=== PATIENT | female | born 1970 | race Caucasian/White ===

== ENCOUNTER → 2017-09-25 21:42 | Outpatient (CLI) | payer MEDICAID, SELFPAY ==
[2016-10-28 14:33] VITALS: BMI 35.2
== END ==
PROVIDERS: Family Provider Family Medicine; PCP Nurse Practitioner Adult Health; Visit Provider Nurse Practitioner Family
DX: G47.10 Hypersomnia, unspecified (principal); R06.83 Snoring; R53.83 Other fatigue
CPT/HCPCS: 95810

== ENCOUNTER 2017-09-27 10:03 | Day surgery (SDC) | payer MEDICAID, SELFPAY ==
[2016-10-28 14:33] VITALS: BMI 35.2
--- NOTE | 2017-09-15 10:41 | RAD_ITS ---
STUDY: X-RAY CHEST REASON FOR EXAM: Female, 47 years old. Pre heart catheter. Cough. TECHNIQUE: PA and lateral views of the chest. COMPARISON: 05/30/2017. FINDINGS: There again is mild elevation of the right hemidiaphragm. There is minimal stranding in the right mid lower lung zone. There is no demonstrated pleural abnormality. Normal size heart. Normal mediastinum and behzad. Normal visualized pulmonary arteries. Normal visualized aortic arch and descending thoracic aorta. There is mild dextroscoliosis. Normal visualized ribs, clavicles, and shoulders. There is no demonstrated abnormality of the visualized soft tissue structures of the upper abdomen. RAD/Chest PA and Lateral IMPRESSION: Minimal atelectatic changes in the right lung zone. Electronically Signed: Jarad Meredith MD at 10:04 EST Tel , Service support ,
[2017-09-15 11:26] LABS: Absolute Lymphocyte Count 1.78 X10^3/ul (0.83-4.51); Absolute Neutrophil Count 3.2 X10^3/uL (2.0-7.7); Basophil# 0.04 X10^3/uL; Basophil% 0.7 % (0-1); Eosinophil# 0.16 X10^3/uL; Eosinophils% 2.8 % (0-5); Hemoglobin 14.8 g/dl (12.0-15.0); Lymphocyte # 1.78 X10^3/ul (4.0); Lymphocyte % 31.7 % (19-41); Mean Corp Hgb Conc 33.6 g/gl (32-36); Mean Corpuscular Hgb 29.5 pg (27.0-32.0); Mean Corpuscular Volume 87.8 fL (81-99); Mean Platelet Vol. 9.5 fl (6.2-12.0); Monocyte# 0.49 X10^3/uL; Monocyte% 8.7 % (0-10); Neutrophil # 3.15 X10^3/uL (2.7-7.7); Neutrophil % 56.1 % (47-70); Platelet Count 189 K/mm3 (150-450); RBC Distribution Width CV 12.5 % (11.6-14.6); RBC Distribution Width SD 39.8 fl (35.1-43.9); Red Blood Count 5.01 M/mm3 (4.2-5.4); White Blood Count 5.6 K/mm3 (4.4-11.0)
[2017-09-15 11:43] LABS: Prothrombin Time (Protime)PT. 12.5 SECONDS (11.7-14.9)
[2017-09-15 11:44] LABS: POSITIVE COUNT NO; POSITIVE DIFFERENTIAL NO; POSITIVE MORPHOLOGY NO; Partial Thromboplast Time 27.3 Seconds (24.1-36.2)
[2017-09-15 11:49] LABS: Anion Gap 6 (5-15); BUN 7 mg/dL (7-18); BUN/Creat Ratio 8.8 RATIO (10-20); Calcium,Total 9.2 mg/dL (8.5-10.1); Chloride 101 mmol/L (98-107); EST Glomerular Filtration Rate 83 mL/min (>60); Est Glom Filt Rate - Afr Amer 100 mL/min (>60); Glucose 363 mg/dL (74-106); Potassium 4.2 mmol/L (3.5-5.1); Sodium Level 134 mmol/L (136-145)
[2017-09-27] VITALS (15 sets, daily range): BP systolic 111–130; BP diastolic 58–73; PULSE 54–64; RESP 11–18; TEMP 36.3–36.6; O2SAT 92–98; BMI 35.2
[2017-09-27 12:16] LABS: ACT Activated Clotting Time 213 sec (74-137)
[2017-09-27] MEDS: 0.9% Normal Saline 1,000 ML 150 ML IV (12:30)
--- NOTE | 2017-09-27 12:39 | EKG12_ITS ---
Test Reason : PCI Blood Pressure : / mmHG Vent. Rate : 053 BPM Atrial Rate : 053 BPM P-R Int : 170 ms QRS Dur : 078 ms QT Int : 436 ms P-R-T Axes : 037 068 045 degrees QTc Int : 409 ms Sinus bradycardia Otherwise normal ECG When compared with ECG of 30-MAY-2017 11:06, No significant change was found Confirmed by RAMONE BURRIS, MEAGHAN ([id number]), image editor NICOL RAMIREZ ([id number]) on 10/02/2017 3:29:09 PM Referred By: Rajinder Heaton Confirmed By:MEAGHAN PACK MD
[2017-09-27 13:13] LABS: Hematocrit 37.6 % (37-47); Hemoglobin 12.5 g/dl (12.0-15.0); Mean Corp Hgb Conc 33.2 g/gl (32-36); Mean Corpuscular Hgb 29.3 pg (27.0-32.0); Mean Corpuscular Volume 88.1 fL (81-99); Mean Platelet Vol. 8.8 fl (6.2-12.0); Platelet Count 186 K/mm3 (150-450); RBC Distribution Width CV 12.5 % (11.6-14.6); RBC Distribution Width SD 40.1 fl (35.1-43.9); Red Blood Count 4.27 M/mm3 (4.2-5.4); White Blood Count 6.7 K/mm3 (4.4-11.0)
[2017-09-27 13:22] LABS: Scan Indicated on CBC? Y/N NO
[2017-09-27 13:35] LABS: BUN 8 mg/dL (7-18); Creatinine, Serum 0.69 mg/dL (0.55-1.02); Estimated Creatinine Clearance 88.91 ml/min; Glucose 286 mg/dL (74-106)
[2017-09-27 13:36] LABS: Anion Gap 4 (5-15); BUN/Creat Ratio 11.6 RATIO (10-20); CPK Total, Creatine Kinase 40 U/L (26-192); Calcium,Total 8.9 mg/dL (8.5-10.1); Chloride 103 mmol/L (98-107); EST Glomerular Filtration Rate 98 mL/min (>60); Est Glom Filt Rate - Afr Amer 118 mL/min (>60); Potassium 4.2 mmol/L (3.5-5.1); Sodium Level 137 mmol/L (136-145)
--- NOTE | 2017-09-27 13:40 | CRPHASE1 ---
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 The patient was non-compliant with enrollment then. Phase II Referral:: [facility] Start Phase II:: upon physician's recommendation Risk Factors/Lifestyle Family History: Family History (Last Reviewed 09/07/17 @ 13:36 by Sandra Toth) Other Patient Adopted
--- NOTE | 2017-09-27 13:44 | CRPHASE1_ITS ---
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 The patient was non-compliant with enrollment then. Phase II Referral:: [facility] Start Phase II:: upon physician's recommendation Risk Factors/Lifestyle Family History: Family History (Last Reviewed 09/07/17 @ 13:36 by Sandra Toth) Other Patient Adopted
--- NOTE | 2017-09-27 13:44 | CRPH1.INSTRU ---
General Education CAD and cardiac anatomy and function:: Patient communicates acknowledgment - A Guide to Your Cardiac Rehab was previously given to patient on 10/28/2016. Education about heart disease and risk factors covered.
[2017-09-27 14:08] LABS: M R Staph aureus DNA By PCR Negative (Negative); Probe Check PASS; Specimen Processing Control PASS
--- NOTE | 2017-09-27 14:34 | CL.I_ITS ---
Patient Name: KALEB HOLBROOK Study Date: 09/27/2017 Performing: Rajinder Heaton MD Ht: 64 inches 163 cm : 1970 Wt: 200.9 lbs 91 kg Age: 47 Gender: female BSA: 1.96 PROCEDURE(S) PERFORMED [id number]/COR/LV SF50-YGX W OR WO PTCA, SINGLE CORONARY ARTERY CLINICAL PROFILE AND CO-MORBIDITIES INDICATIONS: Unstable Angina Stress/Imaging Stress Echocardiogram: Yes Result: Positive Intermediate Risk Stress Echocardiogra m: Positive Intermediate Risk Angina Classification Anginal Classification w/in 2 Weeks: CCS III CAD Presentations: Unstable angina. Comorbidities/Risk Factors: Current/Recent Smoker (< 1year) Hypertension Prior PCI CONCLUSIONS Single vessel CAD of the proximal LCX. Widely patend mid LCX and proximal LAD stents. Successful PTCA/PARVEEN of the proximal LCX with a 3.0 x 16 Promus Synergy, post dilated with a 3.0 x 12 NC Balloon; 75%-->0%, no dissection. RECOMMENDATIONS Referred for immediate PCI Highly recommend quitting all tobacco products Follow up with primary gun club manager Risk factor modification ASA Indefinitley Plavix for at least 12 months Routine post interventional care Refer for Outpatient Cardiac Rehab Manual sheath removal per protocol Successful Mynx deployment in right groin. Follow up with Dr. Heaton Medical management of non obstructive RCA disease. DESCRIPTION OF PROCEDURE The patient arrived to the procedure lab. The risks and benefits of the procedure as well as a full d escription of our services here and lack of surgical backup were fully explained to the patient and/o r their significant other prior to the catheterization. The Timeout was completed, verifying the rajendra ect patient and procedure. The patient's procedural site was prepped and draped in the usual fashion. Local anesthetic was given subcutaneously to right groin region with Lidocaine 2%. Using a modified Seldinger technique, arterial access was obtained via the right femoral artery, a 4Fr sheath was inse rted. Left Coronary Artery selective angiography was performed in multiple views using a 4 Fr. JL5 c atheter. Right Coronary Artery selective angiography was then performed in multiple views using a 4 F r. 3DRC catheter. Left Ventriculography was performed in RECINOS projection using a 4 Fr. Pigtail cathete r. LV to AO pullback pressures were then recordedThe images were reviewed and options discussed. A de cision was then made to proceed with an Intervention, IVUS or other adjunct procedure. Arterial sheath was exchanged for a 6 Fr Sheath EBU 3.75 Guide catheter was inserted and engaged into the LCA. [place] Guide wire was advanced to the Circumflex. 2.0 by 12 emerge Balloon catheter was inserted. Balloon catheter was advanced across lesion in the circumflex, proximal. PTCA balloon infla garrett at 10 atms for 14 secs 3.0 by 16 synergy Drug Eluting stent was inserted Drug Eluting stent was a dvanced across the lesion in the circumflex, proximal. 3.0 by 12 NC Balloon catheter was inserted pos t stent. Angiogram performed right femoral artery to evaluate for closure device.. . The arterial sh eath was pulled and a Mynx closure device was deployed for hemostasis. CORONARY ANGIOGRAPHY DOMINANCE: Co- Dominant LEFT HEART ASSESSMENT Left Ventricular Ejection Fraction: by LV Gram 55 % Normal Left Ventricular systolic function Normal LV wall motion LEFT MAIN: Angiographically normal LEFT ANTERIOR DECENDING ARTERY: Previously placed stent is patent DIAGONAL 1: Ostial - 10 % Stenosis CIRCUMFLEX ARTERY: PROX CIRC: 75 % Stenosis MID CIRC: Previously placed stent is patent 1ST LEFT PLV: Angiographically normal RIGHT CORONARY ARTERY: Mild luminal irregularities less than 30% RT PDA: Proximal - Mild luminal irregularities less than 30% INTERVENTION INFORMATION LESION SITE: Circumflex (Proximal) Lesion Complexity: Non-High/Non-C, lesion at bifurcation: No, lesion length: 16 mm, culprit lesion: Y es Pre Stenosis: 75 % Pre intervention BELKYS flow: 3 PROCEDURE: Drug Eluting Stent with pre and post dilatation Post Stenosis: 0 % Post intervention BELKYS flow: 3 Lesion Devices: Centicetronic 6 Fr EBU3.75 100cm Guide Catheter Romano .014 [employer] [place] Straight 190cm Yonatan Sci EMERGE MR 2.00x12 BALLOON Yonatan Sci Synergy MR PARVEEN 3.00x16 Yonatan Sci NC EMERGE MR 3.00x12 BALLOON COMPLICATIONS No Complications PROCEDURE MEDICATIONS Versed 1 mg IV Oxygen: 2 L/min via nasal cannula Heparin 6000 unit(s) IV 09/27/2017 11:42:58 Nitro 200 mcg IC 09/27/2017 11:45:40 Nitro 200 mcg IC 09/27/2017 11:45:40 IV Bolus: .9 NaCl 300 ml total 09/27/2017 12:06:35 IV Fluids: .9 NaCl increased to wide open ml/hr 09/27/2017 11:43:12 SUMMARY OF HEMODYNAMIC DATA Time AIR REST ECG 10:43:26 AO 137/83 (105) SA 11:35:46 LV 145/-11, 13 11:41:33 LV 153/-13, 16 11:41:39 LVp 146/-15, 14 11:41:44 AOp 141/62 (90) 11:41:49 Signed By Rajinder Heaton MD On 09/27/2017 14:33:47 Rajinder Heaton MD
--- NOTE | 2017-09-27 14:58 | NURSING ---
Took patient home med suboxone to pharmacy. 25 1/4 tablets in bottle, pt and witnessed count.
[2017-09-27] MEDS: BUPRENORPHINE HCL/NALOXONE HCL 1 EACH TAB.SUBL SL (15:13)
[2017-09-27] MEDS: Acetaminophen 325 MG Tablet 650 MG PO ×2 (15:49→20:20)
[2017-09-27 18:06] LABS: Bedside Glucose 271 mg/dL (70-110)
[2017-09-27] MEDS: 0.9% NaCl Peripheral Flush Adult/Peds IV (18:08)
[2017-09-27 18:26] LABS: Hematocrit 40.5 % (37-47); Hemoglobin 13.2 g/dl (12.0-15.0); Mean Corp Hgb Conc 32.6 g/gl (32-36); Mean Corpuscular Hgb 29.1 pg (27.0-32.0); Mean Corpuscular Volume 89.4 fL (81-99); Mean Platelet Vol. 9.3 fl (6.2-12.0); Platelet Count 169 K/mm3 (150-450); RBC Distribution Width CV 12.6 % (11.6-14.6); RBC Distribution Width SD 40.3 fl (35.1-43.9); Red Blood Count 4.53 M/mm3 (4.2-5.4); White Blood Count 7.7 K/mm3 (4.4-11.0)
[2017-09-27 18:27] LABS: Scan Indicated on CBC? Y/N NO
[2017-09-27 18:35] LABS: Anion Gap 3 (5-15); BUN 8 mg/dL (7-18); Calcium,Total 9.1 mg/dL (8.5-10.1); Chloride 105 mmol/L (98-107); Creatinine, Serum 0.73 mg/dL (0.55-1.02); EST Glomerular Filtration Rate 92 mL/min (>60); Est Glom Filt Rate - Afr Amer 111 mL/min (>60); Estimated Creatinine Clearance 84.04 ml/min; Glucose 243 mg/dL (74-106); Potassium 4.7 mmol/L (3.5-5.1); Sodium Level 140 mmol/L (136-145)
[2017-09-27 18:38] LABS: CPK Total, Creatine Kinase 90 U/L (26-192)
[2017-09-27] MEDS: Metoprolol Tartrate 25 MG Tablet 12.5 MG PO (21:20)
[2017-09-27] MEDS: Pravastatin 80 MG Tablet PO (21:21)
[2017-09-27] MEDS: Pantoprazole Sodium 40 MG Tablet PO (21:29)
[2017-09-27 21:36] LABS: Bedside Glucose 277 mg/dL (70-110)
[2017-09-28] VITALS (9 sets, daily range): BP systolic 115–165; BP diastolic 61–91; PULSE 54–61; RESP 10–17; TEMP 36.2–36.8; O2SAT 92–96
[2017-09-28 00:27] LABS: Hematocrit 37.1 % (37-47); Hemoglobin 12.5 g/dl (12.0-15.0); Mean Corp Hgb Conc 33.7 g/gl (32-36); Mean Corpuscular Hgb 29.7 pg (27.0-32.0); Mean Corpuscular Volume 88.1 fL (81-99); Mean Platelet Vol. 8.9 fl (6.2-12.0); Platelet Count 191 K/mm3 (150-450); RBC Distribution Width CV 12.2 % (11.6-14.6); RBC Distribution Width SD 38.7 fl (35.1-43.9); Red Blood Count 4.21 M/mm3 (4.2-5.4); White Blood Count 6.8 K/mm3 (4.4-11.0)
[2017-09-28 00:28] LABS: Scan Indicated on CBC? Y/N NO
[2017-09-28 00:32] LABS: BUN 10 mg/dL (7-18); Glucose 241 mg/dL (74-106)
[2017-09-28 00:33] LABS: Anion Gap 6 (5-15); BUN/Creat Ratio 16.6 RATIO (10-20); Calcium,Total 9.1 mg/dL (8.5-10.1); Chloride 105 mmol/L (98-107); EST Glomerular Filtration Rate 114 mL/min (>60); Est Glom Filt Rate - Afr Amer 138 mL/min (>60); Estimated Creatinine Clearance 102.25 ml/min; Potassium 4.2 mmol/L (3.5-5.1); Sodium Level 140 mmol/L (136-145)
[2017-09-28 00:50] LABS: CPK Total, Creatine Kinase 35 U/L (26-192)
[2017-09-28] MEDS: Acetaminophen 325 MG Tablet 650 MG PO (02:22)
--- NOTE | 2017-09-28 05:55 | EKG12_ITS ---
Test Reason : AM EKG Blood Pressure : / mmHG Vent. Rate : 059 BPM Atrial Rate : 059 BPM P-R Int : 154 ms QRS Dur : 084 ms QT Int : 428 ms P-R-T Axes : 033 052 048 degrees QTc Int : 423 ms Sinus bradycardia Otherwise normal ECG When compared with ECG of 27-SEP-2017 12:34, MANUAL COMPARISON REQUIRED, DATA IS UNCONFIRMED Confirmed by RAMONE BURRIS, MEAGHAN ([id number]), newspaper managing editor NICOL RAMIREZ ([id number]) on 10/02/2017 3:28:59 PM Referred By: Rajinder Heaton Confirmed By:MEAGHAN PACK MD
[2017-09-28 06:10] LABS: Hematocrit 37.8 % (37-47); Hemoglobin 12.4 g/dl (12.0-15.0); Mean Corp Hgb Conc 32.8 g/gl (32-36); Mean Corpuscular Volume 88.3 fL (81-99); Mean Platelet Vol. 8.7 fl (6.2-12.0); Platelet Count 156 K/mm3 (150-450); RBC Distribution Width CV 12.4 % (11.6-14.6); RBC Distribution Width SD 39.6 fl (35.1-43.9); Red Blood Count 4.28 M/mm3 (4.2-5.4)
[2017-09-28 06:25] LABS: Scan Indicated on CBC? Y/N NO
[2017-09-28] MEDS: Aspirin E.C. 81 MG Tablet PO (07:35)
[2017-09-28] MEDS: 0.9% NaCl Peripheral Flush Adult/Peds IV (07:37)
--- NOTE | 2017-09-28 08:20 | PCM.DC.CCA ---
Allergies/Adverse Reactions: Allergies narcotic Adverse Reaction (Severe, Uncoded 09/26/17 08:42) Unknown Medications to take at Discharge Aspirin E.C. [Ecotrin] 81 mg PO DAILY@0800 #30 tab 05/27/14 Fluoxetine HCl 40 mg PO DAILY 10/27/16 Lisinopril/Hydrochlorothiazide [Zestoretic 20-12.5 mg Tablet] 1 ea PO DAILY 10/27/16 Metformin HCl [Glucophage] 500 mg PO BIDCM 10/27/16 Metoprolol Tartrate 12.5 mg PO BID 10/27/16 Nitroglycerin [Nitrostat] 0.4 mg SUBLINGUAL Q5M PRN 10/27/16 Omeprazole 40 mg PO DAILY 10/27/16 Pravastatin Sodium 80 mg PO QHS 10/27/16 Buprenorphine HCl/Naloxone HCl [Suboxone 8 mg-2 mg Sl Film] 8 ea SL DAILY 05/30/17 Clopidogrel Bisulfate [Clopidogrel] 75 mg PO DAILY 05/30/17 Isosorbide Mononitrate [Isosorbide Mononitrate ER] 30 mg PO DAILY 05/30/17 Primary Care Physician: Malu Red NP-C [Primary Care Provider] - Cardiac Rehabilitation Info Cardiac Rehabilitation Program Information: Cardiac Rehabilitation is important for patients like you who are recovering from a heart problem. Cardiac rehabilitation programs are recognized as integral to the continued care of the patient with coronary heart disease. The cardiac rehabilitation program is designed to optimize a patient's physical, psychological, and social functioning. Health home health care provider work in cardiac rehabilitation programs and assist you with getting the treatments you need to get stronger and healthier - like exercise, healthy eating habits, and medications. Cardiac rehabilitation has been show to help people with heart problems live longer and have better life enjoyment than people who do not go to cardiac rehabilitation. Please contact the Cardiac Rehabilitation Program at [facility] at in two weeks if you have not heard from them.
--- NOTE | 2017-09-28 08:30 | PCM.DC.CCA ---
Discharge Diet: Low fat/ Low Cholesterol Discharge Activity: Return to Normal Activity May shower in (days): 1 May resume sexual activity in: 1-2 weeks Lifting Restrictions: Do not lift anything greater than 10 pounds for three days Call your doctor if your incision/area has: Continuous Slow Oozing, Sudden Increased Bleeding, Increased Pain/ Swelling, Increased Redness, Foul Smelling Discharge, Swelling at the incision site Call your doctor if you observe: Fever of 101 or Higher, Shortness of breath, Chest pain Remove Dressing in (days):: 1 Cleanse incision/area with: Soap & Water Additional Instructions: You will remain on Plavix for at least one year. You will remain on Aspirin for life. A reminder, do not lift anything greater than 10 pounds for three days. Please contact our office if you have any concerns regarding your groin. You are scheduled to see Dwight Freitas Nurse Practitioner on November 03, 2017 at 1:30 PM for on going evaluation. You may receive a phone regarding rehab or even start by that time. Allergies/Adverse Reactions: Allergies narcotic Adverse Reaction (Severe, Uncoded 09/26/17 08:42) Unknown Medications to take at Discharge Aspirin E.C. [Ecotrin] 81 mg PO DAILY@0800 #30 tab 05/27/14 Fluoxetine HCl 40 mg PO DAILY 10/27/16 Lisinopril/Hydrochlorothiazide [Zestoretic 20-12.5 mg Tablet] 1 ea PO DAILY 10/27/16 Metformin HCl [Glucophage] 500 mg PO BIDCM 10/27/16 Metoprolol Tartrate 12.5 mg PO BID 10/27/16 Nitroglycerin [Nitrostat] 0.4 mg SUBLINGUAL Q5M PRN 10/27/16 Omeprazole 40 mg PO DAILY 10/27/16 Pravastatin Sodium 80 mg PO QHS 10/27/16 Buprenorphine HCl/Naloxone HCl [Suboxone 8 mg-2 mg Sl Film] 8 ea SL DAILY 05/30/17 Clopidogrel Bisulfate [Clopidogrel] 75 mg PO DAILY 05/30/17 Isosorbide Mononitrate [Isosorbide Mononitrate ER] 30 mg PO DAILY 05/30/17 Primary Care Physician: Malu Red NP-C [Primary Care Provider] - Please Follow Up With: [facility] Nurse Practitioner When: November 03, 2017 at 1:30 PM Proposed Discharge Date: 09/28/17 Cardiac Rehabilitation Info Cardiac Rehabilitation Program Information: Cardiac Rehabilitation is important for patients like you who are recovering from a heart problem. Cardiac rehabilitation programs are recognized as integral to the continued care of the patient with coronary heart disease. The cardiac rehabilitation program is designed to optimize a patient's physical, psychological, and social functioning. Health residential care officer work in cardiac rehabilitation programs and assist you with getting the treatments you need to get stronger and healthier - like exercise, healthy eating habits, and medications. Cardiac rehabilitation has been show to help people with heart problems live longer and have better life enjoyment than people who do not go to cardiac rehabilitation. Please contact the Cardiac Rehabilitation Program at [place] at in two weeks if you have not heard from them.
--- NOTE | 2017-09-28 08:34 | DCINST_ITS ---
Discharge Diet: Low fat/ Low Cholesterol Discharge Activity: Return to Normal Activity May shower in (days): 1 May resume sexual activity in: 1-2 weeks Lifting Restrictions: Do not lift anything greater than 10 pounds for three days Call your doctor if your incision/area has: Continuous Slow Oozing, Sudden Increased Bleeding, Increased Pain/ Swelling, Increased Redness, Foul Smelling Discharge, Swelling at the incision site Call your doctor if you observe: Fever of 101 or Higher, Shortness of breath, Chest pain Remove Dressing in (days):: 1 Cleanse incision/area with: Soap & Water Additional Instructions: You will remain on Plavix for at least one year. You will remain on Aspirin for life. A reminder, do not lift anything greater than 10 pounds for three days. Please contact our office if you have any concerns regarding your groin. You are scheduled to see Dwight Freitas Nurse Practitioner on November 03, 2017 at 1:30 PM for on going evaluation. You may receive a phone regarding rehab or even start by that time. Allergies/Adverse Reactions: Allergies narcotic Adverse Reaction (Severe, Uncoded 09/26/17 08:42) Unknown Medications to take at Discharge Aspirin E.C. [Ecotrin] 81 mg PO DAILY@0800 #30 tab 05/27/14 Fluoxetine HCl 40 mg PO DAILY 10/27/16 Lisinopril/Hydrochlorothiazide [Zestoretic 20-12.5 mg Tablet] 1 ea PO DAILY 01/07 Metformin HCl [Glucophage] 500 mg PO BIDCM 10/27/16 Metoprolol Tartrate 12.5 mg PO BID 10/27/16 Nitroglycerin [Nitrostat] 0.4 mg SUBLINGUAL Q5M PRN 10/27/16 Omeprazole 40 mg PO DAILY 10/27/16 Pravastatin Sodium 80 mg PO QHS 10/27/16 Buprenorphine HCl/Naloxone HCl [Suboxone 8 mg-2 mg Sl Film] 8 ea SL DAILY Clopidogrel Bisulfate [Clopidogrel] 75 mg PO DAILY 05/30/17 Isosorbide Mononitrate [Isosorbide Mononitrate ER] 30 mg PO DAILY 05/30/17 Primary Care Physician: Malu Red NP-C [Primary Care Provider] - Please Follow Up With: [facility] Nurse Practitioner When: November 03, 2017 at 1:30 PM Proposed Discharge Date: 09/28/17 Cardiac Rehabilitation Info Cardiac Rehabilitation Program Information: Cardiac Rehabilitation is important for patients like you who are recovering from a heart problem. Cardiac rehabilitation programs are recognized as integral to the continued care of the patient with coronary heart disease. The cardiac rehabilitation program is designed to optimize a patient's physical, psychological, and social functioning. Health critical care transport nurse work in cardiac rehabilitation programs and assist you with getting the treatments you need to get stronger and healthier - like exercise, healthy eating habits, and medications. Cardiac rehabilitation has been show to help people with heart problems live longer and have better life enjoyment than people who do not go to cardiac rehabilitation. Please contact the Cardiac Rehabilitation Program at [facility] at in two weeks if you have not heard from them.
--- NOTE | 2017-09-28 08:41 | DCINST_ITS ---
Allergies/Adverse Reactions: Allergies narcotic Adverse Reaction (Severe, Uncoded 09/26/17 08:42) Unknown Medications to take at Discharge Aspirin E.C. [Ecotrin] 81 mg PO DAILY@0800 #30 tab 05/27/14 Fluoxetine HCl 40 mg PO DAILY 10/27/16 Lisinopril/Hydrochlorothiazide [Zestoretic 20-12.5 mg Tablet] 1 ea PO DAILY 01/07 Metformin HCl [Glucophage] 500 mg PO BIDCM 10/27/16 Metoprolol Tartrate 12.5 mg PO BID 10/27/16 Nitroglycerin [Nitrostat] 0.4 mg SUBLINGUAL Q5M PRN 10/27/16 Omeprazole 40 mg PO DAILY 10/27/16 Pravastatin Sodium 80 mg PO QHS 10/27/16 Buprenorphine HCl/Naloxone HCl [Suboxone 8 mg-2 mg Sl Film] 8 ea SL DAILY Clopidogrel Bisulfate [Clopidogrel] 75 mg PO DAILY 05/30/17 Isosorbide Mononitrate [Isosorbide Mononitrate ER] 30 mg PO DAILY 05/30/17 Primary Care Physician: Malu Red NP-C [Primary Care Provider] - Cardiac Rehabilitation Info Cardiac Rehabilitation Program Information: Cardiac Rehabilitation is important for patients like you who are recovering from a heart problem. Cardiac rehabilitation programs are recognized as integral to the continued care of the patient with coronary heart disease. The cardiac rehabilitation program is designed to optimize a patient's physical, psychological, and social functioning. Health resident care aid work in cardiac rehabilitation programs and assist you with getting the treatments you need to get stronger and healthier - like exercise, healthy eating habits, and medications. Cardiac rehabilitation has been show to help people with heart problems live longer and have better life enjoyment than people who do not go to cardiac rehabilitation. Please contact the Cardiac Rehabilitation Program at [facility] at in two weeks if you have not heard from them.
--- NOTE | 2017-09-28 09:03 | PCM.PN.CARD ---
Subjectve: Patient doing very well this morning, feels much better after angioplasty. Right groin is clean/dry/intact. No thrills, hematoma or bruits. CKs negative. Hemoglobin and creatinine within nominal limits. EKG shows normal sinus rhythm, no acute changes. Telemetry negative. Objective: Vital Signs Temp Pulse Resp BP Pulse Ox 97.2 F L 55 L 10 L 165/91 H 96 09/28/17 07:00 09/28/17 07:00 09/28/17 07:00 09/28/17 07:00 09/28/17 07:35 Oxygen Delivery Method Room Air Weight: 199 lb 15.348 oz Body Mass Index (BMI) 35.2 Intake and Output for Last 24 Hours 09/26/17 09/27/17 09/28/17 23:59 23:59 23:59 Intake Total 1195 / 1195 785 / 785 Output Total 300 / 300 Balance 1195 / 1195 485 / 485 General: Awake, Alert, Oriented x 3 HEENT: PERRL, EOMI, Sclera Non Icteric Neck: Supple, Good ROM, No Lymph Node Enlargement Lungs: Clear to auscultation Cardiovascular: Regular Rhythm, Normal S1, Normal S2, No Murmurs, No Rubs, No Gallops Vascular: No Carotid Bruits, Normal Femoral Pulses, Normal Radial Pulses, Normal Dorsalis Pedal Pulse, Normal Posterior Tibial Pulses Abdomen: Bowel Sounds Present, Soft, Non Tender, No HSM, No Organomegaly Extremities: No Cyanosis, No Clubbing, No edema Neurological: No Focal Motor or Sensory Deficit 09/27/17 13:00: Sodium 137, Potassium 4.2, Chloride 103, Carbon Dioxide 30.0, Anion Gap 4 L, BUN 8, Creatinine 0.69, Est GFR (MDRD) Af Amer 118, Est GFR (MDRD) Non-Af 98, BUN/Creatinine Ratio 11.6, Glucose 286 H, Calcium 8.9 09/27/17 13:00: WBC 6.7, RBC 4.27, Hgb 12.5, Hct 37.6, MCV 88.1, MCH 29.3, MCHC 33.2, RDW 12.5, RDW Differential 40.1, Plt Count 186, MPV 8.8 09/27/17 17:55: Sodium 140, Potassium 4.7, Chloride 105, Carbon Dioxide 32.0, Anion Gap 3 L, BUN 8, Creatinine 0.73, Est GFR (MDRD) Af Amer 111, Est GFR (MDRD) Non-Af 92, BUN/Creatinine Ratio 11.0, Glucose 243 H, Calcium 9.1 09/27/17 17:55: WBC 7.7, RBC 4.53, Hgb 13.2, Hct 40.5, MCV 89.4, MCH 29.1, MCHC 32.6, RDW 12.6, RDW Differential 40.3, Plt Count 169, MPV 9.3 09/28/17 00:00: Sodium 140, Potassium 4.2, Chloride 105, Carbon Dioxide 29.0, Anion Gap 6, BUN 10, Creatinine 0.60, Est GFR (MDRD) Af Amer 138, Est GFR (MDRD) Non-Af 114, BUN/Creatinine Ratio 16.6, Glucose 241 H, Calcium 9.1 09/28/17 00:00: WBC 6.8, RBC 4.21, Hgb 12.5, Hct 37.1, MCV 88.1, MCH 29.7, MCHC 33.7, RDW 12.2, RDW Differential 38.7, Plt Count 191, MPV 8.9 09/28/17 05:55: WBC 6.0, RBC 4.28, Hgb 12.4, Hct 37.8, MCV 88.3, MCH 29.0, MCHC 32.8, RDW 12.4, RDW Differential 39.6, Plt Count 156, MPV 8.7 Rhythm: EKG: ECHO: Stress Test: Cardiac Cath: PCI: CT Surgery: Holter monitor: EPS: PPM: CXR: Chest CT Scan: Assessment/Plan 1. Coronary artery disease: The patient is status post angioplasty and drug-eluting stent to the proximal left circumflex, LAD stents are widely patent. Previously balloon small obtuse marginal has occluded since her last catheterization in May 2017. This point I recommend continuing the patient on baby aspirin for life and Plavix for at least one years time if not longer given her predilection for progression of coronary disease particularly if she continues to smoke. Patient will be enrolled in cardiac rehab will take place in 2 weeks time. She will follow-up with us in the office per protocol. In the meantime she will continue her metoprolol, lisinopril, and Imdur. We will titrate up her lisinopril to maximum dosage of her blood pressures not well controlled either prior to or during cardiac rehab. 2. Hyperlipidemia: Continue Pravachol therapy. 3. Patient may be discharged home. She will follow-up with me going forward. Code Visit Inpatient E&M: 08812 Subs Hosp L2
--- NOTE | 2017-09-28 09:06 | PN.CARD_ITS ---
Subjectve: Patient doing very well this morning, feels much better after angioplasty. Right groin is clean/dry/intact. No thrills, hematoma or bruits. CKs negative. Hemoglobin and creatinine within nominal limits. EKG shows normal sinus rhythm, no acute changes. Telemetry negative. Objective: Vital Signs Temp Pulse Resp BP Pulse Ox 97.2 F L 55 L 10 L 165/91 H 96 09/28/17 07:00 09/28/17 07:00 09/28/17 07:00 09/28/17 07:00 09/28/17 07:35 Oxygen Delivery Method Room Air Weight: 199 lb 15.348 oz Body Mass Index (BMI) 35.2 Intake and Output for Last 24 Hours 09/26/17 09/27/17 09/28/17 23:59 23:59 23:59 Intake Total 1195 / 1195 785 / 785 Output Total 300 / 300 Balance 1195 / 1195 485 / 485 General: Awake, Alert, Oriented x 3 HEENT: PERRL, EOMI, Sclera Non Icteric Neck: Supple, Good ROM, No Lymph Node Enlargement Lungs: Clear to auscultation Cardiovascular: Regular Rhythm, Normal S1, Normal S2, No Murmurs, No Rubs, No Gallops Vascular: No Carotid Bruits, Normal Femoral Pulses, Normal Radial Pulses, Normal Dorsalis Pedal Pulse, Normal Posterior Tibial Pulses Abdomen: Bowel Sounds Present, Soft, Non Tender, No HSM, No Organomegaly Extremities: No Cyanosis, No Clubbing, No edema Neurological: No Focal Motor or Sensory Deficit 09/27/17 13:00: Sodium 137, Potassium 4.2, Chloride 103, Carbon Dioxide 30.0, Anion Gap 4 L, BUN 8, Creatinine 0.69, Est GFR (MDRD) Af Amer 118, Est GFR (MDRD ) Non-Af 98, BUN/Creatinine Ratio 11.6, Glucose 286 H, Calcium 8.9 09/27/17 13:00: WBC 6.7, RBC 4.27, Hgb 12.5, Hct 37.6, MCV 88.1, MCH 29.3, MCHC 33.2, RDW 12.5, RDW Differential 40.1, Plt Count 186, MPV 8.8 09/27/17 17:55: Sodium 140, Potassium 4.7, Chloride 105, Carbon Dioxide 32.0, Anion Gap 3 L, BUN 8, Creatinine 0.73, Est GFR (MDRD) Af Amer 111, Est GFR (MDRD ) Non-Af 92, BUN/Creatinine Ratio 11.0, Glucose 243 H, Calcium 9.1 09/27/17 17:55: WBC 7.7, RBC 4.53, Hgb 13.2, Hct 40.5, MCV 89.4, MCH 29.1, MCHC 32.6, RDW 12.6, RDW Differential 40.3, Plt Count 169, MPV 9.3 09/28/17 00:00: Sodium 140, Potassium 4.2, Chloride 105, Carbon Dioxide 29.0, Anion Gap 6, BUN 10, Creatinine 0.60, Est GFR (MDRD) Af Amer 138, Est GFR (MDRD ) Non-Af 114, BUN/Creatinine Ratio 16.6, Glucose 241 H, Calcium 9.1 09/28/17 00:00: WBC 6.8, RBC 4.21, Hgb 12.5, Hct 37.1, MCV 88.1, MCH 29.7, MCHC 33.7, RDW 12.2, RDW Differential 38.7, Plt Count 191, MPV 8.9 09/28/17 05:55: WBC 6.0, RBC 4.28, Hgb 12.4, Hct 37.8, MCV 88.3, MCH 29.0, MCHC 32.8, RDW 12.4, RDW Differential 39.6, Plt Count 156, MPV 8.7 Rhythm: EKG: ECHO: Stress Test: Cardiac Cath: PCI: CT Surgery: Holter monitor: EPS: PPM: CXR: Chest CT Scan: Assessment/Plan 1. Coronary artery disease: The patient is status post angioplasty and drug- eluting stent to the proximal left circumflex, LAD stents are widely patent. Previously balloon small obtuse marginal has occluded since her last catheterization in May 2017. This point I recommend continuing the patient on baby aspirin for life and Plavix for at least one years time if not longer given her predilection for progression of coronary disease particularly if she continues to smoke. Patient will be enrolled in cardiac rehab will take place in 2 weeks time. She will follow-up with us in the office per protocol. In the meantime she will continue her metoprolol, lisinopril, and Imdur. We will titrate up her lisinopril to maximum dosage of her blood pressures not well controlled either prior to or during cardiac rehab. 2. Hyperlipidemia: Continue Pravachol therapy. 3. Patient may be discharged home. She will follow-up with me going forward. Code Visit Inpatient E&M: 57770 Subs Hosp L2
[2017-09-28 09:36] LABS: Bedside Glucose 214 mg/dL (70-110)
--- NOTE | 2017-09-28 09:36 | NURSING ---
stent card given to pt at discharge
== END 2017-09-28 09:47 | disposition home or self-care (01) ==
LOC: CLSP 10:04 → ICU 12:00
PROVIDERS: Family Provider Family Medicine; PCP Nurse Practitioner Adult Health; Visit Provider Internal Medicine Cardiovascular Disease
DX: I25.10 Atherosclerotic heart disease of native coronary artery without angina pectoris (principal); E11.9 Type 2 diabetes mellitus without complications; I25.2 Old myocardial infarction; E78.2 Mixed hyperlipidemia; I10 Essential (primary) hypertension; G47.10 Hypersomnia, unspecified; F32.9 Major depressive disorder, single episode, unspecified; K21.9 Gastro-esophageal reflux disease without esophagitis; F19.21 Other psychoactive substance dependence, in remission; M79.604 Pain in right leg; M79.605 Pain in left leg; R06.83 Snoring; E66.9 Obesity, unspecified; Z68.35 Body mass index [BMI] 35.0-35.9, adult; F17.210 Nicotine dependence, cigarettes, uncomplicated; Z95.5 Presence of coronary angioplasty implant and graft; Z90.49 Acquired absence of other specified parts of digestive tract; Z90.710 Acquired absence of both cervix and uterus; Z79.82 Long term (current) use of aspirin; Z79.84 Long term (current) use of oral hypoglycemic drugs; Z79.899 Other long term (current) drug therapy
CPT/HCPCS: 36415; 80048; 82550; 82962; 85025; 85027; 85347; 85610; 85730; 87641; 92928; 93005; 93458; 99152; 99153; C1760; J7030; J7040; A4216; C1725; C1769; C1874; C1887; C1894; C9600; Q9967

== ENCOUNTER → 2017-10-18 20:12 | Outpatient (CLI) | payer MEDICAID, SELFPAY ==
[2016-10-28 14:33] VITALS: BMI 35.2
== END ==
PROVIDERS: Family Provider Family Medicine; PCP Physician Assistant; Visit Provider Internal Medicine Cardiovascular Disease
DX: G47.33 Obstructive sleep apnea (adult) (pediatric) (principal)
CPT/HCPCS: 95811

== ENCOUNTER 2018-03-08 14:01 | Observation (INO) | payer MEDICAID, SELFPAY ==
[2016-10-28 14:33] VITALS: BMI 35.2
[2018-03-08 14:05] VITALS: BP 159/102; PULSE 98; RESP 20; TEMP 36.6; O2SAT 96; BMI 34.3
[2018-03-08 14:08] VITALS: BP 131/77; PULSE 96; RESP 15; O2SAT 97
[2018-03-08 14:13] VITALS: O2SAT 98
--- NOTE | 2018-03-08 14:22 | NURSING ---
UNABLE TO PULL OLD EKGS, MUSE IS DOWN
[2018-03-08 14:25] LABS: Absolute Lymphocyte Count 3.61 X10^3/ul (0.83-4.51); Absolute Neutrophil Count 3.6 X10^3/uL (2.0-7.7); Basophil# 0.02 X10^3/uL; Basophil% 0.3 % (0-1); Eosinophil# 0.19 X10^3/uL; Eosinophils% 2.4 % (0-5); Hematocrit 41.4 % (37-47); Hemoglobin 14.6 g/dl (12.0-15.0); Lymphocyte # 3.61 X10^3/ul (4.0); Lymphocyte % 45.9 % (19-41); Mean Corp Hgb Conc 35.3 g/gl (32-36); Mean Corpuscular Hgb 29.9 pg (27.0-32.0); Mean Corpuscular Volume 84.7 fL (81-99); Mean Platelet Vol. 9.1 fl (6.2-12.0); Monocyte# 0.44 X10^3/uL; Monocyte% 5.6 % (0-10); Neutrophil # 3.59 X10^3/uL (2.7-7.7); Neutrophil % 45.7 % (47-70); Platelet Count 220 K/mm3 (150-450); RBC Distribution Width CV 12.7 % (11.6-14.6); RBC Distribution Width SD 38.8 fl (35.1-43.9); Red Blood Count 4.89 M/mm3 (4.2-5.4); White Blood Count 7.9 K/mm3 (4.4-11.0)
[2018-03-08 14:26] LABS: POSITIVE COUNT NO; POSITIVE DIFFERENTIAL NO; POSITIVE MORPHOLOGY NO
--- NOTE | 2018-03-08 14:28 | ED.VISSUMM ---
- ER Visit Summary Date of Service: 03/08/18 Chief Complaint: [] Chest pressure into the left shoulder for 3 days History of Present Illness: The patient is a 47 F [] for cardiac stent she is followed by Dr. Heaton she has diabetes she states for the last 3 days she has had chest pressure and her left shoulder at times indicates the pain is a sharp zapping pain, she has had no fever no cough no abdominal pain no paresthesias, she continues to smoke much she has been taking all of her medications Physical Examination: [] She is resting comfortably in the bed her vital signs are unremarkable head neck chest unremarkable lungs clear abdomen soft nontender her's pulses symmetric bilaterally planes of vague pain to the left calf the calf and the leg exam are unremarkable no signs of DVT normal pulses normal movement, She has no history of DVT no symptoms in the right leg neurologically she is awake alert moving all 4 Test Results: [] Emergency Department Course and Treatment: [] And her complaints and her prior history EKG labs chest x-ray, EKG shows a sinus rhythm nothing acute The patient's labs troponin chest x-ray per radiology are all generally unremarkable see those reports she remains asymptomatic, given her history we spoke the hospitalist will arrange for admission for further management Treatment Plan: [] Disposition: [] Stable stable admit Impression: [] Chest pain angina history of cardiac stents This note was generated with [employer] dictation software. It may contain incorrect words, spelling, and punctuation that were not noted in review of the chart prior to signing ED Disposition - Plan for ED Patient: Chief Complaint: Chest Pain
[2018-03-08] MEDS: Aspirin 81 MG TAB.CHEW 324 MG PO (14:34)
[2018-03-08] MEDS: 0.9% Normal Saline 1,000 ML 150 ML IV (14:34)
[2018-03-08 14:55] LABS: Anion Gap 11 (5-15); BUN 8 mg/dL (7-18); BUN/Creat Ratio 7.2 RATIO (10-20); Calcium,Total 10.7 mg/dL (8.5-10.1); Chloride 97 mmol/L (98-107); Creatinine, Serum 1.11 mg/dL (0.55-1.02); EST Glomerular Filtration Rate 56 mL/min (>60); Est Glom Filt Rate - Afr Amer 68 mL/min (>60); Estimated Creatinine Clearance 55.27 ml/min; Glucose 395 mg/dL (74-106); Potassium 4.2 mmol/L (3.5-5.1); Sodium Level 137 mmol/L (136-145)
--- NOTE | 2018-03-08 15:25 | NURSING ---
DR CORONADO FOR DR ROSS
--- NOTE | 2018-03-08 15:30 | NURSING ---
PCU OBS MARINA CORONADO
[2018-03-08 15:34] VITALS: PULSE 81; RESP 14; O2SAT 96
--- NOTE | 2018-03-08 15:51 | NURSING ---
Robert notified patient may transfer to PCU.
--- NOTE | 2018-03-08 15:59 | PCM.HP.STD ---
<Alka Colon - Last Filed: 03/08/18 16:42> Problem List (1) Encounter for long-term current use of high risk medication Status: Chronic (2) Tobacco abuse Status: Chronic (3) UNDERWOOD (dyspnea on exertion) Status: Chronic (4) JOSH (obstructive sleep apnea) Status: Chronic (5) Atherosclerotic heart disease [place] coronary artery w/angina pectoris Status: Chronic (6) Obesity (BMI 30.0-34.9) Status: Chronic (7) History of coronary artery stent placement Status: Resolved Comment: PARVEEN-MID Cx 10/17/16 [facility] PCI-PARVEEN-LAD w/ POBA Ostial OM1 10/28/16 09/27/17 (8) Type 2 diabetes mellitus without complications Status: Chronic (9) Old myocardial infarction Status: Chronic (10) Atherosclerosis of coronary artery of [place] heart without angina pectoris Status: Chronic Comment: PARVEEN-MID Cx 10/17/16 [facility] PCI-PARVEEN-LAD w/ POBA Ostial OM1 10/28/16 (11) Hyperlipidemia Status: Chronic (12) Obesity (BMI 30.0-34.9) Status: Chronic (13) Hypertension Status: Chronic History of Present Illness Date of Admission: 03/08/18 Chief Complaint: Left leg cramping, chest pain. The patient is a 47 year old F who presents to the ER with 3 days of intermittent chest pain and 2 days of left calf cramping. She states her left leg pain was the primary reason for presenting to the emergency room. She denies redness, warmth or injury to the left lower extremity. She states it feels like an intermittent charley horse in the left calf area. She occasionally has shooting pain to her left foot. Patient also states she has had intermittent chest discomfort which lasts only a few seconds and is sharp in nature and radiates to her left shoulder. She describes the pain as an electrical sensation. She denies symptoms associated with the chest pain. She does state she has had increased dyspnea on exertion. She also notes she has been smoking more than normal lately. Patient states she has not been taking her diabetic medications. She follows Dr. Heaton routinely for history of CAD with PCI. She states she has had 4 stents placed in the past. She also follows with pulmonary medicine, Dr. De La Paz for obstructive sleep apnea. Patient continues to use tobacco and states she smokes approximately 2 packs per day. Her other past medical history includes hypertension, hyperlipidemia, history of polysubstance abuse on chronic Suboxone therapy, depression, obesity, GERD. Past Medical History Past Medical History (Chronic Problems): Chronic Problems (Last Reviewed 03/01/18 @ 08:45 by Magaly Lin ENGINEER CHIEF-C) Encounter for long-term current use of high risk medication (Chronic) Tobacco abuse (Chronic) UNDERWOOD (dyspnea on exertion) (Chronic) JOSH (obstructive sleep apnea) (Chronic) Atherosclerotic heart disease [place] coronary artery w/angina pectoris (Chronic) Obesity (BMI 30.0-34.9) (Chronic) Type 2 diabetes mellitus without complications (Chronic) Old myocardial infarction (Chronic) Atherosclerosis of coronary artery of [place] heart without angina pectoris (Chronic) PARVEEN-MID Cx 10/17/16 [facility] PCI-PARVEEN-LAD w/ POBA Ostial OM1 10/28/16 Hyperlipidemia (Chronic) Obesity (BMI 30.0-34.9) (Chronic) Hypertension (Chronic) Medical History: Medical History (Last Reviewed 03/01/18 @ 08:45 by Magaly Lin, ENGINEER CHIEF-C) Atherosclerotic heart disease [place] coronary artery w/angina pectoris (Chronic) I25.119 Obesity (BMI 30.0-34.9) (Chronic) E66.9 Type 2 diabetes mellitus without complications (Chronic) E11.9 Old myocardial infarction (Chronic) I25.2 Atherosclerosis of coronary artery of [place] heart without angina pectoris (Chronic) I25.10 PARVEEN-MID Cx 10/17/16 [facility] PCI-PARVEEN-LAD w/ POBA Ostial OM1 10/28/16 Hyperlipidemia (Chronic) E78.5 Obesity (BMI 30.0-34.9) (Chronic) E66.9 Hypertension (Chronic) I10 Cervical cancer C53.9 Sleep apnea G47.30 Daytime somnolence R40.0 Depression F32.9 GERD (gastroesophageal reflux disease) K21.9 polysubstance dependence in remission Syncope and collapse R55 Allergies narcotic Adverse Reaction (Severe, Uncoded 10/09/17 09:11) Other - can not take- on Suboxone Home Medications: Ambulatory Orders Medication Instructions Recorded Fluoxetine HCl 40 mg PO QHS 10/27/16 Metoprolol Tartrate 12.5 mg PO BID 10/27/16 Nitroglycerin [Nitrostat] 0.4 mg SUBLINGUAL Q5M PRN 10/27/16 Omeprazole 40 mg PO DAILY 10/27/16 Buprenorphine HCl/Naloxone HCl 0.5 tab SL BID 05/30/17 [Suboxone 8 mg-2 mg Sl Film] metformin 500 mg tablet 1,000 mg PO BIDCM tab 10/09/17 isosorbide mononitrate ER 30 mg 30 mg PO DAILY #90 tab 01/04/18 tablet,extended release 24 hr Aspirin E.C. [Ecotrin] 81 mg PO DAILY@0800 03/08/18 Atorvastatin Calcium [Lipitor] 40 mg PO DAILY 03/08/18 Clopidogrel Bisulfate [Clopidogrel] 75 mg PO DAILY 03/08/18 Liraglutide [Victoza 2-Jacky] 0.6 mg SQ DAILY 03/08/18 Lisinopril/Hydrochlorothiazide 1 each PO DAILY 03/08/18 [Zestoretic 20-12.5 mg Tablet] Surgical History: Surgical History (Last Reviewed 03/08/18 @ 16:17 by MARIELOS Arroyo) History of coronary artery stent placement (Resolved) Onset Date: ~10/28/16 Z95.5 PARVEEN-MID Cx 10/17/16 [facility] PCI-PARVEEN-LAD w/ POBA Ostial OM1 10/28/16 09/27/17 Blood Clot removal 09/2006, right arm Endometriosis surgery 11/2007 & 11/2008 H/O breast augmentation Z98.82 04/1996, reduction H/O section Z98.891 10/09/91 & 05/09/99 H/O exploratory laparotomy Z98.890 H/O tooth extraction K08.409 Top teeth 07/2017; bottom 09/2017 History of hysterectomy Z98.890, Z90.710 05/2003 History of right knee surgery Z98.890 03/2002 & 01/2009 Hx of cholecystectomy Z98.890, Z90.49 12/2001 S/P D&C (status post dilation and curettage) Z98.890 02/1996 (miscarriage) Surgical History: - - R knee arthroscopic surgery x 3, x 3, BL breast reduction, cholecystectomy, D+C, surgical tooth extraction. 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 Smoking Status: Current every day smoker Tobacco Use: Cigarettes - 2 pack per day Alcohol: None Drugs: None - *Family History Maternal Family History: Family History (Last Reviewed 03/08/18 @ 16:18 by MARIELOS Arroyo) Father Diabetes Heart disease [place] disease Alcohol abuse Cancer Mother Depression Addiction Heart disease Myocardial infarction CVA (cerebral vascular accident) Diabetes Parkinson disease Dementia Other Patient Adopted History Items: No pertinent history Paternal Family History: Family History (Last Reviewed 03/08/18 @ 16:18 by MARIELOS Arroyo) Father Diabetes Heart disease [place] disease Alcohol abuse Cancer Mother Depression Addiction Heart disease Myocardial infarction CVA (cerebral vascular accident) Diabetes Parkinson disease Dementia Other Patient Adopted History Items: No pertinent history Review of Systems Constitutional: Denies: Chills, Fever, Weight Change HEENT: Denies: Head Aches, Sinus Congestion, Sinus Drainage Cardiovascular: Reports: Chest Pain. Denies: Edema, Light Headedness, Palpitations, Syncope Respiratory: Reports: Shortness of Breath. Denies: Cough Gastrointestinal: Denies: Abdominal Pain, Diarrhea, Nausea, Vomiting Genitourinary: Denies: Dysuria Musculoskeletal: Denies: Joint Pain, Joint Tenderness Skin: Denies: Rash, Wounds Neurological: Denies: Numbness, Tingling, Focal weakness Psychiatric: Reports: Depression Hematologic/ Lymphatic: Denies: Easy Bruising, Easy Bleeding VTE Information - Inpt Only VTE Present on Admission: No VTE Mechan Device Prophylaxis: None VTE Pharm Prophylaxis ordered?: Yes - Physical Exam General: Alert, Oriented x3, Cooperative, No apparent distress HEENT: Atraumatic, PERRLA, EOMI, Normocephalic Neck: Supple, No JVD, Negative Carotid Bruits Lungs: Clear to auscultation, Diminished Cardiovascular: Regular rate, Regular Rhythm, Normal S1, Normal S2, No murmurs Abdomen: Bowel Sounds Present, Soft, Non Tender, Non-Distended, Obese Extremities: No clubbing, No cyanosis, No edema, Capillary Refill Less than 3 Seconds Skin: No rashes, No breakdown Musculoskeletal: No Tenderness to Palpation of Joints or Extremities Neurological: Cranial nerves II-XII grossly intact, Neuro grossly intact Psych/Mental Status: Normal Affect, Appropriate Vital Signs Temp Pulse Resp BP Pulse Ox 97.9 F 81 14 131/77 H 96 03/08/18 14:05 03/08/18 15:34 03/08/18 15:34 03/08/18 14:08 03/08/18 15:34 Oxygen Delivery Method Room Air Assessment/Plan All Active Problems (Last Reviewed 03/08/18 @ 16:17 by MARIELOS Arroyo) History of coronary artery stent placement (Resolved ~10/28/16) 1. Chest pain-EKG without ST-T changes. Troponin negative ?1. Cycle enzymes. Stress test in a.m. if enzymes remain negative. 2. Left calf pain/cramping- US negative for DVT. Check mg. 3. Suspected acute kidney injury-baseline creat 0.6-0.7. Creatinine admission 1.1. IV fluids. Trend BMP. Suspect secondary to lisinopril/HCTZ regimen. 4. CAD status post PCI-most recently 09/27/[address] Heaton with PTCA/PARVEEN of the proximal LCx. Mid LCx and proximal LAD stents were noted to be patent at that time. Continue aspirin, Plavix, statin, metoprolol, Imdur. 5. Hypertension-mildly elevated on admission. Continue home isosorbide, metoprolol regimen. Lisinopril/HCTZ on hold secondary to #3. Hydralazine as needed for systolic greater than 160. 6. Hyperlipidemia-continue statin. Check fasting lipid panel in a.m. 7. Type 2 diabetes mellitus-states she has not been taking her prescribed medication. Accu-Cheks before meals at bedtime with sliding scale insulin. Hold home oral regimen. 8. Obstructive sleep apnea-continue sleep apnea nightly. 9. Ongoing dyspnea on exertion-undergoing evaluation by pulmonary medicine. Has upcoming PFTs and [address] Follow[address] with Dr. De La Paz/Magaly Lin. Continue outpatient follow-up. 10. Tobacco dependence-2 pack per day smoker. Encourage smoking cessation. Nicotine replacement patch. 11. History of polysubstance abuse-on Suboxone therapy. 12. Depression-continue home fluoxetine regimen. 13. GERD-continue PPI. 14. Obesity-encourage diet and lifestyle modifications. Nutrition consult. DVT prophylaxis-Lovenox subcu. This patient was seen by MARIELOS Arroyo under the supervision of Dr. Nava. <Nikolas Nava - Last Filed: 03/08/18 16:55> History of Present Illness The patient came to ER with 3 days of intermittent chest pain with no relation to exertion, diet but she has shortness of breath which gets worse with exertion. Chest pain radiates to left neck. She also complained of left leg cramping. History of coronary artery disease status post 4 stents, last one in September 2017, as mentioned above [] Past Medical History Medical History: Medical History (Last Reviewed 03/01/18 @ 08:45 by Magaly Lin NP-C) Atherosclerotic heart disease [place] coronary artery w/angina pectoris (Chronic) I25.119 Obesity (BMI 30.0-34.9) (Chronic) E66.9 Type 2 diabetes mellitus without complications (Chronic) E11.9 Old myocardial infarction (Chronic) I25.2 Atherosclerosis of coronary artery of [place] heart without angina pectoris (Chronic) I25.10 PARVEEN-MID Cx 10/17/16 [facility] PCI-PARVEEN-LAD w/ POBA Ostial OM1 10/28/16 Hyperlipidemia (Chronic) E78.5 Obesity (BMI 30.0-34.9) (Chronic) E66.9 Hypertension (Chronic) I10 Cervical cancer C53.9 Sleep apnea G47.30 Daytime somnolence R40.0 Depression F32.9 GERD (gastroesophageal reflux disease) K21.9 polysubstance dependence in remission Syncope and collapse R55 Allergies narcotic Adverse Reaction (Severe, Uncoded 10/09/17 09:11) Other - can not take- on Suboxone Surgical History: Surgical History (Last Reviewed 03/08/18 @ 16:17 by MARIELOS Arroyo) History of coronary artery stent placement (Resolved) Onset Date: ~10/28/16 Z95.5 PARVEEN-MID Cx 10/17/16 [facility] PCI-PARVEEN-LAD w/ POBA Ostial OM1 10/28/16 09/27/17 Blood Clot removal 09/2006, right arm Endometriosis surgery 11/2007 & 11/2008 H/O breast augmentation Z98.82 04/1996, reduction H/O section Z98.891 10/09/91 & 05/09/99 H/O exploratory laparotomy Z98.890 H/O tooth extraction K08.409 Top teeth 07/2017; bottom 09/2017 History of hysterectomy Z98.890, Z90.710 05/2003 History of right knee surgery Z98.890 03/2002 & 01/2009 Hx of cholecystectomy Z98.890, Z90.49 12/2001 S/P D&C (status post dilation and curettage) Z98.890 02/1996 (miscarriage) - *Family History Maternal Family History: Family History (Last Reviewed 03/08/18 @ 16:18 by MARIELOS Arroyo) Father Diabetes Heart disease [place] disease Alcohol abuse Cancer Mother Depression Addiction Heart disease Myocardial infarction CVA (cerebral vascular accident) Diabetes Parkinson disease Dementia Other Patient Adopted Paternal Family History: Family History (Last Reviewed 03/08/18 @ 16:18 by MARIELOS Arroyo) Father Diabetes Heart disease [place] disease Alcohol abuse Cancer Mother Depression Addiction Heart disease Myocardial infarction CVA (cerebral vascular accident) Diabetes Parkinson disease Dementia Other Patient Adopted - Physical Exam General: Alert, Oriented x3, Cooperative, No apparent distress HEENT: Atraumatic, PERRLA, EOMI, Normocephalic Neck: Supple, No JVD, Negative Carotid Bruits Lungs: Clear to auscultation, Normal air movement, Diminished Cardiovascular: Regular rate, Regular Rhythm, Normal S1, Normal S2, No murmurs Abdomen: Bowel Sounds Present, Soft, Non Tender Extremities: No edema, Capillary Refill Less than 3 Seconds Skin: No rashes, No breakdown Musculoskeletal: No Tenderness to Palpation of Joints or Extremities, Arthritic Changes Neurological: Cranial nerves II-XII grossly intact Psych/Mental Status: Normal Affect, Appropriate Vital Signs Temp Pulse Resp BP Pulse Ox 98.0 F 82 16 108/74 95 03/08/18 16:15 03/08/18 16:15 03/08/18 16:15 03/08/18 16:15 03/08/18 16:15 Oxygen Delivery Method Room Air Weight: 196 lb 10.437 oz Body Mass Index (BMI) 33.7 Assessment/Plan This patient was seen in conjunction with Alka CASTAÑEDA. I have independently interviewed and examined the patient and reviewed pertinent history, examination findings, laboratory and plan of management. I have reviewed the note and agree with the documented findings with the few additional points. In brief, patient is admitted for chest pain with radiation to neck with suspicion of unstable angina. EKG shows sinus bradycardia 59 beats per minute. On ACS protocol. Cycle cardiac enzymes and nuclear stress test tomorrow a.m. I have discussed my assessment with Alka CASTAÑEDA and orders have been reviewed. Laboratory Results 03/08/18 14:15: WBC 7.9, RBC 4.89, Hgb 14.6, Hct 41.4, MCV 84.7, MCH 29.9, MCHC 35.3, RDW 12.7, RDW Differential 38.8, Plt Count 220, MPV 9.1, Immature Gran % (Auto) 0.100, Neut % (Auto) 45.7 L, Lymph % (Auto) 45.9 H, [place] % (Auto) 5.6, Eos % (Auto) 2.4, Baso % (Auto) 0.3, Absolute Neuts (auto) 3.6, Absolute Lymphs (auto) 3.61, Total Counted Not Reportable 03/08/18 14:15: Sodium 137, Potassium 4.2, Chloride 97 L, Carbon Dioxide 29.0, Anion Gap 11, BUN 8, Creatinine 1.11 H, Estim Creat Clear Calc 55.27, Est GFR (MDRD) Af Amer 68, Est GFR (MDRD) Non-Af 56 L, BUN/Creatinine Ratio 7.2 L, Glucose 395 H, Calcium 10.7 H, Troponin I < 0.015 03/08/18 14:15: Hemoglobin A1c Pending Code Visit OBSV E&M: [id number] Initial observation care L3
--- NOTE | 2018-03-08 16:07 | HP.PCM_ITS ---
<Alka Colon - Last Filed: 03/08/18 16:42> Problem List (1) Encounter for long-term current use of high risk medication Status: Chronic (2) Tobacco abuse Status: Chronic (3) UNDERWOOD (dyspnea on exertion) Status: Chronic (4) JOSH (obstructive sleep apnea) Status: Chronic (5) Atherosclerotic heart disease [place] coronary artery w/angina pectoris Status: Chronic (6) Obesity (BMI 30.0-34.9) Status: Chronic (7) History of coronary artery stent placement Status: Resolved Comment: PARVEEN-MID Cx 10/17/16 [facility] PCI-PARVEEN-LAD w/ POBA Ostial OM1 10/28/16 09/27/17 (8) Type 2 diabetes mellitus without complications Status: Chronic (9) Old myocardial infarction Status: Chronic (10) Atherosclerosis of coronary artery of [place] heart without angina pectoris Status: Chronic Comment: PARVEEN-MID Cx 10/17/16 [facility] PCI-PARVEEN-LAD w/ POBA Ostial OM1 10/28/16 (11) Hyperlipidemia Status: Chronic (12) Obesity (BMI 30.0-34.9) Status: Chronic (13) Hypertension Status: Chronic History of Present Illness Date of Admission: 03/08/18 Chief Complaint: Left leg cramping, chest pain. The patient is a 47 year old F who presents to the ER with 3 days of intermittent chest pain and 2 days of left calf cramping. She states her left leg pain was the primary reason for presenting to the emergency room. She denies redness, warmth or injury to the left lower extremity. She states it feels like an intermittent charley horse in the left calf area. She occasionally has shooting pain to her left foot. Patient also states she has had intermittent chest discomfort which lasts only a few seconds and is sharp in nature and radiates to her left shoulder. She describes the pain as an electrical sensation. She denies symptoms associated with the chest pain. She does state she has had increased dyspnea on exertion. She also notes she has been smoking more than normal lately. Patient states she has not been taking her diabetic medications. She follows Dr. Heaton routinely for history of CAD with PCI. She states she has had 4 stents placed in the past. She also follows with pulmonary medicine, Dr. De La Paz for obstructive sleep apnea. Patient continues to use tobacco and states she smokes approximately 2 packs per day. Her other past medical history includes hypertension, hyperlipidemia, history of polysubstance abuse on chronic Suboxone therapy, depression, obesity , GERD. Past Medical History Past Medical History (Chronic Problems): Chronic Problems (Last Reviewed 03/01/18 @ 08:45 by Magaly Lin SAP BPC DEVELOPER-C) Encounter for long-term current use of high risk medication (Chronic) Tobacco abuse (Chronic) UNDERWOOD (dyspnea on exertion) (Chronic) JOSH (obstructive sleep apnea) (Chronic) Atherosclerotic heart disease [place] coronary artery w/angina pectoris (Chronic) Obesity (BMI 30.0-34.9) (Chronic) Type 2 diabetes mellitus without complications (Chronic) Old myocardial infarction (Chronic) Atherosclerosis of coronary artery of [place] heart without angina pectoris ( Chronic) PARVEEN-MID Cx 10/17/16 [facility] PCI-PARVEEN-LAD w/ POBA Ostial OM1 10/28/16 Hyperlipidemia (Chronic) Obesity (BMI 30.0-34.9) (Chronic) Hypertension (Chronic) Medical History: Medical History (Last Reviewed 03/01/18 @ 08:45 by Magaly Lin, SAP BPC DEVELOPER-C) Atherosclerotic heart disease [place] coronary artery w/angina pectoris (Chronic ) I25.119 Obesity (BMI 30.0-34.9) (Chronic) E66.9 Type 2 diabetes mellitus without complications (Chronic) E11.9 Old myocardial infarction (Chronic) I25.2 Atherosclerosis of coronary artery of [place] heart without angina pectoris ( Chronic) I25.10 PARVEEN-MID Cx 10/17/16 [facility] PCI-PARVEEN-LAD w/ POBA Ostial OM1 10/28/16 Hyperlipidemia (Chronic) E78.5 Obesity (BMI 30.0-34.9) (Chronic) E66.9 Hypertension (Chronic) I10 Cervical cancer C53.9 Sleep apnea G47.30 Daytime somnolence R40.0 Depression F32.9 GERD (gastroesophageal reflux disease) K21.9 polysubstance dependence in remission Syncope and collapse R55 Allergies narcotic Adverse Reaction (Severe, Uncoded 10/09/17 09:11) Other - can not take- on Suboxone Home Medications: Ambulatory Orders Medication Instructions Recorded Fluoxetine HCl 40 mg PO QHS 10/27/16 Metoprolol Tartrate 12.5 mg PO BID 10/27/16 Nitroglycerin [Nitrostat] 0.4 mg SUBLINGUAL Q5M PRN 10/27/16 Omeprazole 40 mg PO DAILY 10/27/16 Buprenorphine HCl/Naloxone HCl 0.5 tab SL BID 05/30/17 [Suboxone 8 mg-2 mg Sl Film] metformin 500 mg tablet 1,000 mg PO BIDCM tab 10/09/17 isosorbide mononitrate ER 30 mg 30 mg PO DAILY #90 tab 01/04/18 tablet,extended release 24 hr Aspirin E.C. [Ecotrin] 81 mg PO DAILY@0800 03/08/18 Atorvastatin Calcium [Lipitor] 40 mg PO DAILY 03/08/18 Clopidogrel Bisulfate [Clopidogrel] 75 mg PO DAILY 03/08/18 Liraglutide [Victoza 2-Jacky] 0.6 mg SQ DAILY 03/08/18 Lisinopril/Hydrochlorothiazide 1 each PO DAILY 03/08/18 [Zestoretic 20-12.5 mg Tablet] Surgical History: Surgical History (Last Reviewed 03/08/18 @ 16:17 by MARIELOS Arroyo) History of coronary artery stent placement (Resolved) Onset Date: ~10/28/16 Z95.5 PARVEEN-MID Cx 10/17/16 [facility] PCI-PARVEEN-LAD w/ POBA Ostial OM1 10/28/16 09/27/17 Blood Clot removal 09/2006, right arm Endometriosis surgery 11/2007 & 11/2008 H/O breast augmentation Z98.82 04/1996, reduction H/O section Z98.891 10/09/91 & 05/09/99 H/O exploratory laparotomy Z98.890 H/O tooth extraction K08.409 Top teeth 07/2017; bottom 09/2017 History of hysterectomy Z98.890, Z90.710 05/2003 History of right knee surgery Z98.890 03/2002 & 01/2009 Hx of cholecystectomy Z98.890, Z90.49 12/2001 S/P D&C (status post dilation and curettage) Z98.890 02/1996 (miscarriage) Surgical History: - - R knee arthroscopic surgery x 3, x 3, BL breast reduction, cholecystectomy, D+C, surgical tooth extraction. 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: No pertinent AUTOMOTIVE FINANCE MANAGER history Smoking Status: Current every day smoker Tobacco Use: Cigarettes - 2 pack per day Alcohol: None Drugs: None - *Family History Maternal Family History: Family History (Last Reviewed 03/08/18 @ 16:18 by MARIELOS Arroyo) Father Diabetes Heart disease [place] disease Alcohol abuse Cancer Mother Depression Addiction Heart disease Myocardial infarction CVA (cerebral vascular accident) Diabetes Parkinson disease Dementia Other Patient Adopted History Items: No pertinent history Paternal Family History: Family History (Last Reviewed 03/08/18 @ 16:18 by MARIELOS Arroyo) Father Diabetes Heart disease [place] disease Alcohol abuse Cancer Mother Depression Addiction Heart disease Myocardial infarction CVA (cerebral vascular accident) Diabetes Parkinson disease Dementia Other Patient Adopted History Items: No pertinent history Review of Systems Constitutional: Denies: Chills, Fever, Weight Change HEENT: Denies: Head Aches, Sinus Congestion, Sinus Drainage Cardiovascular: Reports: Chest Pain. Denies: Edema, Light Headedness, Palpitations, Syncope Respiratory: Reports: Shortness of Breath. Denies: Cough Gastrointestinal: Denies: Abdominal Pain, Diarrhea, Nausea, Vomiting Genitourinary: Denies: Dysuria Musculoskeletal: Denies: Joint Pain, Joint Tenderness Skin: Denies: Rash, Wounds Neurological: Denies: Numbness, Tingling, Focal weakness Psychiatric: Reports: Depression Hematologic/ Lymphatic: Denies: Easy Bruising, Easy Bleeding VTE Information - Inpt Only VTE Present on Admission: No VTE Mechan Device Prophylaxis: None VTE Pharm Prophylaxis ordered?: Yes - Physical Exam General: Alert, Oriented x3, Cooperative, No apparent distress HEENT: Atraumatic, PERRLA, EOMI, Normocephalic Neck: Supple, No JVD, Negative Carotid Bruits Lungs: Clear to auscultation, Diminished Cardiovascular: Regular rate, Regular Rhythm, Normal S1, Normal S2, No murmurs Abdomen: Bowel Sounds Present, Soft, Non Tender, Non-Distended, Obese Extremities: No clubbing, No cyanosis, No edema, Capillary Refill Less than 3 Seconds Skin: No rashes, No breakdown Musculoskeletal: No Tenderness to Palpation of Joints or Extremities Neurological: Cranial nerves II-XII grossly intact, Neuro grossly intact Psych/Mental Status: Normal Affect, Appropriate Vital Signs Temp Pulse Resp BP Pulse Ox 97.9 F 81 14 131/77 H 96 03/08/18 14:05 03/08/18 15:34 03/08/18 15:34 03/08/18 14:08 03/08/18 15:34 Oxygen Delivery Method Room Air Assessment/Plan All Active Problems (Last Reviewed 03/08/18 @ 16:17 by MARIELOS Arroyo) History of coronary artery stent placement (Resolved ~10/28/16) 1. Chest pain-EKG without ST-T changes. Troponin negative ?1. Cycle enzymes. Stress test in a.m. if enzymes remain negative. 2. Left calf pain/cramping- US negative for DVT. Check mg. 3. Suspected acute kidney injury-baseline creat 0.6-0.7. Creatinine admission 1.1. IV fluids. Trend BMP. Suspect secondary to lisinopril/HCTZ regimen. 4. CAD status post PCI-most recently 09/27/[address] Heaton with PTCA/PARVEEN of the proximal LCx. Mid LCx and proximal LAD stents were noted to be patent at that time. Continue aspirin, Plavix, statin, metoprolol, Imdur. 5. Hypertension-mildly elevated on admission. Continue home isosorbide, metoprolol regimen. Lisinopril/HCTZ on hold secondary to #3. Hydralazine as needed for systolic greater than 160. 6. Hyperlipidemia-continue statin. Check fasting lipid panel in a.m. 7. Type 2 diabetes mellitus-states she has not been taking her prescribed medication. Accu-Cheks before meals at bedtime with sliding scale insulin. Hold home oral regimen. 8. Obstructive sleep apnea-continue sleep apnea nightly. 9. Ongoing dyspnea on exertion-undergoing evaluation by pulmonary medicine. Has upcoming PFTs and [address] Follow[address] with Dr. De La Paz/Magaly Lin. Continue outpatient follow-up. 10. Tobacco dependence-2 pack per day smoker. Encourage smoking cessation. Nicotine replacement patch. 11. History of polysubstance abuse-on Suboxone therapy. 12. Depression-continue home fluoxetine regimen. 13. GERD-continue PPI. 14. Obesity-encourage diet and lifestyle modifications. Nutrition consult. DVT prophylaxis-Lovenox subcu. This patient was seen by MARIELOS Arroyo under the supervision of Dr. Nava. <Nikolas Nava - Last Filed: 03/08/18 16:55> History of Present Illness The patient came to ER with 3 days of intermittent chest pain with no relation to exertion, diet but she has shortness of breath which gets worse with exertion. Chest pain radiates to left neck. She also complained of left leg cramping. History of coronary artery disease status post 4 stents, last one in September 2017 , as mentioned above [] Past Medical History Medical History: Medical History (Last Reviewed 03/01/18 @ 08:45 by Magaly Lin NP-C) Atherosclerotic heart disease [place] coronary artery w/angina pectoris (Chronic ) I25.119 Obesity (BMI 30.0-34.9) (Chronic) E66.9 Type 2 diabetes mellitus without complications (Chronic) E11.9 Old myocardial infarction (Chronic) I25.2 Atherosclerosis of coronary artery of [place] heart without angina pectoris ( Chronic) I25.10 PARVEEN-MID Cx 10/17/16 [facility] PCI-PARVEEN-LAD w/ POBA Ostial OM1 10/28/16 Hyperlipidemia (Chronic) E78.5 Obesity (BMI 30.0-34.9) (Chronic) E66.9 Hypertension (Chronic) I10 Cervical cancer C53.9 Sleep apnea G47.30 Daytime somnolence R40.0 Depression F32.9 GERD (gastroesophageal reflux disease) K21.9 polysubstance dependence in remission Syncope and collapse R55 Allergies narcotic Adverse Reaction (Severe, Uncoded 10/09/17 09:11) Other - can not take- on Suboxone Surgical History: Surgical History (Last Reviewed 03/08/18 @ 16:17 by MARIELOS Arroyo) History of coronary artery stent placement (Resolved) Onset Date: ~10/28/16 Z95.5 PARVEEN-MID Cx 10/17/16 [facility] PCI-PARVEEN-LAD w/ POBA Ostial OM1 10/28/16 09/27/17 Blood Clot removal 09/2006, right arm Endometriosis surgery 11/2007 & 11/2008 H/O breast augmentation Z98.82 04/1996, reduction H/O section Z98.891 10/09/91 & 05/09/99 H/O exploratory laparotomy Z98.890 H/O tooth extraction K08.409 Top teeth 07/2017; bottom 09/2017 History of hysterectomy Z98.890, Z90.710 05/2003 History of right knee surgery Z98.890 03/2002 & 01/2009 Hx of cholecystectomy Z98.890, Z90.49 12/2001 S/P D&C (status post dilation and curettage) Z98.890 02/1996 (miscarriage) - *Family History Maternal Family History: Family History (Last Reviewed 03/08/18 @ 16:18 by MARIELOS Arroyo) Father Diabetes Heart disease [place] disease Alcohol abuse Cancer Mother Depression Addiction Heart disease Myocardial infarction CVA (cerebral vascular accident) Diabetes Parkinson disease Dementia Other Patient Adopted Paternal Family History: Family History (Last Reviewed 03/08/18 @ 16:18 by MARIELOS Arroyo) Father Diabetes Heart disease [place] disease Alcohol abuse Cancer Mother Depression Addiction Heart disease Myocardial infarction CVA (cerebral vascular accident) Diabetes Parkinson disease Dementia Other Patient Adopted - Physical Exam General: Alert, Oriented x3, Cooperative, No apparent distress HEENT: Atraumatic, PERRLA, EOMI, Normocephalic Neck: Supple, No JVD, Negative Carotid Bruits Lungs: Clear to auscultation, Normal air movement, Diminished Cardiovascular: Regular rate, Regular Rhythm, Normal S1, Normal S2, No murmurs Abdomen: Bowel Sounds Present, Soft, Non Tender Extremities: No edema, Capillary Refill Less than 3 Seconds Skin: No rashes, No breakdown Musculoskeletal: No Tenderness to Palpation of Joints or Extremities, Arthritic Changes Neurological: Cranial nerves II-XII grossly intact Psych/Mental Status: Normal Affect, Appropriate Vital Signs Temp Pulse Resp BP Pulse Ox 98.0 F 82 16 108/74 95 03/08/18 16:15 03/08/18 16:15 03/08/18 16:15 03/08/18 16:15 03/08/18 16:15 Oxygen Delivery Method Room Air Weight: 196 lb 10.437 oz Body Mass Index (BMI) 33.7 Assessment/Plan This patient was seen in conjunction with Alka CASTAÑEDA. I have independently interviewed and examined the patient and reviewed pertinent history, examination findings, laboratory and plan of management. I have reviewed the note and agree with the documented findings with the few additional points. In brief, patient is admitted for chest pain with radiation to neck with suspicion of unstable angina. EKG shows sinus bradycardia 59 beats per minute. On ACS protocol. Cycle cardiac enzymes and nuclear stress test tomorrow a.m. I have discussed my assessment with Alka CASTAÑEDA and orders have been reviewed. Laboratory Results 03/08/18 14:15: WBC 7.9, RBC 4.89, Hgb 14.6, Hct 41.4, MCV 84.7, MCH 29.9, MCHC 35.3, RDW 12.7, RDW Differential 38.8, Plt Count 220, MPV 9.1, Immature Gran % ( Auto) 0.100, Neut % (Auto) 45.7 L, Lymph % (Auto) 45.9 H, [place] % (Auto) 5.6, Eos % (Auto) 2.4, Baso % (Auto) 0.3, Absolute Neuts (auto) 3.6, Absolute Lymphs (auto) 3.61, Total Counted Not Reportable 03/08/18 14:15: Sodium 137, Potassium 4.2, Chloride 97 L, Carbon Dioxide 29.0, Anion Gap 11, BUN 8, Creatinine 1.11 H, Estim Creat Clear Calc 55.27, Est GFR ( MDRD) Af Amer 68, Est GFR (MDRD) Non-Af 56 L, BUN/Creatinine Ratio 7.2 L, Glucose 395 H, Calcium 10.7 H, Troponin I < 0.015 03/08/18 14:15: Hemoglobin A1c Pending Code Visit OBSV E&M: [id number] Initial observation care L3
[2018-03-08 16:08] VITALS: PULSE 94
[2018-03-08 16:09] VITALS: BMI 33.7
[2018-03-08 16:15] VITALS: BP 108/74; PULSE 82; RESP 16; TEMP 36.7; O2SAT 95
[2018-03-08 16:20] VITALS: BMI 33.8
[2018-03-08 17:19] LABS: Hemoglobin A1c 11.1 % (4.2-6.3)
--- NOTE | 2018-03-08 18:06 | NURSING ---
This RN responded to call light to patients room when the patient stated that she wanted to leave the hospital. Risks and complications were discussed with the patient and she was urged to stay for further testing, especially given her recent cardiac history. patient replied that she still wished to leave, AMA forms were obtained and signed, IV discontinued, mortuary beautician removed.
[2018-03-08 18:34] LABS: Magnesium 1.9 mg/dL (1.6-2.6)
== END 2018-03-08 18:09 | disposition left against medical advice (07) ==
LOC: ED 14:45 → PCU 15:47
PROVIDERS: Nurse Practitioner Family; Admitting Provider Internal Medicine; Emergency Provider Emergency Medicine; Family Provider Physician Assistant; PCP Physician Assistant; Visit Provider Internal Medicine
DX: R07.89 Other chest pain (principal); E11.9 Type 2 diabetes mellitus without complications; I25.10 Atherosclerotic heart disease of native coronary artery without angina pectoris; R06.02 Shortness of breath; G47.33 Obstructive sleep apnea (adult) (pediatric); E66.9 Obesity, unspecified; I25.2 Old myocardial infarction; E78.5 Hyperlipidemia, unspecified; I10 Essential (primary) hypertension; M79.605 Pain in left leg; Z95.5 Presence of coronary angioplasty implant and graft; Z79.899 Other long term (current) drug therapy; Z79.82 Long term (current) use of aspirin; Z79.02 Long term (current) use of antithrombotics/antiplatelets; Z68.33 Body mass index [BMI] 33.0-33.9, adult; Z71.3 Dietary counseling and surveillance; F19.21 Other psychoactive substance dependence, in remission; Z79.891 Long term (current) use of opiate analgesic; Z85.41 Personal history of malignant neoplasm of cervix uteri
CPT/HCPCS: 36415; 71045; 80048; 83036; 83735; 84484; 85025; 93005; 93971; 96360; 96361; 99218; 99285; J7030; A4216; G0378

== ENCOUNTER → 2018-05-03 14:35 | Outpatient (CLI) | payer MEDICAID, SELFPAY ==
[2016-10-28 14:33] VITALS: BMI 35.2
[2018-05-03 15:43] LABS: BNP,B-Type NATRIURETIC PEPTIDE 10.1 pg/mL (0-100)
== END ==
PROVIDERS: Family Provider Physician Assistant; PCP Physician Assistant; Referring Provider Nurse Practitioner Family; Visit Provider Nurse Practitioner Family
DX: R06.09 Other forms of dyspnea (principal); I25.10 Atherosclerotic heart disease of native coronary artery without angina pectoris; R07.9 Chest pain, unspecified
CPT/HCPCS: 36415; 83880; 84484

== ENCOUNTER → 2018-09-10 09:26 | Outpatient (CLI) | payer MEDICAID, SELFPAY ==
[2016-10-28 14:33] VITALS: BMI 35.2
[2018-06-18 14:42] VITALS: BMI 33.6
--- NOTE | 2018-09-10 09:28 | STEWCON_ITS ---
Reason For Study: CAD/ASHD Stress Results Protocol: Stress Echocardiogram Maximum Predicted HR: 174 bpm Target HR: 148 bpm % Maximum Predicted HR: 95 % DurationHeart Rate Stage (mm:ss) (bpm) BP Comment BASELINE 76 110/72DILUTED DEFINITY 7 ML USED DURING STRESS JAYLON PROTOCOL- STAGE 1 3:00 113 118/74 jaylon protocol- stage 2 3:00 129 130/80 jaylon protocol- stage 3 0:50 166 / SOB RECOVERY 84 98/60 Stress Duration: 6:50 mm:ss Maximum Stress HR: 166 bpm Baseline Echocardiogram Findings The estimated ejection fraction is 65 %. Stress Echo Wall motion Data Resting WM Intermediate WM Stress WM Resting Wall Motion Wall Motion Stress No regional wall motion Posterior-Basal: Mildly abnormalities noted. hypokinetic. Infero-Basal: Mildly hypokinetic. Mid-Lateral : Mildly hypokinetic. EKG Data The baseline ECG displays normal sinus rhythm. The patient exercised according to the regular Jaylon protocol for a total duration of 6:50. The maximum heart rate attained was 166 beats per minute. This was 95% of maximum predicted heart rate. The patient exercised into stage 3 of the Jaylon protocol. At peak exercise, upsloping ST changes only were noted, which did not meet the criteria for ischemia. No clinical angina was noted. Interpretation Summary The estimated ejection fraction is 65 %. Posterior-Basal: Mildly hypokinetic Infero-Basal: Mildly hypokinetic Mid-Lateral : Mildly hypokinetic Abnormal, adequate, treadmill echocardiogram. Positive for ischemia by echocardiographic criteria. No anginal symptoms noted. Rare PVCs noted. Test terminated due to the attainment target heart rate and dyspnea. Patient appeared to develop inferior basal, mid lateral, and inferior posterior basal posterior hypokinesis, possibly consistent with either circumflex or right coronary artery territory. Final LVEF of 55%. Poor echo windows requiring Definity agent may affect interpretation. No complications. The study was technically difficult. Contrast injection was performed. Ordering Physician: Rajinder Heaton Referring Physician: Rajinder Heaton Performed By: Rachelle Sorenson, JHOANA, RVT
== END ==
PROVIDERS: Family Provider Physician Assistant; PCP Physician Assistant; Referring Provider Internal Medicine Cardiovascular Disease; Visit Provider Internal Medicine Cardiovascular Disease
DX: I25.10 Atherosclerotic heart disease of native coronary artery without angina pectoris (principal); E78.00 Pure hypercholesterolemia, unspecified; R07.9 Chest pain, unspecified
CPT/HCPCS: 93017; 93350; Q9957; A4216; C8928

== ENCOUNTER → 2018-09-18 10:03 | Outpatient (CLI) | payer MEDICAID, SELFPAY ==
[2016-10-28 14:33] VITALS: BMI 35.2
[2018-09-18 09:14] VITALS: BMI 33.7
--- NOTE | 2018-09-18 10:11 | RAD_ITS ---
STUDY: X-RAY CHEST REASON FOR EXAM: Female, 48 years old. Chest pain TECHNIQUE: PA and lateral COMPARISON: 11/06/2017 FINDINGS: The lungs are clear and expanded. There is no demonstrated pleural abnormality. Normal size heart. Normal mediastinum and behzad. Normal visualized pulmonary arteries. Normal visualized aortic arch and descending thoracic aorta. Normal visualized thoracic spine. Normal visualized ribs, clavicles, and shoulders. There is no demonstrated abnormality of the visualized soft tissue structures of the upper abdomen. RAD/Chest PA and Lateral IMPRESSION: Normal x-ray examination of the chest. Electronically Signed: Iggy Gillespie MD at 2:39 EST , Service support ,
== END ==
PROVIDERS: Family Provider Physician Assistant; PCP Physician Assistant; Referring Provider Internal Medicine Cardiovascular Disease; Visit Provider Internal Medicine Cardiovascular Disease
DX: R94.39 Abnormal result of other cardiovascular function study (principal); I25.10 Atherosclerotic heart disease of native coronary artery without angina pectoris; R07.9 Chest pain, unspecified
CPT/HCPCS: 71046

== ENCOUNTER 2018-09-19 09:24 | Day surgery (SDC) | payer MEDICAID, SELFPAY ==
[2016-10-28 14:33] VITALS: BMI 35.2
[2018-06-18 14:42] VITALS: BMI 33.6
[2018-09-18 09:14] VITALS: BMI 33.7
[2018-09-18 11:29] LABS: Hematocrit 41.5 % (37-47); Hemoglobin 13.7 g/dl (12.0-15.0); Mean Corpuscular Hgb 28.7 pg (27.0-32.0); Platelet Count 217 K/mm3 (150-450); RBC Distribution Width CV 12.3 % (11.6-14.6); RBC Distribution Width SD 39.4 fl (35.1-43.9); Red Blood Count 4.77 M/mm3 (4.2-5.4); Scan Indicated on CBC? Y/N NO; White Blood Count 7.6 K/mm3 (4.4-11.0)
[2018-09-18 11:30] LABS: Partial Thromboplast Time 25.8 Seconds (24.1-36.2); Prothrombin Time (Protime)PT. 12.7 SECONDS (11.7-14.9)
[2018-09-18 11:45] LABS: Anion Gap 7 (5-15); BUN 11 mg/dL (7-18); BUN/Creat Ratio 12.9 RATIO (10-20); Chloride 100 mmol/L (98-107); Creatinine, Serum 0.85 mg/dL (0.55-1.02); EST Glomerular Filtration Rate 76 mL/min (>60); Est Glom Filt Rate - Afr Amer 92 mL/min (>60); Glucose 319 mg/dL (74-106); Potassium 4.3 mmol/L (3.5-5.1); Sodium Level 133 mmol/L (136-145)
[2018-09-18 13:52] VITALS: BMI 33.7
[2018-09-19] VITALS (16 sets, daily range): BP systolic 95–123; BP diastolic 46–93; PULSE 62–78; RESP 12–17; TEMP 36.7; O2SAT 93–99; BMI 34.9
[2018-09-19 13:36] LABS: ACT Activated Clotting Time 208 sec (74-137)
--- NOTE | 2018-09-19 13:38 | CL.I_ITS ---
Patient Name: KALEB HOLBROOK Study Date: 09/19/2018 Performing: Rajinder Heaton MD Ht: 64 inches 163 cm : 1970 Wt: 196.5 lbs 89 kg Age: 48 Gender: female BSA: 1.94 PROCEDURE(S) PERFORMED [id number]/LV [id number] W OR WO PTCA, SINGLE CORONARY ARTERY CLINICAL PROFILE AND CO-MORBIDITIES Indications: New Onset Angina <= 2 months, Worsening Angina, Stable Known CAD, LV Dysfunction Heart Failure: None Stress/Imaging Date: 09/10/2018 Angina Classification Anginal Classification w/in 2 Weeks: CCS III CAD Presentations: Unstable angina. Other: Dyspnea on exertion Comorbidities/Risk Factors: Current/Recent Smoker (< 1year) Hypertension Dyslipidemia Prior CHF Prior PCI Diabetes Mellitus: Diabetes Therapy: Oral CONCLUSIONS Segmented LV systolic dysfunction- Moderate Single vessel CAD of the LCX Non obstructive coronary arteries Successful PTCA/PARVEEN of proximal LCX ISR with a 2.5 x 10 Angiosculpt x 2 inflations, followed by a 3.0 x 12 Resolute PARVEEN at 14 ava; 75%-->0%, no dissection. RECOMMENDATIONS Referred for immediate PCI Risk factor modification Management as per referring Postal Support Employee Highly recommend quitting all tobacco products Follow up with primary telephone messenger Risk factor modification ASA Indefinitley Plavix for at least 12 months Routine post interventional care Refer for Outpatient Cardiac Rehab Manual sheath removal per protocol Follow up with Dr. Heaton Medical management of RCA unless or until pt has recurrent anginal symptoms. Pt had identical anginal symptoms with Angiosculpt and stent balloon inflations, relieved with balloon deflation. Successful Mynx closure of RFA. DESCRIPTION OF PROCEDURE The patient arrived to the procedure lab. The risks and benefits of the procedure as well as a full d escription of our services here and lack of surgical backup were fully explained to the patient and/o r their significant other prior to the catheterization. The Timeout was completed, verifying the rajendra ect patient and procedure. The patient's procedural site was prepped and draped in the usual fashion. Local anesthetic was given subcutaneously to right groin region with Lidocaine 2%. Using a modified Seldinger technique, arterial access was obtained via the right femoral artery, a 4Fr sheath was inse rted. Left Coronary Artery selective angiography was performed in multiple views using a 4 Fr. JL5 c atheter. Right Coronary Artery selective angiography was then performed in multiple views using a 4 F r. 3DRC catheter. Left Ventriculography was performed in RECINOS projection using a 4 Fr. Pigtail cathete r. LV to AO pullback pressures were then recordedThe images were reviewed and options discussed. A decision was then made to proceed with an Intervention, IVUS or other adjunct procedure. Arterial sheath was exchanged for a 6 Fr Sheath. 3.75 EBU Guide catheter was inserted and engaged into the LCA. BMW Guide wire was advanced to the Circumflex. 2.5x10 Angiosculpt Scoring balloon cath eter was inserted Scoring balloon catheter was advanced to the lesion in the circumflex, proximal. 3x 12 Resolute Drug Eluting stent was inserted. Drug Eluting stent was advanced across the lesion in the circumflex, proximal. Angiogram performed post stent deployment. Contrast was injected through the s zohreh and the Right Iliac and Femoral artery were assessed for possible closure device. The arterial sheath was pulled and a Mynx closure device was deployed for hemostasis CORONARY ANGIOGRAPHY DOMINANCE: Right Dominant LEFT HEART ASSESSMENT Left Ventricular Ejection Fraction: by LV Gram 45 % Depressed Left Ventricular systolic function LVEDP: 9 mmHg Normal Left Ventricular End Diastolic Pressure Inferior Mid Hypokinesis - Moderate LEFT MAIN: Angiographically normal LEFT ANTERIOR DECENDING ARTERY: PROX LAD: Previously placed stent is patent CIRCUMFLEX ARTERY: PROX CIRC: Instent restenosis 75 % MID CIRC: Previously placed stent is patent RIGHT CORONARY ARTERY: PROX RCA: Mild luminal irregularities less than 30% MID RCA: Moderate luminal irregularities up to 50% DISTAL RCA: Moderate luminal irregularities up to 50% RT PDA: Proximal - Mild luminal irregularities less than 30% INTERVENTION INFORMATION LESION SITE: Circumflex (Proximal) Lesion Complexity: Non-High/Non-C, lesion at bifurcation: No, thrombus present: No, lesion length: 12 mm, culprit lesion: Yes Pre Stenosis: 75 % Pre intervention BELKYS flow: 3 PROCEDURE: Drug Eluting Stent with pre dilatation., Cutting Balloon Angioplasty Post Stenosis: 0 % Post intervention BELKYS flow: 3 Lesion Devices: Medtronic 6 Fr EBU3.75 100cm Guide Catheter Romano .014 BMW [place] Straight 190cm [place] Angiosculpt RX 2.5x10 Scoring Balloon Medtronic Resolute RX PARVEEN 3.0x12 COMPLICATIONS No Complications PROCEDURE MEDICATIONS Versed 1 mg IV Oxygen: 2 L/min via nasal cannula Heparin 6000 unit(s) IV 09/19/2018 13:01:53 Nitro 200 mcg IC 09/19/2018 12:55:31 SUMMARY OF HEMODYNAMIC DATA Time AIR REST ECG 10:03:27 AO 136/66 (94) SA 12:51:22 LV 112/-14, 9 12:58:43 LV 116/-18, 8 12:58:49 LVp 114/-18, 10 12:58:55 AOp 116/61 (84) 12:59:00 AO 111/57 (79) 12:59:49 Signed By Rajinder Heaton MD On 09/19/2018 13:37:35 Rajinder Heaton MD
--- NOTE | 2018-09-19 14:03 | CRPHASE1 ---
Patient Data/Charges Former Patient:: Phase I Refer Phase II:: Yes Reason Not Completed:: Patient has previously been seen by CR staff following previous PCI/intervention on 09/27/2017. The patient never participated in CR Outpatient CR following her previous PCI intervention. Phase II Referral:: [facility] - patient's choice location Start Phase II:: 7 days of discharge. Risk Factors/Lifestyle Family History: Family History (Last Reviewed 09/18/18 @ 09:25 by Andreea Moon) Father Diabetes Heart disease Burger-Grutz disease Alcohol abuse Cancer Mother Depression Addiction Heart disease Myocardial infarction CVA (cerebral vascular accident) Diabetes Parkinson disease Dementia Other Patient Adopted
--- NOTE | 2018-09-19 14:05 | CRPH1.INSTRU ---
General Education CAD and cardiac anatomy and function:: Not instructed - Patient has previously been seen by CR staff and given CR booklet following previous PCI intervention.
--- NOTE | 2018-09-19 16:29 | PCM.DC.CCA ---
Discharge Diet: Low fat/ Low Cholesterol Discharge Activity: Return to Normal Activity May shower in (days): 1 - No tub baths for 5 days May resume sexual activity in: 1-2 weeks Lifting Restrictions: Do not lift anything greater than 10 pounds for 3 days Call your doctor if your incision/area has: Continuous Slow Oozing, Sudden Increased Bleeding, Increased Pain/ Swelling, Increased Redness, Foul Smelling Discharge, Swelling at the incision site Call your doctor if you observe: Fever of 101 or Higher, Shortness of breath, Chest pain Change Dressing in (Days):: 1 Cleanse incision/area with: Soap & Water Additional Instructions: You are scheduled for an office appointment with Dwight Freitas Nurse Practitioner, with the [facility] office on 10/04/2018 at 2:30 PM. Please call the office if you need to reschedule. You will continue with Aspirin therapy. You will remain on Plavix for at least one year. If anyone asks you to stop Plavix, please call the [facility] Office at [phone]. Allergies/Adverse Reactions: Allergies narcotic Adverse Reaction (Severe, Uncoded 06/05/18 10:28) Other - can not take- on Suboxone Medications to take at Discharge Fluoxetine HCl 40 mg PO QHS 10/27/16 Omeprazole 40 mg PO DAILY 10/27/16 Buprenorphine HCl/Naloxone HCl [Suboxone 8 mg-2 mg Sl Film] 0.5 tab SL BID 05/30/17 Aspirin E.C. [Ecotrin] 81 mg PO DAILY@0800 03/08/18 Atorvastatin Calcium [Lipitor] 40 mg PO DAILY 03/08/18 Clopidogrel Bisulfate [Clopidogrel] 75 mg PO DAILY 03/08/18 Lisinopril/Hydrochlorothiazide [Zestoretic 20-12.5 mg Tablet] 1 ea PO DAILY 03/08/18 liraglutide 0.6 mg/0.1 mL (18 mg/3 mL) subcutaneous pen injector 1.2 mg SC DAILY ml 03/19/18 metformin 500 mg tablet 2,000 mg PO DAILY tab 05/03/18 nitroglycerin 0.4 mg sublingual tablet 0.4 mg SUBLINGUAL Q5M PRN #25 tab 06/13/18 isosorbide mononitrate ER 30 mg tablet,extended release 24 hr 60 mg PO DAILY tab 09/17/18 metoprolol succinate ER 50 mg tablet,extended release 24 hr 25 mg PO DAILY tab 09/18/18 Primary Care Physician: Anthony Neri PA [Primary Care Provider] - Test Results: Test results from this visit will be discussed in further detail at your follow-up appointment, if applicable. Please Follow Up With: Dwight Freitas - Nurse Practitioner When: 10/04/2018 at 2:30 PM Proposed Discharge Date: 09/20/18 Cardiac Rehabilitation Info Cardiac Rehabilitation Program Information: Cardiac Rehabilitation is important for patients like you who are recovering from a heart problem. Cardiac rehabilitation programs are recognized as integral to the continued care of the patient with coronary heart disease. The cardiac rehabilitation program is designed to optimize a patient's physical, psychological, and social functioning. Health manager medicare work in cardiac rehabilitation programs and assist you with getting the treatments you need to get stronger and healthier - like exercise, healthy eating habits, and medications. Cardiac rehabilitation has been show to help people with heart problems live longer and have better life enjoyment than people who do not go to cardiac rehabilitation. Please contact the Cardiac Rehabilitation Program at [facility] at in two weeks if you have not heard from them.
--- NOTE | 2018-09-19 16:32 | DCINST_ITS ---
Discharge Diet: Low fat/ Low Cholesterol Discharge Activity: Return to Normal Activity May shower in (days): 1 - No tub baths for 5 days May resume sexual activity in: 1-2 weeks Lifting Restrictions: Do not lift anything greater than 10 pounds for 3 days Call your doctor if your incision/area has: Continuous Slow Oozing, Sudden Increased Bleeding, Increased Pain/ Swelling, Increased Redness, Foul Smelling Discharge, Swelling at the incision site Call your doctor if you observe: Fever of 101 or Higher, Shortness of breath, Chest pain Change Dressing in (Days):: 1 Cleanse incision/area with: Soap & Water Additional Instructions: You are scheduled for an office appointment with Dwight Freitas Nurse Practitioner, with the [facility] office on 10/04/2018 at 2:30 PM. Please call the office if you need to reschedule. You will continue with Aspirin therapy. You will remain on Plavix for at least one year. If anyone asks you to stop Plavix, please call the [facility] Office at [phone]. Allergies/Adverse Reactions: Allergies narcotic Adverse Reaction (Severe, Uncoded 06/05/18 10:28) Other - can not take- on Suboxone Medications to take at Discharge Fluoxetine HCl 40 mg PO QHS 10/27/16 Omeprazole 40 mg PO DAILY 10/27/16 Buprenorphine HCl/Naloxone HCl [Suboxone 8 mg-2 mg Sl Film] 0.5 tab SL BID 05/30/17 Aspirin E.C. [Ecotrin] 81 mg PO DAILY@0800 03/08/18 Atorvastatin Calcium [Lipitor] 40 mg PO DAILY 03/08/18 Clopidogrel Bisulfate [Clopidogrel] 75 mg PO DAILY 03/08/18 Lisinopril/Hydrochlorothiazide [Zestoretic 20-12.5 mg Tablet] 1 ea PO DAILY 03/08/18 liraglutide 0.6 mg/0.1 mL (18 mg/3 mL) subcutaneous pen injector 1.2 mg SC DAILY ml 03/19/18 metformin 500 mg tablet 2,000 mg PO DAILY tab 05/03/18 nitroglycerin 0.4 mg sublingual tablet 0.4 mg SUBLINGUAL Q5M PRN #25 tab 06/13/18 isosorbide mononitrate ER 30 mg tablet,extended release 24 hr 60 mg PO DAILY tab 09/17/18 metoprolol succinate ER 50 mg tablet,extended release 24 hr 25 mg PO DAILY tab 09/18/18 Primary Care Physician: Anthony Neri PA [Primary Care Provider] - Test Results: Test results from this visit will be discussed in further detail at your follow- up appointment, if applicable. Please Follow Up With: Dwight Freitas - Nurse Practitioner When: 10/04/2018 at 2:30 PM Proposed Discharge Date: 09/20/18 Cardiac Rehabilitation Info Cardiac Rehabilitation Program Information: Cardiac Rehabilitation is important for patients like you who are recovering from a heart problem. Cardiac rehabilitation programs are recognized as integral to the continued care of the patient with coronary heart disease. The cardiac rehabilitation program is designed to optimize a patient's physical, psychological, and social functioning. Health foster care case manager work in cardiac rehabilitation programs and assist you with getting the treatments you need to get stronger and healthier - like exercise, healthy eating habits, and medications. Cardiac rehabilitation has been show to help people with heart problems live longer and have better life enjoyment than people who do not go to cardiac rehabilitation. Please contact the Cardiac Rehabilitation Program at [facility] at in two weeks if you have not heard from them.
[2018-09-19] MEDS: BUPRENORPHINE HCL/NALOXONE HCL 1 EACH TAB.SUBL 0.5 EACH SL (20:03)
[2018-09-19] MEDS: FLUoxetine 20 MG Capsule 40 MG PO (21:22)
[2018-09-19] MEDS: Atorvastatin Calcium 40 MG Tablet PO (21:22)
[2018-09-19] MEDS: Insulin Lispro 100 UNIT/ML INSULN.PEN SC (23:33)
[2018-09-20] VITALS (19 sets, daily range): BP systolic 88–135; BP diastolic 41–83; PULSE 51–75; RESP 13–19; TEMP 36.4–36.7; O2SAT 92–100
[2018-09-20] MEDS: Insulin Lispro 100 UNIT/ML INSULN.PEN SC ×3 (02:34→11:15)
[2018-09-20 02:41] LABS: Bedside Glucose 349 mg/dL (70-110)
[2018-09-20 05:46] LABS: Anion Gap 10 (5-15); BUN 13 mg/dL (7-18); BUN/Creat Ratio 14.6 RATIO (10-20); Calcium,Total 9.4 mg/dL (8.5-10.1); Chloride 103 mmol/L (98-107); Creatinine, Serum 0.89 mg/dL (0.55-1.02); EST Glomerular Filtration Rate 73 mL/min (>60); Est Glom Filt Rate - Afr Amer 88 mL/min (>60); Estimated Creatinine Clearance 65.34 ml/min; Glucose 332 mg/dL (74-106); Potassium 4.1 mmol/L (3.5-5.1); Sodium Level 139 mmol/L (136-145)
[2018-09-20 06:26] LABS: Hematocrit 35.3 % (37-47); Hemoglobin 11.7 g/dl (12.0-15.0); Mean Corp Hgb Conc 33.1 g/gl (32-36); Mean Corpuscular Hgb 29.4 pg (27.0-32.0); Mean Corpuscular Volume 88.7 fL (81-99); Mean Platelet Vol. 8.9 fl (6.2-12.0); Platelet Count 189 K/mm3 (150-450); RBC Distribution Width CV 12.4 % (11.6-14.6); RBC Distribution Width SD 39.6 fl (35.1-43.9); Red Blood Count 3.98 M/mm3 (4.2-5.4)
[2018-09-20 06:30] LABS: Scan Indicated on CBC? Y/N NO
[2018-09-20 07:00] LABS: Bedside Glucose 436 mg/dL (70-110)
[2018-09-20 07:00] LABS: Bedside Glucose 488 mg/dL (70-110)
[2018-09-20 07:01] LABS: Bedside Glucose 396 mg/dL (70-110)
[2018-09-20] MEDS: Aspirin E.C. 81 MG Tablet PO (08:01)
[2018-09-20] MEDS: Metoprolol(XL)Succ 25 MG Tablet PO (08:01)
[2018-09-20] MEDS: Clopidogrel Bisulfate 75 MG Tablet PO (08:01)
[2018-09-20] MEDS: Pantoprazole Sodium 40 MG Tablet PO (08:01)
[2018-09-20] MEDS: Lisinopril 20 MG Tablet PO (08:01)
[2018-09-20] MEDS: Isosorbide Mononitrate 60 MG Tablet PO (08:08)
[2018-09-20] MEDS: hydroCHLOROthiazide 12.5mg 12.5 MG PO (08:08)
[2018-09-20] MEDS: BUPRENORPHINE HCL/NALOXONE HCL 1 EACH TAB.SUBL 0.5 EACH SL (08:09)
--- NOTE | 2018-09-20 10:00 | EKG12_ITS ---
Test Reason : AM EKG Blood Pressure : / mmHG Vent. Rate : 075 BPM Atrial Rate : 075 BPM P-R Int : 166 ms QRS Dur : 084 ms QT Int : 386 ms P-R-T Axes : 031 045 039 degrees QTc Int : 431 ms Normal sinus rhythm Normal ECG When compared with ECG of 08-MAR-2018 14:07, No significant change was found Confirmed by RAMONE BURRIS, MEAGHAN ([id number]), supervising editor news reel NICOL RAMIREZ ([id number]) on 09/24/2018 2:48:01 PM Referred By: Rajinder Heaton Confirmed By:MEAGHAN PACK MD
[2018-09-20 11:20] LABS: Bedside Glucose 408 mg/dL (70-110)
--- NOTE | 2018-09-20 12:11 | CASEMGMT ---
SW spoke w/RN, pt would like to complete LW/POA forms. SW met w/pt, assisted pt in completing POA form, pt named her ex Mark as POA. Pt is not going to complete the LW at this time, may want to complete at a later date. SW gave pt the LW with the number to call the SW dept should she want to complete it in the future. SW gave pt two copies and original POA form, and placed a copy in the chart. CHUCHO Rodriguez, CUSTOMER RESOLUTION SPECIALIST
--- NOTE | 2018-09-20 13:09 | PN.CARD_ITS ---
Subjectve: Patient feels much better today, had one episodes of fleeting atypical nonexertional chest pain this morning which did not appear to be cardiac related or similar to her previous angina. Patient had identical chest pain symptoms with balloon inflation during yesterday's procedure. Right groin is clean/dry/intact without evidence of thrills, bruits or hematoma. EKG shows normal sinus rhythm without acute changes. Telemetry is been negative. Objective: Vital Signs Temp Pulse Resp BP Pulse Ox 98.1 F 75 15 108/53 L 97 09/20/18 11:05 09/20/18 12:00 09/20/18 12:00 09/20/18 12:00 09/20/18 12:00 Oxygen Flow Rate (L/min) 2 Oxygen Delivery Method Room Air Weight: 198 lb 10.184 oz Body Mass Index (BMI) 34.9 Intake and Output for Last 24 Hours 09/18/18 09/19/18 09/20/18 23:59 23:59 23:59 Intake Total 1703 / 1703 540 / 540 Output Total 450 / 450 Balance 1703 / 1703 90 / 90 General: Awake, Alert, Oriented x 3 HEENT: PERRL, EOMI, Sclera Non Icteric Neck: Supple, Good ROM, No Lymph Node Enlargement Lungs: Clear to auscultation Cardiovascular: Regular Rhythm, Normal S1, Normal S2, No Murmurs, No Rubs, No Gallops Vascular: No Carotid Bruits, Normal Femoral Pulses, Normal Radial Pulses, Normal Dorsalis Pedal Pulse, Normal Posterior Tibial Pulses Abdomen: Bowel Sounds Present, Soft, Non Tender, No HSM, No Organomegaly Extremities: No Cyanosis, No Clubbing, No edema Neurological: No Focal Motor or Sensory Deficit 09/20/18 04:40: WBC 8.0, RBC 3.98 L, Hgb 11.7 L, Hct 35.3 L, MCV 88.7, MCH 29.4, MCHC 33.1, RDW 12.4, RDW Differential 39.6, Plt Count 189, MPV 8.9 09/20/18 04:40: Sodium 139, Potassium 4.1, Chloride 103, Carbon Dioxide 26.0, Anion Gap 10, BUN 13, Creatinine 0.89, Est GFR (MDRD) Af Amer 88, Est GFR (MDRD) Non-Af 73, BUN/Creatinine Ratio 14.6, Glucose 332 H, Calcium 9.4 Rhythm: EKG: ECHO: Stress Test: Cardiac Cath: PCI: CT Surgery: Holter monitor: EPS: PPM: CXR: Chest CT Scan: Medical Necessity - Tobacco Use Smoking Status: Current every day smoker Assessment/Plan 1. Coronary artery disease: The patient represented with exertional anginal symptoms similar to her angina prior to her angioplasty and stenting of her left circumflex. Patient had significant chest pain during angioscope and stent deployment of her left circumflex in-stent restenosis yesterday with an excellent result. Patient does have coronary disease of her right coronary artery but this was left for medical management as it did not appear to be significant. I recommend the patient continue aspirin, Plavix, and that should be enrolled in cardiac rehab. If the patient has recurrent exertional anginal symptoms, I have a low threshold for the patient to return for elective angioplasty and drug- eluting stenting of her proximal mid RCA. This would be somewhat challenging given the tortuosity and diffuse length of disease however I believe could be done. I would rather however leave this for medical management at this time. 2. Tobacco cessation: The patient has committed to redoubling her efforts for tobacco cessation. Hopefully this will be durable. 3. Hyper lipidemia: Continue statin based medications and repeat lipid profile after cardiac rehab. 4. Patient may be discharged home and follow-up with Dr. Heaton going forward. Code Visit Inpatient E&M: 82162 Subs Hosp L2
== END 2018-09-20 13:09 | disposition home or self-care (01) ==
LOC: CLSP 09:26 → ICU 13:31
PROVIDERS: Family Provider Physician Assistant; PCP Physician Assistant; Referring Provider Internal Medicine Cardiovascular Disease; Visit Provider Internal Medicine Cardiovascular Disease
DX: I25.119 Atherosclerotic heart disease of native coronary artery with unspecified angina pectoris (principal); R07.9 Chest pain, unspecified; I10 Essential (primary) hypertension; E78.5 Hyperlipidemia, unspecified; E11.9 Type 2 diabetes mellitus without complications; E66.9 Obesity, unspecified; Z68.33 Body mass index [BMI] 33.0-33.9, adult; G47.33 Obstructive sleep apnea (adult) (pediatric); I25.2 Old myocardial infarction; K21.9 Gastro-esophageal reflux disease without esophagitis; F17.200 Nicotine dependence, unspecified, uncomplicated; Z95.5 Presence of coronary angioplasty implant and graft; Z79.84 Long term (current) use of oral hypoglycemic drugs; Z79.82 Long term (current) use of aspirin; Z79.899 Other long term (current) drug therapy
CPT/HCPCS: 36415; 80048; 82962; 85027; 85347; 85610; 85730; 92928; 93005; 93458; 99152; 99153; C1760; J7040; C1725; C1769; C1874; C1887; C1894; C9600; Q9967

== ENCOUNTER 2018-09-22 06:06 | Emergency (ER) | payer MEDICAID, SELFPAY ==
[2016-10-28 14:33] VITALS: BMI 35.2
[2018-09-19 13:56] VITALS: BMI 34.9
[2018-09-22 06:07] VITALS: BP 129/73; PULSE 75; RESP 16; TEMP 36.8; O2SAT 96; BMI 34.4
--- NOTE | 2018-09-22 06:10 | ED.RN ---
CALLED FOR EKG PER RN REQUEST, PULLED OLD EKGS FOR
--- NOTE | 2018-09-22 06:21 | RAD_ITS ---
STUDY: X-RAY CHEST REASON FOR EXAM: Female, 48 years old. Chest pain. Patient has recently had endovascular stent placed. TECHNIQUE: PA and lateral views of the chest. COMPARISON: September 18, 2018. FINDINGS: Cardiac monitoring leads are present. The lungs are clear and expanded. There is no demonstrated pleural abnormality. Normal size heart. Normal mediastinum and behzad. There is prominence of the pulmonary hilar arteries without peripheral pulmonary vascular congestion. Normal visualized aortic arch and descending thoracic aorta. Normal visualized thoracic spine. Normal visualized ribs, clavicles, and shoulders. Surgical clips are visible in the right upper quadrant. RAD/Chest PA and Lateral IMPRESSION: No radiographic evidence of acute cardiopulmonary disease. Electronically Signed: Nanette Dillon MD at 7:08 EST , Service support ,
--- NOTE | 2018-09-22 06:21 | EKG12_ITS ---
Test Reason : CP Blood Pressure : / mmHG Vent. Rate : 073 BPM Atrial Rate : 073 BPM P-R Int : 154 ms QRS Dur : 080 ms QT Int : 382 ms P-R-T Axes : 021 043 044 degrees QTc Int : 420 ms Normal sinus rhythm Normal ECG Confirmed by RAMONE BURRIS, MEAGHAN ([id number]), assignment desk editor NICOL RAMIREZ ([id number]) on 09/24/2018 2:09:03 PM Referred By: Rajinder Heaton Confirmed By:MEAGHAN PACK MD
--- NOTE | 2018-09-22 06:21 | ED.VISSUMM ---
- ER Visit Summary Date of Service: 09/22/18 Chief Complaint: Chest pain History of Present Illness: The patient is a 48 F who presents with chest pain. She states this feels similar to when she had her previous heart attack. She just had a cardiac cath with stent on September 19, 2018. She states about 9 hours ago she developed pressure-like pain in her left upper chest and shoulder as well as the posterior thoracic region in the same area. She rates this is a 5 or 6 out of 10. She reports associated nausea but no vomiting no diaphoresis no shortness of breath. This began while at rest. Her symptoms have been constant since onset. No fevers. No vomiting. Physical Examination: Afebrile vitals normal No distress Moist mucous membranes Heart regular rate and rhythm Lungs are clear Abdomen soft Trace lower extremity edema nontender Test Results: EKG shows normal sinus rhythm at a rate of 73 with no acute ischemic changes. Operatory studies notable only for glucose 310. Troponin is negative. Two-view chest x-ray is read by me is normal. Emergency Department Course and Treatment: Patient has a normal EKG and negative troponin with 9 hours of chest pain and recent cardiac catheterization. I do not believe this is acute coronary syndrome or acute myocardial infarction. I spoke to cardiology who recommended increasing the patient's Imdur and having the patient follow-up as an outpatient. Treatment Plan: [] Disposition: Discharge Impression: Chest pain This note was generated with [employer] dictation software. It may contain incorrect words, spelling, and punctuation that were not noted in review of the chart prior to signing ED Disposition - Plan for ED Patient: Referrals: Anthony Neri PA [Primary Care Provider] -
[2018-09-22 06:36] LABS: Absolute Lymphocyte Count 2.77 X10^3/ul (0.83-4.51); Absolute Neutrophil Count 3.9 X10^3/uL (2.0-7.7); Basophil# 0.02 X10^3/uL; Basophil% 0.3 % (0-1); Eosinophil# 0.25 X10^3/uL; Eosinophils% 3.4 % (0-5); Hematocrit 37.2 % (37-47); Hemoglobin 12.3 g/dl (12.0-15.0); Lymphocyte # 2.77 X10^3/ul (4.0); Lymphocyte % 37.5 % (19-41); Mean Corp Hgb Conc 33.1 g/gl (32-36); Mean Corpuscular Volume 87.7 fL (81-99); Mean Platelet Vol. 8.9 fl (6.2-12.0); Monocyte# 0.45 X10^3/uL; Monocyte% 6.1 % (0-10); Neutrophil # 3.89 X10^3/uL (2.7-7.7); Neutrophil % 52.6 % (47-70); Platelet Count 188 K/mm3 (150-450); RBC Distribution Width CV 12.6 % (11.6-14.6); RBC Distribution Width SD 40.4 fl (35.1-43.9); Red Blood Count 4.24 M/mm3 (4.2-5.4); White Blood Count 7.4 K/mm3 (4.4-11.0)
[2018-09-22 06:44] LABS: POSITIVE COUNT NO; POSITIVE DIFFERENTIAL NO; POSITIVE MORPHOLOGY NO
[2018-09-22 06:45] VITALS: BP 129/73; PULSE 69
[2018-09-22] MEDS: Aspirin 81 MG TAB.CHEW 324 MG PO (06:45)
[2018-09-22 06:53] LABS: Anion Gap 10 (5-15); BUN 8 mg/dL (7-18); BUN/Creat Ratio 9.4 RATIO (10-20); Calcium,Total 9.4 mg/dL (8.5-10.1); Chloride 99 mmol/L (98-107); Creatinine, Serum 0.86 mg/dL (0.55-1.02); EST Glomerular Filtration Rate 76 mL/min (>60); Est Glom Filt Rate - Afr Amer 92 mL/min (>60); Estimated Creatinine Clearance 70.58 ml/min; Glucose 310 mg/dL (74-106); Potassium 4.1 mmol/L (3.5-5.1); Sodium Level 137 mmol/L (136-145)
--- NOTE | 2018-09-22 07:10 | ED.DEP ---
ED Disposition - Plan for ED Patient: Instructions: ED Chest Pain Angina Stable Prescriptions: Isosorbide Mononitrate [Imdur] 60 mg PO BID #60 tab Referrals: Anthony Neri PA [Primary Care Provider] - Rajinder Heaton MD [STAFF PHYSICIAN] -
[2018-09-22 07:21] VITALS: BP 107/62; PULSE 64; RESP 16; O2SAT 95
== END 2018-09-22 07:23 | disposition home or self-care (01) ==
PROVIDERS: Emergency Provider Emergency Medicine; Family Provider Physician Assistant; PCP Physician Assistant
DX: R07.9 Chest pain, unspecified (principal); I25.10 Atherosclerotic heart disease of native coronary artery without angina pectoris; E11.9 Type 2 diabetes mellitus without complications; I10 Essential (primary) hypertension; R11.0 Nausea; Z72.0 Tobacco use; I25.2 Old myocardial infarction; Z79.84 Long term (current) use of oral hypoglycemic drugs; Z79.02 Long term (current) use of antithrombotics/antiplatelets; Z79.82 Long term (current) use of aspirin; Z79.899 Other long term (current) drug therapy; Z95.5 Presence of coronary angioplasty implant and graft
CPT/HCPCS: 71046; 80048; 84484; 85025; 93005; 99285; A4216

== ENCOUNTER → 2019-02-22 | Outpatient (CLI) | payer MEDICAID, SELFPAY ==
[2016-10-28 14:33] VITALS: BMI 35.2
[2019-02-13 10:58] VITALS: BMI 32.1
--- NOTE | 2019-02-22 11:02 | STEWCON_ITS ---
Reason For Study: Chest Pain Stress Results Protocol: Jaylon Protocol Maximum Predicted HR: 174 bpm Target HR: 148 bpm % Maximum Predicted HR: 86 % DurationHeart Rate Stage (mm:ss) (bpm) BP Comment Baseline 82 118/68No Chest Pain; 5 ML Diluted Definity Given Jaylon Protocol Stage I 3:00 105 130/64No Chest Pain Jaylon Protocol Stage II 3:00 122 140/60No Chest Pain; Mild Dyspnea Jyalon Protocol Stage III 2:30 150 150/62No Chest Pain; Moderate Dyspnea Recovery 97 104/66No Chest Pain Stress Duration: 8:30 mm:ss Maximum Stress HR: 150 bpm METS: 10 Baseline Echocardiogram Findings The estimated ejection fraction is 65 %. Stress Echo Wall motion Data Resting WM Intermediate WM Stress WM Resting Wall Motion Wall Motion Stress No regional wall motion No regional wall motion abnormalities noted. abnormalities noted. EKG Data The baseline ECG displays normal sinus rhythm. The patient exercised according to the regular Jaylon protocol for a total duration of 8:30. The maximum heart rate attained was 151 beats per minute. This was 86% of maximum predicted heart rate. The patient exercised into stage 3 of the Jaylon protocol. During stress, there were no ST or T wave changes noted to suggest ischemia. No arrhythmias noted. No clinical angina was noted. Interpretation Summary The estimated ejection fraction is 65 %. Normal, adequate, treadmill echocardiogram. Negative for ischemia by EKG and echocardiographic anterior. No anginal symptoms noted. No arrhythmias noted. Appropriate blood pressure response to exercise. Below average exercise capacity for age. Final LVEF is 75%. Test terminated due to moderate dyspnea. Decreased sensitivity due to poor echo windows requiring Definity agent. The study was technically difficult. Contrast injection was performed. Ordering Physician: Dwight Espitia Referring Physician: Rajinder Heaton Performed By: Susan Espitia, RDCS, RVT
== END | disposition home or self-care (01) ==
LOC: CVS 11:00
PROVIDERS: Family Provider Physician Assistant; PCP Physician Assistant; Referring Provider Nurse Practitioner Family; Visit Provider Nurse Practitioner Family
DX: I25.10 Atherosclerotic heart disease of native coronary artery without angina pectoris (principal); R07.9 Chest pain, unspecified; Z95.5 Presence of coronary angioplasty implant and graft; R06.09 Other forms of dyspnea; E66.9 Obesity, unspecified
CPT/HCPCS: 93017; 93350; Q9957; A4216; C8928

== ENCOUNTER 2019-07-05 16:43 | Emergency (ER) | payer MEDICAID, SELFPAY ==
[2016-10-28 14:33] VITALS: BMI 35.2
[2019-02-13 10:58] VITALS: BMI 32.1
[2019-07-05 16:43] VITALS: BP 159/92; PULSE 88; RESP 15; TEMP 36.7; O2SAT 100; BMI 32.5
--- NOTE | 2019-07-05 17:22 | ED.VISSUMM ---
- ER Visit Summary Date of Service: 07/05/19 Chief Complaint: Accidental overdose History of Present Illness: The patient is a 49 F presenting after accidental overdose. Patient states she took her morning medication twice today. She has her pills laid out in a bottle with her morning meds. She forgot that she took her morning medications and took an extra dose of her metoprolol, metformin, Plavix, aspirin, lisinopril/hydrochlorothiazide. She denies any symptoms. She denies chest pain or shortness of breath. Denies feeling lightheaded or dizzy. Denies suicidal ideation or intentional overdose. Denies other complaints. Physical Examination: Vitals are stable. Patient is afebrile. Alert no acute distress. HEENT exam is unremarkable. Neck is supple. Lungs are clear and equal bilaterally. Heart is regular rate and rhythm. Abdomen is soft nontender nondistended. Extremities are unremarkable. Skin is warm and dry. No focal neurologic deficit. Remainder of exam is unremarkable. Emergency Department Course and Treatment: BGT 89. Patient is able to tolerate p.o. in the emergency department. She was observed. Repeat BGT 150. Patient continues to be asymptomatic. She is advised to monitor her blood sugar and blood pressure at home. Advised to return to the ED for any worsening complaints. Disposition: Discharge home Impression: Accidental overdose This note was generated with [employer] dictation software. It may contain incorrect words, spelling, and punctuation that were not noted in review of the chart prior to signing ED Disposition - Plan for ED Patient: Instructions: OVERDOSE, Accidental (Adult) Referrals: Anthony Neri PA [Primary Care Provider] -
[2019-07-05 17:31] LABS: Bedside Glucose 89 mg/dL (70-110)
--- NOTE | 2019-07-05 18:08 | ED.DEP ---
ED Disposition - Plan for ED Patient: Instructions: OVERDOSE, Accidental (Adult) Referrals: Anthony Neri PA [Primary Care Provider] -
[2019-07-05 18:11] LABS: Bedside Glucose 150 mg/dL (70-110)
[2019-07-05 18:24] VITALS: BP 103/66; PULSE 80; RESP 18; O2SAT 99
== END 2019-07-05 18:25 | disposition home or self-care (01) ==
PROVIDERS: Emergency Provider Emergency Medicine; Family Provider Physician Assistant; PCP Physician Assistant
DX: T44.7X1A Poisoning by beta-adrenoreceptor antagonists, accidental (unintentional), initial encounter (principal); T38.3X1A Poisoning by insulin and oral hypoglycemic [antidiabetic] drugs, accidental (unintentional), initial encounter; T45.521A Poisoning by antithrombotic drugs, accidental (unintentional), initial encounter; T39.011A Poisoning by aspirin, accidental (unintentional), initial encounter; T46.4X1A Poisoning by angiotensin-converting-enzyme inhibitors, accidental (unintentional), initial encounter; Y92.9 Unspecified place or not applicable; I25.10 Atherosclerotic heart disease of native coronary artery without angina pectoris; E11.9 Type 2 diabetes mellitus without complications; I10 Essential (primary) hypertension; E78.00 Pure hypercholesterolemia, unspecified; Z72.0 Tobacco use
CPT/HCPCS: 82962; 99282

== ENCOUNTER → 2019-08-05 13:21 | Outpatient (CLI) | payer MEDICAID, SELFPAY ==
[2016-10-28 14:33] VITALS: BMI 35.2
[2019-08-02 07:25] VITALS: BMI 33.1
[2019-08-05 16:03] LABS: Hemoglobin A1c 7.6 % (4.2-6.3)
[2019-08-05 16:10] LABS: PTHIN 88.6 pg/mL (18.4-80.1)
[2019-08-05 16:11] LABS: Vitamin D,25 Hydroxy 8.5 ng/mL (29.95-100.01)
== END ==
PROVIDERS: Family Provider Physician Assistant; PCP Physician Assistant; Referring Provider Physician Assistant; Visit Provider Physician Assistant
DX: E11.42 Type 2 diabetes mellitus with diabetic polyneuropathy (principal); E83.52 Hypercalcemia
CPT/HCPCS: 36415; 82306; 83036; 83970

== ENCOUNTER 2019-08-14 08:05 | Day surgery (SDC) | payer MEDICAID, SELFPAY ==
[2016-10-28 14:33] VITALS: BMI 35.2
--- NOTE | 2019-08-02 01:00 | HP_ITS ---
HPI HPI History of Present Illness Surgical H&P: Yes Details: KALEB HOLBROOK, is a 49 F who presents to the office today for a cardiovascular outpatient follow-up. She has a history of coronary artery disease status post stenting to LCx, at an outside hospital in [facility], in September 2016, PTCA/PARVEEN to LAD and PTCA to OM 1 in October 2016, stenting to her LCX in 09/2017, and PTCA/PARVEEN of proximal LCX ISR in August 2018, hypertension, hyperlipidemia, diabetes, obesity, recovering drug addiction, JOSH with CPAP, and current tobacco abuse. She states episode of chest pressure/burning sensation similar to prior heart attack. This radiates to her center back and left arm. This is associate with left arm numbness. This has occurred while sitting and another episode while walking. This woke her up last night as well. She rates her pain a 2/10 currently, but does state it has been more severe to the point she almost took a NTG. She denies associated nausea, diaphoresis, or SOB. She state increase in fatigue over the last few months. Her symptoms resolve on her own. Her exercise tolerance is less over the last 2 days. Pt denies symptoms of palpitations, lightheadedness, dizziness, near syncopal or syncopal episodes. Pt denies edema or claudication issues. Pt. denies orthopnea, PND, fever, chills, blood in urine, blood in stool, myalgia, or unexplainable fatigue. Intake Vital Signs 08/02/19 Height 5 ft 4 in 08/02/19 Weight: 193 lb 08/02/19 BP 94/65 08/02/19 Blood Pressure Location Lt brachial 08/02/19 Position Sitting 08/02/19 Respiration 18 08/02/19 Pulse 87 08/02/19 Pulse Source Monitor 08/02/19 Pulse Oximetry (%) 91 Intake Visit Reasons: chest pressure Basket Maker Required: No Accompanied by: None Is patient in pain?: No Allergies narcotic Adverse Reaction (Severe, Uncoded 07/05/19 16:45) Other - can not take- on Suboxone Medications Omeprazole 40 mg PO DAILY PRN 10/27/16 [History Confirmed 08/02/19] Aspirin E.C. [Ecotrin] 81 mg PO DAILY@0800 03/08/18 [History Confirmed 08/02/19] Atorvastatin Calcium [Lipitor] 40 mg PO DAILY 03/08/18 [History Confirmed 08/02/19] liraglutide 0.6 mg/0.1 mL (18 mg/3 mL) subcutaneous pen injector 1.2 mg SC DAILY ml 03/19/18 [History Confirmed 08/02/19] metformin 500 mg tablet 1,000 mg PO DAILY tab 05/03/18 [History Confirmed 08/02/19] nitroglycerin 0.4 mg sublingual tablet 0.4 mg SUBLINGUAL Q5M PRN #25 tab 06/13/18 [Rx Confirmed 08/02/19] metoprolol succinate 50 mg tablet,extended release 24 hr 25 mg PO DAILY tab 09/18/18 [History Confirmed 08/02/19] lisinopril 20 mg-hydrochlorothiazide 12.5 mg tablet 1 tab PO DAILY #30 tab 11/16/18 [Rx Confirmed 08/02/19] clopidogrel 75 mg tablet 75 mg PO DAILY #90 tab 01/02/19 [Rx Confirmed 08/02/19] isosorbide mononitrate 60 mg tablet,extended release 24 hr 60 mg PO BID #60 tab 02/13/19 [Rx Confirmed 08/02/19] Buprenorphine HCl/Naloxone HCl [Buprenorphin-Naloxon 8-2 mg Sl] 1 ea SL DAILY 07/05/19 [History Confirmed 08/02/19] [facility] Medical History (Updated 10/10/18 @ 10:48 by MARIELOS Yeboah) Abnormal stress test (Acute) Atherosclerosis of [place] coronary artery of [place] heart without angina pectoris (Chronic) Pure hypercholesterolemia (Chronic) Essential (primary) hypertension (Chronic) Chest pain (Acute) Encounter for long-term current use of high risk medication (Chronic) Tobacco abuse (Chronic) [place]ER[place]OD (dyspnea on exertion) (Chronic) JOSH (obstructive sleep apnea) (Chronic) Obesity (BMI 30.0-34.9) (Chronic) Type 2 diabetes mellitus without complications (Chronic) Old myocardial infarction (Chronic 10/17/16) Atherosclerosis of coronary artery of [place] heart without angina pectoris (Inactive) Obesity (BMI 30.0-34.9) (Chronic) Cervical cancer (Acute) Sleep apnea (Acute) Daytime somnolence (Chronic) Depression (Chronic) GERD (gastroesophageal reflux disease) (Chronic) polysubstance dependence in remission (Chronic) History of hysterectomy (Resolved) Syncope and collapse (Resolved) Surgical History (Updated 09/20/18 @ 10:25 by Batsheva Daniel) Stented coronary artery (Chronic) Blood Clot removal (Resolved) Endometriosis surgery (Resolved) H/O breast augmentation (Resolved) H/O section (Resolved) H/O exploratory laparotomy (Resolved) H/O tooth extraction (Resolved) History of right knee surgery (Resolved) Hx of cholecystectomy (Resolved) S/P D&C (status post dilation and curettage) (Resolved) Social History (Updated 08/02/19 @ 13:00 by Dwight Espitia NP-C) adopted: Yes household members: children housing: apartment pets and animals: Yes pets and animals: dog(s) Smoking Status: Current every day smoker Tobacco: How many years used: 28 second hand exposure: Yes quit status: quit date established alcohol intake: never substance use type: former substance user Date of last use: 03/01/10, crack/cocaine, painkillers caffeine: Yes Type: carbonated beverages Number of servings: 6 what type of physical activity do you participate in: none ROS Const Const: Positive for fatigue; negative for weakness, body ache, fever(s) or chills ENT ENT: Negative for dizziness Cardio Chest Pain: Yes Palpitations: No Edema: None Muscle aches with walking: None Resp Respiratory: Negative for SOB with activity, SOB at rest, SOB orthopnea\SOB lying down or paroxysmal nocturnal dyspnea GI GI: Negative nausea, vomiting blood/hematemesis, bright, red blood in stools or black,tarry stools : Negative for hematuria or frequent nighttime urination/ nocturia Musc Musc: Negative for muscle aches/ myalgia Skin Skin: Negative non-healing lesions or rash Neuro Neuro: Negative for dizziness, lightheadedness, near syncope, syncope, orthostatic symptoms or weakness Endo Endo: Positive for fatigue Allergy Allergy/Immunology: Negative for rash Cardiology Exam Const Appearance: cooperative, healthy appearing, comfortable and no acute distress Nutritional Appearance: well nourished and obese Orientation: alert, awake and oriented x3 Head Head: normal to inspection Ears: hearing grossly normal bilaterally Nose: external nose normal Face and Sinus: face symmetric Mouth: oral mucosae normal Eyes General: appearance normal, both eyes and all related structures Eyelids: eyelids normal EOM: EOM intact bilaterally Neck Neck: normal visual inspection and no JVD Carotids: normal carotid upstroke Chest Chest inspection: normal inspection of the chest, symmetric chest movement and normal respiratory effort; negative cough Auscultation: Bilateral: Clear to Auscultation Cardio Rate: regular rate Rhythm: regular rhythm Heart sounds: S1 normal and S2 normal; negative rub, gallop or murmur GI GI: normal to inspection and obese Neuro General: alert, awake, oriented x3 and CN's II-XI intact bilaterally Skin Skin: no rashes or lesions noted Extremities Pulses: Normal: Right Posterior Tibial Pulse, Left Posterior Tibial Pulse, Right Radial Pulse, Left Radial Pulse Lower Extremity Edema: None: Bilateral Psych Psychological: normal affect Assessment & Plan 1. Atherosclerosis of [place] coronary artery of [place] heart without angina pectoris I25.10 PARVEEN-MID Cx 10/17/16 [facility]; PCI-PARVEEN-LAD w/ POBA [place] OM1 10/28/16; PTCA/PARVEEN to proximal LCx 09/27/17. 09/19/2018: Successful PTCA/PARVEEN of proximal LCX ISR 3.0 x 12 Resolute PARVEEN per DJ @ [facility] Plan Patient expresses symptoms concerning for progressive coronary artery disease. Her last stress echocardiogram was negative in February 2019. Her last heart catheterization was August 2018. Patient undergo repeat heart catheterization to further evaluate. Her heart catheterization August 2018 resulted in stenting to her LCx for in-stent restenosis. Patient's blood pressure is on the lower side, thus advancement of isosorbide would not be made at this time. She was reminded the importance of risk factor and lifestyle modification. She continues to acknowledge understanding. Orders Orders: 12 Lead EKG performed by BMS Today Left Heart Cath/COR/LV Percut Today Basic Metabolic Profile (BMP) Today Partial Thromboplast Time Today Prothrombin Time w/INR Today CBC W/Diff, Automated Today Chest PA and Lateral Today 2. Stented coronary artery Z95.5 PARVEEN-MID Cx 10/17/16 [facility]; PCI-PARVEEN-LAD w/ POBA [place] OM1 10/28/16; PTCA/PARVEEN to proximal LCx 09/27/17; Successful PTCA/PARVEEN of proximal LCX ISR 3.0 x 12 Resolute PARVEEN per DJN @ [facility] 09/19/2018 Plan She continue current treatment as outlined above. This includes repeat heart catheterization. Orders Orders: 12 Lead EKG performed by BMS Today Left Heart Cath/COR/LV Percut Today Basic Metabolic Profile (BMP) Today Partial Thromboplast Time Today Prothrombin Time w/INR Today CBC W/Diff, Automated Today Chest PA and Lateral Today 3. Essential (primary) hypertension I10 Plan Patient's blood pressure is well-controlled. We will continue to monitor. We will not make any medication regimen changes. Orders Orders: Left Heart Cath/COR/LV Percut Today Basic Metabolic Profile (BMP) Today Partial Thromboplast Time Today Prothrombin Time w/INR Today CBC W/Diff, Automated Today Chest PA and Lateral Today 4. Pure hypercholesterolemia E78.00 Plan She continue current statin medication. She states that this is managed by primary care physician. Orders Orders: Left Heart Cath/COR/LV Percut Today Basic Metabolic Profile (BMP) Today Partial Thromboplast Time Today Prothrombin Time w/INR Today CBC W/Diff, Automated Today Chest PA and Lateral Today Plan Detail Other Orders Orders: Left Heart Cath/COR/LV Percut Today R07.9 Basic Metabolic Profile (BMP) Today R07.9 Partial Thromboplast Time Today R07.9 Prothrombin Time w/INR Today R07.9 CBC W/Diff, Automated Today R07.9 Chest PA and Lateral Today R07.9 Additional Comments Thank you for allowing us to participate in the patients plan of care, if you have any questions please do not hesitate to call. This note was generated using a voice recognition system and there may be incorrect words, spelling or punctuation that were not noted when reviewing the office note prior to saving. Coding Level of Care Code Off vis,est,level 4 Diagnoses Atherosclerosis of [place] coronary artery of [place] heart without angina pectoris I25.10 Stented coronary artery Z95.5 Essential (primary) hypertension I10 Pure hypercholesterolemia E78.00 Coding Level of Care Code Off vis,est,level 4 Diagnoses Atherosclerosis of [place] coronary artery of [place] heart without angina pectoris I25.10 Stented coronary artery Z95.5 Essential (primary) hypertension I10 Pure hypercholesterolemia E78.00 Supplemental Info Supplemental Information Stress echocardiogram from 02/22/2019: Interpretation Summary The estimated ejection fraction is 65 %. Normal, adequate, treadmill echocardiogram. Negative for ischemia by EKG and echocardiographic anterior. No anginal symptoms noted. No arrhythmias noted. Appropriate blood pressure response to exercise. Below average exercise capacity for age. Final LVEF is 75%. Test terminated due to moderate dyspnea. Decreased sensitivity due to poor echo windows requiring Definity agent. The study was technically difficult. Contrast injection was performed. Heart catheterization from 09/19/18: CORONARY ANGIOGRAPHY DOMINANCE: Right Dominant LEFT HEART ASSESSMENT Left Ventricular Ejection Fraction: by LV Gram 45 % Depressed Left Ventricular systolic function LVEDP: 9 mmHg Normal Left Ventricular End Diastolic Pressure Inferior Mid Hypokinesis - Moderate LEFT MAIN: Angiographically normal LEFT ANTERIOR DESCENDING ARTERY: PROX LAD: Previously placed stent is patent CIRCUMFLEX ARTERY: PROX CIRC: Instent restenosis 75 % MID CIRC: Previously placed stent is patent RIGHT CORONARY ARTERY: PROX RCA: Mild luminal irregularities less than 30% MID RCA: Moderate luminal irregularities up to 50% DISTAL RCA: Moderate luminal irregularities up to 50% RT PDA: Proximal - Mild luminal irregularities less than 30% She underwent PTCA/PARVEEN to left circumflex in-stent restenosis. Diagnostics Electrocardiogram 08/02/19 Stress Echocardiogram 02/22/19 Chest X-Ray 09/22/18 08/02/19 1300 <Electronically signed by Dwight Lee> Date _ Dwight ARCEO
[2019-08-02 07:25] VITALS: BMI 33.1
--- NOTE | 2019-08-05 09:30 | RAD_ITS ---
STUDY: X-RAY CHEST REASON FOR EXAM: Female, 49 years old. HX DIABETES. NO CHEST COMPLAINTS. PRE-HEART CATH. TECHNIQUE: PA and lateral views of the chest. COMPARISON: September 22, 2018 FINDINGS: The lungs are clear and expanded. There is no demonstrated pleural abnormality. There are cardiac stents visualized similar to prior study. Normal mediastinum and behzad. Normal visualized pulmonary arteries. Normal visualized aortic arch and descending thoracic aorta. Normal visualized thoracic spine. Normal visualized ribs, clavicles, and shoulders. There is no demonstrated abnormality of the visualized soft tissue structures of the upper abdomen. RAD/Chest PA and Lateral IMPRESSION: No demonstrated acute cardiopulmonary process. Electronically Signed: Linnette Storey MD at 17:55 EST Tel , Service support ,
[2019-08-05 16:37] LABS: Hematocrit 42.6 % (37-47); Hemoglobin 13.6 g/dL (12.0-15.0); Mean Corp Hgb Conc 31.9 g/dL (32-36); Mean Corpuscular Hgb 28.5 pg (27.0-32.0); Mean Corpuscular Volume 89.1 fL (81-99); Platelet Count 219 K/mm3 (150-450); RBC Distribution Width CV 12.3 % (11.6-14.6); RBC Distribution Width SD 40.4 fl (35.1-43.9); Red Blood Count 4.78 M/mm3 (4.2-5.4); White Blood Count 5.8 K/mm3 (4.4-11.0)
[2019-08-05 16:38] LABS: Basophil% 0.3 % (0-1); Eosinophils% 3.8 % (0-5); Lymphocyte % 53.1 % (19-41); Monocyte% 6.8 % (0-10); Neutrophil % 35.8 % (47-70)
[2019-08-05 16:40] LABS: Absolute Neutrophil Count 2.1 X10^3/uL (2.0-7.7)
[2019-08-05 16:41] LABS: NRBC Flagged by Analyzer 0 % (0-5)
[2019-08-05 16:42] LABS: International Normalized Ratio 0.9; Partial Thromboplast Time 27.9 Seconds (24.1-36.2); Prothrombin Time (Protime)PT. 11.9 SECONDS (11.7-14.9)
[2019-08-05 16:43] LABS: Glucose 141 mg/dL (74-106)
[2019-08-05 16:44] LABS: BUN 7 mg/dL (7-18); BUN/Creat Ratio 8.2 RATIO (10-20); Creatinine, Serum 0.85 mg/dL (0.55-1.02); EST Glomerular Filtration Rate 76 mL/min (>60)
[2019-08-05 16:45] LABS: Anion Gap 2 (5-15); Calcium,Total 10.4 mg/dL (8.5-10.1); Chloride 101 mmol/L (98-107); Est Glom Filt Rate - Afr Amer 92 mL/min (>60); Sodium Level 135 mmol/L (136-145)
[2019-08-13 07:13] VITALS: BMI 33.1
--- NOTE | 2019-08-14 10:20 | PCM.HP.BLA ---
Problem List (1) Abnormal stress test Status: Acute (2) Chest pain Status: Acute Qualifiers: (3) Atherosclerosis of yuhaaviatam coronary artery of yuhaaviatam heart without angina pectoris Status: Chronic Comment: PARVEEN-MID Cx 10/17/16 [facility]; PCI-PARVEEN-LAD w/ POBA Ostial OM1 10/28/16; PTCA/PARVEEN to proximal LCx 09/27/17. 09/19/2018: Successful PTCA/PARVEEN of proximal LCX ISR 3.0 x 12 Resolute PARVEEN per DJN @ [facility] (4) UNDERWOOD (dyspnea on exertion) Status: Chronic (5) JOSH (obstructive sleep apnea) Status: Chronic History and Physical Date of Admission: 08/14/19 [facility] [address] [place] [address]. [address] [place] [address] OFFICE VISIT Date of Service: 08/02/19 MR#: [id number] Acct: [id number] Name: KALEB HOLBROOK Rep #: [id number] : 1970 Provider: MARIELOS Espitia Age/Sex: 49/F Location: [facility] Status: Signed HPI HPI History of Present Illness Surgical H&P: Yes Details: KALEB HOLBROOK, is a 49 F who presents to the office today for a cardiovascular outpatient follow-up. She has a history of coronary artery disease status post stenting to LCx, at an outside hospital in [facility], in September 2016, PTCA/PARVEEN to LAD and PTCA to OM 1 in October 2016, stenting to her LCX in 09/2017, and PTCA/PARVEEN of proximal LCX ISR in August 2018, hypertension, hyperlipidemia, diabetes, obesity, recovering drug addiction, JOSH with CPAP, and current tobacco abuse. She states episode of chest pressure/burning sensation similar to prior heart attack. This radiates to her center back and left arm. This is associate with left arm numbness. This has occurred while sitting and another episode while walking. This woke her up last night as well. She rates her pain a 2/10 currently, but does state it has been more severe to the point she almost took a NTG. She denies associated nausea, diaphoresis, or SOB. She state increase in fatigue over the last few months. Her symptoms resolve on her own. Her exercise tolerance is less over the last 2 days. Pt denies symptoms of palpitations, lightheadedness, dizziness, near syncopal or syncopal episodes. Pt denies edema or claudication issues. Pt. denies orthopnea, PND, fever, chills, blood in urine, blood in stool, myalgia, or unexplainable fatigue. Intake Vital Signs 08/02/19 Height 5 ft 4 in 08/02/19 Weight: 193 lb 08/02/19 BP 94/65 08/02/19 Blood Pressure Location Lt brachial 08/02/19 Position Sitting 08/02/19 Respiration 18 08/02/19 Pulse 87 08/02/19 Pulse Source Monitor 08/02/19 Pulse Oximetry (%) 91 Intake Visit Reasons: chest pressure Railroad Signal Technician Required: No Accompanied by: None Is patient in pain?: No Allergies narcotic Adverse Reaction (Severe, Uncoded 07/05/19 16:45) Other - can not take- on Suboxone Medications Omeprazole 40 mg PO DAILY PRN 10/27/16 [History Confirmed 08/02/19] Aspirin E.C. [Ecotrin] 81 mg PO DAILY@0800 03/08/18 [History Confirmed 08/02/19] Atorvastatin Calcium [Lipitor] 40 mg PO DAILY 03/08/18 [History Confirmed 08/02/19] liraglutide 0.6 mg/0.1 mL (18 mg/3 mL) subcutaneous pen injector 1.2 mg SC DAILY ml 03/19/18 [History Confirmed 08/02/19] metformin 500 mg tablet 1,000 mg PO DAILY tab 05/03/18 [History Confirmed 08/02/19] nitroglycerin 0.4 mg sublingual tablet 0.4 mg SUBLINGUAL Q5M PRN #25 tab 06/13/18 [Rx Confirmed 08/02/19] metoprolol succinate 50 mg tablet,extended release 24 hr 25 mg PO DAILY tab 09/18/18 [History Confirmed 08/02/19] lisinopril 20 mg-hydrochlorothiazide 12.5 mg tablet 1 tab PO DAILY #30 tab 11/16/18 [Rx Confirmed 08/02/19] clopidogrel 75 mg tablet 75 mg PO DAILY #90 tab 01/02/19 [Rx Confirmed 08/02/19] isosorbide mononitrate 60 mg tablet,extended release 24 hr 60 mg PO BID #60 tab 02/13/19 [Rx Confirmed 08/02/19] Buprenorphine HCl/Naloxone HCl [Buprenorphin-Naloxon 8-2 mg Sl] 1 ea SL DAILY 07/05/19 [History Confirmed 08/02/19] [facility] Medical History (Updated 10/10/18 @ 10:48 by Dwight Espitia, BOBBIN CLEANING MACHINE OPERATOR-C) Abnormal stress test (Acute) Atherosclerosis of yuhaaviatam coronary artery of yuhaaviatam heart without angina pectoris (Chronic) Pure hypercholesterolemia (Chronic) Essential (primary) hypertension (Chronic) Chest pain (Acute) Encounter for long-term current use of high risk medication (Chronic) Tobacco abuse (Chronic) UNDERWOOD (dyspnea on exertion) (Chronic) JOSH (obstructive sleep apnea) (Chronic) Obesity (BMI 30.0-34.9) (Chronic) Type 2 diabetes mellitus without complications (Chronic) Old myocardial infarction (Chronic 10/17/16) Atherosclerosis of coronary artery of yuhaaviatam heart without angina pectoris (Inactive) Obesity (BMI 30.0-34.9) (Chronic) Cervical cancer (Acute) Sleep apnea (Acute) Daytime somnolence (Chronic) Depression (Chronic) GERD (gastroesophageal reflux disease) (Chronic) polysubstance dependence in remission (Chronic) History of hysterectomy (Resolved) Syncope and collapse (Resolved) Surgical History (Updated 09/20/18 @ 10:25 by Batsheva Daniel) Stented coronary artery (Chronic) Blood Clot removal (Resolved) Endometriosis surgery (Resolved) H/O breast augmentation (Resolved) H/O section (Resolved) H/O exploratory laparotomy (Resolved) H/O tooth extraction (Resolved) History of right knee surgery (Resolved) Hx of cholecystectomy (Resolved) S/P D&C (status post dilation and curettage) (Resolved) Social History (Updated 08/02/19 @ 13:00 by Dwight Espitia, BOBBIN CLEANING MACHINE OPERATOR-C) adopted: Yes household members: children housing: apartment pets and animals: Yes pets and animals: dog(s) Smoking Status: Current every day smoker Tobacco: How many years used: 28 second hand exposure: Yes quit status: quit date established alcohol intake: never substance use type: former substance user Date of last use: 03/01/10, crack/cocaine, painkillers caffeine: Yes Type: carbonated beverages Number of servings: 6 what type of physical activity do you participate in: none ROS Const Const: Positive for fatigue; negative for weakness, body ache, fever(s) or chills ENT ENT: Negative for dizziness Cardio Chest Pain: Yes Palpitations: No Edema: None Muscle aches with walking: None Resp Respiratory: Negative for SOB with activity, SOB at rest, SOB orthopnea\SOB lying down or paroxysmal nocturnal dyspnea GI GI: Negative nausea, vomiting blood/hematemesis, bright, red blood in stools or black,tarry stools : Negative for hematuria or frequent nighttime urination/ nocturia Musc Musc: Negative for muscle aches/ myalgia Skin Skin: Negative non-healing lesions or rash Neuro Neuro: Negative for dizziness, lightheadedness, near syncope, syncope, orthostatic symptoms or weakness Endo Endo: Positive for fatigue Allergy Allergy/Immunology: Negative for rash Cardiology Exam Const Appearance: cooperative, healthy appearing, comfortable and no acute distress Nutritional Appearance: well nourished and obese Orientation: alert, awake and oriented x3 Head Head: normal to inspection Ears: hearing grossly normal bilaterally Nose: external nose normal Face and Sinus: face symmetric Mouth: oral mucosae normal Eyes General: appearance normal, both eyes and all related structures Eyelids: eyelids normal EOM: EOM intact bilaterally Neck Neck: normal visual inspection and no JVD Carotids: normal carotid upstroke Chest Chest inspection: normal inspection of the chest, symmetric chest movement and normal respiratory effort; negative cough Auscultation: Bilateral: Clear to Auscultation Cardio Rate: regular rate Rhythm: regular rhythm Heart sounds: S1 normal and S2 normal; negative rub, gallop or murmur GI GI: normal to inspection and obese Neuro General: alert, awake, oriented x3 and CN's II-XI intact bilaterally Skin Skin: no rashes or lesions noted Extremities Pulses: Normal: Right Posterior Tibial Pulse, Left Posterior Tibial Pulse, Right Radial Pulse, Left Radial Pulse Lower Extremity Edema: None: Bilateral Psych Psychological: normal affect Assessment & Plan 1. Atherosclerosis of yuhaaviatam coronary artery of yuhaaviatam heart without angina pectoris I25.10 PARVEEN-MID Cx 10/17/16 [facility]; PCI-PARVEEN-LAD w/ POBA Ostial OM1 10/28/16; PTCA/PARVEEN to proximal LCx 09/27/17. 09/19/2018: Successful PTCA/PARVEEN of proximal LCX ISR 3.0 x 12 Resolute PARVEEN per DJN @ [facility] Plan Patient expresses symptoms concerning for progressive coronary artery disease. Her last stress echocardiogram was negative in February 2019. Her last heart catheterization was August 2018. Patient undergo repeat heart catheterization to further evaluate. Her heart catheterization August 2018 resulted in stenting to her LCx for in-stent restenosis. Patient's blood pressure is on the lower side, thus advancement of isosorbide would not be made at this time. She was reminded the importance of risk factor and lifestyle modification. She continues to acknowledge understanding. Orders Orders: 12 Lead EKG performed by [facility] Today Left Heart Cath/COR/LV Percut Today Basic Metabolic Profile (BMP) Today Partial Thromboplast Time Today Prothrombin Time w/INR Today CBC W/Diff, Automated Today Chest PA and Lateral Today 2. Stented coronary artery Z95.5 PARVEEN-MID Cx 10/17/16 [facility]; PCI-PARVEEN-LAD w/ POBA Ostial OM1 10/28/16; PTCA/PARVEEN to proximal LCx 09/27/17; Successful PTCA/PARVEEN of proximal LCX ISR 3.0 x 12 Resolute PARVEEN per DJN @ [facility] 09/19/2018 Plan She continue current treatment as outlined above. This includes repeat heart catheterization. Orders Orders: 12 Lead EKG performed by [facility] Today Left Heart Cath/COR/LV Percut Today Basic Metabolic Profile (BMP) Today Partial Thromboplast Time Today Prothrombin Time w/INR Today CBC W/Diff, Automated Today Chest PA and Lateral Today 3. Essential (primary) hypertension I10 Plan Patient's blood pressure is well-controlled. We will continue to monitor. We will not make any medication regimen changes. Orders Orders: Left Heart Cath/COR/LV Percut Today Basic Metabolic Profile (BMP) Today Partial Thromboplast Time Today Prothrombin Time w/INR Today CBC W/Diff, Automated Today Chest PA and Lateral Today 4. Pure hypercholesterolemia E78.00 Plan She continue current statin medication. She states that this is managed by primary care physician. Orders Orders: Left Heart Cath/COR/LV Percut Today Basic Metabolic Profile (BMP) Today Partial Thromboplast Time Today Prothrombin Time w/INR Today CBC W/Diff, Automated Today Chest PA and Lateral Today Plan Detail Other Orders Orders: Left Heart Cath/COR/LV Percut Today R07.9 Basic Metabolic Profile (BMP) Today R07.9 Partial Thromboplast Time Today R07.9 Prothrombin Time w/INR Today R07.9 CBC W/Diff, Automated Today R07.9 Chest PA and Lateral Today R07.9 Additional Comments Thank you for allowing us to participate in the patients plan of care, if you have any questions please do not hesitate to call. This note was generated using a voice recognition system and there may be incorrect words, spelling or punctuation that were not noted when reviewing the office note prior to saving. Coding Level of Care Code Off vis,est,level 4 Diagnoses Atherosclerosis of yuhaaviatam coronary artery of yuhaaviatam heart without angina pectoris I25.10 Stented coronary artery Z95.5 Essential (primary) hypertension I10 Pure hypercholesterolemia E78.00 Coding Level of Care Code Off vis,est,level 4 Diagnoses Atherosclerosis of yuhaaviatam coronary artery of yuhaaviatam heart without angina pectoris I25.10 Stented coronary artery Z95.5 Essential (primary) hypertension I10 Pure hypercholesterolemia E78.00 Supplemental Info Supplemental Information Stress echocardiogram from 02/22/2019: Interpretation Summary The estimated ejection fraction is 65 %. Normal, adequate, treadmill echocardiogram. Negative for ischemia by EKG and echocardiographic anterior. No anginal symptoms noted. No arrhythmias noted. Appropriate blood pressure response to exercise. Below average exercise capacity for age. Final LVEF is 75%. Test terminated due to moderate dyspnea. Decreased sensitivity due to poor echo windows requiring Definity agent. The study was technically difficult. Contrast injection was performed. Heart catheterization from 09/19/18: CORONARY ANGIOGRAPHY DOMINANCE: Right Dominant LEFT HEART ASSESSMENT Left Ventricular Ejection Fraction: by LV Gram 45 % Depressed Left Ventricular systolic function LVEDP: 9 mmHg Normal Left Ventricular End Diastolic Pressure Inferior Mid Hypokinesis - Moderate LEFT MAIN: Angiographically normal LEFT ANTERIOR DESCENDING ARTERY: PROX LAD: Previously placed stent is patent CIRCUMFLEX ARTERY: PROX CIRC: Instent restenosis 75 % MID CIRC: Previously placed stent is patent RIGHT CORONARY ARTERY: PROX RCA: Mild luminal irregularities less than 30% MID RCA: Moderate luminal irregularities up to 50% DISTAL RCA: Moderate luminal irregularities up to 50% RT PDA: Proximal - Mild luminal irregularities less than 30% She underwent PTCA/PARVEEN to left circumflex in-stent restenosis. Diagnostics Electrocardiogram 08/02/19 Stress Echocardiogram 02/22/19 Chest X-Ray 09/22/18 08/02/19 1300 <Electronically signed by Dwight ARCEO> Date [facility] Nupur Trivedi Signature: Date (if applicable) CC: Anthony Neri ~ Interventional cardiology addendum: Patient seen and examined and agree with above evaluation. The risk/benefits of the procedure was thoroughly explained to the patient, including specific attention to lack of onsite surgical backup, and informed consent was obtained. Cardiac catheterization to follow.
--- NOTE | 2019-08-14 11:07 | CL.I_ITS ---
Patient Name: KALEB HOLBROOK Study Date: 08/14/2019 Performing: Rajinder Heaton MD Ht: 64.17 inches 163 cm : 1970 Wt: 194.01 lbs 88 kg Age: 49 Gender: female BSA: 1.93 PROCEDURE(S) PERFORMED OQ76-DPE/COR/LV LH57-HMY, CORONARY OR GRAFT, INITIAL VESSEL CLINICAL PROFILE AND CO-MORBIDITIES Indications: New Onset Angina <= 2 months, Stable Known CAD, LV Dysfunction Heart Failure: NYHA Class: 1, Newly Diagnosed: No, Heart Failure Type: Systolic Stress/Imaging Date: 02/22/2019 Stress Echocardiogram: Negative Angina Classification Anginal Classification w/in 2 Weeks: Anginal Equivalent Dyspnea CAD Presentations: Unstable angina. Other: Dyspnea on exertion and after smoking cigarettes. Comorbidities/Risk Factors: Current/Recent Smoker (< 1year) Hypertension Dyslipidemia Prior CHF Prior PCI Diabetes Mellitus: Diabetes Therapy: Oral CONCLUSIONS Single vessel CAD of the RCA FFR of entire RCA was 0.85 with Adenosine augmentation; no indication for stenting at this time. RECOMMENDATIONS Management as per referring Fire Extinguisher Inspector Refer for FFR of RCA. Highly recommend quitting all tobacco products Follow up with primary clerical administrator Risk factor modification ASA Indefinitley Plavix for at least 12 months Routine post interventional care Refer for Outpatient Cardiac Rehab Manual sheath removal per protocol Follow up with Dr. Heaton Start Ranexa 500mg po bid, continue Imdur. Successful Mynx Control closure of RFA. DESCRIPTION OF PROCEDURE The patient arrived to the procedure lab. The risks and benefits of the procedure as well as a full d escription of our services here and lack of surgical backup were fully explained to the patient and/o r their significant other prior to the catheterization. The Timeout was completed, verifying the rajendra ect patient and procedure. The patient's procedural site was prepped and draped in the usual fashion. Local anesthetic was given subcutaneously to right groin region with Lidocaine 2%. Using a modified Seldinger technique, arterial access was obtained via the right femoral artery, a 4Fr sheath was inse rted. Left Coronary Artery selective angiography was performed in multiple views using a 4 Fr. JL5 c atheter. Right Coronary Artery selective angiography was then performed in multiple views using a 4 F r. 3DRC catheter. Left Ventriculography was performed in RECINOS projection using a 4 Fr. Pigtail cathete r. LV to AO pullback pressures were then recordedThe images were reviewed and options discussed. A decision was then made to proceed with an Intervention, IVUS or other adjunct procedure. Arterial sheath was exchanged for a 6 Fr Sheath. HS 2 SH Guide catheter was inserted and engaged into the RCA. The FFR/iFR wire was inserted. Adenosine was then given per protocol. Pressures and FFR /iFR were then recorded. FFR Ratio Baseline: 0.99 FFR Ratio post Adenosine: 0.85 The FFR/iFR wire was then removed. The arterial sheath was pulled and a Mynx closure device was deployed for hemostasis CORONARY ANGIOGRAPHY DOMINANCE: Right Dominant LEFT HEART ASSESSMENT Left Ventricular Ejection Fraction: by LV Gram 50-55 % Normal Left Ventricular End Diastolic Pressure Depressed Left Ventricular systolic function Abnormal LV wall motion. Inferior Basal Hypokinesis - Mild LEFT MAIN: Angiographically normal LEFT ANTERIOR DESCENDING ARTERY: PROX LAD: Mild luminal irregularities less than 30% MID LAD: Previously placed stent is patent CIRCUMFLEX ARTERY: PROX CIRC: Previously placed stent is patent MID CIRC: Previously placed stent is patent RIGHT CORONARY ARTERY: PROX RCA: Moderate luminal irregularities up to 50% MID RCA: Moderate luminal irregularities up to 50% DISTAL RCA: Mild luminal irregularities less than 30% INTERVENTION INFORMATION LESION SITE: RCA (Mid) Lesion Complexity: High/C, lesion at bifurcation: No, thrombus present: No, lesion length: 60 mm Pre Stenosis: 50 % Pre intervention BELKYS flow: 3 PROCEDURE: FFR Post Stenosis: 50 % Post intervention BELKYS flow: 3 Lesion Devices: Mandoyo 6 Fr HSII SH 100cm Guide Catheter IGT Devices ( Formerly NexPlanar) Coronary FFR Wire COMPLICATIONS No Complications PROCEDURE MEDICATIONS Versed 1 mg IV Oxygen: 2 L/min via nasal cannula Adenosine drip for FFR 24.4 ml IV @ 08/14/2019 10:44:54 Heparin 6000 unit(s) IV 08/14/2019 10:38:17 IV Bolus: .9 NaCl 50 ml total 08/14/2019 10:51:43 SUMMARY OF HEMODYNAMIC DATA Time AIR REST ECG 08:22:12 AO 110/57 (80) SA 10:27:35 LV 117/-11, 10 10:33:36 LV 115/-17, 4 10:33:42 LVp 107/-13, 5 10:34:41 AO 116/52 (80) 10:34:46 11:05:26 Signed By Rajinder Heaton MD On 08/14/2019 11:06:43 Rajinder Heaton MD
[2019-08-14 15:21] LABS: ACT Activated Clotting Time 202 sec (74-137)
== END 2019-08-14 15:40 | disposition home or self-care (01) ==
LOC: CLSP 08:06
PROVIDERS: Family Provider Physician Assistant; PCP Physician Assistant; Referring Provider Internal Medicine Cardiovascular Disease; Visit Provider Internal Medicine Cardiovascular Disease
DX: I25.10 Atherosclerotic heart disease of native coronary artery without angina pectoris (principal); I10 Essential (primary) hypertension; E78.00 Pure hypercholesterolemia, unspecified; G47.33 Obstructive sleep apnea (adult) (pediatric); E11.9 Type 2 diabetes mellitus without complications; E66.9 Obesity, unspecified; F32.9 Major depressive disorder, single episode, unspecified; I25.2 Old myocardial infarction; K21.9 Gastro-esophageal reflux disease without esophagitis; Z85.41 Personal history of malignant neoplasm of cervix uteri; Z95.5 Presence of coronary angioplasty implant and graft; Z79.82 Long term (current) use of aspirin; Z79.84 Long term (current) use of oral hypoglycemic drugs; Z79.02 Long term (current) use of antithrombotics/antiplatelets; Z79.899 Other long term (current) drug therapy; F17.210 Nicotine dependence, cigarettes, uncomplicated
CPT/HCPCS: 71046; 80048; 85025; 85347; 85610; 85730; 93458; 93571; 99152; 99153; C1760; J0153; J7040; Q9967; C1769; C1887; C1894

== ENCOUNTER → 2019-09-23 08:55 | Outpatient (CLI) | payer MEDICAID, SELFPAY ==
[2016-10-28 14:33] VITALS: BMI 35.2
[2019-08-13 07:13] VITALS: BMI 33.1
--- NOTE | 2019-09-23 09:00 | CDU_ITS ---
Reason For Study: Headaches Rt. Velocities/BP Lt. Velocities/BP Prox CCA 87.8/27.8 cm/sec. Prox CCA 119.3/38.9 cm/sec. Mid CCA 98.2/29.1 cm/sec. Mid CCA 108.3/33.4 cm/sec. Dist CCA 102.1/30.4 cm/sec. Dist CCA 117.4/38.9 cm/sec. Prox ICA 92.5/28.6 cm/sec. Prox ICA 122.9/35.3 cm/sec. Mid ICA 103.5/40.9 cm/sec. Mid ICA 110.1/38.9 cm/sec. Dist ICA 99.8/37.2 cm/sec. Dist ICA 98.6/33.5 cm/sec. Rt. ICA/CCA = 1.05. Lt. ICA/CCA = 1.05. Prox ECA 152.1/24.8 cm/sec. Prox ECA 121.1/29.8 cm/sec. Rt. Vert. 45.8/16.3 cm/sec. Lt. Vert. 51.9/15.1 cm/sec. Right Extracranial There is intimal thickening but no significant atherosclerotic plaque noted in the right common carotid artery. There is intimal thickening but no significant atherosclerotic plaque noted in the right internal carotid artery. There is no significant atherosclerotic plaque noted in the right external carotid artery. Antegrade flow is noted in the right vertebral artery. Left Extracranial There is intimal thickening but no significant atherosclerotic plaque noted in the left common carotid artery. There is intimal thickening but no significant atherosclerotic plaque noted in the left internal carotid artery. There is intimal thickening but no significant atherosclerotic plaque noted in the left external carotid artery. Antegrade flow is noted in the left vertebral artery. Procedure Carotid Duplex 90076. Exam performed in department. Interpretation Summary No significant atherosclerotic plaque or stenosis noted in the internal carotid arteries bilaterally. Flow within the vertebral arteries is antegrade bilaterally. Ordering Physician: Anthony Neri Referring Physician: Anthony Neri Performed By: Sandy Pitt RVT
--- NOTE | 2019-09-23 09:01 | VDUE_ITS ---
Reason For Study: Thrombosis superficial vein Right Proximal Right jugular vein is spontaneous, widely patent, phasic, with no intraluminal echogenicity noted. Right subclavian vein is spontaneous, widely patent, phasic, with no intraluminal echogenicity noted. Right Lower Arm Right radial vein is compressible. Right ulnar vein is compressible. Right Arm Right axillary vein is spontaneous, patent, phasic, competent, compressible and demonstrates augmentation. Right brachial vein is compressible. Right cephalic vein is compressible. Right basilic vein is compressible. Acute superficial vein thromosis is noted in the right lateral forearm varicose veins not extending into the basilic vein. Patient Safety Prelim to [place] GAMINO. Interpretation Summary Deep veins of the right upper extremity are patent and compressible segmentally. There is no evidence of deep vein thrombosis. Acute superficial thrombophlebitis is noted in the right forearm involving superficial veins associated with the basilic vein. The right basilic vein and cephalic vein are patent and compressible. Ordering Physician: Anthony Neri Referring Physician: Anthony Neri Performed By: Sandy Pitt RVT ?
== END ==
PROVIDERS: PCP Physician Assistant; Referring Provider Physician Assistant; Visit Provider Physician Assistant
DX: I82.711 Chronic embolism and thrombosis of superficial veins of right upper extremity (principal); I74.9 Embolism and thrombosis of unspecified artery; R51 Headache; R42 Dizziness and giddiness
CPT/HCPCS: 93880; 93971

== ENCOUNTER → 2020-02-04 13:05 | Outpatient (CLI) | payer MEDICAID, SELFPAY ==
[2016-10-28 14:33] VITALS: BMI 35.2
[2020-01-22 08:57] VITALS: BMI 32.1
[2020-02-04 14:16] LABS: Absolute Lymphocyte Count 3.48 X10^3/uL (0.83-4.51); Absolute Neutrophil Count 4.5 X10^3/uL (2.0-7.7); Basophil# 0.04 X10^3/uL; Basophil% 0.5 % (0-1); Eosinophil# 0.25 X10^3/uL; Eosinophils% 2.8 % (0-5); Hematocrit 43.2 % (37-47); Hemoglobin 14.5 g/dL (12.0-15.0); Lymphocyte # 3.48 X10^3/ul (4.0); Lymphocyte % 39.5 % (19-41); Mean Corp Hgb Conc 33.6 g/dL (32-36); Mean Corpuscular Hgb 29.5 pg (27.0-32.0); Mean Platelet Vol. 8.8 fl (6.2-12.0); Monocyte# 0.53 X10^3/uL; NRBC Flagged by Analyzer 0 % (0-5); Platelet Count 272 K/mm3 (150-450); RBC Distribution Width CV 12.2 % (11.6-14.6); RBC Distribution Width SD 39.1 fl (35.1-43.9); Red Blood Count 4.91 M/mm3 (4.2-5.4); White Blood Count 8.8 K/mm3 (4.4-11.0)
[2020-02-04 15:25] LABS: Anion Gap 5 (5-15); BUN 8 mg/dL (7-18); BUN/Creat Ratio 9.2 RATIO (10-20); Chloride 101 mmol/L (98-107); Creatinine, Serum 0.87 mg/dL (0.55-1.02); EST Glomerular Filtration Rate 74 mL/min (>60); Est Glom Filt Rate - Afr Amer 90 mL/min (>60); Glucose 207 mg/dL (74-106); Potassium 3.8 mmol/L (3.5-5.1); Sodium Level 136 mmol/L (136-145); T4 Free Direct 1.17 ng/dL (0.76-1.46); Thyroid Stim Hormone (TSH) 1.07 uIU/mL (0.358-3.74)
== END ==
PROVIDERS: PCP Physician Assistant; Referring Provider Nurse Practitioner Family; Visit Provider Nurse Practitioner Family
DX: I25.10 Atherosclerotic heart disease of native coronary artery without angina pectoris (principal); I10 Essential (primary) hypertension; R53.83 Other fatigue; R11.0 Nausea; R06.09 Other forms of dyspnea
CPT/HCPCS: 36415; 80048; 84439; 84443; 85025

== ENCOUNTER → 2020-05-05 13:00 | Outpatient (CLI) | payer MEDICAID, SELFPAY ==
[2016-10-28 14:33] VITALS: BMI 35.2
[2020-04-01 10:42] VITALS: BMI 33.1
== END ==
PROVIDERS: PCP Physician Assistant; Visit Provider Nurse Practitioner Acute Care
DX: Z46.89 Encounter for fitting and adjustment of other specified devices (principal)
CPT/HCPCS: 98960; G0463

== ENCOUNTER → 2020-08-07 06:42 | Outpatient (CLI) | payer MEDICAID, SELFPAY ==
[2016-10-28 14:33] VITALS: BMI 35.2
[2020-08-03 14:53] VITALS: BMI 31.9
--- NOTE | 2020-08-07 08:51 | STRESSREP ---
Stress Test Report Date: 08-07-2020 Procedure: Pharmacologic stress nuclear imaging study Indications: Chest pain; CAD; PCI Consent: Per the patient Procedure: The patient underwent pharmacologic (Regadenoson) evaluation with a peak heart rate of 93 beats per minute (54%predicted maximal heart rate) and a peak blood pressure of 118/70 mmHg. The baseline ECG demonstrated sinus rhythm. The peak pharmacologic ECG demonstrated no obvious ECG changes. There were no cardiac dysrhythmias pretest, during pharmacologic infusion, or recovery. There was no complaint of chest discomfort during pharmacologic infusion or recovery. The examination was discontinued secondary to completion of protocol. Impression: 1. Pharmacologic (Regadenoson) evaluation 2. Peak pharmacologic ECG with no obvious ECG changes. 3. There were no cardiac dysrhythmias pretest, during pharmacologic infusion, or recovery. 4. Nuclear images pending Myocardial perfusion imaging study: Technique: The patient was injected with 14.1 millicuries of technetium 99m Cardiolite and subsequently rest SPECT Cardiolite nuclear imaging was obtained in the horizontal long, vertical long, and short axis views. The patient underwent pharmacologic (Regadenoson) evaluation with a peak heart rate of 93 beats per minute (54% percent predicted maximal heart rate) and a peak blood pressure of 118/70 mmHg. The patient was injected with 44.2 millicuries of technetium 99m Cardiolite and subsequently stress SPECT Cardiolite nuclear imaging was obtained in the horizontal long, vertical long, and short axis views. A gated Cardiolite study at peak stress was obtained. Interpretation: Rest and stress SPECT Cardiolite nuclear imaging status post realignment, normalization, and attenuation correction demonstrate relative uniform tracer uptake and myocardial perfusion appearing within normal limits. There is end systolic thickening and brightening. The gated Cardiolite study demonstrates myocardial thickening and inward wall motion. The reported LVEF is 33%. Impression: 1. Rest and stress SPECT Cardiolite nuclear imaging demonstrate relative uniform tracer uptake and myocardial perfusion appearing within normal limits. 2. The gated Cardiolite study reports an LVEF of 33% (question accuracy). Comment: Consider further evaluation of her overall left ventricular wall motion/systolic function/LVEF with a transthoracic echocardiogram if clinically indicated. This note was generated with [employer] software. It may contain incorrect words, spelling, and punctuation that were not noted in checking the note before signing.
== END ==
PROVIDERS: PCP Physician Assistant; Referring Provider Nurse Practitioner Family; Visit Provider Nurse Practitioner Family
DX: R07.9 Chest pain, unspecified (principal); I25.10 Atherosclerotic heart disease of native coronary artery without angina pectoris; Z72.0 Tobacco use; Z95.5 Presence of coronary angioplasty implant and graft
CPT/HCPCS: 78452; 93017; A9500; A4216; J2785

== ENCOUNTER → 2020-08-13 10:58 | Outpatient (CLI) | payer MEDICAID, SELFPAY ==
[2016-10-28 14:33] VITALS: BMI 35.2
[2020-08-03 14:53] VITALS: BMI 31.9
--- NOTE | 2020-08-13 10:59 | ECHOCS_ITS ---
Reason For Study: CHF Procedure This was a 2D Doppler, Color Flow transthoracic echocardiogram. The study was technically difficult. Contrast injection was performed. Exam performed in department. Left Ventricle Normal LV size. Left ventricular systolic function is normal. The estimated ejection fraction is 55 %. Transmitral doppler flow suggestive of impaired relaxation of left ventricle. No regional wall motion abnormalities noted. Right Ventricle Normal RV size. Normal systolic function. Atria Normal left atrium. Normal right atrium. No doppler evidence for ASD. Mitral Valve There is no mitral annular calcification. Normal mitral valve. Mild (1+) mitral valve insufficiency. Tricuspid Valve Normal tricuspid valve. Trivial tricuspid valve insufficiency. Unable to estimate RV systolic pressure/pulmonary artery pressure due to technically difficult study. Aortic Valve Trisinus/trileaflet aortic valve. Normal aortic valve. Pulmonic Valve The pulmonic valve is not well visualized. Great Vessels Normal sized aortic root. Pericardium/Pleural No pericardial effusion. Medication 22 gauge I.V. with prn adaptor inserted into left arm. Diluted definity 4.0ml given slow IV push to enhance endocardial definition. MMode/2D Measurements & Calculations LVIDd: 4.5 cm IVSd: 0.85 cm Ao root diam: 2.9 cm LVIDs: 3.1 cm LVPWd: 0.82 cm RVDd: 2.9 cm FS: 30.0 % LAV(MOD-bp): 43.4 ml LVAd ap4: 28.5 cm2 SV(MOD-sp4): 46.9 ml LAV(MOD-bp) Indexed: 22.9 ml/m2 EDV(MOD-sp4): 87.5 ml LAV(MOD-sp2): 48.0 ml EDV(sp4-el): 92.5 ml LAV(MOD-sp4): 36.2 ml LVAs ap4: 16.9 cm2 ESV(MOD-sp4): 40.6 ml ESV(sp4-el): 40.1 ml EF(MOD-sp4): 53.6 % EF(sp4-el): 56.7 % SV(sp4-el): 52.4 ml LA A4 area: 15.6 cm2 LA dimension(2D): 2.9 cm RA A4 area: 13.1 cm2 Time Measurements MV dec time: 0.22 sec Doppler Measurements & Calculations MV E max joseph: 74.4 cm/sec Lat Peak E' Joseph: 14.2 cm/sec Med Peak E' Joseph: 7.7 cm/sec MV A max joseph: 91.0 cm/sec E/E' lat: 5.2 E/E' med: 9.6 MV E/A: 0.82 Ao V2 max: 124.7 cm/sec LV V1 max: 88.2 cm/sec PA V2 max: 97.1 cm/sec Ao max P.2 mmHg LV V1 max P.1 mmHg Interpretation Summary The study was technically difficult. Contrast injection was performed. Left ventricular systolic function is normal. The estimated ejection fraction is 55 %. Mild (1+) mitral valve insufficiency. Trivial tricuspid valve insufficiency. Unable to estimate RV systolic pressure/pulmonary artery pressure due to technically difficult study. Transmitral doppler flow suggestive of impaired relaxation of left ventricle Ordering Physician: Dwight Espitia Referring Physician: TARYN GONZALES Performed By: Rachelle Sorenson, JHOANA, RVT
== END ==
PROVIDERS: PCP Physician Assistant; Referring Provider Nurse Practitioner Family; Visit Provider Nurse Practitioner Family
DX: I25.10 Atherosclerotic heart disease of native coronary artery without angina pectoris (principal); Z95.5 Presence of coronary angioplasty implant and graft; I42.9 Cardiomyopathy, unspecified
CPT/HCPCS: 93306; Q9957; A4216; C8929

== ENCOUNTER → 2020-09-18 10:00 | Outpatient (CLI) | payer MEDICAID, SELFPAY ==
[2016-10-28 14:33] VITALS: BMI 35.2
[2020-08-03 14:53] VITALS: BMI 31.9
== END ==
PROVIDERS: PCP Physician Assistant; Visit Provider Nurse Practitioner Acute Care
DX: G47.33 Obstructive sleep apnea (adult) (pediatric) (principal)

== ENCOUNTER 2020-10-08 09:43 | Outpatient (RCR) | payer MEDICAID, SELFPAY ==
[2016-10-28 14:33] VITALS: BMI 35.2
[2020-08-03 14:53] VITALS: BMI 31.9
[2020-10-08] MEDS: COVID-19 VACC, MRNA(PFIZER)/PF 30 MCG/0.3 ML SYRINGE IM (15:18)
[2020-10-29] MEDS: COVID-19 VACC, MRNA(PFIZER)/PF 30 MCG/0.3 ML SYRINGE IM (15:10)
== END 2020-10-08 23:59 ==
LOC: IMMUN 09:43
PROVIDERS: PCP Physician Assistant; Visit Provider Family Medicine
DX: Z23 Encounter for immunization (principal)
CPT/HCPCS: 0001A; 0002A; 91300

== ENCOUNTER 2021-03-09 09:00 | Day surgery (SDC) | payer MEDICAID, SELFPAY ==
[2016-10-28 14:33] VITALS: BMI 35.2
[2021-02-10 14:02] VITALS: BMI 32.1
--- NOTE | 2021-03-04 11:09 | RAD_ITS ---
STUDY: X-RAY CHEST REASON FOR EXAM: Female, 50 years old. Angina pectoris TECHNIQUE: PA and lateral views of the chest. COMPARISON: Comparison is made with prior study 08/05/2019. FINDINGS: The lungs are clear and expanded. There is no demonstrated pleural abnormality. Normal size heart. Normal mediastinum and behzad. Normal visualized pulmonary arteries. Normal visualized aortic arch and descending thoracic aorta. Normal visualized thoracic spine. Normal visualized ribs, clavicles, and shoulders. The patient is status post cholecystectomy. RAD/Chest PA and Lateral IMPRESSION: Normal x-ray examination of the chest. Electronically Signed: Jatidner Batista MD at 10:45 EDT , Service support ,
[2021-03-04 11:33] LABS: Absolute Lymphocyte Count 2.48 X10^3/uL (0.83-4.51); Absolute Neutrophil Count 4.8 X10^3/uL (2.0-7.7); Basophil# 0.04 X10^3/uL; Basophil% 0.5 % (0-1); Eosinophil# 0.22 X10^3/uL; Eosinophils% 2.7 % (0-5); Hematocrit 40.5 % (37-47); Hemoglobin 13.6 g/dL (12.0-15.0); Lymphocyte # 2.48 X10^3/ul (0.83-4.51); Lymphocyte % 30.7 % (19-41); Mean Corp Hgb Conc 33.6 g/dL (32-36); Mean Corpuscular Hgb 29.6 pg (27.0-32.0); Mean Corpuscular Volume 88.2 fL (81-99); Monocyte# 0.48 X10^3/uL; Monocyte% 5.9 % (0-10); NRBC Flagged by Analyzer 0 % (0-5); Neutrophil # 4.84 X10^3/uL (2.7-7.7); Platelet Count 238 K/mm3 (150-450); RBC Distribution Width CV 12.1 % (11.6-14.6); RBC Distribution Width SD 39.1 fl (35.1-43.9); Red Blood Count 4.59 M/mm3 (4.2-5.4); White Blood Count 8.1 K/mm3 (4.4-11.0)
[2021-03-04 11:43] LABS: Partial Thromboplast Time 25.8 Seconds (24.1-36.2); Prothrombin Time (Protime)PT. 12.2 SECONDS (11.7-14.9)
[2021-03-04 11:50] LABS: Anion Gap 6 (5-15); BUN 9 mg/dL (7-18); BUN/Creat Ratio 9.1 RATIO (10-20); Calcium,Total 10.2 mg/dL (8.5-10.1); Chloride 102 mmol/L (98-107); Creatinine, Serum 0.99 mg/dL (0.55-1.02); EST Glomerular Filtration Rate 64 mL/min (>60); Est Glom Filt Rate - Afr Amer 77 mL/min (>60); Glucose 256 mg/dL (74-106); Sodium Level 137 mmol/L (136-145)
[2021-03-08 10:43] VITALS: BMI 32.1
--- NOTE | 2021-03-08 18:12 | HP.PCM_ITS ---
History and Physical Date of Admission: 03/09/21 [facility] [id number] [place], [place] [id number] OFFICE VISITDate of Service: 02/10/21 MR#:[id number]: KALEB HOLBROOK [id number] #:[id number] Provider:Dr. Tani Crowe, MULUGETAge/Sex: 50/F Loc ation:BMS.WHGStatus:Signed HPI HPI History of Present Illness Surgical H&P: Yes Details: This is a 50-year-old white female with a history of underlying premature CAD status post previous LAD PTCA/stent-2016 in [place], [place], PTCA to OM1-2016, PTCA/stent to the LCx in 2017, PTCA/PARVEEN to the proximal [id number]-[id number] restenosis in August 2018, superimposed upon hyperlipidemia and hypertension who presents for concerns of angina pectoris. She states that she is having symptoms similar to what she had prior to her original and subsequent coronary artery disease diagnosis and progression of such leading to her previous PCI procedures. She describes a left-sided chest discomfort/heaviness/pressure that radiates to her left upper extremity. She notes that she does sometimes feel more short of breath and dyspneic. She has been nauseated on and off. She has denied any orthopnea or PND or worsening peripheral pitting edema. There has been no near syncope or syncope. She has been on medical management. She is also undergone noninvasive evaluation in the past. Her previous cardiovascular studies available for review are noted below. They were reviewed with her. She also recently had an outpatient ECG in the office on 02-03-2021. It demonstrated sinus rhythm. There did not appear to be any acute ECG changes. She states her PCP group has been following her lipid labs. Intake Vital Signs 02/10/21 14:02 Height 5 ft 4 in Weight: 187 lb BMI 32.1 BP 120/66 Blood Pressure Location Lt brachial Position Sitting Respiration 16 Pulse 76 Pulse Source Auscultation Intake Visit Reasons: PFM wants to meet pt before [place] [employer] Counter Required: No Accompanied by: None Is patient in pain?: No Allergies narcotic Adverse Reaction (Severe, Uncoded 02/10/21 14:06) Other - can not take- on Suboxone Medications omeprazole 40 mg PO DAILY PRN 10/27/16 [History Confirmed 02/10/21] atorvastatin 40 mg PO DAILY 03/08/18 [History Confirmed 02/10/21] liraglutide 0.6 mg/0.1 mL (18 mg/3 mL) subcutaneous pen injector 1.2 mg SC DAILY ml 03/19/18 [History Confirmed 02/10/21] metoprolol succinate 50 mg tablet,extended release 24 hr 25 mg PO DAILY tab 09/18/18 [History Confirmed 02/10/21] buprenorphine-naloxone 1 ea SUBLINGUAL DAILY 07/05/19 [History Confirmed 02/10/21] isosorbide mononitrate 60 mg tablet,extended release 24 hr 60 mg PO BID #60 tab 01/20/20 [Rx Confirmed 02/10/21] ondansetron 4 mg disintegrating tablet 4 mg PO DAILY PRN tab 01/22/20 [History Confirmed 02/10/21] aspirin 81 mg tablet,delayed release 81 mg PO DAILY@0800 #90 tab 07/02/20 [Rx Confirmed 02/10/21] nitroglycerin 0.4 mg sublingual tablet 0.4 mg SUBLINGUAL Q5M PRN #25 tab 08/14/20 [Rx Confirmed 02/10/21] clopidogrel 75 mg tablet 75 mg PO DAILY #90 tab 02/03/21 [Rx Confirmed 02/10/21] lisinopril 20 mg tablet 20 mg PO DAILY 02/03/21 [History Confirmed 02/10/21] Ejection fraction %: 55 to 59 [facility] History (Updated 02/10/21 @ 14:[address] Tani Crowe MD) Abnormal stress test Angina pectoris Atherosclerosis of coronary artery of [place] heart without angina pectoris Atherosclerosis of [place] coronary artery of [place] heart without angina pectoris Cervical cancer Chest pain Daytime somnolence Depression UNDERWOOD (dyspnea on exertion) Encounter for long-term current use of high risk medication Essential (primary) hypertension GERD (gastroesophageal reflux disease) Obesity (BMI 30.0-34.9) Obesity (BMI 30.0-34.9) Old myocardial infarction (10/17/16) JOSH (obstructive sleep apnea) polysubstance dependence in remission Pure hypercholesterolemia Sleep apnea Syncope and collapse Tobacco abuse Type 2 diabetes mellitus without complications Surgical History Blood Clot removal Endometriosis surgery H/O breast augmentation H/O section H/O exploratory laparotomy H/O tooth extraction History of hysterectomy History of left heart catheterization (08/14/19) History of right knee surgery Hx of cholecystectomy S/P D&C (status post dilation and curettage) Stented coronary artery Family History Father Diabetes Heart disease Burger-Grutz disease Alcohol abuse Cancer Mother Depression Addiction Heart disease Myocardial infarction CVA (cerebral vascular accident) Diabetes Parkinson disease Dementia Other Patient Adopted Social History adopted: Yes household members: children housing: apartment pets and animals: Yes pets and animals: dog(s) Smoking Status: Current every day smoker Tobacco: How many years used: 28 second hand exposure: Yes quit status: quit date established alcohol intake: never substance use type: former substance user Date of last use: 03/01/10, crack/cocaine and painkillers caffeine: Yes Type: carbonated beverages Number of servings: 2 what type of physical activity do you participate in: none ROS Const Const: Positive for fatigue, weakness and daytime sleepiness (Falling asleep dur ing day without realizing it); Negative for headache(s), frequent falls, difficulty sleeping or excessive sweating Eyes Eyes: Negative for loss of peripheral vision, transient loss of vision, blurry v ision, double vision or tunnel vision ENT ENT: Negative for headache(s), dizziness, Nosebleed/epistaxis or balance problems Cardio Chest Pain: Yes Frequency: daily Character: other (pressure/burning sensation) Onset: other (Randomly) Location: left chest (rotates between left chest,left shoulderblade, and down left arm) Duration: minutes Palpitations: Yes feels like its: fast Edema: Bilateral Muscle aches with walking: None Resp Respiratory: Negative for SOB with activity, SOB at rest, SOB orthopnea\SOB lying down, Cough or paroxysmal nocturnal dyspnea GI GI: Negative nausea, vomiting, heartburn or black,tarry stools : Negative for hematuria Musc Musc: Negative for muscle aches/ myalgia, muscle weakness, joint pain or balance problems Skin Skin: Negative non-healing lesions, rash or unusual bruising Neuro Neuro: Positive for weakness; Negative for dizziness, lightheadedness, near syncope, syncope, frequent falls, headache(s), blurry vision, double vision or lack of coordination Candido Hematologic/Lymphatic: Negative for easy bleeding or easy bruising Endo Endo: Positive for fatigue; Negative for excessive sweating or increased thirst/drinking Psych Psych: Negative for anxiety or depression Allergy Allergy/Immunology: Negative for hives and Negative for rash Cardiology Exam Const Appearance: cooperative, healthy appearing, comfortable, no acute distress, well developed and well groomed Nutritional Appearance: obese Orientation: alert, awake and oriented x3 Head Head: normal to inspection, normocephalic and atraumatic Ears: hearing grossly normal bilaterally Nose: external nose normal Face and Sinus: face symmetric Eyes Eyelids: eyelids normal Conjunctivae: conjunctivae normal Pupils: PERRL EOM: EOM intact bilaterally Neck Neck: normal visual inspection and full ROM Carotids: normal carotid upstroke Chest Chest inspection: normal inspection of the chest, symmetric chest movement and normal respiratory effort Auscultation: Bilateral: Clear to Auscultation Cardio Palpation: normal PMI Rate: regular rate Rhythm: regular rhythm Heart sounds: S1 normal and S2 normal GI GI: normal to inspection, soft, bowel sounds present and obese Neuro General: patient alert, patient awake, patient oriented x3 and moves all extremities Skin Skin: no rashes or lesions noted Extremities Pulses: Normal: Right Radial Pulse and Left Radial Pulse Lower Extremity Edema: None: Bilateral Psych Psychological: normal affect Assessment and Plan Assessment and Plan (1) Angina pectoris: Status: Acute Orders: Orders: Left Heart Cath/COR/LV Percut Today Basic Metabolic Profile (BMP) Today Partial Thromboplast Time Today Prothrombin Time w/INR Today CBC W/Diff, Automated Today Chest PA and Lateral Today Plan - Dr. Tani Crowe MD: At the present time the patient is presenting with symptoms concerning for angina pectoris. At the moment she is going to continue her medical management. Her case was discussed and reviewed with her. The tentative plan is to proceed with further evaluation with diagnostic cardiac catheterization as there is been no other etiology to explain her ongoing symptoms, etc. The procedure and risks were discussed with her. She was agreeable to this approach. (2) Atherosclerosis of [place] coronary artery of [place] heart without angina pectoris: Status: Chronic Comment: PARVEEN-MID Cx 10/17/16 [facility]; PCI-PARVEEN-LAD w/ POBA Ost[place] OM1 10/28/16; PTCA/PARVEEN to proximal LCx 09/27/17. 09/19/2018: Successful PTCA/PARVEEN of proximal LCX ISR 3.0 x 12 Resolute PARVEEN per DJN @ [facility] Orders: Orders: Left Heart Cath/COR/LV Percut Today Basic Metabolic Profile (BMP) Today Partial Thromboplast Time Today Prothrombin Time w/INR Today CBC W/Diff, Automated Today Chest PA and Lateral Today Plan - Dr. Tani Crowe MD: Her CAD history was reviewed with her. Again she will continue medical management and proceed with further evaluation as noted above. (3) Stented coronary artery: Status: Chronic Comment: PARVEEN-MID Cx 10/17/16 [facility]; PCI-PARVEEN-LAD w/ POBA Ost[place] OM1 10/28/16; PTCA/PARVEEN to proximal LCx 09/27/17; Successful PTCA/PARVEEN of proximal LCX ISR 3.0 x 12 Resolute PARVEEN per DJN @ [facility] 09/19/2018 Orders: Orders: Left Heart Cath/COR/LV Percut Today Basic Metabolic Profile (BMP) Today Partial Thromboplast Time Today Prothrombin Time w/INR Today CBC W/Diff, Automated Today Chest PA and Lateral Today Plan - Dr. Tani Crowe MD: She has had an extensive history of CAD resulting in multiple PCI procedures as well as most recently an FFR procedure resulting in no subsequent PCI. Based upon the patient's ongoing symptoms/concerns and noting she has already undergone noninvasive valuation as described, she will proceed with further invasive valuation with repeat diagnostic cardiac catheterization. Depending upon the findings she may or may not need further catheter-based, surg ical based, etc., care versus further noncardiac care. (4) Pure hypercholesterolemia: Status: Chronic Orders: Orders: Left Heart Cath/COR/LV Percut Today Basic Metabolic Profile (BMP) Today Partial Thromboplast Time Today Prothrombin Time w/INR Today CBC W/Diff, Automated Today Chest PA and Lateral Today Plan - Dr. Tani Crowe MD: A copy of the patient's lipid labs will be appreciated for continuity of care. (5) Essential (primary) hypertension: Status: Chronic Orders: Orders: Left Heart Cath/COR/LV Percut Today Basic Metabolic Profile (BMP) Today Partial Thromboplast Time Today Prothrombin Time w/INR Today CBC W/Diff, Automated Today Chest PA and Lateral Today Plan - Dr. Tani Crowe MD: The patient will continue medical management. Plan Details Additional Comments: Thank you for allowing me to participate in the care of your patient. Please don't hesitate to call if any issues arise. This note was generated using a voice recognition system and there may be incorrect words, spelling or punctuation that were not noted when reviewing the office note prior to saving. Follow Up: 04/07/21 (as scheduled) COVID (Procedure Consent) Procedure Criteria Procedure Criteria: Yes Elective The surgeon/proceduralist and patient have discussed in detail the risk of exposure to and/or potential harm posed by the COVID-19 virus with having a surgery/procedure at this time versus the risk of delaying the surgery/procedure. It is not possible to know either the risk of delaying the surgery or procedure or chance of getting an infection with perfect accuracy, but a joint decision was made between the patient and the surgeon/proceduralist to proceed at this time with the scheduled surgery/procedure as indicated on the consent form. Coding Level of Care Code Off vis,est,level 5 Diagnoses Angina pectoris I20.9 Atherosclerosis of [place] coronary artery of [place] heart without angina pectoris I25.10 Stented coronary artery Z95.5 Pure hypercholesterolemia E78.00 Essential (primary) hypertension I10 Coding Level of Care Code Off vis,est,level 5 Diagnoses Angina pectoris I20.9 Atherosclerosis of [place] coronary artery of [place] heart without angina pectoris I25.10 Stented coronary artery Z95.5 Pure hypercholesterolemia E78.00 Essential (primary) hypertension I10 Supplemental Info Supplemental Information Transthoracic echocardiogram: 08-13-2020 Interpretation Summary The study was technically difficult. Contrast injection was performed. Left ventricular systolic function is normal. The estimated ejection fraction is 55 %. Mild (1+) mitral valve insufficiency. Trivial tricuspid valve insufficiency. Unable to estimate RV systolic pressure/pulmonary artery pressure due to technically difficult study. Transmitral doppler flow suggestive of impaired relaxation of left ventricle Stress echocardiogram: 02-22-2019 Interpretation Summary The estimated ejection fraction is 65 %. Normal, adequate, treadmill echocardiogram. Negative for ischemia by EKG and echocardiographic anterior. No anginal symptoms noted. No arrhythmias noted. Appropriate blood pressure response to exercise. Below average exercise capacity for age. Final LVEF is 75%. Test terminated due to moderate dyspnea. Decreased sensitivity due to poor echo windows requiring Definity agent. The study was technically difficult. Contrast injection was performed. Stress Test Report Date: 08-07-2020 Procedure: Pharmacologic stress nuclear imaging study Indications: Chest pain; CAD; PCI Consent: Per the patient Procedure: The patient underwent pharmacologic (Regadenoson) evaluation with a peak heart rate of 93 beats per minute (54%predicted maximal heart rate) and a peak blood pressure of 118/70 mmHg. The baseline ECG demonstrated sinus rhythm. The peak pharmacologic ECG demonstrated no obvious ECG changes. There were no cardiac dysrhythmias pretest, during pharmacologic infusion, or recovery. There was no complaint of chest discomfort during pharmacologic infusion or recovery. The examination was discontinued secondary to completion of protocol. Impression: 1. Pharmacologic (Regadenoson) evaluation 2. Peak pharmacologic ECG with no obvious ECG changes. 3. There were no cardiac dysrhythmias pretest, during pharmacologic infusion, or recovery. 4. Nuclear images pending Myocardial perfusion imaging study: Technique: The patient was injected with 14.1 millicuries of technetium 99m Cardiolite and subsequently rest SPECT Cardiolite nuclear imaging was obtained in the horizontal long, vertical long, and short axis views. The patient underwent pharmacologic (Regadenoson) evaluation with a peak heart rate of 93 beats per minute (54% percent predicted maximal heart rate) and a peak blood pressure of 118/70 mmHg. The patient was injected with 44.2 millicuries of technetium 99m Cardiolite and subsequently stress SPECT Cardiolite nuclear imaging was obtained in the horizontal long, vertical long, and short axis views. A gated Cardiolite study at peak stress was obtained. Interpretation: Rest and stress SPECT Cardiolite nuclear imaging status post realignment, normalization, and attenuation correction demonstrate relative uniform tracer uptake and myocardial perfusion appearing within normal limits. There is end systolic thickening and brightening. The gated Cardiolite study demonstrates myocardial thickening and inward wall motion. The reported LVEF is 33%. Impression: 1. Rest and stress SPECT Cardiolite nuclear imaging demonstrate relative uniform tracer uptake and myocardial perfusion appearing within normal limits. 2. The gated Cardiolite study reports an LVEF of 33% (question accuracy). Comment: Consider further evaluation of her overall left ventricular wall motion/systolic function/LVEF with a transthoracic echocardiogram if clinically indicated. Heart catheterization from 09/19/18: CORONARY ANGIOGRAPHY DOMINANCE: Right Dominant LEFT HEART ASSESSMENT Left Ventricular Ejection Fraction: by LV Gram 45 % Depressed Left Ventricular systolic function LVEDP: 9 mmHg Normal Left Ventricular End Diastolic Pressure Inferior Mid Hypokinesis - Moderate LEFT MAIN: Angiographically normal LEFT ANTERIOR DESCENDING ARTERY: PROX LAD: Previously placed stent is patent CIRCUMFLEX ARTERY: PROX CIRC: Instent restenosis 75 % MID CIRC: Previously placed stent is patent RIGHT CORONARY ARTERY: PROX RCA: Mild luminal irregularities less than 30% MID RCA: Moderate luminal irregularities up to 50% DISTAL RCA: Moderate luminal irregularities up to 50% RT PDA: Proximal - Mild luminal irregularities less than 30% PCI: 09-19-2018 She underwent PTCA/PARVEEN to left circumflex in-stent restenosis. Heart catheterization from 08/14/2019: CONCLUSIONS Single vessel CAD of the RCA FFR of entire RCA was 0.85 with Adenosine augmentation; no indication for stenting at this time. RECOMMENDATIONS Management as per referring Mail Sorting Supervisor Refer for FFR of RCA. Highly recommend quitting all tobacco products Follow up with primary transformer stock clerk Risk factor modification ASA Indefinitley Plavix for at least 12 months Routine post interventional care Refer for Outpatient Cardiac Rehab Manual sheath removal per protocol Follow up with Dr. Heaton Start Ranexa 500mg po bid, continue Imdur. Successful Mynx Control closure of RFA. CORONARY ANGIOGRAPHY DOMINANCE: Right Dominant LEFT HEART ASSESSMENT Left Ventricular Ejection Fraction: by LV Gram 50-55 % Normal Left Ventricular End Diastolic Pressure Depressed Left Ventricular systolic function Abnormal LV wall motion. Inferior Basal Hypokinesis - Mild LEFT MAIN: Angiographically normal LEFT ANTERIOR DESCENDING ARTERY: PROX LAD: Mild luminal irregularities less than 30% MID LAD: Previously placed stent is patent CIRCUMFLEX ARTERY: PROX CIRC: Previously placed stent is patent MID CIRC: Previously placed stent is patent RIGHT CORONARY ARTERY: PROX RCA: Moderate luminal irregularities up to 50% MID RCA: Moderate luminal irregularities up to 50% DISTAL RCA: Mild luminal irregularities less than 30% Carotid duplex ultrasound from 09/23/2019: Interpretation Summary No significant atherosclerotic plaque or stenosis noted in the internal carotid arteries bilaterally. Flow within the vertebral arteries is antegrade bilaterally. Labs: LDL Cholesterol 50 mg/dL (0-130) HDL Cholesterol 31 mg/dL (40-) L Triglycerides 90 mg/dL (-199) VLDL Cholesterol 18 mg/dL (5-40) Diagnostics: Electrocardiogram Echocardiogram Stress Echocardiogram Stress Test NM Stress Test Chest X-Ray Venous Doppler Study Pulmonary: No Data to Display 02/10/21 1096<Electronically signed by Tani Crowe MD>Date Tani Crowe MD Cosigner Signature:Date (if applicable) CC: ROSEANNE Neri ~ Assessment & Plan Addt'l Comments I have re-examined the patient. There are no clinical changes since date of exam.
[2021-03-09] VITALS (18 sets, daily range): BP systolic 103–127; BP diastolic 66–87; PULSE 58–76; RESP 16–18; TEMP 36.8; O2SAT 94–100
--- NOTE | 2021-03-09 12:26 | PCIREPORT_ITS ---
PCI Cardiac Cath Report PCI Report: Procedure performed; 1. Successful percutaneous core intervention of 70% in-stent stenosis of the proximal left circumflex. With predilatation using NC balloon 3 x 15 mm, followed by placement of drug- eluting stent ORSIRO postdilated using 3.25 x 15 mm NC balloon And reduction of stenosis from 70% to 10% and maintenance of BELKYS-3 flow in the left circumflex. 2. Successful PCI of the distal RCA with predilatation using 2 x 12 mm Emerge balloon, followed by placement of drug-eluting stent 2.5 x 15 mm/ORSIRO On reduction of stenosis from 70% to 0% and maintenance of BELKYS-3 flow in the RCA. Preprocedure diagnosis; 50-year-old patient underwent cardiac catheterization today by her primary developer trading systems Dr. Crowe Patient had a history of CAD with PCI stent of LAD, left circumflex and have symptoms of chest pain with angina patient continues to smoke and has been on dual antiplatelet therapy with Plavix and aspirin as well as antianginal medication with Ranexa nitro. Based on her clinical presentation she underwent cardiac catheterization today, angiographic views were reviewed in the Computing Systems Mechanic and discussed with the primary developer trading systems Dr. Crowe Stent in the LAD is patent Stent in the left circumflex is patent with in-stent stenosis of 80% She has diffuse atherosclerosis of distal RCA with the tightest lesion of around 70% in the distal RCA and she had nonobstructive sclerosis of the proximal RCA of around 30 to 40%. Consent; Risk and benefit of the procedure explained in detail to the patient she elected to proceed informed consent obtained Interventional equipment and plan; 1. We upgrade the right common femoral artery sheath from 4 Azerbaijani to 6 Azerbaijani under fluoroscopic guidance 2. We will start with 3.5 XB guide catheter cannulated the left main. 3. Run-through wire 4. 3 x 15 mm NC balloon/emerge 5. Drug-eluting stent 3 x 18 mm ORSIRO 6. 3.25 x 15 mm NC Emerge balloon 7. 6 Azerbaijani JR4, guide catheter. 8. 2 x 12 mm Emerge balloon 9. 2.5 x 15 mm drug-eluting stent/Orsiro Procedure in detail; Under fluoroscopic guidance we exchange the 4 Azerbaijani sheath to 6 Azerbaijani sheath, and will proceed with the guide catheter 3.5 XB guide catheter cannulated the left main without difficulty Then angiographic view were obtained in [place]IN[place] and [place] caudal views/spider, then will proceed with the guide wire 0.14 run-through extra floppy 180 cm straight, we crossed the lesion in the proximal left circumflex And will start with balloon dilatation using the NC balloon 3 x 15 mm followed by placement of a drug-eluting stent 3 x 18 mm followed by postdilatation using 3.25 x 15 mm NC Emerge balloon and achievement of a good result. Then will proceed with the 6 Azerbaijani 4 guide cannulated the right coronary ostium, followed by crossing the lesion using the run-through wire Patient had diffuse atherosclerosis in the distal RCA as well has a nonobstructive sclerosis in the proximal RCA. To proceed with balloon dilatation using 2 x 12 mm Emerge balloon followed by placement of 2.5 x 15 mm drug-eluting stent. We use nitroglycerin IC x3 as patient has diffuse distal RCA disease with the wire bias, wire was pulled back inside the stent and angiographic view obtained showed no evidence of dissection or flow limitation to the RCA. Following this selective right common femoral artery angiography obtain and Perclose used to close the right common femoral artery arteriotomy site with no complication in the Computing Systems Mechanic This patient was given a total of 8000 IU heparin in the Computing Systems Mechanic, she was given additional 300 mg of Plavix, aspirin, and 2 bolus of Integrilin will continue on Integrilin infusion. ACT level was checked Conclusion and recommendation; 1. Patient to continue on dual antiplatelet therapy/DAPT?aspirin 81 mg/Plavix 75 mg for 1 year and low-dose aspirin indefinitely if no complication. 2. Patient advised cessation of smoking. 3. We will continue Integrilin infusion for 18 hours 4. We will start phase 1 cardiac rehab program 5. Patient will follow up with the primary developer trading systems Dr. Crowe 6. Angiographic pictures were shared with the and the patient. Lc Spangler MD,[facility] paralegal specialist
--- NOTE | 2021-03-09 12:42 | NURSING ---
Emergency documentation initiated @5099
--- NOTE | 2021-03-09 13:00 | EKG12_ITS ---
Test Reason : POST STENT Blood Pressure : / mmHG Vent. Rate : 066 BPM Atrial Rate : 066 BPM P-R Int : 178 ms QRS Dur : 082 ms QT Int : 396 ms P-R-T Axes : 044 056 041 degrees QTc Int : 415 ms Normal sinus rhythm Normal ECG When compared with ECG of 22-SEP-2018 06:08, No significant change was found Confirmed by RAMONE BURRIS, MEAGHAN ([id number]), non linear editor NICO BOYER ([id number]) on 03/11/2021 9:22:49 AM Referred By: Tani Crowe Confirmed By:MEAGHAN PACK MD
[2021-03-09] MEDS: 0.9% Normal Saline 1,000 ML 75 ML IV (13:15)
[2021-03-09 13:43] LABS: Hematocrit 39.5 % (37-47); Hemoglobin 13.1 g/dL (12.0-15.0); Mean Corp Hgb Conc 33.2 g/dL (32-36); Mean Corpuscular Hgb 29.4 pg (27.0-32.0); Mean Corpuscular Volume 88.6 fL (81-99); Mean Platelet Vol. 9.1 fl (6.2-12.0); Platelet Count 212 K/mm3 (150-450); RBC Distribution Width CV 12.1 % (11.6-14.6); RBC Distribution Width SD 39.4 fl (35.1-43.9); Red Blood Count 4.46 M/mm3 (4.2-5.4); White Blood Count 7.4 K/mm3 (4.4-11.0)
--- NOTE | 2021-03-09 13:44 | CRPHASE1_ITS ---
Patient Communication Former Patient:: Phase I PHII Cardiac Rehab Discussed with Patient:: Yes Guide to Cardiac Rehab Given to Patient:: Yes Cardiac Rehab Facility Choice List Given to Patient:: Yes Choice Program [facility] CR PHII:: Communication Given to CR Choice Program Other:: Communication Given to CR Bias Binding Folder:: Lc Spangler Refer Phase II Cardiac Rehab:: Yes Sessions:: 36 sessions - 3 days/wk, 12 weeks - PRIOR CR PT Cardiac Rehabilitation Info Cardiac Rehabilitation Program Information: Cardiac Rehabilitation is important for patients like you who are recovering from a heart problem. Cardiac rehabilitation programs are recognized as integral to the continued care of the patient with coronary heart disease. The cardiac rehabilitation program is designed to optimize a patient's physical, psychological, and social functioning. Health home health care case manager work in cardiac rehabilitation programs and assist you with getting the treatments you need to get stronger and healthier - like exercise, healthy eating habits, and medications. Cardiac rehabilitation has been show to help people with heart problems live longer and have better life enjoyment than people who do not go to cardiac rehabilitation. Please contact the Cardiac Rehabilitation Program at [facility] at in two weeks if you have not heard from them.
--- NOTE | 2021-03-09 13:45 | CRPH1.INST_ITS ---
General Education CAD and cardiac anatomy and function:: Patient communicates acknowledgment Explanation of diagnoses and procedures:: Patient communicates acknowledgment Sign/Symptoms of [place]:: Patient communicates acknowledgment Antiplatelet therapy: Patient communicates acknowledgment Smoking Patient Nicotine/Smoking Risk Factors Are:: Cigarettes Recommendations Include:: Smoking cessation strategies/Smoking packet, Participation in a smoking cessation program Nicotine/Smoking Response Code:: Patient communicates acknowledgment Dyslipidemia Patient Dyslipidemia Risk Factors Are:: Total Cholesterol, Triglycerides, HDL, LDL Recommendations Include:: Lipid profile provided, Reviewed NCEP/ATP guidelines, Therapeutic Lifestyle Change dietary guidelines Dyslipidemia Response Code:: Patient communicates acknowledgment Overweight/Obesity Patient Overweight/Obesity Risk Factors Are:: Obesity - > or = 30 Recommendations Include:: Weight loss of 5-10%, Reduced calorie diet, Exercise 5-7 times/week Overweight/Obesity:: Patient communicates acknowledgment Hypertension Patient Hypertension Risk Factors Are:: No documented hx of HTN Heart Disease Patient Heart Disease Risk Factors Are:: Family history of heart disease < 65 years old, Previous cardiac event Recommendations Include:: Educated family members of their risk, Educated family members of importance of prevention of heart disease Heart Disease Response Code:: Patient communicates acknowledgment, Family c ommunicates acknowledgment Diabetes Patient Diabetes Risk Factors Are:: Elevated blood sugars Recommendations Include:: Maintain fasting blood sugars 70-110 md/dL, Maintain HgbA1c of 6% or less, Monitor blood sugar as prescribed, Diabetic dietary guidelines, Decrease/maintain body weight Diabetes:: Patient communicates acknowledgment Metabolic Syndrome Patient Metabolic Syndrome Risk Factors Are [3 of 5]:: Waist circumference > 35 [female] or 40 [male], Low HDL <40 [male] or < 50 [female] Recommendations Include:: Reinforce compliance to risk factor modifications, Patient is diabetic, Encouraged follow-up with Primary Care Physician Metabolic Syndrome Response Code:: Patient communicates acknowledgment Sedentary Patient Sedentary Risk Factors Are:: Lack of regular exercise Recommendations Include:: Aerobic exercise 5-7 times/week for 20-30 minutes continuously, Benefits of regular exercise, Discussed home walking program, Monitored Outpatient Cardiac Rehab Sedentary Response Code:: Patient communicates acknowledgment Stress Patient Stress Risk Factors Are:: Patient denies stress as a risk factor Recommendations Include:: Identification of stressors, and assessment of coping skills, Stress management techniques Stress Response Code:: Patient communicates acknowledgment
[2021-03-09 15:16] LABS: Bedside Glucose 150 mg/dL (70-110)
[2021-03-09] MEDS: BUPRENORPHINE HCL/NALOXONE HCL 1 EACH TAB.SUBL SL (15:54)
[2021-03-09] MEDS: 0.9% Saline Lock 10 ML Syringe IV (15:56)
[2021-03-09] MEDS: Insulin Lispro 100 UNIT/ML INSULN.PEN SC ×3 (16:00→21:49)
[2021-03-09 18:31] LABS: Bedside Glucose 231 mg/dL (70-110)
[2021-03-09] MEDS: Acetaminophen 325 MG Tablet 650 MG PO (20:13)
[2021-03-09] MEDS: Atorvastatin Calcium 40 MG Tablet PO (21:49)
[2021-03-09] MEDS: Isosorbide Mononitrate 60 MG Tablet PO (21:49)
[2021-03-09 22:25] LABS: Bedside Glucose 230 mg/dL (70-110)
[2021-03-10] VITALS (10 sets, daily range): BP systolic 100–119; BP diastolic 59–78; PULSE 67–72; RESP 16–18; TEMP 36.5–36.7; O2SAT 94–98
[2021-03-10] MEDS: Acetaminophen 325 MG Tablet 650 MG PO ×2 (02:42→06:52)
[2021-03-10] MEDS: Insulin Lispro 100 UNIT/ML INSULN.PEN SC (06:51)
[2021-03-10 07:05] LABS: Bedside Glucose 262 mg/dL (70-110)
[2021-03-10 07:19] LABS: Hematocrit 37.3 % (37-47); Hemoglobin 12.1 g/dL (12.0-15.0); Mean Corp Hgb Conc 32.4 g/dL (32-36); Mean Corpuscular Hgb 29.1 pg (27.0-32.0); Mean Corpuscular Volume 89.7 fL (81-99); Mean Platelet Vol. 9.1 fl (6.2-12.0); Platelet Count 218 K/mm3 (150-450); RBC Distribution Width CV 12.2 % (11.6-14.6); RBC Distribution Width SD 39.8 fl (35.1-43.9); Red Blood Count 4.16 M/mm3 (4.2-5.4); White Blood Count 6.5 K/mm3 (4.4-11.0)
--- NOTE | 2021-03-10 07:36 | PCM.DC ---
Discharge Instructions Diet Discharge Diet: Low fat / Low cholesterol and 1800 Calorie Control Diet Activity Discharge Activity: May Drive (-day), May Shower (Today) and May Take a Tub Bath (In 7 days) Return to work on:: 03/17/21 May resume sexual activity in: 1-2 weeks Weight Bearing Status: - (Avoid heavy exertional activity for 1 week and then resume activity as tolerated) Dressing / Incision Call your doctor if your incision/area has: Continuous Slow Oozing, Sudden Increased Bleeding, Increased Pain/ Swelling, Increased Redness, Foul Smelling Discharge and Swelling at the incision site Call your doctor if you observe: Fever of 101 or Higher, Coldness, Increased Pain, Shortness of breath, Dizziness, Fainting spells, Swelling in the ankles, Chest pain, Increased palpitations (irregular heartbeat), Calf discomfort and Uncontrolled pain Remove Dressing in: 1 day Cleanse incision/area with: Soap & Water Follow Up Care Please Follow Up With: Tani Crowe MD When: 04/07/2021 @ 10:15 AM with Dwight Espitia CNP Test Results: Test results from this visit will be discussed in further detail at your follow-up appointment, if applicable. Discharge Plan Admission Primary Reason for Your Visit: CAD Attending Provider: Tani Crowe Primary Care Provider: Anthony Neri Instructions Patient Instructions: Smoking Get Help for Quitting, ED Chest Pain, Noncardiac Discharge Orders/Prescriptions Prescriptions: New nicotine 14 mg/24 hr Patch 24 Hour 14 mg transdermal DAILY Qty: 28 RF: 3 Continued metoprolol succinate 50 mg tablet extended release 24 hr 25 mg PO DAILY RF: 0 ondansetron 4 mg tablet,disintegrating 4 mg PO DAILY PRN (Reason: nausea and vomiting) RF: 0 lisinopril 20 mg tablet 20 mg PO DAILY RF: 0 clopidogrel 75 mg tablet 75 mg PO DAILY Qty: 90 RF: 3 omeprazole 40 MG capsule,delayed release(DR/EC) 40 mg PO DAILY PRN (Reason: Heartburn Or Indigestion) RF: 0 atorvastatin 40 MG tablet 40 mg PO DAILY RF: 0 buprenorphine-naloxone 1 EACH tablet, sublingual 1 ea sublingual DAILY RF: 0 Trulicity 0.75 mg/0.5 mL Pen Injector 0.75 mg SUBCUT HOLT RF: 0 aspirin 81 mg tablet,delayed release (DR/EC) 81 mg PO DAILY@0800 Qty: 90 RF: 3 nitroglycerin 0.4 mg tablet, sublingual 0.4 mg SUBLINGUAL Q5M PRN (Reason: Chest Pain) Qty: 25 RF: 3 isosorbide mononitrate 60 mg tablet extended release 24 hr 60 mg PO BID Qty: 60 RF: 11 Referrals / Follow Up: Anthony Neri PA [Primary Care Provider] - Tani Crowe MD [STAFF PHYSICIAN] - Disposition Disposition (needs filled in before D/C Order can be placed): Home, Self Care
--- NOTE | 2021-03-10 07:45 | PCM.DC.SUM ---
Providers Date of Admission: 03/09/21 Date of Discharge: 03/10/21 Primary Care Physician: ROSEANNE Gomez Reason For Visit: CHEST PAIN,CAD Diagnosis Discharge Diagnosis (1) Presence of stent in coronary artery: Status: Acute Code(s): Z95.5 - Presence of coronary angioplasty implant and graft Medications at Discharge Home Medications omeprazole 40 mg PO DAILY PRN 10/27/16 atorvastatin 40 mg PO DAILY 03/08/18 metoprolol succinate 50 mg tablet,extended release 24 hr 25 mg PO DAILY tab 09/18/18 buprenorphine-naloxone 1 ea SUBLINGUAL DAILY 07/05/19 ondansetron 4 mg disintegrating tablet 4 mg PO DAILY PRN tab 01/22/20 aspirin 81 mg tablet,delayed release 81 mg PO DAILY@0800 #90 tab 07/02/20 nitroglycerin 0.4 mg sublingual tablet 0.4 mg SUBLINGUAL Q5M PRN #25 tab 08/14/20 clopidogrel 75 mg tablet 75 mg PO DAILY #90 tab 02/03/21 lisinopril 20 mg tablet 20 mg PO DAILY 02/03/21 isosorbide mononitrate 60 mg tablet,extended release 24 hr 60 mg PO BID #60 tab 02/19/21 Trulicity 0.75 mg SUBCUT HOLT 03/09/21 nicotine 14 mg TRANSDERMAL DAILY #28 ea 03/10/21 Hospital Course Procedures Cardiac catheterization and - (Cardiac intervention: PCI) Summary of Care Provided Minutes Spent on Discharge: 45 Hospital Course: The patient presented to [facility] based upon a history of CAD, previous PCI, ongoing symptoms concerning for angina pectoris, for diagnostic cardiac catheterization. The patient underwent diagnostic cardiac catheterization which subsequently led to additional PCI to the LCx for in-stent restenosis and to the RCA for cachil dehe vessel CAD. The patient was monitored overnight. She appeared to be symptomatically and hemodynamically stable. On this day she was felt stable for release home for continued outpatient cardiovascular follow-up. Physical Exam Const alert, oriented x3 and no apparent distress General Appearance: cooperative, comfortable and well developed HEENT normocephalic, head/scalp atraumatic and hearing grossly normal bilaterally Eyes PERRL, EOMs intact bilaterally and conjunctivae normal Neck full ROM, supple and no JVD Chest Chest: symmetrical chest wall rise Resp normal respiratory effort and clear to auscultation bilaterally Cardio regular rate, regular rhythm, S1 normal heart sound and S2 normal heart sound GI normal to inspection, nondistended, normoactive bowel sounds Extremity Peripheral Pulses: Yes femoral pulses present right (Femoral artery: No bruit: No hematoma) 2+ Skin no rashes or lesions noted Neuro oriented x3, moves all extremities, no focal motor deficits and no sensory deficits noted Psych mental status grossly normal Weight / BMI Weight Weight: 187 lb Body Mass Index (BMI) 32.1 ABG / Lab / Microbiology Data Result Diagrams: 03/10/21 06:10 03/04/21 11:00 Laboratory: Laboratory Results - last 24 hr 03/09/21 13:20: WBC 7.4, RBC 4.46, Hgb 13.1, Hct 39.5, MCV 88.6, MCH 29.4, MCHC 33.2, RDW Std Deviation 39.4, RDW Coeff of Mikey 12.1, Plt Count 212, MPV 9.1 03/09/21 15:05: POC Glucose 150 H 03/09/21 18:04: POC Glucose 231 H 03/09/21 21:49: POC Glucose 230 H 03/10/21 06:10: WBC 6.5, RBC 4.16 L, Hgb 12.1, Hct 37.3, MCV 89.7, MCH 29.1, MCHC 32.4, RDW Std Deviation 39.8, RDW Coeff of Mikey 12.2, Plt Count 218, MPV 9.1 03/10/21 06:51: POC Glucose 262 H D/C Instructions Discharge Diet: Low fat / Low cholesterol and 1800 Calorie Control Diet Return to work on: 03/17/21 May resume sexual activity in: 1-2 weeks Weight Bearing Status: - (Avoid heavy exertional activity for 1 week and then resume activity as tolerated) Call your doctor if your incision/area has: Continuous Slow Oozing, Sudden Increased Bleeding, Increased Pain/ Swelling, Increased Redness, Foul Smelling Discharge and Swelling at the incision site Call your doctor if you observe: Fever of 101 or Higher, Coldness, Increased Pain, Shortness of breath, Dizziness, Fainting spells, Swelling in the ankles, Chest pain, Increased palpitations (irregular heartbeat), Calf discomfort and Uncontrolled pain Cleanse incision/area with: Soap & Water Please Follow Up With: Tani Crowe MD When: 04/07/2021 @ 10:15 AM with Dwight Espitia CNP Meaningful Use Info Meaningful Use Diagnoses (Choose all that apply): None applicable Discharge Plan Admission Primary Reason for Your Visit: CAD Attending Provider: Tani Crowe Primary Care Provider: Anthony Neri Instructions Patient Instructions: Smoking Get Help for Quitting, ED Chest Pain, Noncardiac Discharge Orders/Prescriptions Prescriptions: New nicotine 14 mg/24 hr Patch 24 Hour 14 mg transdermal DAILY Qty: 28 RF: 3 Continued metoprolol succinate 50 mg tablet extended release 24 hr 25 mg PO DAILY RF: 0 ondansetron 4 mg tablet,disintegrating 4 mg PO DAILY PRN (Reason: nausea and vomiting) RF: 0 lisinopril 20 mg tablet 20 mg PO DAILY RF: 0 clopidogrel 75 mg tablet 75 mg PO DAILY Qty: 90 RF: 3 omeprazole 40 MG capsule,delayed release(DR/EC) 40 mg PO DAILY PRN (Reason: Heartburn Or Indigestion) RF: 0 atorvastatin 40 MG tablet 40 mg PO DAILY RF: 0 buprenorphine-naloxone 1 EACH tablet, sublingual 1 ea sublingual DAILY RF: 0 Trulicity 0.75 mg/0.5 mL Pen Injector 0.75 mg SUBCUT HOLT RF: 0 aspirin 81 mg tablet,delayed release (DR/EC) 81 mg PO DAILY@0800 Qty: 90 RF: 3 nitroglycerin 0.4 mg tablet, sublingual 0.4 mg SUBLINGUAL Q5M PRN (Reason: Chest Pain) Qty: 25 RF: 3 isosorbide mononitrate 60 mg tablet extended release 24 hr 60 mg PO BID Qty: 60 RF: 11 Referrals / Follow Up: Tani Crowe MD [STAFF PHYSICIAN] - Anthony Neri PA [Primary Care Provider] - Disposition Disposition (needs filled in before D/C Order can be placed): Home, Self Care
[2021-03-10 08:13] LABS: ALB/GLOB Ratio 0.9 RATIO (0.9-2.4); AST(SGOT) 17 U/L (15-37); Alanine Aminotransfer ALT/SGPT 26 U/L (13-56); Albumin, Serum 2.8 g/dL (3.2-5.0); Alkaline Phosphatase 80 U/L (45-117); Anion Gap 6 (5-15); BUN 6 mg/dL (7-18); BUN/Creat Ratio 8.2 RATIO (10-20); Calcium,Total 9.3 mg/dL (8.5-10.1); Chloride 109 mmol/L (98-107); Creatinine, Serum 0.74 mg/dL (0.55-1.02); EST Glomerular Filtration Rate 89 mL/min (>60); Est Glom Filt Rate - Afr Amer 108 mL/min (>60); Estimated Creatinine Clearance 80.28 ml/min; Globulin 3.1 g/dL (2.2-4.2); Glucose 226 mg/dL (74-106); Potassium 3.7 mmol/L (3.5-5.1); Protein, Total 5.9 g/dL (6.4-8.2); Sodium Level 140 mmol/L (136-145)
--- NOTE | 2021-03-10 09:07 | CL.D_ITS ---
Patient Name: KALEB HOLBROOK Study Date: 03/09/2021 Performing: Tani Crowe MD Ht: 64.17 inches 163 cm : 1970 Wt: 187.39 lbs 85 kg Age: 50 Gender: female BSA: 1.91 PROCEDURE(S) PERFORMED FT33-SDY/COR/LV KM97-[id number] W OR WO PTCA, SINGLE CORONARY ARTERY [id number] W OR WO PTCA, SINGLE CORONARY ARTERY CLINICAL PROFILE AND INDICATIONS Indications: Worsening Angina, Suspected CAD Heart Failure: None Angina Classification Anginal Classification w/in 2 Weeks: CCS III CAD Presentations: Unstable angina. CONCLUSIONS Elevated Left Ventricular End Diastolic Pressure Normal LV size, wall motion,and systolic function LVEF: by LV gram 65 % [place] Multivessel CAD RECOMMENDATIONS Risk factor modification Medical therapy Referred for immediate PCI Case discussed / reviewed with Dr. Spangler of Interventional Cardiology DESCRIPTION OF PROCEDURE The patient arrived to the procedure lab. The risks and benefits of the procedure as well as a full d escription of our services here and current unavailability of surgical backup were fully explained to the patient and/or their significant other prior to the catheterization. The Timeout was completed, verifying the correct patient and procedure. The patient's procedural site was prepped and draped in the usual fashion. Local anesthetic was given subcutaneously to right groin region with Lidocaine 2%. Using a modified Seldinger technique, arterial access was obtained via the right femoral artery, a 4 Fr sheath was inserted Left Coronary Artery selective angiography was performed in multiple views us ing a 4 Fr. JL5 catheter. Right Coronary Artery selective angiography was then performed in multiple views using a 4 Fr. 3DRC catheter. Left Ventriculography was performed in RECINOS projection using a 4 Fr . Pigtail catheter. LV to AO pullback pressures were then recorded.Contrast was injected through the sheath and the Right Iliac and Femoral artery were assessed for possible closure device.T he arterial sheath was pulled and a Perclose closure device was deployed for hemostasis CORONARY ANGIOGRAPHY DOMINANCE: Co- Dominant LEFT HEART ASSESSMENT Left Ventricular Ejection Fraction: by LV Gram 65 % Normal LV wall motion Elevated Left Ventricular End Diastolic Pressure LVEDP: 18 mmHg LEFT MAIN: Angiographically normal LEFT ANTERIOR DESCENDING ARTERY: PROX LAD: smooth: eccentric: 25 % Stenosis, Previously placed stent is patent CIRCUMFLEX ARTERY: PROX CIRC: Previously placed stent has an instent 85 % restenosis, Previously placed stent has an ins tent 85 % restenosis RIGHT CORONARY ARTERY: Mild luminal irregularities PROX RCA: smooth: eccentric: 25 % Stenosis MID RCA: smooth: concentric: 25 % Stenosis DISTAL RCA: 85 % Stenosis, smooth: eccentric: 25 % Stenosis RT PDA: Proximal - smooth: eccentric: 25 % Stenosis AORTIC ROOT: Angiographically normal COMPLICATIONS No Complications PROCEDURE MEDICATIONS Versed 1 mg IV Versed 1 mg IV Baby Aspirin (81mg) 1 Tabs PO @ 03/09/2021 09:30:37 Heparin 6000 unit(s) IV 03/09/2021 11:05:38 Heparin 2000 unit(s) IV 03/09/2021 11:55:26 Nitro 200 mcg IC 03/09/2021 11:39:33 Nitro 200 mcg IC 03/09/2021 11:39:33 Plavix 75 mg PO 03/09/2021 09:30:42 Plavix 300 mg PO 03/09/2021 11:03:17 Tylenol 650 mg PO 03/09/2021 12:29:49 IV Bolus: .9 NaCl 250 ml total 03/09/2021 12:16:33 SUMMARY OF HEMODYNAMIC DATA Time AIR REST ECG 09:19:56 AO 102/66 (81) SA 10:37:51 LV 113/1, 21 10:46:08 LV 113/-4, 18 10:46:16 LV 109/2, 22 10:47:08 LVp 109/0, 21 10:47:12 AOp 113/56 (80) 10:47:17 AO 118/63 (84) 11:08:48 Signed By Tani Crowe MD On 03/10/2021 09:06:24 Tani Crowe MD
[2021-03-10] MEDS: Metoprolol(XL)Succ 25 MG Tablet PO (09:22)
[2021-03-10] MEDS: Atorvastatin Calcium 40 MG Tablet PO (09:23)
[2021-03-10] MEDS: Aspirin E.C. 81 MG Tablet PO (09:23)
[2021-03-10] MEDS: Isosorbide Mononitrate 60 MG Tablet PO (09:23)
[2021-03-10] MEDS: Clopidogrel Bisulfate 75 MG Tablet PO (09:23)
--- NOTE | 2021-03-10 10:15 | PHA.DC.MR ---
Pharmacy Service has performed discharge medication reconciliation for this patient. The patient's discharge medication list was reviewed for discrepancies and discrepancies were resolved. Medication education papers prepared. Patient discharged before I was able to chief counsel. Home Medications omeprazole 40 mg PO DAILY PRN 10/27/16 atorvastatin 40 mg PO DAILY 03/08/18 metoprolol succinate 50 mg tablet,extended release 24 hr 25 mg PO DAILY tab 09/18/18 buprenorphine-naloxone 1 ea SUBLINGUAL DAILY 07/05/19 ondansetron 4 mg disintegrating tablet 4 mg PO DAILY PRN tab 01/22/20 aspirin 81 mg tablet,delayed release 81 mg PO DAILY@0800 #90 tab 07/02/20 nitroglycerin 0.4 mg sublingual tablet 0.4 mg SUBLINGUAL Q5M PRN #25 tab 08/14/20 clopidogrel 75 mg tablet 75 mg PO DAILY #90 tab 02/03/21 lisinopril 20 mg tablet 20 mg PO DAILY 02/03/21 isosorbide mononitrate 60 mg tablet,extended release 24 hr 60 mg PO BID #60 tab 02/19/21 Trulicity 0.75 mg SUBCUT HOLT 03/09/21 nicotine 14 mg TRANSDERMAL DAILY #28 ea 03/10/21
== END 2021-03-10 07:44 | disposition home or self-care (01) ==
LOC: CLSP 09:01 → PCU 15:21
PROVIDERS: Internal Medicine Interventional Cardiology; PCP Physician Assistant; Referring Provider Internal Medicine Cardiovascular Disease; Visit Provider Internal Medicine Cardiovascular Disease
DX: T82.855A Stenosis of coronary artery stent, initial encounter (principal); I25.119 Atherosclerotic heart disease of native coronary artery with unspecified angina pectoris; Y83.8 Other surgical procedures as the cause of abnormal reaction of the patient, or of later complication, without mention of misadventure at the time of the procedure; I10 Essential (primary) hypertension; E78.5 Hyperlipidemia, unspecified; E78.00 Pure hypercholesterolemia, unspecified; F32.9 Major depressive disorder, single episode, unspecified; K21.9 Gastro-esophageal reflux disease without esophagitis; I25.2 Old myocardial infarction; E66.9 Obesity, unspecified; Z68.32 Body mass index [BMI] 32.0-32.9, adult; G47.33 Obstructive sleep apnea (adult) (pediatric); E11.9 Type 2 diabetes mellitus without complications; Z85.41 Personal history of malignant neoplasm of cervix uteri; Z95.5 Presence of coronary angioplasty implant and graft; Z79.82 Long term (current) use of aspirin; Z79.899 Other long term (current) drug therapy; F17.200 Nicotine dependence, unspecified, uncomplicated
CPT/HCPCS: 36415; 71046; 80048; 80053; 82962; 85025; 85027; 85610; 85730; 92928; 93005; 93458; 99152; 99153; C1874; J7030; J7040; Q9967; A4216; C1725; C1760; C1769; C1887; C1894; C9600; J1327

== ENCOUNTER 2021-06-28 10:57 | Day surgery (SDC) | payer MEDICAID, SELFPAY ==
[2016-10-28 14:33] VITALS: BMI 35.2
--- NOTE | 2021-06-27 14:55 | PCM.HP.BLA ---
History and Physical Date of Admission: 06/28/21 Johanna Padilla DOB - 1970 ? CHIEF COMPLAINT: change in bowel habits ? HPI: The patient is a 51 year old female presents with worsening constipation. She states that she has bowel problems for 6-7 years. However, it is worsening over time. She would note that she wouldn't have a bowel movement for up to 2-3 weeks. She notes very hard stools and that she would have to strain to have a bowel movement. She feels like she is giving She notes mucus wrapped around the stools. She becomes symptomatic prior to a bowel movement with nausea/emesis/abdominal pain - relieved with a bowel movement. She notes that she passes flatus about several times a week. She notes blood on toilet paper She has tried fiber/stool softeners, increased water etc with no improvement. She denies previous colonoscopy. She does not know her family medical history as she is adopted. She is presently on suboxone due to her narcotics addiction. She has significant coronary artery disease with recent coronary artery stent placement at [facility]. ? PAST MEDICAL HISTORY Adjustment disorder with depressed mood ? Chest pain, unspecified 01/27/2009 Multiple normal EKG's. 04/30 stress echo: Normal LV size and systolic function. Normal diastolic function.1+ MR.Trivial TR. Unable to assess RVSP. Trivial PI. Normal exercise portion without ischemia Chest pain, unspecified 01/27/2009 Multiple normal EKG's. 04/30 stress echo: Normal LV size and systolic function. Normal diastolic function.1+ MR.Trivial TR. Unable to assess RVSP. Trivial PI. Normal exercise portion without ischemia Chondromalacia of patella 02/09/2009 Closed dislocation of patella 02/09/2009 Deep phlebothrombosis, antepartum, with delivery (HCC) ? DM (diabetes mellitus) ([facility]) ? Drug addiction (HCC) ? in remission 03/01/10 - oxycontin Endometriosis of pelvic peritoneum 01/27/2009 Exp lap x 2 for ablation SYL, BSO H/O heart artery stent ? Hidradenitis suppurativa 03/01/2014 [place] (myocardial infarction) ([facility]) ? Other and unspecified ovarian cyst ? Palpitations 02/24/2006 Sebaceous cyst 09/05/2006 Syncope and collapse 01/27/2009? 09/26 EEG WNL Unspecified internal derangement of knee 01/27/2009 PAST SURGICAL HISTORY DELIVERY ONLY ? 1990 DELIVERY ONLY ? 1998 KNEE SCOPE,DIAGNOSTIC ? 2001 right knee RIGHT PATELLA WITH SPONTAN. REDUCTION exp lap x 2 for endometriosis with ablation excision thrombosed vein RFA REDUCTION OF LARGE BREAST ? 1995 REMOVAL GALLBLADDER ? 2001 REMOVAL OF OVARY/TUBE(S) ? 05/26 Salpingo-oophorectomy, right TOTAL ABDOM HYSTERECTOMY, 05/26, Hysterectomy, SYL; for uterine prolapse, high grade dysplasia. lysis of extensive adhesions, reomval of Rt. adnexa Current Outpatient Medications metFORMIN ER (GLUMETZA) 500 mg 24 hr tablet Take 500 mg by mouth daily with breakfast. furosemide (LASIX) 40 mg tablet Take 40 mg by mouth twice daily. rOPINIRole Hydrochloride 3 mg tablet Take 3 mg by mouth daily at bedtime. oxybutynin XL (DITROPAN XL) 5 mg 24 hr tablet Take 5 mg by mouth once daily. simvastatin (ZOCOR) 20 mg tablet Take 20 mg by mouth daily at bedtime. umeclidinium brm/vilanterol tr (ANORO ELLIPTA INHALATION) Inhale as instructed. oxyCODONE-acetaminophen (PERCOCET) 5-325 mg tablet Take by mouth every 8 hours as needed for pain. FLUoxetine HCl (PROZAC) 40 mg capsule Take 1 capsule by mouth once daily. lactulose (DUPHALAC, CONSTULOSE) 10 g/15 mL soln By mouth 20mg (30ml) once a day as needed for constipation ondansetron orally disintegrating (ZOFRAN ODT) 4 mg disintegrating tablet Take 1 tablet by mouth every 6 hours as needed for nausea/vomiting. aspirin, enteric coated (ASPIRIN, ENTERIC COATED) 81 mg EC tablet Take 1 tablet by mouth once daily. Blood Pressure Monitor (BLOOD PRESSURE KIT) 1 Each once daily. Use as Directed. Dx: I.10 dulaglutide (TRULICITY) 1.5 mg/0.5 mL pen injector Inject 1.5 mg subcutaneously one time a week. metoprolol succinate ER (TOPROL XL) 25 mg 24 hr tablet Take 1 tablet by mouth once daily. isosorbide mononitrate ER (IMDUR) 60 mg 24 hr tablet TAKE 1 TABLET BY MOUTH TWICE DAILY FOR BLOOD PRESSURE nitroglycerin sublingual (NITROQUICK) 0.4 mg SL tablet DISSOLVE 1 TABLET UNDER THE TONGUE NEEDED FOR CHEST PAIN- MAY REPEAT EVERY 5 MINUTES IF NEEDED ( MAX 3 DOSES.- IF NO RELIEF CALL 911) ondansetron orally disintegrating (ZOFRAN ODT) 4 mg disintegrating tablet Take 1 tablet by mouth once daily as needed for nausea/vomiting. Cholecalciferol, Vitamin D3, 50 mcg (2,000 unit) cap Take 1 capsule by mouth once daily. fluticasone (FLONASE) 50 mcg/actuation nasal spray Use 2 Sprays in each nostril once daily. Rinse mouth after use. atorvastatin (LIPITOR) 40 mg tablet Take 1 tablet by mouth once daily. lisinopril-hydroCHLOROthiazide (PRINZIDE,ZESTORETIC) 20-12.5 mg per tablet Take 1 tablet by mouth once daily. buprenorphine-nalOXone SL (SUBOXONE) 8-2 mg subl ? clopidogrel (PLAVIX) 75 mg tablet Take 75 mg by mouth once daily. (Patient not taking: Reported on 06/04/2021 ? ALLERGIES: Paxil [Paroxetine Hcl] ? PERSONAL HISTORY: Smoking status: Current Every Day Smoker, Packs/day: 1.50, Years: 30.00, Pack years: 45.00, Types: Cigarettes Vaping Use: Never used Substance Use Topics Alcohol use: No Drug use: No Comment: heavy caffeine, addicted to cocaine and multiple prescription drugs. Stopped use 4-08 FAMILY HISTORY diabetes Mother ? other (lung cancer) Father ? Breast Cancer Maternal Aunt ? other (lung cancer) Paternal Uncle ? REVIEW OF SYSTEMS: General: The patient denies fatigue, denies weight loss, denies weight gain, denies feeling hot, and denies feelings of cold. Eyes: The patient denies glaucoma, denies eye injury/surgery, wears glasses or contacts. Ear/Nose/Throat: The patient NOTES allergies, denies hayfever, denies ear infections, and denies bloody noses. Cardiovascular: The patient denies chest pain, NOTES heart disease, NOTES high blood pressure,NOTES cardiac stent, denies prior heart attack, denies irregular heart beat, NOTES high cholesterol, denies poor circulation, denies heart failure, other cardiac issues, denies claudication, denies cold feet, denies peripheral arterial stent. Respiratory: The patient denies tuberculosis, denies pneumonia, denies frequent cough, denies pulmonary embolism, denies shortness of breath, and denies coughing up blood. Gastrointestinal: The patient denies difficulty swallowing, NOTES acid reflux, denies ulcers, denies vomiting, denies jaundice/hepatitis, denies gallbladder problems, denies black or tarry stools, denies hemorrhoids, denies bleeding from rectum, denies diverticulitis, NOTES constipation, denies diarrhea, denies loss of stool control, and denies hernias. Kidney/Bladder: The patient denies kidney stones, denies urine infections, and denies bloody urine. Skin: The patient denies a history of skin cancer, denies bleeding/changing moles, and denies a history of skin rash. Neurologic: The patient denies a history of epilepsy/convulsions, denies headaches, denies head/spinal injuries, and denies stroke/TIA. Psychiatric: The patient denies psychiatric medications, NOTES depression, and denies voices, NOTES substance abuse. Endocrine: The patient denies thyroid disorders, NOTES diabetes, and denies hormonal problems. Hematologic: The patient denies a history of bruising, denies bleeding, and denies anemia, denies blood clots. Infections: The patient denies a history of measles and mumps, denies rheumatic fever, and denies sexually transmitted diseases. Musculoskeletal: The patient denies back pain/injury, denies back problems, denies sciatica, denies knee/foot trouble, denies arthritis, or denies gout. When was patient's last Mammogram screening? 2019 Last Colonoscopy: none Laquita Mendiola RN ? PHYSICAL EXAMINATION: General: The patient is 51 year old female, well nourished, well hydrated in no acute distress. The patient is oriented to time, place, and person. VITALS: Blood pressure 102/58, pulse 86, temperature 36.1 ?C (97 ?F), height 162.6 cm (5' 4), weight 83.8 kg (184 lb 12.8 oz), SpO2 97 %. Body mass index is 31.72 kg/m?. Head ? Normocephalic. EOM intact with sclera clear and no icterus noted. Neck - supple with no jugular venous distention noted. Trachea is midline. Lungs ? normal respiratory excursion. No labored breathing noted, such as retractions. No cough heard. Abdomen ? benign appearing. Extremities ? no pitting edema noted. Skin ? normal skin integrity. Neurological ? gait normal, no focal deficits noted. Psych ? calm and appropriate ? IMPRESSION: altered bowel habits ? PLAN: I have discussed the above with the patient. I have offered evaluation with colonoscopy with biopsies as needed.. I have explained the procedure to the patient. I have counseled the patient as to the risks of the procedure, including but not limited to: infection, bleeding, perforation of the GI tract, injury to any intraabdominal organs such as the liver/spleen, inability to complete the procedure, complications of anesthesia, etc. ? the patient understands. The patient wishes to proceed. I have answered all questions to the patient?s satisfaction and the patient has no further questions. ? Diagnoses: (K59.00) Constipation, unspecified constipation type (primary encounter diagnosis) (I25.10, Z98.61) Recurrent coronary arteriosclerosis following PTCA (F19.20) Drug addiction (HCC) ? Chioma Alas MD
[2021-06-28] VITALS (7 sets, daily range): BP systolic 109–144; BP diastolic 52–84; PULSE 67–72; RESP 16–106; TEMP 36–36.3; O2SAT 90–99; BMI 33.4
--- NOTE | 2021-06-28 | COLBX_PTH ---
PATIENT: KALEB HOLBROOK LOC: EN U#:[id number] AGE/SX: 51/F ROOM: RE06/28/[address]: Dr. Chioma Alas MD : 1970 BED: DIS: 06/28/2021 SPEC #: [id number] RECD: 06/28/21 13:50 STATUS: MARTIN REVidal #: [id number] SHAE: 06/28/21 00:[address]: Chioma Alas DEPT: SURGICAL PATHOLOGY RECD BY: Raf Sparks ENTERED: 06/28/21 13:51 SP TYPE: COLON BX KENN DR: ROSEANNE Gomez Tissues: A - COLON BIOPSY B - Rectum, NOS Procedures: Surgery Specimen Level IV HEADER OPERATION: Colonoscopy (MAC) PRE-OP DIAGNOSIS: Change in bowel habits TISSUE SUBMITTED: A ? Random colonic biopsy, B ? Rectal polyp biopsy (3) MICROSCOPIC DIAGNOSIS A. Colon, random biopsy: Fragments of colonic mucosa, no pathologic diagnosis. B. Rectal polyp, biopsy (3): Fragments of hyperplastic polyp (3 fragments). DAMIR:ivania 06/29/2021 MICROSCOPIC DESCRIPTION Slides are reviewed. GROSS DESCRIPTION A - Received in fixative is one container labeled with the patient's name and designated random colon biopsy. The specimen consists of multiple irregular fragments of light anguiano soft tissue that in aggregate measure 1.5 x 0.5 x 0.1 cm. The specimen is totally submitted in one cassette. B - Received in fixative is one container labeled with the patient's name and designated rectal polyp biopsy x3. The specimen consists of three irregular fragments of light anguiano soft tissue that in aggregate measure 0.4 x 0.4 x 0.1 cm. The specimen is totally submitted in one cassette. / DAMIR:ivania 06/28/21 TC:1 CPT: 71465 x2
[2021-06-28] MEDS: Lactated Ringers 1,000 ML 15 ML IV (11:00)
[2021-06-28 11:41] LABS: Bedside Glucose 146 mg/dL (70-110)
--- NOTE | 2021-06-28 13:07 | OP.COLON_ITS ---
Patient Name: Johanna Padilla Procedure Date: 06/28/2021 12:21 PM Date of : 1970 Age: 51 Procedure: Colonoscopy Indications: Change in bowel habits Providers: Chioma Alas MD Medicines: See the Anesthesia note for documentation of the administered medications Patient Profile: Refer to note in patient chart for documentation of history and physical. Last Colonoscopy: none. The patient's first colonoscopy is today. Complications: No immediate complications. Procedure: Pre-Anesthesia Assessment: - see anesthesia note After I obtained informed consent, the scope was passed under direct vision. Throughout the procedure, the patient's blood pressure, pulse, and oxygen saturations were monitored continuously. The Colonoscope was introduced through the anus and advanced to the cecum, identified by the appendiceal orifice, ileocecal valve and palpation. The colonoscopy was performed without difficulty. The patient tolerated the procedure well. The quality of the bowel preparation was inadequate. Scope In: 12:29:53 PM Scope Withdrawal Time 0 hours 11 minutes 6 seconds Scope Out: 12:57:05 PM Total Procedure Duration Time 0 hours 27 minutes 12 seconds Findings: decreased sphincter tone Non-bleeding internal hemorrhoids were found. Three sessile polyps were found in the rectum. The polyps were 2 to 5 mm in size. These polyps were removed with a cold biopsy forceps. Resection and retrieval were complete. Verification of patient identification for the specimen was done by the nurse. Estimated blood loss was minimal. Biopsies for histology were taken with a cold forceps from the entire colon for evaluation of microscopic colitis. Impression: - Preparation of the colon was inadequate, but no obvious obstructing large lesions, nothing larger than 2 cm noted. - Non-bleeding internal hemorrhoids. - Three 2 to 5 mm polyps in the rectum, removed with a cold biopsy forceps. Resected and retrieved. - Biopsies were taken with a cold forceps from the entire colon for evaluation of microscopic colitis. Recommendation: - Discharge patient to home (ambulatory). - Resume previous diet. - Continue present medications. - Await pathology results. - Follow up visit via telemedicine with Malu Barrera PA-C to discuss results. Call to set this up, thank you - Repeat colonoscopy is recommended for surveillance, 5 years, given poor colon cleansing preparation. The colonoscopy date will be determined after pathology results from today's exam become available for review. Procedure Code(s): --- Professional --- 95581, Colonoscopy, flexible; with biopsy, single or multiple Diagnosis Code(s): --- Professional --- K64.8, Other hemorrhoids K62.1, Rectal polyp R19.4, Change in bowel habit CPT copyright 2017 [employer]. All rights reserved. The codes documented in this report are preliminary and upon retail service representative review may be revised to meet current compliance requirements. MD Chioma Bueno MD 06/28/2021 1:06:48 PM This report has been signed electronically. Number of Addenda: 0 Note Initiated On: 06/28/2021 12:21 PM
--- NOTE | 2021-06-28 13:07 | OP.CCLET_ITS ---
06/28/2021 Anthony Neri Re : Colonoscopy procedure for Johanna Padilla Dear Daron This procedure was performed on Monday, June 28, 2021. My impressions and recommendations are as follows: Impressions : - Preparation of the colon was inadequate, but no obvious obstructing large lesions, nothing larger than 2 cm noted. - Non-bleeding internal hemorrhoids. - Three 2 to 5 mm polyps in the rectum, removed with a cold biopsy forceps. Resected and retrieved. - Biopsies were taken with a cold forceps from the entire colon for evaluation of microscopic colitis. Recommendations : - Discharge patient to home (ambulatory). - Resume previous diet. - Continue present medications. - Await pathology results. - Follow up visit via telemedicine with Malu Barrera PA-C to discuss results. Call to set this up, thank you - Repeat colonoscopy is recommended for surveillance, 5 years, given poor colon cleansing preparation. The colonoscopy date will be determined after pathology results from today's exam become available for review. My findings are described in the full procedure note, which is enclosed. If I can be of further assistance, please feel free to contact me at Doctor phone number(s): , Work: . Sincerely, MD Chioma Bueno MD 06/28/2021 1:06:48 PM This report has been signed electronically.
== END 2021-06-28 14:00 | disposition home or self-care (01) ==
LOC: EN 10:59 → AC 11:00
PROVIDERS: PCP Physician Assistant; Referring Provider Physician Assistant; Visit Provider Surgery
PROC: 0DJD8ZZ Inspection of Lower Intestinal Tract, Via Natural or Artificial Opening Endoscopic (ICD-10-PCS; CPT 45378; principal; 2021-06-28 11:55)
DX: K62.1 Rectal polyp (principal); K64.8 Other hemorrhoids; E11.9 Type 2 diabetes mellitus without complications; F32.A Depression, unspecified; I25.10 Atherosclerotic heart disease of native coronary artery without angina pectoris; I25.2 Old myocardial infarction; G47.33 Obstructive sleep apnea (adult) (pediatric); E66.9 Obesity, unspecified; Z68.31 Body mass index [BMI] 31.0-31.9, adult; E78.00 Pure hypercholesterolemia, unspecified; F41.9 Anxiety disorder, unspecified; K21.9 Gastro-esophageal reflux disease without esophagitis; Z85.41 Personal history of malignant neoplasm of cervix uteri; Z98.61 Coronary angioplasty status; Z79.84 Long term (current) use of oral hypoglycemic drugs; Z79.82 Long term (current) use of aspirin; Z79.899 Other long term (current) drug therapy; F17.210 Nicotine dependence, cigarettes, uncomplicated
CPT/HCPCS: 45380; 82962; 88305; J7050; J7120

== ENCOUNTER 2022-10-26 14:07 | Observation (INO) | payer MEDICAID, SELFPAY ==
[2016-10-28 14:33] VITALS: BMI 35.2
--- NOTE | 2022-10-20 13:05 | RAD_ITS ---
INDICATION: [place] EXAMINATION/TECHNIQUE: X-RAY - XR Chest 2 Views COMPARISON: March 04, 2021 chest x-ray. FINDINGS: LINES/DEVICES: None. LUNGS: Symmetric normal lung volumes. No airspace opacity or abnormal interstitial pattern. No nodule or mass. No pleural effusion or pneumothorax. MEDIASTINUM AND CARDIOVASCULAR STRUCTURES: Normal size and contour of the cardiomediastinal silhouette. No evidence of pulmonary vascular congestion. 3 different coronary stents project over the heart. BONES AND SOFT TISSUES: No fracture or focal osseous lesion. Right upper quadrant calcifications from cholecystectomy. RAD/Chest PA and Lateral IMPRESSION: 1. No radiographic evidence of acute cardiopulmonary disease. Electronically Signed: Mark Patel DO at 23:10 EDT ,
[2022-10-20 13:42] LABS: Absolute Lymphocyte Count 2.51 X10^3/uL (0.83-4.51); Absolute Neutrophil Count 3.7 X10^3/uL (2.0-7.7); Basophil# 0.04 X10^3/uL; Basophil% 0.6 % (0-1); Eosinophil# 0.26 X10^3/uL; Eosinophils% 3.7 % (0-5); Hemoglobin 15.3 g/dL (12.0-15.0); Lymphocyte # 2.51 X10^3/ul (0.83-4.51); Lymphocyte % 35.9 % (19-41); Mean Corp Hgb Conc 32.6 g/dL (32-36); Mean Corpuscular Hgb 29.8 pg (27.0-32.0); Mean Corpuscular Volume 91.6 fL (81-99); Mean Platelet Vol. 8.9 fl (6.2-12.0); Monocyte% 7.2 % (0-10); NRBC Flagged by Analyzer 0 % (0-5); Neutrophil # 3.66 X10^3/uL (2.7-7.7); Neutrophil % 52.3 % (47-70); Platelet Count 220 K/mm3 (150-450); RBC Distribution Width CV 12.2 % (11.6-14.6); RBC Distribution Width SD 41.1 fl (35.1-43.9); Red Blood Count 5.13 M/mm3 (4.2-5.4)
[2022-10-20 13:48] LABS: Partial Thromboplast Time 25.8 Seconds (24.1-36.2)
[2022-10-20 14:08] LABS: Prothrombin Time (Protime)PT. 12.8 SECONDS (11.7-14.9)
[2022-10-20 14:22] LABS: AST(SGOT) 14 U/L (15-37); Alanine Aminotransfer ALT/SGPT 29 U/L (13-56); Albumin, Serum 3.5 g/dL (3.2-5.0); Alkaline Phosphatase 109 U/L (45-117); Anion Gap 2 (5-15); BUN 9 mg/dL (7-18); BUN/Creat Ratio 9.4 RATIO (10-20); Bilirubin, Direct 0.11 mg/dL (0.00-0.30); Chloride 106 mmol/L (98-107); Cholesterol 214 mg/dL (200); Creatinine, Serum 0.95 mg/dL (0.55-1.02); EST Glomerular Filtration Rate 66 mL/min (>60); Est Glom Filt Rate - Afr Amer 80 mL/min (>60); Globulin 3.7 g/dL (2.2-4.2); Glucose 201 mg/dL (74-106); High Density Lipoprotein 35 mg/dL; Potassium 3.9 mmol/L (3.5-5.1); Protein, Total 7.2 g/dL (6.4-8.2); Sodium Level 137 mmol/L (136-145); Triglycerides 197 mg/dL; Very Low Density Lipoprotein 39 mg/dL (5-40)
[2022-10-25 07:45] VITALS: BMI 33.5
[2022-10-26] VITALS (10 sets, daily range): BP systolic 114–144; BP diastolic 67–90; PULSE 55–68; RESP 18; TEMP 36.4–36.9; O2SAT 93–96; BMI 33.3
[2022-10-26] MEDS: 0.9% Normal Saline 1,000 ML 150 ML IV (16:00)
[2022-10-27 05:50] VITALS: BP 110/73; PULSE 63; RESP 18; TEMP 36.8; O2SAT 95
[2022-10-27 05:56] LABS: Hematocrit 45.7 % (37-47); Hemoglobin 14.8 g/dL (12.0-15.0); Mean Corp Hgb Conc 32.4 g/dL (32-36); Mean Corpuscular Hgb 30.3 pg (27.0-32.0); Mean Corpuscular Volume 93.6 fL (81-99); Mean Platelet Vol. 9.3 fl (6.2-12.0); Platelet Count 193 K/mm3 (150-450); Red Blood Count 4.88 M/mm3 (4.2-5.4); White Blood Count 6.2 K/mm3 (4.4-11.0)
[2022-10-27 06:33] LABS: ALB/GLOB Ratio 0.9 RATIO (0.9-2.4); AST(SGOT) 22 U/L (15-37); Alanine Aminotransfer ALT/SGPT 24 U/L (13-56); Albumin, Serum 2.9 g/dL (3.2-5.0); Alkaline Phosphatase 92 U/L (45-117); Anion Gap 2 (5-15); BUN 9 mg/dL (7-18); BUN/Creat Ratio 9.5 RATIO (10-20); Calcium,Total 9.7 mg/dL (8.5-10.1); Chloride 112 mmol/L (98-107); Creatinine, Serum 0.95 mg/dL (0.55-1.02); EST Glomerular Filtration Rate 66 mL/min (>60); Est Glom Filt Rate - Afr Amer 80 mL/min (>60); Estimated Creatinine Clearance 61.18 ml/min; Globulin 3.3 g/dL (2.2-4.2); Glucose 122 mg/dL (74-106); Potassium 4.1 mmol/L (3.5-5.1); Protein, Total 6.2 g/dL (6.4-8.2); Sodium Level 141 mmol/L (136-145)
--- NOTE | 2022-10-27 07:26 | CRPHASE1 ---
Patient Communication PHII Cardiac Rehab Discussed with Patient:: Yes Guide to Cardiac Rehab Given to Patient:: Yes Cardiac Rehab Facility Choice List Given to Patient:: Yes Choice Program [facility] CR PHII:: Communication Given to CR Choice Program Other:: Communication Given to CR Route Delivery Driver:: Jethro Alfaro Cardiac Rehabilitation Info Cardiac Rehabilitation Program Information: Cardiac Rehab The cardiac rehab team at [facility] consists of highly skilled exercise physiologists, nurses, respiratory therapists and physicians working together with you. Our purpose is to help you have a full recovery and achieve the goals you set for yourself. Over the years many of our patients have returned to activities they assumed they would never do again! We can help restore your confidence and motivation to make lifestyle changes that can have a significant impact on your health and quality of life! We can help answer questions and concerns you may have about exercise, lifestyle, medications, diet, stress and anxiety which are common following a hospitalization. WE monitor ECG and vital signs during exercise and discuss your progress with you and report to your physician(s). Cardiac Rehab is proven to help reduce readmissions, improve functional capacity and lower recurrence of problems with your heart. Our Cardiac Rehab program is Certified by the [place] [employer]monary [employer] (AACVPR) and Accredited by the [employer] through our [facility]. You can contact us at . We invite you to call us with your questions or to get started in our program. If you have other questions or concerns be sure to ask your physician/provider during your follow-up visit. WE look forward to seeing you!
--- NOTE | 2022-10-27 07:29 | CRPH1.INSTRU ---
General Education CAD and cardiac anatomy and function:: Patient communicates acknowledgment Explanation of diagnoses and procedures:: Patient communicates acknowledgment Sign/Symptoms of AL:: Patient communicates acknowledgment Antiplatelet therapy: Patient communicates acknowledgment Proper use of NTG-SL: Patient communicates acknowledgment Emergency procedures and activation of EMS: Patient communicates acknowledgment Compliance of all prescribed medications: Patient communicates acknowledgment Smoking Patient Nicotine/Smoking Risk Factors Are:: Cigarettes Recommendations Include:: Smoking cessation strategies/Smoking packet Nicotine/Smoking Response Code:: Patient communicates acknowledgment Dyslipidemia Patient Dyslipidemia Risk Factors Are:: Total Cholesterol, Triglycerides Recommendations Include:: Lipid profile not available Dyslipidemia Response Code:: Patient communicates acknowledgment Overweight/Obesity Patient Overweight/Obesity Risk Factors Are:: BMI Normal [18-25 & < 65 years old] Recommendations Include:: Weight loss of 5-10%, Reduced calorie diet, Exercise 5-7 times/week Overweight/Obesity:: Patient communicates acknowledgment Hypertension Recommendations Include:: Maintain BP <130/85 Hypertension:: Patient communicates acknowledgment Heart Disease Patient Heart Disease Risk Factors Are:: Previous cardiac event Recommendations Include:: Educated family members of their risk Heart Disease Response Code:: Patient communicates acknowledgment Diabetes Patient Diabetes Risk Factors Are:: Elevated blood sugars Recommendations Include:: Maintain fasting blood sugars 70-110 md/dL, Maintain HgbA1c of 6% or less, Monitor blood sugar as prescribed, Diabetic dietary guidelines, Decrease/maintain body weight Diabetes:: Patient communicates acknowledgment Metabolic Syndrome Patient Metabolic Syndrome Risk Factors Are [3 of 5]:: Fasting blood sugar > 100 mg/dL, Waist circumference > 35 [female] or 40 [male], High triglyceride >150, Hypertension, Low HDL <40 [male] or < 50 [female] Metabolic Syndrome Response Code:: Patient communicates acknowledgment Sedentary Patient Sedentary Risk Factors Are:: Lack of regular exercise Recommendations Include:: Aerobic exercise 5-7 times/week for 20-30 minutes continuously, Benefits of regular exercise, Discussed home walking program, Monitored Outpatient Cardiac Rehab Sedentary Response Code:: Patient communicates acknowledgment Stress Patient Stress Risk Factors Are:: Patient denies stress as a risk factor Recommendations Include:: Identification of stressors, and assessment of coping skills, Stress management techniques Stress Response Code:: Patient communicates acknowledgment
[2022-10-27] MEDS: Ondansetron ODT 4 MG Tablet PO (08:14)
--- NOTE | 2022-10-27 09:17 | PCM.PN.BLA ---
Progress Note Doing good. Ambulating. Reports complete resolution of her angina pectoris. Right radial pulse 1+. Okay to discharge home. Follow-up as outpatient.
--- NOTE | 2022-10-27 09:18 | DCINST_ITS ---
Discharge Instructions Diet Discharge Diet: Low fat / Low cholesterol Activity Discharge Activity: Return to Normal Activity and No Restrictions Dressing / Incision Call your doctor if your incision/area has: Continuous Slow Oozing, Sudden Increased Bleeding, Increased Pain/ Swelling, Increased Redness and Swelling at the incision site Follow Up Care Please Follow Up With: Jethro Alfaro MD When: 2-4 weeks Test Results: Test results from this visit will be discussed in further detail at your follow- up appointment, if applicable. Discharge Plan Admission Admit Date/Time: 10/26/22 14:07 Attending Provider: Jethro Alfaro Primary Care Provider: Anthony Neri Discharge Orders/Prescriptions Prescriptions: No Action metoprolol succinate 50 mg tablet extended release 24 hr 25 mg PO DAILY ondansetron 4 mg tablet,disintegrating 4 mg PO DAILY PRN (Reason: nausea and vomiting) lisinopril 20 mg tablet 20 mg PO DAILY isosorbide mononitrate 60 mg tablet extended release 24 hr 60 mg PO DAILY Trulicity 1.5 mg/0.5 mL pen injector 1.5 mg subcut QWEEK amlodipine [Norvasc] 2.5 mg tablet 2.5 mg PO DAILY Qty: 90 3RF buprenorphine-naloxone 1 EACH tablet, sublingual 1 ea sublingual DAILY Trulicity 0.75 mg/0.5 mL Pen Injector 0.75 mg SUBCUT QWEEK aspirin 81 mg tablet,delayed release (DR/EC) 81 mg PO DAILY@0800 Qty: 90 3RF clopidogrel [Plavix] 75 mg tablet 75 mg PO DAILY Qty: 90 3RF nitroglycerin 0.4 mg tablet, sublingual 0.4 mg SUBLINGUAL Q5M PRN (Reason: Chest Pain) Qty: 25 3RF atorvastatin 40 mg tablet 40 mg PO DAILY Qty: 90 3RF Referrals / Follow Up: Anthony Neri PA [Primary Care Provider] -
--- NOTE | 2022-10-27 09:22 | DCINST_ITS ---
Discharge Instructions Diet Discharge Diet: Low fat / Low cholesterol Dressing / Incision Call your doctor if your incision/area has: Continuous Slow Oozing, Sudden Increased Bleeding, Increased Pain/ Swelling, Increased Redness and Swelling at the incision site Follow Up Care Please Follow Up With: Jethro Alfaro MD Test Results: Test results from this visit will be discussed in further detail at your follow- up appointment, if applicable. Discharge Plan Admission Admit Date/Time: 10/26/22 14:07 Attending Provider: Jethro Alfaro Primary Care Provider: Anthony Neri Discharge Orders/Prescriptions Prescriptions: Continued metoprolol succinate 50 mg tablet extended release 24 hr 25 mg PO DAILY ondansetron 4 mg tablet,disintegrating 4 mg PO DAILY PRN (Reason: nausea and vomiting) lisinopril 20 mg tablet 20 mg PO DAILY isosorbide mononitrate 60 mg tablet extended release 24 hr 60 mg PO DAILY Trulicity 1.5 mg/0.5 mL pen injector 1.5 mg subcut QWEEK amlodipine [Norvasc] 2.5 mg tablet 2.5 mg PO DAILY Qty: 90 3RF buprenorphine-naloxone 1 EACH tablet, sublingual 1 ea sublingual DAILY Trulicity 0.75 mg/0.5 mL Pen Injector 0.75 mg SUBCUT QWEEK aspirin 81 mg tablet,delayed release (DR/EC) 81 mg PO DAILY@0800 Qty: 90 3RF clopidogrel [Plavix] 75 mg tablet 75 mg PO DAILY Qty: 90 3RF nitroglycerin 0.4 mg tablet, sublingual 0.4 mg SUBLINGUAL Q5M PRN (Reason: Chest Pain) Qty: 25 3RF atorvastatin 40 mg tablet 40 mg PO DAILY Qty: 90 3RF Referrals / Follow Up: Anthony Neri PA [Primary Care Provider] - Disposition Disposition (needs filled in before D/C Order can be placed): Home, Self Care
--- NOTE | 2022-10-27 11:31 | CL.I_ITS ---
Patient Name: KALEB HOLBROOK Study Date: 10/26/2022 Performing: Jethro Alfaro MD Ht: 64 inches 162.56 cm : 1970 Wt: 195.3 lbs 88.45 kg Age: 52 Gender: female BSA: 1.94 PROCEDURE(S) PERFORMED DC02-(93011)LHC/COR IC12-(76984/C9600)PARVEEN W/WO PTCA, SINGLE CORONARY ARTERY IC10-(35648)FFR, CORONARY OR GRAFT, INITIAL VESSEL IC11-(84698)FFR, CORONARY OR GRAFT, EACH ADD'L VESSEL CLINICAL PROFILE AND CO-MORBIDITIES Indications: Worsening Angina Heart Failure: None Angina Classification Anginal Classification w/in 2 Weeks: CCS III CAD Presentations: Stable angina. CONCLUSIONS 60% Prox LCX, Stent to Prox LCX 30% ISR (iFR 0.94, FFR 0.87) Mid LAD 80%. iFR 0.82 90% ostial D1 (Jailed with stent to Prox LAD) Stnt to distal RCA patent. 50% Prox, Mid and distal RCA Successful PARVEEN Mid LAD using 2.5x15 mm Resolute [place] RECOMMENDATIONS ASA Indefinitley Plavix for at least 12 months DESCRIPTION OF PROCEDURE The patient arrived to the procedure lab. The risks and benefits of the procedure as well as a full description of our services here and lack of surgical backup were fully explained to the patient and/or their significant other prior to the catheterization. The Timeout was completed, verifying the correct patient and procedure. The patient's procedural site was prepped and draped in the usual fashion. Local anesthetic was given subcutaneously to right radial region with Lidocaine 2%. Using a modified Seldinger technique, arterial access was obtained via the right radial artery, a 6Fr sheath was inserted.. Left Coronary Artery selective angiography was performed in multiple views using a 5 Fr. 4.0 [place] catheter. Right Coronary Artery selective angiography was then performed in multiple views using a 5 Fr. 4.0 [place] catheterThe images were reviewed and options discussed. A decision was then made to proceed with an Intervention, IVUS or other adjunct procedure. XB 3 Guide catheter was inserted and engaged into the LCA. The FFR/iFR wire was inserted. iFR Ratio: 0.94 Adenosine was then given per protocol. FFR Ratio Baseline: 0.97 FFR Ratio post Adenosine: 0.84 Pressures and FFR/iFR were then recorded. iFR Ratio: .82 The FFR/iFR wire was then removed. Runthrough Guide wire was advanced to the LAD. 2.5 x 15 resolute [place] Drug Eluting stent was advanced across the lesion in the LAD, mid. 2.5 x 12 [place] Balloon catheter was inserted post stent. PTCA balloon inflated at 22 atms for 12 secs. PTCA balloon inflated at 22 atms for 10 secs. Angiogram performed post stent deployment. The arterial sheath was pulled and a TR Band was applied for hemostasis CORONARY ANGIOGRAPHY DOMINANCE: Right Dominant LEFT MAIN: 20% distal LEFT ANTERIOR DESCENDING ARTERY: LAD: Tubular 30% Proximal lesion in LAD Tubular 40% Mid lesion in LAD Tubular 80% Mid lesion in LAD DIAGONAL 1: Tubular 90% Ostial lesion in 1st Diagonal CIRCUMFLEX ARTERY: CIRCUMFLEX: Tubular 52% Proximal lesion in Circumflex In-Stent Restenosis 30% Proximal lesion in Circumflex Tubular 50% Distal lesion in Circumflex RIGHT CORONARY ARTERY: RCA: Tubular 50% Proximal lesion in RCA Tubular 50% Mid lesion in RCA Tubular 50% Distal lesion in RCA INTERVENTION INFORMATION LESION SITE: Circumflex (Proximal) PROCEDURE: FFR Lesion Devices: Cordis 6 Fr XB3.0 100cm Guide Catheter Simple-Fill ([place]) Coronary FFR Wire LESION SITE: LAD (Mid) Lesion Complexity: Non-High/Non-C Pre Stenosis: 80 % Pre intervention BELKYS flow: 3 PROCEDURE: Drug Eluting Stent with post dilatation Post Stenosis: 0 % Post intervention BELKYS flow: 3 Lesion Devices: Cordis 6 Fr XB3.0 100cm Guide Catheter Simple-Fill ([place]) Coronary FFR Wire Terumo .014 180cm Runthrough Extra Floppy straight Medtronic Resolute [place] RX PARVEEN 2.5x15 Medtronic NC EUPHORA RX 2.5x12 BALLOON COMPLICATIONS No Complications PROCEDURE MEDICATIONS Versed 2 mg IV Versed 1 mg IV Oxygen: 2 L/min via nasal cannula Heparin given IA 10/26/2022 12:56:04 Heparin 2000 unit(s) IV 10/26/2022 13:09:36 Nitro 200 mcg IC 10/26/2022 13:49:23 Nitro 200 mcg IC 10/26/2022 13:49:23 Plavix 300 mg PO 10/26/2022 14:33:33 Verapamil 2.5mg, Ntg 200mcgs, 2000 units of Heparin given IA 10/26/2022 12:56:04 SUMMARY OF HEMODYNAMIC DATA Time AIR REST ECG 11:22:23 AO 126/70 (93) SA 12:58:14 AO 152/77 (110) 13:24:15 AO 170/87 (121) 13:46:09 Signed By Jethro Alfaro MD On 10/27/2022 11:30:46 Jethro Alfaro MD
[2022-10-27 12:01] LABS: ACT Activated Clotting Time 341 sec (74-137)
[2022-10-27 12:03] LABS: ACT Activated Clotting Time 251 sec (74-137)
== END 2022-10-27 09:21 | disposition home or self-care (01) ==
LOC: PCU 15:23
PROVIDERS: Physician Assistant Medical; Admitting Provider Internal Medicine Cardiovascular Disease; PCP Physician Assistant; Referring Provider Internal Medicine Cardiovascular Disease; Visit Provider Internal Medicine Cardiovascular Disease
DX: I25.118 Atherosclerotic heart disease of native coronary artery with other forms of angina pectoris (principal); E11.9 Type 2 diabetes mellitus without complications; Z95.5 Presence of coronary angioplasty implant and graft; Z79.899 Other long term (current) drug therapy; Z79.02 Long term (current) use of antithrombotics/antiplatelets; Z79.82 Long term (current) use of aspirin; I10 Essential (primary) hypertension; K21.9 Gastro-esophageal reflux disease without esophagitis; I25.2 Old myocardial infarction; E78.00 Pure hypercholesterolemia, unspecified; G47.30 Sleep apnea, unspecified; F17.210 Nicotine dependence, cigarettes, uncomplicated; R06.02 Shortness of breath
CPT/HCPCS: C1725; C1769 ×3; C1874; C1887; C1894; 36415; 71046; 80048; 80053; 80061; 80076; 85025; 85027; 85347; 85610; 85730; 92928; 93005; 93454; 93571; 93572; 96360; 96361; 99152; 99153; 99221; J0153; J7030; J7040; Q9967; C9600; G0378

== ENCOUNTER → 2023-10-19 | Outpatient (CLI) | payer MEDICAID, SELFPAY ==
[2016-10-28 14:33] VITALS: BMI 35.2
--- NOTE | 2023-10-19 12:47 | ECHOCS_ITS ---
Reason For Study: CHEST PAIN Procedure This was a 2D Doppler, Color Flow transthoracic echocardiogram. The study was technically difficult. Contrast injection was performed. Exam performed in department. Left Ventricle Normal LV size. Left ventricular systolic function is normal. The estimated ejection fraction is 55 %. Normal diastology for age. There are regional wall motion abnormalities as specified. Infero- Basal: Hypokinetic. Mid-Inferior: Hypokinetic. Inferior [place] : Hypokinetic. Basal inferoseptal: Hypokinetic. Mid-inferoseptal : Hypokinetic. Right Ventricle Normal RV size. Normal systolic function. Atria The left and right atria are normal. Mitral Valve The mitral valve is structurally normal. No prolapse or stenosis seen. Mild (1+) mitral valve insufficiency. Tricuspid Valve Normal tricuspid valve. Trivial tricuspid valve insufficiency. Unable to estimate RV systolic pressure due to insufficient tricuspid regurgitant envelope. Aortic Valve Trisinus/trileaflet aortic valve. Trivial aortic valve insufficiency. Pulmonic Valve Normal pulmonic valve. Great Vessels Normal aortic root. Pericardium/Pleural No pericardial effusion. Medication 22 gauge I.V. with prn adaptor inserted into left arm. Diluted definity 2ml given slow IV push to enhance endocardial definition. MMode/2D Measurements & Calculations LVIDd: 5.1 cm IVSd: 0.86 cm Ao root diam: 3.1 cm LVIDs: 4.2 cm LVPWd: 0.74 cm FS: 18.4 % LAV(MOD-bp): 50.9 ml LVAd ap4: 39.1 cm2 SV(MOD-sp4): 94.8 ml LAV(MOD-bp) Indexed: 26.2 ml/m2 LVLd ap4: 8.9 cm LAV(MOD-sp2): 47.8 ml EDV(MOD-sp4): 145.2 ml LAV(MOD-sp4): 47.6 ml EDV(sp4-el): 146.1 ml LVAs ap4: 19.9 cm2 LVLs ap4: 6.5 cm ESV(MOD-sp4): 50.4 ml ESV(sp4-el): 52.0 ml EF(MOD-sp4): 65.3 % EF(sp4-el): 64.4 % SV(sp4-el): 94.1 ml LA A4 area: 17.6 cm2 LA dimension(2D): 4.1 cm RA A4 area: 14.9 cm2 TAPSE: 2.2 cm Time Measurements MV dec time: 0.19 sec Doppler Measurements & Calculations MV E max joseph: 98.5 cm/sec Lat Peak E' Joseph: 11.3 cm/sec Med Peak E' Joseph: 5.4 cm/sec MV A max joseph: 82.7 cm/sec E/E' lat: 8.7 E/E' med: 18.2 MV E/A: 1.2 MV V2 max: 91.1 cm/sec MV dec slope: 519.1 cm/sec2 Ao V2 max: 140.7 cm/sec MV max P.3 mmHg Ao max P.9 mmHg MV V2 mean: 47.7 cm/sec Ao V2 mean: 99.4 cm/sec MV mean P.1 mmHg Ao mean P.5 mmHg MV V2 VTI: 31.0 cm Ao V2 VTI: 35.3 cm AV (velocity ratio): 0.84 LV V1 max: 124.1 cm/sec PA V2 max: 92.3 cm/sec LV V1 max P.2 mmHg PA V2 mean: 70.8 cm/sec LV V1 mean P.6 mmHg LV V1 mean: 89.4 cm/sec LV V1 VTI: 29.6 cm ECHO/Echo Complete W/ Contrast Interpretation Summary The estimated ejection fraction is 55 %. There are regional wall motion abnormalities as specified. Mild (1+) mitral valve insufficiency. Ordering Physician: Jethro Alfaro Referring Physician: Jethro Alfaro Performed By: Yolanda Estevez RCS
== END | disposition home or self-care (01) ==
LOC: CVS 12:46
PROVIDERS: PCP Physician Assistant; Referring Provider Internal Medicine Cardiovascular Disease; Visit Provider Internal Medicine Cardiovascular Disease
DX: R07.9 Chest pain, unspecified (principal); I10 Essential (primary) hypertension; I25.10 Atherosclerotic heart disease of native coronary artery without angina pectoris; R06.09 Other forms of dyspnea
CPT/HCPCS: 93306; Q9957; A4216; C8929

== ENCOUNTER → 2023-12-06 | Outpatient (CLI) | payer MEDICAID, SELFPAY ==
[2016-10-28 14:33] VITALS: BMI 35.2
--- NOTE | 2023-12-06 14:58 | STRESSREP ---
Stress Test Report Date: 12/06/2023 Procedure: Pharmacologic stress nuclear imaging study Indications: Coronary artery disease Consent: Per the patient Procedure: The patient underwent pharmacologic (Regadenoson 0.4mg ) evaluation with a peak heart rate of 81 beats per minute (47%predicted maximal heart rate) and a peak blood pressure of 132/70 mmHg. The baseline ECG demonstrated sinus rhythm. The peak pharmacologic ECG demonstrated no ischemic changes. Occasional PVCs noted postinfusion. There was no complaint of chest discomfort during pharmacologic infusion or recovery. The patient was injected with 15.0 millicuries of technetium 99m Cardiolite and subsequently rest SPECT Cardiolite nuclear imaging was obtained in the horizontal long, vertical long, and short axis views. The patient underwent pharmacologic (Regadenoson) evaluation. The patient was injected with 44.2 millicuries of technetium 99m Cardiolite and subsequently stress SPECT Cardiolite nuclear imaging was obtained in the horizontal long, vertical long, and short axis views. A gated Cardiolite study at peak stress was obtained. The examination was stopped secondary to completion of protocol. Rest and stress SPECT Cardiolite nuclear imaging status post realignment, normalization, and attenuation correction demonstrate a small basal lateral reversible defect. There is end systolic thickening and brightening. The gated Cardiolite study demonstrates myocardial thickening and inward wall motion. The reported LVEF is 57%. Impression: 1. Pharmacologic (Regadenoson) evaluation 2. Peak pharmacologic ECG with no ischemic changes. 3. Occasional PVCs postinfusion. 5. Small basal lateral reversible defect suggestive of mild ischemia. 6. The gated Cardiolite study reports an LVEF of 57%. This note was generated with [employer] software. It may contain incorrect words, spelling, and punctuation that were not noted in checking the note before signing.
== END | disposition home or self-care (01) ==
LOC: CVS 06:58
PROVIDERS: PCP Physician Assistant; Referring Provider Nurse Practitioner Family; Visit Provider Nurse Practitioner Family
DX: I25.10 Atherosclerotic heart disease of native coronary artery without angina pectoris (principal); E11.9 Type 2 diabetes mellitus without complications; Z95.5 Presence of coronary angioplasty implant and graft; Z98.890 Other specified postprocedural states; E78.00 Pure hypercholesterolemia, unspecified; I10 Essential (primary) hypertension; I25.2 Old myocardial infarction
CPT/HCPCS: 78452; 93017; A9500; A4216; J2785

== ENCOUNTER → 2023-12-22 | Outpatient (CLI) | payer MEDICAID, SELFPAY ==
[2016-10-28 14:33] VITALS: BMI 35.2
== END | disposition home or self-care (01) ==
LOC: LAB 11:07
PROVIDERS: PCP Physician Assistant; Referring Provider Nurse Practitioner Family; Visit Provider Nurse Practitioner Family
DX: Z00.00 Encounter for general adult medical examination without abnormal findings (principal)

== ENCOUNTER 2023-12-27 10:08 | Observation (INO) | payer MEDICAID, SELFPAY ==
[2016-10-28 14:33] VITALS: BMI 35.2
--- NOTE | 2023-12-11 10:43 | HP.PCM_ITS ---
History and Physical Date of Admission: 12/27/23 The patient is here for a left heart catheterization on account of abnormal echocardiogram and abnormal stress test. According to her, she occasionally gets chest or scapular discomfort that last for a few seconds only. Not related to exertion. Exertion does not precipitate any chest pains or shortness of breath. Denies orthopnea. No PND. No ankle edema. Unfortunately patient continues to smoke. Intake Vital Signs: See EMR Intake Visit Reasons: [facility] Strategy Manager Required: No Accompanied by: Self Is patient in pain?: No Allergies Opioids - Morphine Analogues [narcotics] Adverse Reaction (Severe, Verified 09/18/23 09:10) CANNOT TAKE- ON SUBOXONE Medications See EMR Ejection fraction %: 55 to 59 [facility] Medical History Abnormal stress test Angina pectoris Anxiety Atherosclerosis of [place] coronary artery of [place] heart without angina pectoris Cervical cancer Chest pain Daytime somnolence Depression [place] (dyspnea on exertion) Encounter for long-term current use of high risk medication Essential (primary) hypertension Fatigue Gastric reflux GERD (gastroesophageal reflux disease) Obesity (BMI 30.0-34.9) Obesity (BMI 30.0-34.9) Old myocardial infarction (10/17/16) JOSH (obstructive sleep apnea) polysubstance dependence in remission Presence of stent in coronary artery (~03/09/21) Pure hypercholesterolemia Sleep apnea Smoker Syncope and collapse Tobacco abuse Type 2 diabetes mellitus without complications Wears dentures Wears glasses Surgical History Blood Clot removal Endometriosis surgery H/O breast augmentation H/O section H/O exploratory laparotomy H/O tooth extraction History of coronary artery stent placement (10/26/22) History of hysterectomy History of left heart catheterization (08/14/19) History of right knee surgery Hx of cholecystectomy Presence of coronary angioplasty implant and graft (~03/09/21) S/P D&C (status post dilation and curettage) Family History Father Diabetes Heart disease Burger-Grutz disease Alcohol abuse CancerMother Depression Addiction Heart disease Myocardial infarction CVA (cerebral vascular accident) Diabetes Parkinson disease DementiaOther Patient Adopted Social History adopted: Yes household members: children housing: apartment pets and animals: Yes pets and animals: dog(s) Smoking Status: Current every day smoker tobacco type: cigarettes Tobacco: How many years used: 28 second hand exposure: Yes quit status: quit date established alcohol intake: never substance use type: former substance user Date of last use: 03/01/10, crack/cocaine and painkillers caffeine: Yes Type: carbonated beverages Number of servings: 2 what type of physical activity do you participate in: none ROS Const Const: Positive for fatigue and daytime sleepiness; Negative for weakness, headache(s), frequent falls, difficulty sleeping or excessive sweating Eyes Eyes: Negative for loss of peripheral vision, transient loss of vision, blurry vision, double vision or tunnel vision ENT ENT: Negative for headache(s), dizziness, Nosebleed/epistaxis or balance problems Cardio Chest Pain: Yes Frequency: daily Character: dull and other (shocking) Location: left chest and other (under breast and sometimes in back on shoulder blade) Duration: minutes and brief Palpitations: No Edema: None Muscle aches with walking: None Resp Respiratory: Negative for SOB with activity, SOB at rest, SOB orthopnea\SOB lying down, Cough or paroxysmal nocturnal dyspnea GI GI: Positive for nausea; Negative vomiting, heartburn or black,tarry stools : Negative for hematuria Musc Musc: Positive for joint pain; Negative for muscle aches/ myalgia, muscle weakness or balance problems Skin Skin: Negative non-healing lesions, rash or unusual bruising Neuro Neuro: Negative for dizziness, lightheadedness, near syncope, syncope, frequent falls, headache(s), weakness, blurry vision, double vision or lack of coordination [place] Hematologic/Lymphatic: Negative for easy bleeding or easy bruising Endo Endo: Positive for fatigue; Negative for excessive sweating or increased thirst/drinking Psych Psych: Negative for anxiety or depression Allergy Allergy/Immunology: Negative for hives and Negative for rash Cardiology Exam Const Appearance: comfortable and no acute distress Nutritional Appearance: well nourished Neck Neck: no JVD Carotids: Negative bruit Chest Auscultation: Bilateral: Clear to Auscultation Cardio Rate: regular rate Rhythm: regular rhythm Heart sounds: S1 normal and S2 normal 2/6 systolic murmur at base Neuro General: patient alert, patient awake and patient oriented x3 Extremities Lower Extremity Edema: None: Bilateral Supplemental Info Supplemental Information Echocardiogram from 10/19/2023: Interpretation Summary The estimated ejection fraction is 55 %. There are regional wall motion abnormalities as specified. Mild (1+) mitral valve insufficiency. Transthoracic echocardiogram: 08-13-2020 Interpretation Summary The study was technically difficult. Contrast injection was performed. Left ventricular systolic function is normal. The estimated ejection fraction is 55 %. Mild (1+) mitral valve insufficiency. Trivial tricuspid valve insufficiency. Unable to estimate RV systolic pressure/pulmonary artery pressure due to technically difficult study. Transmitral Doppler flow suggestive of impaired relaxation of left ventricle Stress test from 12/06/2023: Impression: 1. Pharmacologic (Regadenoson) evaluation 2. Peak pharmacologic ECG with no ischemic changes. 3. Occasional PVCs postinfusion. 5. Small basal lateral reversible defect suggestive of mild ischemia. 6. The gated Cardiolite study reports an LVEF of 57%. Cardiac cath 10/2022 with PCI: 60% Prox LCX, Stent to Prox LCX 30% ISR (iFR 0.94, FFR 0.87) Mid LAD 80%. iFR 0.82 90% ostial D1 (Jailed with stent to Prox LAD) Stnt to distal RCA patent. 50% Prox, Mid and distal RCA Successful PARVEEN Mid LAD using 2.5x15 mm Resolute [place] RECOMMENDATIONS ASA Indefinitley Plavix for at least 12 months CORONARY ANGIOGRAPHY DOMINANCE:? Right Dominant LEFT MAIN: ?20% distal LEFT ANTERIOR DESCENDING ARTERY: LAD: Tubular 30% Proximal lesion in LAD Tubular 40% Mid lesion in LAD Tubular 80% Mid lesion in LAD DIAGONAL 1: Tubular 90% Ostial lesion in 1st Diagonal CIRCUMFLEX ARTERY: CIRCUMFLEX: Tubular 52% Proximal lesion in Circumflex In-Stent Restenosis 30% Proximal lesion in Circumflex Tubular 50% Distal lesion in Circumflex RIGHT CORONARY ARTERY: RCA: Tubular 50% Proximal lesion in RCA Tubular 50% Mid lesion in RCA Tubular 50% Distal lesion in RCA Carotid duplex ultrasound from 09/23/2019: Interpretation Summary No significant atherosclerotic plaque or stenosis noted in the internal carotid arteries bilaterally. Flow within the vertebral arteries is antegrade bilaterally. Assessment and Plan Assessment and Plan (1) Coronary artery disease: Status: Chronic Plan: On account of chest discomfort, she had an echocardiogram completed on 10/19/2023 for chest pain that showed new wall motion abnormalities compared to previous. To assess this further, she underwent a stress test on 12/06/2023 that showed small basal lateral reversible defect suggestive of mild ischemia with an LVEF of 57%. Given her history of coronary artery disease and symptoms, she will proceed with a heart catheterization. (2) History of coronary artery stent placement: Status: Chronic Comment: PARVEEN Mid LAD using 2.5x15 mm Resolute [place]. PARVEEN-MID Cx 10/17/16 [facility]; PCI-PARVEEN-LAD w/ POBA Ostial OM1 10/28/16; PTCA/PARVEEN to proximal LCx 09/27/17. 09/19/2018: Successful PTCA/PARVEEN of proximal LCX ISR 3.0 x 12 Resolute PARVEEN per [facility] @ [facility] Plan: Aspirin and Plavix. (3) Hypertension: Status: Chronic Plan: Her medication was adjusted last office visit for better blood pressure control. (4) Dyslipidemia: Status: Chronic Plan: As LDL was noted be above goal, her atorvastatin was increased to 80 mg p.o. daily. (5) Nicotine dependence: Status: Chronic Plan: Counseled to quit. (6) JOSH (obstructive sleep apnea): Status: Chronic Plan: As per sleep medicine. (7) Diabetes mellitus: Status: Chronic Plan: As per internal medicine. (8) Obesity (BMI 30.0-34.9): Status: Chronic Plan: Lose weight.
--- NOTE | 2023-12-14 15:20 | RAD_ITS ---
STUDY: X-RAY CHEST REASON FOR EXAM: Female, 53 years old. For heart catheterization. TECHNIQUE: Frontal and lateral views of the chest. COMPARISON: October 20, 2022 FINDINGS: The lungs are clear and expanded. There is no demonstrated pleural abnormality. Normal size heart. Normal mediastinum and behzad. Normal visualized pulmonary arteries. Normal visualized aortic arch and descending thoracic aorta. Normal visualized thoracic spine. Normal visualized ribs, clavicles, and shoulders. No abnormality of the visualized soft tissue structures of the upper abdomen. RAD/Chest PA and Lateral IMPRESSION: No interval change. Normal x-ray examination of the chest. Electronically Signed: Michael Howard MD at 15:38 EDT ,
[2023-12-22 11:34] LABS: Mean Corp Hgb Conc 32.6 g/dL (32-36); Mean Corpuscular Hgb 29.4 pg (27.0-32.0); Mean Corpuscular Volume 90.2 fL (81-99); Mean Platelet Vol. 8.9 fl (6.2-12.0); Platelet Count 199 K/mm3 (150-450); RBC Distribution Width CV 11.9 % (11.6-14.6); RBC Distribution Width SD 39.3 fl (35.1-43.9); White Blood Count 7.2 K/mm3 (4.4-11.0)
[2023-12-22 11:44] LABS: Partial Thromboplast Time 27.1 Seconds (24.1-36.2); Prothrombin Time (Protime)PT. 12.8 SECONDS (11.7-14.9)
[2023-12-22 12:02] LABS: AST(SGOT) 19 U/L (15-37); Alanine Aminotransfer ALT/SGPT 27 U/L (13-56); Cholesterol 99 mg/dL (200); High Density Lipoprotein 34 mg/dL; Triglycerides 222 mg/dL; Very Low Density Lipoprotein 44 mg/dL (5-40)
[2023-12-22 12:10] LABS: Anion Gap 6 (5-15); BUN 8 mg/dL (7-18); BUN/Creat Ratio 8.5 RATIO (10-20); Chloride 108 mmol/L (98-107); Creatinine, Serum 0.94 mg/dL (0.55-1.02); EST Glomerular Filtration Rate 66 mL/min (>60); Est Glom Filt Rate - Afr Amer 80 mL/min (>60); Glucose 183 mg/dL (74-106); Potassium 4.3 mmol/L (3.5-5.1); Sodium Level 138 mmol/L (136-145)
[2023-12-26 09:31] VITALS: BMI 32.8
[2023-12-27] VITALS (10 sets, daily range): BP systolic 115–149; BP diastolic 62–88; PULSE 54–66; RESP 16–18; TEMP 36.6; O2SAT 94–100
--- NOTE | 2023-12-27 10:14 | PCM.DC ---
Discharge Instructions Diet Discharge Diet: 1999 Calorie Control Diet Activity Discharge Activity: Return to Normal Activity Dressing / Incision Call your doctor if your incision/area has: Continuous Slow Oozing, Sudden Increased Bleeding, Increased Pain/ Swelling and Increased Redness Follow Up Care Please Follow Up With: Jethro Alfaro MD When: 2-4 weeks Test Results: Test results from this visit will be discussed in further detail at your follow-up appointment, if applicable. Discharge Plan Admission Attending Provider: Jethro Alfaro Primary Care Provider: Anthony Neri Instructions Print Language: Sinhala Discharge Orders/Prescriptions Prescriptions: No Action ondansetron 4 mg tablet,disintegrating 4 mg PO DAILY PRN (Reason: nausea and vomiting) cholecalciferol (vitamin D3) 50 mcg (2,000 unit) capsule 50 mcg PO DAILY Trulicity 3 mg/0.5 mL pen injector 3 mg subcut QWEEK Patient Comments: Inject 3 mg subcutaneously one time a week. Jardiance 10 mg tablet 10 mg PO DAILY Patient Comments: Take 1 tablet by mouth daily with breakfast. famotidine 40 mg tablet 40 mg PO DAILY Patient Comments: Take 1 tablet by mouth once daily. amlodipine 5 mg tablet 5 mg PO DAILY Qty: 90 3RF metoprolol succinate 50 mg tablet extended release 24 hr 50 mg PO DAILY Qty: 90 3RF buprenorphine-naloxone 8-2 mg tablet, sublingual 1 tab sublingual DAILY Dulera 200-5 mcg/actuation HFA aerosol inhaler 2 puff inhalation BID Trulicity 1.5 mg/0.5 mL pen injector 1.5 mg subcut QWEEK aspirin 81 mg tablet,delayed release (DR/EC) 81 mg PO DAILY@0800 Qty: 90 3RF nitroglycerin 0.4 mg tablet, sublingual 0.4 mg SUBLINGUAL Q5M PRN (Reason: Chest Pain) Qty: 25 3RF clopidogrel [Plavix] 75 mg tablet 75 mg PO DAILY Qty: 90 3RF isosorbide mononitrate 60 mg tablet extended release 24 hr 60 mg PO DAILY Qty: 90 3RF rosuvastatin 40 mg tablet 40 mg PO DAILY Qty: 30 11RF Referrals / Follow Up: Anthony Neri PA [Primary Care Provider] - Disposition Disposition (needs filled in before D/C Order can be placed): Home, Self Care
--- NOTE | 2023-12-27 10:28 | CL.I_ITS ---
Patient Name: KALEB HOLBROOK Study Date: 12/27/2023 Performing: Jethro Alfaro MD Ht: 64 inches 162.56 cm : 1970 Wt: 191.01 lbs 86.64 kg Age: 53 Gender: female BSA: 1.92 PROCEDURE(S) PERFORMED DC02-(94442)LHC/COR IC12-(61360/C9600)PARVEEN W/WO PTCA, SINGLE CORONARY ARTERY CLINICAL PROFILE AND CO-MORBIDITIES Indications: Worsening Angina Heart Failure: None Stress/Imaging Stress Test w/SPECT MPI: Yes Result: Positive Intermediate Risk Stress Test with SPECT MPI: Positive Intermediate Risk Angina Classification Anginal Classification w/in 2 Weeks: CCS II CAD Presentations: Stable angina. CONCLUSIONS Stent to Prox LAD patent, 40-50% ISR Mid LAD 90-95% Prox LCX, 70% ISR Prox LCX; MEAT CUTTER OM1, filling retrogradely via collaterals Moderate disease RCA Successful PTCA/PARVEEN Prox LCX using Eloisa [place] 2.5x15 mm, post-dilated using 3.0 mm balloon RECOMMENDATIONS ASA Indefinitley Plavix for at least 12 months DESCRIPTION OF PROCEDURE The patient arrived to the procedure lab. The risks and benefits of the procedure as well as a full description of our services here and lack of surgical backup were fully explained to the patient and/or their significant other prior to the catheterization. The Timeout was completed, verifying the correct patient and procedure. The patient's procedural site was prepped and draped in the usual fashion. Local anesthetic was given subcutaneously to right radial region with Lidocaine 2%. Using a modified Seldinger technique, arterial access was obtained via the right radial artery, a 6Fr sheath was inserted.. Left Coronary Artery selective angiography was performed in multiple views using a 5 Fr. 4.0 Grygla catheter. Right Coronary Artery selective angiography was then performed in multiple views using a 5 Fr. 4.0 Grygla catheterThe images were reviewed and options discussed. A decision was then made to proceed with an Intervention, IVUS or other adjunct procedure. XB 3.0 Guide catheter was inserted and engaged into the LCA. Runthrough Guide wire was advanced to the Circumflex. 2.5 x 15 NC Emerge Balloon catheter was inserted. Balloon catheter was advanced across lesion in the circumflex, proximal. Angiogram performed pre balloon dilatation. PTCA balloon inflated at 12 atms for 15 secs. 2.5 x 15 [place] Orleans Drug Eluting stent was advanced across the lesion in the circumflex, proximal. Angiogram performed pre stent deployment. 3.0 12 NC Emerge Balloon catheter was inserted post stent. Angiogram performed post balloon dilatation. The arterial sheath was pulled and a TR Band was applied for hemostasis. 10cc air inserted. CORONARY ANGIOGRAPHY LEFT MAIN: Tubular 40% Distal lesion in Left Main LEFT ANTERIOR DESCENDING ARTERY: LAD: In-Stent Restenosis 40% Mid lesion in LAD CIRCUMFLEX ARTERY: CIRCUMFLEX: Tubular 90% Proximal lesion in Circumflex In-Stent Restenosis 70% Proximal lesion in Circumflex, STENT to 70% OM 1: Diffuse 100% Ostial lesion in MARG1 OM 2: Diffuse 100% Ostial lesion in MARG1 COLLATERAL FLOW: Collateral flow from 1st Diagonal to MARG1 INTERVENTION INFORMATION LESION SITE: Circumflex (Proximal) Lesion Complexity: Non-High/Non-C, In-stent restenosis: Yes, lesion length: 13 mm Pre Stenosis: 90 % Pre intervention BELKYS flow: 3 PROCEDURE: Drug Eluting Stent with pre and post dilatation Post Stenosis: 0 % Post intervention BELKYS flow: 3 Lesion Devices: Cordis 6 Fr XB3.0 100cm Guide Catheter Terumo .014 180cm Runthrough Extra Floppy straight Yonatan Sci NC EMERGE MR 2.50x15 BALLOON Medtronic 2.50 x 15 ELOISA FRONTIER PARVEEN Yonatan Sci NC EMERGE MR 3.00x12 BALLOON COMPLICATIONS No Complications PROCEDURE MEDICATIONS Versed 2 mg IV Oxygen: 2 L/min via nasal cannula Baby Aspirin (81mg) 1 Tabs PO @ 12/27/2023 07:57:16 Heparin given IA 12/27/2023 09:26:35 Heparin 5000 unit(s) IV 12/27/2023 09:39:50 Plavix 75 mg PO 12/27/2023 07:57:30 Plavix 300 mg PO 12/27/2023 10:12:03 Verapamil 2.5mg, Ntg 200mcgs, 2000 units of Heparin given IA 12/27/2023 09:26:35 IV Bolus: .9 NaCl 250 ml total 12/27/2023 09:31:48 SUMMARY OF HEMODYNAMIC DATA Time AIR REST ECG 07:57:04 AO 152/80 (109) SA 09:33:20 AIR REST 10:20:38 Signed By Jethro Alfaro MD On 12/27/2023 10:28:06 Jethro Alfaro MD
[2023-12-27 10:29] LABS: ACT Activated Clotting Time 299 sec (74-137)
[2023-12-27 10:29] LABS: ACT Activated Clotting Time 257 sec (74-137)
--- NOTE | 2023-12-27 11:43 | CRPHASE1_ITS ---
Patient Communication Patient Information Former Patient:: Phase I PHII Cardiac Rehab Discussed with Patient:: Yes Guide to Cardiac Rehab Given to Patient:: Yes Cardiac Rehab Facility Choice List Given to Patient:: Yes Communication to Cardiac Rehab Choice Program [facility] PHII:: Communication Given to CR Laborer Heading:: Jethro Alfaro Phase II Cardiac Rehab:: Yes Sessions:: 36 sessions - 3 days/wk, 12 weeks Cardiac Rehabilitation Info Program Information Cardiac Rehabilitation Program Information: Cardiac Rehab The cardiac rehab team at [facility] consists of highly skilled exercise physiologists, nurses, respiratory therapists and physicians working together with you. Our purpose is to help you have a full recovery and achieve the goals you set for yourself. Over the years many of our patients have returned to activities they assumed they would never do again! We can help restore your confidence and motivation to make lifestyle changes that can have a significant impact on your health and quality of life! We can help answer questions and concerns you may have about exercise, lifestyle, medications, diet, stress and anxiety which are common following a hospitalization. WE monitor ECG and vital signs during exercise and discuss your progress with you and report to your physician(s). Cardiac Rehab is proven to help reduce readmissions, improve functional capacity and lower recurrence of problems with your heart. Our Cardiac Rehab program is Certified by the [place] [employer]-Vascular [employer] Pulmonary [employer] (AACVPR) and Accredited by the [place] [employer] through our [facility]. You can contact us at . We invite you to call us with your questions or to get started in our program. If you have other questions or concerns be sure to ask your physician/provider during your follow-up visit. WE look forward to seeing you!
--- NOTE | 2023-12-27 11:43 | CRPH1.INST_ITS ---
General Education Discussed with Patient CAD and cardiac anatomy and function:: Patient communicates acknowledgment Explanation of diagnoses and procedures:: Patient communicates acknowledgment Sign/Symptoms of AK:: Patient communicates acknowledgment Antiplatelet therapy: Patient communicates acknowledgment Proper use of NTG-SL: Patient communicates acknowledgment Emergency procedures and activation of EMS: Patient communicates acknowledgment Compliance of all prescribed medications: Patient communicates acknowledgment Smoking Risk Factors Patient Nicotine/Smoking Risk Factors Are:: Cigarettes Recommendations Recommendations Include:: Smoking cessation strategies/Smoking packet, Second- hand smoke recommendation and Participation in a smoking cessation program Response Code Nicotine/Smoking Response Code:: Patient communicates acknowledgment Dyslipidemia Risk Factors Patient Dyslipidemia Risk Factors Are:: Total Cholesterol, Triglycerides, HDL and LDL Recommendations Recommendations Include:: Lipid profile provided, Reviewed NCEP/ATP guidelines and Therapeutic Lifestyle Change dietary guidelines Response Code Dyslipidemia Response Code:: Patient communicates acknowledgment Overweight/Obesity Risk Factors Patient Overweight/Obesity Risk Factors Are:: Obesity - > or = 30 Recommendations Recommendations Include:: Weight loss of 5-10%, Reduced calorie diet and Exercise 5-7 times/week Response Code Overweight/Obesity:: Patient communicates acknowledgment Hypertension Recommendations Recommendations Include:: BP <130/80 if diabetic, DASH dietary guidelines, Decrease/maintain normal body weight and Moderation of ETOH Response Code Hypertension:: Patient communicates acknowledgment Diabetes Risk Factors Patient Diabetes Risk Factors Are:: Elevated blood sugars Recommendations Recommendations Include:: Maintain fasting blood sugars 70-110 md/dL, Maintain HgbA1c of 6% or less, Monitor blood sugar as prescribed, Diabetic dietary guidelines and Decrease/maintain body weight Response Code Diabetes:: Patient communicates acknowledgment Metabolic Syndrome Risk Factors Patient Metabolic Syndrome Risk Factors Are [3 of 5]:: Fasting blood sugar > 100 mg/dL, Waist circumference > 35 [female] or 40 [male], High triglyceride >150, Hypertension and Low HDL <40 [male] or < 50 [female] Recommendations Recommendations Include:: Reinforce compliance to risk factor modifications, Patient is diabetic and Encouraged follow-up with Primary Care Physician Response Code Metabolic Syndrome Response Code:: Patient communicates acknowledgment Sedentary Risk Factors Patient Sedentary Risk Factors Are:: Lack of regular exercise Recommendations Recommendations Include:: Aerobic exercise 5-7 times/week for 20-30 minutes continuously, Benefits of regular exercise, Discussed home walking program and Monitored Outpatient Cardiac Rehab Response Code Sedentary Response Code:: Patient communicates acknowledgment Stress Recommendations Recommendations Include:: Identification of stressors, and assessment of coping skills and Stress management techniques Response Code Stress Response Code:: Patient communicates acknowledgment
[2023-12-27] MEDS: 0.9% Normal Saline (1000mL) 1,000 ML 150 ML IV (12:20)
[2023-12-27] MEDS: BUPRENORPHINE HCL/NALOXONE HCL 1 EACH TAB.SUBL SL (14:42)
[2023-12-28 04:33] VITALS: BP 130/94; PULSE 61; RESP 17; TEMP 36.1; O2SAT 96
[2023-12-28] MEDS: Ondansetron ODT 4 MG Tablet PO (04:41)
[2023-12-28 06:29] LABS: Hematocrit 42.3 % (37-47); Hemoglobin 13.6 g/dL (12.0-15.0); Mean Corp Hgb Conc 32.2 g/dL (32-36); Mean Corpuscular Hgb 29.2 pg (27.0-32.0); Mean Corpuscular Volume 90.8 fL (81-99); Platelet Count 161 K/mm3 (150-450); RBC Distribution Width CV 11.9 % (11.6-14.6); RBC Distribution Width SD 39.4 fl (35.1-43.9); Red Blood Count 4.66 M/mm3 (4.2-5.4)
[2023-12-28 06:52] LABS: ALB/GLOB Ratio 0.9 RATIO (0.9-2.4); AST(SGOT) 18 U/L (15-37); Alanine Aminotransfer ALT/SGPT 22 U/L (13-56); Alkaline Phosphatase 88 U/L (45-117); Anion Gap 3 (5-15); BUN 11 mg/dL (7-18); BUN/Creat Ratio 10.8 RATIO (10-20); Calcium,Total 9.5 mg/dL (8.5-10.1); Chloride 111 mmol/L (98-107); Cholesterol 89 mg/dL (200); Creatinine, Serum 1.02 mg/dL (0.55-1.02); EST Glomerular Filtration Rate 61 mL/min (>60); Est Glom Filt Rate - Afr Amer 73 mL/min (>60); Globulin 3.2 g/dL (2.2-4.2); Glucose 191 mg/dL (74-106); High Density Lipoprotein 36 mg/dL; Potassium 3.9 mmol/L (3.5-5.1); Protein, Total 6.2 g/dL (6.4-8.2); Sodium Level 140 mmol/L (136-145); Triglycerides 180 mg/dL; Very Low Density Lipoprotein 36 mg/dL (5-40)
[2023-12-28 09:40] VITALS: BP 120/64; PULSE 58; RESP 16; TEMP 35.8; O2SAT 97
--- NOTE | 2023-12-28 09:46 | CASEMGMT ---
HANNY CM to pt room at this time regarding DC planning. Pt states that she feels safe at home and denies any additional needs including HHC and OP therapy. Pt denies further questions or concerns.
--- NOTE | 2023-12-28 10:06 | PHA.DC_ITS ---
Pharmacy [facility] Reconciliation Pharmacy Service has performed discharge medication reconciliation for this patient. No new medications issued at time of discharge medication review. Medications reviewed are from previously reported home medications. The patient's discharge medication list was reviewed for discrepancies and discrepancies were resolved. Medications at Discharge Home Medications ondansetron 4 mg disintegrating tablet 4 mg PO DAILY PRN nausea and vomiting 01/22/20 aspirin 81 mg tablet,delayed release 81 mg PO DAILY@0800 heart health #90 tabs 07/02/20 nitroglycerin 0.4 mg sublingual tablet 0.4 mg sublingual Q5M PRN Chest Pain #25 tabs 05/17/22 cholecalciferol (vitamin D3) 50 mcg (2,000 unit) capsule 50 mcg PO DAILY vitamin 01/04/23 clopidogrel 75 mg tablet (Plavix) 75 mg PO DAILY stents #90 tabs 03/13/23 isosorbide mononitrate 60 mg tablet,extended release 24 hr 60 mg PO DAILY blood pressure med #90 tabs 03/13/23 amlodipine 5 mg tablet 5 mg PO DAILY blood pressure #90 tabs 09/18/23 buprenorphine 8 mg-naloxone 2 mg sublingual tablet 1 tab sublingual DAILY substa nce abuse 09/18/23 dulaglutide 3 mg/0.5 mL subcutaneous pen injector (Trulicity) 3 mg subcut QWEEK blood sugar 09/18/23 empagliflozin 10 mg tablet (Jardiance) 10 mg PO DAILY blood sugar 09/18/23 famotidine 40 mg tablet 40 mg PO DAILY reflux 09/18/23 metoprolol succinate 50 mg tablet,extended release 24 hr 50 mg PO DAILY blood pressure/heart #90 tabs 09/18/23 rosuvastatin 40 mg tablet 40 mg PO DAILY cholesterol #30 tabs 09/22/23 dulaglutide 1.5 mg/0.5 mL subcutaneous pen injector (Trulicity) 1.5 mg subcut QWEEK blood sugar 12/26/23 mometasone-formoterol HFA 200 mcg-5 mcg/actuation aerosol inhaler (Dulera) 2 puff inhalation BID breathing 12/26/23
== END 2023-12-28 10:00 | disposition home or self-care (01) ==
LOC: CLSP 10:15 → PCU 10:53
PROVIDERS: Admitting Provider Internal Medicine Cardiovascular Disease; PCP Physician Assistant; Referring Provider Internal Medicine Cardiovascular Disease; Visit Provider Internal Medicine Cardiovascular Disease
DX: I25.118 Atherosclerotic heart disease of native coronary artery with other forms of angina pectoris (principal); F14.21 Cocaine dependence, in remission; E11.9 Type 2 diabetes mellitus without complications; I10 Essential (primary) hypertension; F17.210 Nicotine dependence, cigarettes, uncomplicated; E78.00 Pure hypercholesterolemia, unspecified; R94.39 Abnormal result of other cardiovascular function study; K21.9 Gastro-esophageal reflux disease without esophagitis; G47.33 Obstructive sleep apnea (adult) (pediatric); E66.9 Obesity, unspecified
CPT/HCPCS: C1725 ×2; C1769 ×2; C1874; C1887; C1894; 36415; 71046; 80048; 80053; 80061; 84450; 84460; 85027; 85347; 85610; 85730; 92928; 93005; 93454; 96360; 96361; 99152; 99153; 99221; J7030; J7040; Q9967; C9600; G0378

== ENCOUNTER → 2024-07-02 | Outpatient (CLI) | payer MEDICAID, SELFPAY ==
[2016-10-28 14:33] VITALS: BMI 35.2
[2024-07-02 14:19] LABS: ALB/GLOB Ratio 1.2 RATIO (0.9-2.4); AST(SGOT) 18 U/L (15-37); Alanine Aminotransfer ALT/SGPT 23 U/L (13-56); Albumin, Serum 3.5 g/dL (3.2-5.0); Alkaline Phosphatase 92 U/L (45-117); Anion Gap 4 (5-15); BUN 9 mg/dL (7-18); Calcium,Total 10.2 mg/dL (8.5-10.1); Chloride 112 mmol/L (98-107); EST Glomerular Filtration Rate 62 mL/min (>60); Est Glom Filt Rate - Afr Amer 75 mL/min (>60); Glucose 163 mg/dL (74-106); Potassium 3.8 mmol/L (3.5-5.1); Protein, Total 6.5 g/dL (6.4-8.2); Sodium Level 142 mmol/L (136-145)
[2024-07-02 14:36] LABS: HIV - WCH Non-Reactive (Nonreactive); Hepatitis B Surface Antibody Non-Reactive; Hepatitis B Surface Antigen Non-Reactive (Nonreactive)
[2024-07-08 09:22] LABS: HCV Quant. RNA PCR HCV Not Detected IU/mL (.); Hepatitis A AB, Total Negative (Negative)
== END | disposition home or self-care (01) ==
PROVIDERS: PCP Physician Assistant; Referring Provider Family Medicine; Visit Provider Family Medicine
DX: F11.20 Opioid dependence, uncomplicated (principal)
CPT/HCPCS: 36415; 80053; 86703; 86706; 86708; 87340; 87522

== ENCOUNTER 2024-09-11 22:03 | Emergency (ER) | payer MEDICAID, SELFPAY ==
[2016-10-28 14:33] VITALS: BMI 35.2
[2024-09-11 22:09] VITALS: BP 117/67; PULSE 60; RESP 20; TEMP 37.7; O2SAT 98; BMI 29.8
--- NOTE | 2024-09-12 00:13 | EX.ED.DYSGE1 ---
HPI History of Present Illness Chief Complaint: Cold Sx Informant: patient Narrative Narrative: Patient is a 54-year-old female with past medical history of ldf-[id number]-tmmxxyocl diabetes and hypertension and COPD. She states she does not require supplemental oxygen at baseline. She states she has been sick now for approximately 3 to 4 days with congestion cough and shortness of breath. She states that she has been using her home medication as directed with minimal symptom improvement and secondary to this comes in for evaluation [facility] Medical History (Updated 09/12/24 @ 05:[address] Maxi Koo, ) Wears dentures Wears glasses Anxiety Gastric reflux Smoker Presence of stent in coronary artery (~03/09/21) Angina pectoris Fatigue Abnormal stress test Atherosclerosis of [place] coronary artery of [place] heart without angina pectoris Pure hypercholesterolemia Essential (primary) hypertension Chest pain Encounter for long-term current use of high risk medication Tobacco abuse [place]ERWOOD (dyspnea on exertion) JOSH (obstructive sleep apnea) Sleep apnea Cervical cancer Obesity (BMI 30.0-34.9) Syncope and collapse Depression polysubstance dependence in remission GERD (gastroesophageal reflux disease) Daytime somnolence Type 2 diabetes mellitus without complications Old myocardial infarction (10/17/16) Obesity (BMI 30.0-34.9) Home Medications ?Medication ?Instructions ?Recorded ?Last Taken ?Type ondansetron 4 mg disintegrating 4 mg PO DAILY PRN nausea and 01/22/20 12/27/23 History tablet vomiting cholecalciferol (vitamin D3) 50 50 mcg PO DAILY vitamin 01/04/23 Unknown History mcg (2,000 unit) capsule buprenorphine 8 mg-naloxone 2 mg 1 tab sublingual DAILY substance 09/18/23 Unknown History sublingual tablet abuse dulaglutide 3 mg/0.5 mL 3 mg subcut QWEEK blood sugar 09/18/23 Unknown History subcutaneous pen injector (Trulicity) empagliflozin 10 mg tablet 10 mg PO DAILY blood sugar 09/18/23 Unknown History (Jardiance) famotidine 40 mg tablet 40 mg PO DAILY reflux 09/18/23 Unknown History dulaglutide 1.5 mg/0.5 mL 1.5 mg subcut QWEEK blood sugar 12/26/23 Unknown History subcutaneous pen injector (Trulicity) mometasone-formoterol HFA 200 2 puff inhalation BID breathing 12/26/23 Unknown History mcg-5 mcg/actuation aerosol inhaler (Dulera) nitroglycerin 0.4 mg sublingual 0.4 mg sublingual Q5M PRN Chest 03/05/24 Unknown Rx tablet Pain #25 tabs amlodipine 5 mg tablet 5 mg PO DAILY blood pressure needs 09/11/24 Unknown Rx appt. for further refills #30 tabs aspirin 81 mg tablet,delayed 81 mg PO DAILY@0800 heart health 09/11/24 Unknown Rx release needs appt for further refills #30 tabs clopidogrel 75 mg tablet (Plavix) 75 mg PO DAILY stents needs appt 09/11/24 Unknown Rx for further refills #30 tabs isosorbide mononitrate 60 mg 60 mg PO DAILY blood pressure med 09/11/24 Unknown Rx tablet,extended release 24 hr Needs appt for further refills #30 tabs metoprolol succinate 50 mg 50 mg PO DAILY blood 09/11/24 Unknown Rx tablet,extended release 24 hr pressure/heart needs appt for further refill #30 tabs rosuvastatin 40 mg tablet 40 mg PO DAILY cholesterol needs 09/11/24 Unknown Rx appt for further refills #30 tabs prednisone 20 mg tablet 20 mg PO DAILY 4 days #4 tabs 09/12/24 Unknown Rx Allergy/AdvReac Type Severity Reaction Status Date / Time Opioids - Morphine Analogues AdvReac Severe CANNOT Verified 09/11/24 22:09 (narcotics) TAKE- ON SUBOXONE Family History Father Diabetes Heart disease Burger-Grutz disease Alcohol abuse Cancer Mother Depression Addiction Heart disease Myocardial infarction CVA (cerebral vascular accident) Diabetes Parkinson disease Dementia Other Patient Adopted Surgical History (Updated 12/27/23 @ 14:21 by Chloe Cedeno RN) History of coronary artery stent placement (12/27/23) Presence of coronary angioplasty implant and graft (~03/09/21) History of left heart catheterization (12/27/23) H/O tooth extraction Blood Clot removal Endometriosis surgery S/P D&C (status post dilation and curettage) H/O section H/O exploratory laparotomy History of right knee surgery Hx of cholecystectomy History of hysterectomy H/O breast augmentation Social History adopted: Yes household members: children housing: apartment pets and animals: Yes pets and animals: dog(s) Smoking Status: Current every day smoker tobacco type: cigarettes Tobacco: How many years used: 28 second hand exposure: Yes quit status: quit date established alcohol intake: never substance use type: former substance user Date of last use: 03/01/10, crack/cocaine and painkillers caffeine: Yes Type: carbonated beverages Number of servings: 2 what type of physical activity do you participate in: none ROS ROS ED Constitutional Constitutional ED: Reports chills, fever(s) and subjective Eyes Eyes: Denies change in vision ENT ENT ED: Reports rhinorrhea and sore throat Cardiovascular Cardiovascular: Denies chest pain Respiratory/Chest Respiratory/Chest: Reports cough and dyspnea Gastrointestinal Gastrointestinal: Denies abdominal pain, diarrhea, nausea or vomiting Musculoskeletal Musculoskeletal: Reports myalgias Integumentary Denies rash Neurologic Neurologic: Reports headache(s) Allergic/Immunologic Allergic/Immunologic ED: Denies mouth swelling or tongue swelling EXAM Physical Exam Const Vital Signs: 09/11/24 22:09 09/11/24 23:36 09/12/24 00:22 Temperature 99.8 F H 98 F Temperature Source Oral Pulse Rate 60 89 Respiratory Rate 20 H 20 H Respiratory Effort Normal Non-Labored Respiratory Pattern Normal Blood Pressure 117/67 149/79 H Blood Pressure Mean 83 102 Pulse Ox 98 97 Oxygen Delivery Method Room Air Positive well nourished, well developed and obese General Appearance ED: well developed; Negative for pallor Nutritional Appearance: obese HEENT HEENT Narrative: No tongue or lip swelling no oral lesions no airway edema or compromise There is cobblestoning noted in posterior pharynx consistent with sinus drainage without secondary findings to suggest infection Eyes PERRL and EOMs intact bilaterally General Eye ED: Negative for scleral icterus Neck supple and no JVD Resp normal respiratory effort Resp Narrative: Breath sounds are diminished throughout with diffuse expiratory wheeze but no nasal flaring retractions tachypnea or accessory muscle use Cardio regular rate and regular rhythm Extremity normal to inspection Extremity Narrative: No asymmetric edema no pitting edema negative Homans' sign bilaterally Neuro oriented x3, CN's II-XII intact bilaterally and no sensory deficits noted Sensorium / Orientation: alert Motor Exam: strength 5/5 throughout Psych mental status grossly normal Skin no rashes or lesions noted General Skin Exam: Negative for jaundice or pallor MDM MDM MDM Narrative Medical decision making narrative: Patient presented to the ER with low-grade fever but otherwise stable vitals and no signs of respiratory distress. With congestion cough shortness of breath and wheeze there is concern for viral infection such as COVID versus influenza versus RSV. A viral swab was obtained and is positive for influenza A. As the patient's breath sounds are equal in all lung choudhary and she is not in respiratory distress or hypoxic I have low concern that she has a pneumonia or pleural effusion or pneumothorax and do not feel the need for a chest x-ray. At this time without hypoxia or signs of respiratory distress there is no need for admission based on the patient's timeframe of symptoms she is outside of Tamiflu window and therefore she will be given an inhaler to help with bronchospasm and wheeze as well as steroids to reduce inflammation but is otherwise safe for discharge History & Record Review Discussion w/independent historian: Patient Discharge Plan Triage Chief Complaint: Cold Sx ED Provider: Maxi Koo Dx/Rx/DC Orders Clinical Impression: Influenza A, Essential (primary) hypertension, Type 2 diabetes mellitus, COPD (chronic obstructive pulmonary disease) Instructions: ED Influenza (Adult) Prescriptions: New prednisone 20 mg tablet 20 mg PO DAILY 4 Days Qty: 4 0RF No Action ondansetron 4 mg tablet,disintegrating 4 mg PO DAILY PRN (Reason: nausea and vomiting) cholecalciferol (vitamin D3) 50 mcg (2,000 unit) capsule 50 mcg PO DAILY Trulicity 3 mg/0.5 mL pen injector 3 mg subcut QWEEK Patient Comments: Inject 3 mg subcutaneously one time a week. Jardiance 10 mg tablet 10 mg PO DAILY Patient Comments: Take 1 tablet by mouth daily with breakfast. famotidine 40 mg tablet 40 mg PO DAILY Patient Comments: Take 1 tablet by mouth once daily. buprenorphine-naloxone 8-2 mg tablet, sublingual 1 tab sublingual DAILY Dulera 200-5 mcg/actuation HFA aerosol inhaler 2 puff inhalation BID Trulicity 1.5 mg/0.5 mL pen injector 1.5 mg subcut QWEEK nitroglycerin 0.4 mg tablet, sublingual 0.4 mg SUBLINGUAL Q5M PRN (Reason: Chest Pain) Qty: 25 3RF amlodipine 5 mg tablet 5 mg PO DAILY Qty: 30 1RF aspirin 81 mg tablet,delayed release (DR/EC) 81 mg PO DAILY@0800 Qty: 30 1RF clopidogrel [Plavix] 75 mg tablet 75 mg PO DAILY Qty: 30 1RF isosorbide mononitrate 60 mg tablet extended release 24 hr 60 mg PO DAILY Qty: 30 1RF metoprolol succinate 50 mg tablet extended release 24 hr 50 mg PO DAILY Qty: 30 1RF rosuvastatin 40 mg tablet 40 mg PO DAILY Qty: 30 1RF Primary Care Provider: Mely Garcia Referrals: Mely Garcia, [employer]INEER [Primary Care Provider] - Activity Restrictions/Additional Instructions: You have influenza A which is a viral infection that will take anywhere from 5 to 10 days to resolve. Use your inhaler from the ER to help with bronchospasm and shortness of breath. Take the prednisone to help with inflammation and use your Tessalon Perles for cough control. Keep your temperature under control with Tylenol and/or Motrin and return to the ER should you have any further concerns Print Language: French Disposition Disposition: Home, Self Care Discharge Date/Time: 09/12/24 00:23
[2024-09-12] MEDS: Albuterol Sulfate 8 gm Inhaler (60 puffs) 2 PUFF INHALATION (00:19)
[2024-09-12] MEDS: predniSONE 20 MG Tablet 40 MG PO (00:20)
[2024-09-12 00:22] VITALS: BP 149/79; PULSE 89; RESP 20; TEMP 36.6; O2SAT 97
== END 2024-09-12 00:23 | disposition home or self-care (01) ==
PROVIDERS: Emergency Provider Emergency Medicine; PCP Clinical Nurse Specialist Adult Health; Visit Provider Emergency Medicine
DX: J10.1 Influenza due to other identified influenza virus with other respiratory manifestations (principal); J44.9 Chronic obstructive pulmonary disease, unspecified; E11.9 Type 2 diabetes mellitus without complications; E78.00 Pure hypercholesterolemia, unspecified; I25.10 Atherosclerotic heart disease of native coronary artery without angina pectoris; I10 Essential (primary) hypertension; Z90.710 Acquired absence of both cervix and uterus; Z95.5 Presence of coronary angioplasty implant and graft; Z85.41 Personal history of malignant neoplasm of cervix uteri; I25.2 Old myocardial infarction; Z79.85 Long-term (current) use of injectable non-insulin antidiabetic drugs; Z79.84 Long term (current) use of oral hypoglycemic drugs; Z79.51 Long term (current) use of inhaled steroids; Z79.82 Long term (current) use of aspirin; Z79.02 Long term (current) use of antithrombotics/antiplatelets; Z79.899 Other long term (current) drug therapy; Z90.49 Acquired absence of other specified parts of digestive tract; F17.210 Nicotine dependence, cigarettes, uncomplicated
CPT/HCPCS: 87631; 99283

== ENCOUNTER → 2024-10-22 | Outpatient (CLI) | payer MEDICAID, SELFPAY ==
[2016-10-28 14:33] VITALS: BMI 35.2
== END | disposition home or self-care (01) ==
LOC: CVS 06:46
PROVIDERS: PCP Clinical Nurse Specialist Adult Health; Referring Provider Physician Assistant Medical; Visit Provider Physician Assistant Medical
DX: Z95.5 Presence of coronary angioplasty implant and graft (principal); R07.9 Chest pain, unspecified
CPT/HCPCS: 78452; 93017; A9500; A4216; J2785

== ENCOUNTER → 2024-10-22 | Outpatient (CLI) | payer MEDICAID, SELFPAY ==
[2016-10-28 14:33] VITALS: BMI 35.2
--- NOTE | 2024-10-24 12:23 | STRESSREP_ITS ---
Stress Test Report Date: 10/22/2024 Procedure: Pharmacologic stress nuclear imaging study Indications: Coronary artery disease, chest pain Consent: Per the patient Procedure: The patient underwent pharmacologic (Regadenoson 0.4mg ) evaluation with a peak heart rate of 75 beats per minute (44%predicted maximal heart rate) and a peak blood pressure of 142/78 mmHg. The baseline ECG demonstrated sinus rhythm. The peak pharmacologic ECG no ischemic change. There were no cardiac dysrhythmias pretest, during pharmacologic infusion, or recovery. There was no complaint of chest discomfort during pharmacologic infusion or recovery. The patient was injected with 11.6 millicuries of technetium 99m Cardiolite and subsequently rest SPECT Cardiolite nuclear imaging was obtained in the horizontal long, vertical long, and short axis views. The patient underwent pharmacologic (Regadenoson) evaluation. The patient was injected with 34.1 millicuries of technetium 99m Cardiolite and subsequently stress SPECT Cardiolite nuclear imaging was obtained in the horizontal long, vertical long, and short axis views. A gated Cardiolite study at peak stress was obtained. The examination was stopped secondary to completion of protocol. Rest and stress SPECT Cardiolite nuclear imaging status post realignment, normalization, and attenuation correction demonstrate large reversible perfusion defect of the anterior and lateral wall. There is end systolic thickening and brightening. The gated Cardiolite study demonstrates myocardial thickening and inward wall motion. The reported LVEF is 59%. Impression: 1. Pharmacologic (Regadenoson) evaluation 2. Peak pharmacologic ECG with no ischemic changes. 3. There were no cardiac dysrhythmias pretest, during pharmacologic infusion, or recovery. 5. Large reversible perfusion defect of the anterior, lateral and septal wall suggestive of ischemia. 6. The gated Cardiolite study reports an LVEF of 59%. This note was generated with [employer] software. It may contain incorrect words, spelling, and punctuation that were not noted in checking the note before signing.
== END | disposition home or self-care (01) ==
LOC: SL 08:47
PROVIDERS: PCP Clinical Nurse Specialist Adult Health; Visit Provider Nurse Practitioner Acute Care
DX: R94.39 Abnormal result of other cardiovascular function study (principal)

== ENCOUNTER 2024-11-09 01:27 | Emergency (ER) | payer MEDICAID, SELFPAY ==
[2016-10-28 14:33] VITALS: BMI 35.2
[2024-11-09 01:28] VITALS: BP 180/82; PULSE 74; RESP 18; TEMP 36.5; O2SAT 99; BMI 29.7
--- NOTE | 2024-11-09 01:30 | EKG12_ITS ---
Test Reason : DYSRHYTHMIA Blood Pressure : */* mmHG Vent. Rate : 69 BPM Atrial Rate : 69 BPM P-R Int : 168 ms QRS Dur : 82 ms QT Int : 408 ms P-R-T Axes : 48 26 55 degrees QTcB Int : 437 ms Normal sinus rhythm Normal ECG Confirmed by MEAGHAN PACK MD ([id number]), photographic editor PRASHANTH WOODWARD ([id number]) on 11/11/2024 8:44:55 AM Referred By: BARRERA Confirmed By: MEAGHAN PACK MD
--- NOTE | 2024-11-09 02:05 | EX.ED.DYSGE1 ---
HPI History of Present Illness Chief Complaint: Chest Pain Informant: patient and family Narrative Narrative: Patient is a 54-year-old female with past medical history of known CAD [id number] type 2 diabetes hypertension hyperlipidemia. She states that she is scheduled to have a heart cath on Monday of the coming week. She states that last night/this morning she was at home when she felt some numbness and tingling in her left hand. She states that she then began to get nervous and started breathing fast and states that the symptoms seem to worsen. She states that because of her history of CAD she was concerned that this could be cardiac in nature and therefore presents to the ER for evaluation. [facility] Medical History Wears dentures Wears glasses Anxiety Gastric reflux Smoker Presence of stent in coronary artery (~03/09/21) Angina pectoris Fatigue Abnormal stress test Atherosclerosis of [place] coronary artery of [place] heart without angina pectoris Pure hypercholesterolemia Essential (primary) hypertension Chest pain Encounter for long-term current use of high risk medication Tobacco abuse [place]ER[place]OD (dyspnea on exertion) JOSH (obstructive sleep apnea) Sleep apnea Cervical cancer Obesity (BMI 30.0-34.9) Syncope and collapse Depression polysubstance dependence in remission GERD (gastroesophageal reflux disease) Daytime somnolence Type 2 diabetes mellitus without complications Old myocardial infarction (10/17/16) Obesity (BMI 30.0-34.9) Home Medications ?Medication ?Instructions ?Recorded ?Last Taken ?Type ondansetron 4 mg disintegrating 4 mg PO DAILY PRN nausea and 01/22/20 12/27/23 History tablet vomiting cholecalciferol (vitamin D3) 50 50 mcg PO DAILY vitamin 01/04/23 Unknown History mcg (2,000 unit) capsule buprenorphine 8 mg-naloxone 2 mg 1 tab sublingual DAILY substance 09/18/23 Unknown History sublingual tablet abuse empagliflozin 10 mg tablet 10 mg PO DAILY blood sugar 09/18/23 Unknown History (Jardiance) famotidine 40 mg tablet 40 mg PO DAILY reflux 09/18/23 Unknown History dulaglutide 1.5 mg/0.5 mL 1.5 mg subcut QWEEK blood sugar 12/26/23 Unknown History subcutaneous pen injector (Trulicity) nitroglycerin 0.4 mg sublingual 0.4 mg sublingual Q5M PRN Chest 03/05/24 Unknown Rx tablet Pain #25 tabs aspirin 81 mg tablet,delayed 81 mg PO DAILY@0800 heart health 09/11/24 Unknown Rx release needs appt for further refills #30 tabs clopidogrel 75 mg tablet (Plavix) 75 mg PO DAILY stents needs appt 09/11/24 Unknown Rx for further refills #30 tabs isosorbide mononitrate 60 mg 60 mg PO DAILY blood pressure med 09/11/24 Unknown Rx tablet,extended release 24 hr Needs appt for further refills #30 tabs ranolazine 500 mg tablet,extended 500 mg PO BID #60 tabs 09/24/24 Unknown Rx release,12 hr amlodipine 5 mg tablet 5 mg PO DAILY for blood pressure 11/04/24 Unknown Rx #90 TABLETS metoprolol succinate 50 mg 50 mg PO DAILY for blood pressure 11/04/24 Unknown Rx tablet,extended release 24 hr #90 TABLETS rosuvastatin 40 mg tablet 40 mg PO DAILY for cholesterol #90 11/04/24 Unknown Rx TABLETS fluoxetine 40 mg capsule 40 mg PO DAILY 11/09/24 Unknown History Allergy/AdvReac Type Severity Reaction Status Date / Time Opioids - Morphine Analogues AdvReac Severe CANNOT Verified 11/09/24 01:28 (narcotics) TAKE- ON SUBOXONE Family History Father Diabetes Heart disease Burger-Grutz disease Alcohol abuse Cancer Mother Depression Addiction Heart disease Myocardial infarction CVA (cerebral vascular accident) Diabetes Parkinson disease Dementia Other Patient Adopted Surgical History History of coronary artery stent placement (12/27/23) Presence of coronary angioplasty implant and graft (~03/09/21) History of left heart catheterization (12/27/23) H/O tooth extraction Blood Clot removal Endometriosis surgery S/P D&C (status post dilation and curettage) H/O section H/O exploratory laparotomy History of right knee surgery Hx of cholecystectomy History of hysterectomy H/O breast augmentation Social History adopted: Yes household members: children housing: apartment pets and animals: Yes pets and animals: dog(s) Smoking Status: Heavy Smoker (>10/day) Tobacco: How many years used: 28 second hand exposure: Yes quit status: quit date established alcohol intake: never substance use type: former substance user Date of last use: 03/01/10, crack/cocaine and painkillers caffeine: Yes Type: carbonated beverages Number of servings: 2 what type of physical activity do you participate in: none ROS ROS ED Constitutional Constitutional ED: Denies chills or fever(s) Eyes Eyes: Denies blurry vision or change in vision ENT ENT ED: Denies sore throat Cardiovascular Cardiovascular: Reports racing heartbeat; Denies chest pain or palpitations Respiratory/Chest Respiratory/Chest: Denies cough or dyspnea Gastrointestinal Gastrointestinal: Denies abdominal pain, diarrhea, nausea or vomiting Genitourinary Genitourinary ED: Denies dysuria Musculoskeletal Musculoskeletal: Denies myalgias Integumentary Denies rash Neurologic Neurologic: Reports paresthesias; Denies headache(s) Hematologic/Lymphatic Hematologic/Lymphatic: Denies easy bleeding or easy bruising EXAM Physical Exam Const Vital Signs: 11/09/24 01:28 11/09/24 01:34 Temperature 97.7 F L Temperature Source Oral Pulse Rate 74 Respiratory Rate 18 Respiratory Effort Normal Non-Labored Respiratory Pattern Normal Blood Pressure 180/82 H Blood Pressure Mean 114 Pulse Ox 99 Oxygen Delivery Method Room Air Positive well nourished and well developed General Appearance ED: well developed; Negative for pallor HEENT HEENT Narrative: Normocephalic atraumatic Eyes PERRL and EOMs intact bilaterally General Eye ED: Negative for scleral icterus Neck supple Neck Narrative: No nuchal rigidity or meningeal signs Chest Wall palpation of chest normal Resp normal respiratory effort and clear to auscultation bilaterally Cardio regular rate and regular rhythm Rate: other Other Details: Radial and carotid pulses are equal and symmetric GI normal to inspection, nondistended, normoactive bowel sounds, non-tender, non-distended and no masses Auscultation: normoactive bowel sounds Palpation: soft Extremity normal to inspection Extremity Narrative: No asymmetric edema no pitting edema negative Homans' sign bilaterally Left upper extremity is neurovascularly intact; AIN/PIN are intact and normal. Negative Tinel's and Phalen sign. All compartments are soft and compressible going against compartment syndrome. Neuro oriented x3, CN's II-XII intact bilaterally and no sensory deficits noted Neuro Narrative: GCS of 15 Cranial nerves II through XII are grossly intact there are no focal neurologic deficit No pronator drift no dysmetria no truncal ataxia NIH stroke scale score of 0 Sensorium / Orientation: alert Motor Exam: strength 5/5 throughout Psych Mood & Affect: anxious Skin no rashes or lesions noted General Skin Exam: Negative for jaundice or pallor MDM MDM MDM Narrative Medical decision making narrative: Patient arrived to the ER hypertensive but has a past medical history of this and otherwise vitals are stable. She reported feeling left hand paresthesia/numbness but states it was only from the wrist into the fingers and did not radiate up the arm. She states she then noticed she started breathing faster as she felt anxious and her symptoms seem to worsen. She states because of her previous cardiac issues and none of them presented with obvious or simple chest pain she was concerned this could be cardiac and therefore presented to the hospital. After EKG was performed and there was no signs of acute AL or ischemia she states that her anxiety resolved and her symptoms spontaneously improved. I discussed with patient that because of her history the safest option is to perform a basic cardiac workup. By physical exam she does not have compartment syndrome or carpal tunnel syndrome. There are no signs of neurologic event such as an acute CVA either. The patient states that she feels back to normal and denies any weakness or paresthesias at this time since her anxiety has been resolved by knowing her EKG is normal. Therefore she does not want to stay in the hospital any further or have any testing done and there should be discharged as requested as her history and exam indicate this was most likely anxiety exacerbation. History & Record Review Discussion w/independent historian: Patient and Family Discharge Plan Triage Chief Complaint: Chest Pain ED Provider: Maxi Koo Dx/Rx/DC Orders Clinical Impression: Paresthesia of hand, Type 2 diabetes mellitus without complications, Coronary artery disease, Hypertension, Anxiety Instructions: ED Paraesthesias Prescriptions: No Action ondansetron 4 mg tablet,disintegrating 4 mg PO DAILY PRN (Reason: nausea and vomiting) cholecalciferol (vitamin D3) 50 mcg (2,000 unit) capsule 50 mcg PO DAILY Jardiance 10 mg tablet 10 mg PO DAILY Patient Comments: Take 1 tablet by mouth daily with breakfast. famotidine 40 mg tablet 40 mg PO DAILY Patient Comments: Take 1 tablet by mouth once daily. ranolazine 500 mg tablet extended release 12 hr 500 mg PO BID Qty: 60 11RF buprenorphine-naloxone 8-2 mg tablet, sublingual 1 tab sublingual DAILY fluoxetine 40 mg capsule 40 mg PO DAILY Trulicity 1.5 mg/0.5 mL pen injector 1.5 mg subcut QWEEK nitroglycerin 0.4 mg tablet, sublingual 0.4 mg SUBLINGUAL Q5M PRN (Reason: Chest Pain) Qty: 25 3RF aspirin 81 mg tablet,delayed release (DR/EC) 81 mg PO DAILY@0800 Qty: 30 1RF clopidogrel [Plavix] 75 mg tablet 75 mg PO DAILY Qty: 30 1RF isosorbide mononitrate 60 mg tablet extended release 24 hr 60 mg PO DAILY Qty: 30 1RF amlodipine 5 mg tablet 5 mg PO DAILY Qty: 90 3RF rosuvastatin 40 mg tablet 40 mg PO DAILY Qty: 90 3RF metoprolol succinate 50 mg tablet extended release 24 hr 50 mg PO DAILY Qty: 90 3RF Primary Care Provider: Mely Garcia Referrals: Mely Garcia, FIELD ARTILLERY CANNONEER [Primary Care Provider] - Activity Restrictions/Additional Instructions: Please continue all of your home medication as directed by your doctor and keep your upcoming appointment for further evaluation. Return to the ER should you have any further concerns Print Language: German Disposition Disposition: Home, Self Care Discharge Date/Time: 11/09/24 02:12
[2024-11-09 02:12] VITALS: BP 159/99; PULSE 81; RESP 17; TEMP 36.6; O2SAT 97
== END 2024-11-09 02:12 | disposition home or self-care (01) ==
PROVIDERS: Emergency Provider Emergency Medicine; PCP Clinical Nurse Specialist Adult Health; Visit Provider Emergency Medicine
DX: R07.9 Chest pain, unspecified (principal); E11.9 Type 2 diabetes mellitus without complications; E78.00 Pure hypercholesterolemia, unspecified; R20.2 Paresthesia of skin; I10 Essential (primary) hypertension; F41.9 Anxiety disorder, unspecified; I25.10 Atherosclerotic heart disease of native coronary artery without angina pectoris; Z95.5 Presence of coronary angioplasty implant and graft; I25.2 Old myocardial infarction; Z79.84 Long term (current) use of oral hypoglycemic drugs; Z79.85 Long-term (current) use of injectable non-insulin antidiabetic drugs; Z79.82 Long term (current) use of aspirin; K21.9 Gastro-esophageal reflux disease without esophagitis; Z79.02 Long term (current) use of antithrombotics/antiplatelets; Z79.899 Other long term (current) drug therapy; F32.A Depression, unspecified; Z90.49 Acquired absence of other specified parts of digestive tract; Z90.710 Acquired absence of both cervix and uterus; F17.200 Nicotine dependence, unspecified, uncomplicated
CPT/HCPCS: 93005; 99283

== ENCOUNTER 2024-11-13 12:45 | Observation (INO) | payer MEDICAID, SELFPAY ==
[2016-10-28 14:33] VITALS: BMI 35.2
--- NOTE | 2024-11-07 12:27 | RAD_ITS ---
PROCEDURE: CHEST PA AND LATERAL 11/07/2024 REASON FOR EXAM: CP TECHNIQUE: Frontal and lateral views of the chest. COMPARISON: None FINDINGS: Hardware: None Heart: The heart size is normal. Mediastinum: The mediastinal contour is unremarkable. Lungs: The lungs are clear. Bones: The bones are unremarkable. RAD/Chest PA and Lateral IMPRESSION: NO ACUTE FINDINGS. Reading Location: [facility]
[2024-11-07 13:10] LABS: Absolute Lymphocyte Count 2.31 X10^3/uL (0.83-4.51); Absolute Neutrophil Count 3.2 X10^3/uL (2.0-7.7); Basophil# 0.05 X10^3/uL; Basophil% 0.8 % (0-1); Eosinophil# 0.27 X10^3/uL; Eosinophils% 4.3 % (0-5); Hematocrit 44.3 % (37-47); Hemoglobin 14.4 g/dL (12.0-15.0); Lymphocyte # 2.31 X10^3/ul (0.83-4.51); Lymphocyte % 36.6 % (19-41); Mean Corp Hgb Conc 32.5 g/dL (32-36); Mean Corpuscular Hgb 29.6 pg (27.0-32.0); Mean Corpuscular Volume 91.2 fL (81-99); Mean Platelet Vol. 8.9 fl (6.2-12.0); Monocyte# 0.47 X10^3/uL; Monocyte% 7.4 % (0-10); NRBC Flagged by Analyzer 0 % (0-5); Neutrophil # 3.19 X10^3/uL (2.7-7.7); Neutrophil % 50.6 % (47-70); Platelet Count 164 K/mm3 (150-450); RBC Distribution Width CV 12.3 % (11.6-14.6); RBC Distribution Width SD 40.8 fl (35.1-43.9); Red Blood Count 4.86 M/mm3 (4.2-5.4); White Blood Count 6.3 K/mm3 (4.4-11.0)
[2024-11-07 13:17] LABS: International Normalized Ratio 0.9; Prothrombin Time (Protime)PT. 12.6 SECONDS (11.7-14.9)
[2024-11-07 13:18] LABS: Partial Thromboplast Time 27.4 Seconds (24.1-36.2)
[2024-11-07 13:51] LABS: Anion Gap 7 (5-15); BUN 8 mg/dL (4-19); BUN/Creat Ratio 7.9 RATIO (10-20); Calcium,Total 10.6 mg/dL (7.6-11.0); Carbon Dioxide 28.4 mmol/L (21.0-32.0); Chloride 109 mmol/L (98-108); Creatinine, Serum 1.07 mg/dL (0.70-1.20); EST Glomerular Filtration Rate 62 (>60); Glucose 124 mg/dL (70-99); Potassium 4.1 mmol/L (3.3-5.1); Sodium Level 144 mmol/L (133-145)
[2024-11-12 09:27] VITALS: BMI 29.7
[2024-11-13] VITALS (8 sets, daily range): BP systolic 103–138; BP diastolic 60–77; PULSE 51–57; RESP 12–16; TEMP 36.6; O2SAT 97–100; BMI 29.5
[2024-11-13 12:50] LABS: ACT Activated Clotting Time 360 sec (74-137)
[2024-11-13 12:50] LABS: ACT Activated Clotting Time 280 sec (74-137)
--- NOTE | 2024-11-13 12:50 | DCINST_ITS ---
Discharge Instructions Diet Discharge Diet: Low fat / Low cholesterol DC O2, CPAP, BIPAP needs Home O2 Discharge instructions: No Dressing / Incision Discharge Activity: Return to Normal Activity Dressing / Incision Call your doctor if your incision/area has: Continuous Slow Oozing, Sudden Increased Bleeding, Increased Pain/ Swelling, Increased Redness, Foul Smelling Discharge and Swelling at the incision site Call your doctor if you observe: Fever of 101 or Higher, Coldness, Increased Pain and Numbness or Tingling Follow Up Care Please Follow Up With: Jethro Alfaro MD When: 2-4 weeks Test Results: Test results from this visit will be discussed in further detail at your follow- up appointment, if applicable. Discharge Plan Admission Attending Provider: Jethro Alfaro Primary Care Provider: Mely Garcia Instructions Print Language: Belgian Discharge Orders/Prescriptions Prescriptions: No Action ondansetron 4 mg tablet,disintegrating 4 mg PO DAILY PRN (Reason: nausea and vomiting) cholecalciferol (vitamin D3) 50 mcg (2,000 unit) capsule 50 mcg PO DAILY Jardiance 10 mg tablet 10 mg PO DAILY Patient Comments: Take 1 tablet by mouth daily with breakfast. famotidine 40 mg tablet 40 mg PO DAILY Patient Comments: Take 1 tablet by mouth once daily. ranolazine 500 mg tablet extended release 12 hr 500 mg PO BID Qty: 60 11RF buprenorphine-naloxone 8-2 mg tablet, sublingual 1 tab sublingual DAILY fluoxetine 40 mg capsule 40 mg PO DAILY Trulicity 1.5 mg/0.5 mL pen injector 1.5 mg subcut QWEEK nitroglycerin 0.4 mg tablet, sublingual 0.4 mg SUBLINGUAL Q5M PRN (Reason: Chest Pain) Qty: 25 3RF aspirin 81 mg tablet,delayed release (DR/EC) 81 mg PO DAILY@0800 Qty: 30 1RF clopidogrel [Plavix] 75 mg tablet 75 mg PO DAILY Qty: 30 1RF isosorbide mononitrate 60 mg tablet extended release 24 hr 60 mg PO DAILY Qty: 30 1RF amlodipine 5 mg tablet 5 mg PO DAILY Qty: 90 3RF rosuvastatin 40 mg tablet 40 mg PO DAILY Qty: 90 3RF metoprolol succinate 50 mg tablet extended release 24 hr 50 mg PO DAILY Qty: 90 3RF Referrals / Follow Up: Mely Garcia, INSTRUMENT AND ELECTRICAL TECHNICIAN [Primary Care Provider] - Disposition Disposition (needs filled in before D/C Order can be placed): Home, Self Care
--- NOTE | 2024-11-13 12:51 | CL.I_ITS ---
Patient Name: KALEB HOLBROOK Study Date: 11/13/2024 Performing: Jethro Alfrao MD Ht: 64 inches 162.56 cm : 1970 Wt: 173 lbs 78.47 kg Age: 54 Gender: female BSA: 1.84 PROCEDURE(S) PERFORMED DC02-(01824)LHC/COR IC12-(03559/C9600)PARVEEN W/WO PTCA, SINGLE CORONARY ARTERY CLINICAL PROFILE AND CO-MORBIDITIES Indications: Worsening Angina Heart Failure: None Stress/Imaging Stress Test w/SPECT MPI: Yes Result: Positive High Risk Stress Test with SPECT MPI: Positive High Risk Angina Classification Anginal Classification w/in 2 Weeks: CCS III CAD Presentations: Stable angina. CONCLUSIONS 30-40% distal LMCA Stents to Prox LCX patent; UNDERGRADUATE ADVISOR OM1 filling retrogradely via collaterals RECOMMENDATIONS ASA Indefinitley P2Y12 inhibitors for atleast 6 months DESCRIPTION OF PROCEDURE The patient arrived to the procedure lab. The risks and benefits of the procedure as well as a full description of our services here and lack of surgical backup were fully explained to the patient and/or their significant other prior to the catheterization. The Timeout was completed, verifying the correct patient and procedure. The patient's procedural site was prepped and draped in the usual fashion. Local anesthetic was given subcutaneously to right radial region with Lidocaine 2%. Using a modified Seldinger technique, arterial access was obtained via the right radial artery, a 6Fr sheath was inserted.. Right Coronary Artery selective angiography was then performed in multiple views using a 5 Fr. 4.0 [place] catheter. Left Coronary Artery selective angiography was performed in multiple views using a 5 Fr. 4.0 [place] catheterThe images were reviewed and options discussed. A decision was then made to proceed with an Intervention, IVUS or other adjunct procedure. AL 0.75 Guide catheter was inserted and engaged into the RCA. JR4 Guide catheter was inserted and engaged into the RCA. Runthrough Guide wire was advanced to the RCA. [place] 3.0x18 Drug Eluting stent was inserted. Angiogram performed post stent deployment. [place] 3.0x34 Drug Eluting stent was inserted. Angiogram performed post stent deployment. [place] 3.0x15 Balloon catheter was inserted. Angiogram performed post balloon dilatation. The arterial sheath was pulled and a TR Band was applied for hemostasis w/ 10ml air CORONARY ANGIOGRAPHY DOMINANCE: Right Dominant LEFT MAIN: Tubular 30% Distal lesion in LMCA LEFT ANTERIOR DESCENDING ARTERY: LAD: Tubular 40% Proximal lesion in LAD OM 1: Tubular 100% Ostial lesion in MARG1 OM 2: Tubular 100% Ostial lesion in MARG1 RIGHT CORONARY ARTERY: RCA: Tubular 80% Proximal lesion in RCA Tubular 70% Mid lesion in RCA RT PDA: Diffuse 50% Proximal lesion in RT PDA COLLATERAL FLOW: Collateral flow from DIAG1 to MARG1 INTERVENTION INFORMATION LESION SITE: RCA (Mid) Lesion Complexity: High/C, lesion length: 50 mm Pre Stenosis: 80 % Pre intervention BELKYS flow: 3 PROCEDURE: Drug Eluting Stent with post dilatation Post Stenosis: 0 % Post intervention BELKYS flow: 3 Lesion Devices: Terumo .014 180cm Runthrough Extra Floppy straight Cordis 6 Fr JR4 100cm Guide Catheter Medtronic 3.0 x 18 ELOISA FRONTIER PARVEEN Medtronic 3.0 x 34 ELOISA FRONTIER PARVEEN Medtronic NC EUPHORA RX 3.0x15 BALLOON COMPLICATIONS No Complications PROCEDURE MEDICATIONS Versed 2 mg IV Oxygen: 2 L/min via nasal cannula Heparin given IA 11/13/2024 11:40:31 Heparin 6000 unit(s) IV 11/13/2024 11:58:37 Nitro 200 mcg IC 11/13/2024 12:24:23 Plavix 300 mg PO 11/13/2024 12:42:55 Verapamil 2.5mg, Ntg 200mcgs, 2000 units of Heparin given IA 11/13/2024 11:40:31 SUMMARY OF HEMODYNAMIC DATA Time AIR REST ECG 09:20:59 AO 163/82 (115) SA 11:51:45 AO 166/74 (116) 12:05:20 AO 159/83 (114) 12:11:19 AIR REST 12:43:48 Signed By Jethro Alfaro MD On 11/13/2024 12:50:14 Jethro Alfaro MD
--- NOTE | 2024-11-13 13:28 | EKG12_ITS ---
Test Reason : Blood Pressure : */* mmHG Vent. Rate : 50 BPM Atrial Rate : 50 BPM P-R Int : 178 ms QRS Dur : 84 ms QT Int : 450 ms P-R-T Axes : 46 63 55 degrees QTcB Int : 410 ms Sinus bradycardia Otherwise normal ECG When compared with ECG of 09-Nov-2024 01:37, No significant change was found Confirmed by RAMONE BURRIS, MEAGHAN ([id number]), supervising editor news reel NICO BOYER ([id number]) on 11/15/2024 5:49:01 AM Referred By: Jethro Alfaro Confirmed By: MEAGHAN PACK MD
[2024-11-13] MEDS: 0.9% Normal Saline (1000mL) 1,000 ML 150 ML IV (13:47)
--- NOTE | 2024-11-13 15:10 | CRPHASE1 ---
Patient Communication Patient Information Former Patient:: Phase I PHII Cardiac Rehab Discussed with Patient:: Yes Guide to Cardiac Rehab Given to Patient:: Yes Cardiac Rehab Facility Choice List Given to Patient:: Yes Communication to Cardiac Rehab Choice Program [facility] CR PHII:: Communication Given to CR and Refer to [facility] Choice Program Other:: Communication Given to CR Cnc Operator:: Jethro Alfaro Phase II Cardiac Rehab:: Yes Post Discharge Choice Letter Given to Patient:: Yes Phase I Charge:: Level I - Education Medical/Surgical History Medical History Angina:: Yes CAD:: Yes Congestive Heart Failure: Hypertension:: Yes CVA/TIA: Anxiety:: Yes Surgical History PTCA:: Yes Ambulation Ambulation Notes:: walks independently Cardiac Rehabilitation Info Program Information Cardiac Rehabilitation Program Information: Cardiac Rehab The cardiac rehab team at [facility] consists of highly skilled exercise physiologists, nurses, respiratory therapists and physicians working together with you. Our purpose is to help you have a full recovery and achieve the goals you set for yourself. Over the years many of our patients have returned to activities they assumed they would never do again! We can help restore your confidence and motivation to make lifestyle changes that can have a significant impact on your health and quality of life! We can help answer questions and concerns you may have about exercise, lifestyle, medications, diet, stress and anxiety which are common following a hospitalization. WE monitor ECG and vital signs during exercise and discuss your progress with you and report to your physician(s). Cardiac Rehab is proven to help reduce readmissions, improve functional capacity and lower recurrence of problems with your heart. Our Cardiac Rehab program is Certified by the [place] [employer] Pulmonary [employer] (AACVPR) and Accredited by the [place] [employer] through our [facility]. You can contact us at . We invite you to call us with your questions or to get started in our program. If you have other questions or concerns be sure to ask your physician/provider during your follow-up visit. WE look forward to seeing you!
--- NOTE | 2024-11-13 15:12 | CRPH1.INSTRU ---
General Education Discussed with Patient CAD and cardiac anatomy and function:: Patient communicates acknowledgment and Patient returns demonstration Explanation of diagnoses and procedures:: Patient communicates acknowledgment and Patient returns demonstration Sign/Symptoms of NE:: Patient communicates acknowledgment and Patient returns demonstration Antiplatelet therapy: Patient communicates acknowledgment and Patient returns demonstration Proper use of NTG-SL: Patient communicates acknowledgment and Patient returns demonstration Emergency procedures and activation of EMS: Patient communicates acknowledgment and Patient returns demonstration Compliance of all prescribed medications: Patient communicates acknowledgment and Patient returns demonstration Smoking Risk Factors Patient Nicotine/Smoking Risk Factors Are:: Cigarettes Recommendations Recommendations Include:: Smoking cessation strategies/Smoking packet and Participation in a smoking cessation program Response Code Nicotine/Smoking Response Code:: Patient communicates acknowledgment and Patient returns demonstration Dyslipidemia Recommendations Recommendations Include:: Lipid profile not available Response Code Dyslipidemia Response Code:: Not instructed Overweight/Obesity Risk Factors Patient Overweight/Obesity Risk Factors Are:: Overweight = 26-29 (29.5) Recommendations Recommendations Include:: Weight loss of 5-10%, Reduced calorie diet and Exercise 5-7 times/week Response Code Overweight/Obesity:: Patient communicates acknowledgment and Patient returns demonstration Hypertension Recommendations Recommendations Include:: Maintain BP <130/85, DASH dietary guidelines, Decrease/maintain normal body weight and Moderation of ETOH Response Code Hypertension:: Patient communicates acknowledgment and Patient returns demonstration Heart Disease Risk Factors Patient Heart Disease Risk Factors Are:: Previous cardiac event Response Code Heart Disease Response Code:: Patient communicates acknowledgment and Patient returns demonstration Diabetes Risk Factors Patient Diabetes Risk Factors Are:: No documented hx of diabetes Metabolic Syndrome Risk Factors Patient Metabolic Syndrome Risk Factors Are [3 of 5]:: Waist circumference > 35 [female] or 40 [male] and Hypertension Recommendations Recommendations Include:: Reinforce compliance to risk factor modifications and Encouraged follow-up with Primary Care Physician Response Code Metabolic Syndrome Response Code:: Patient communicates acknowledgment and Patient returns demonstration Sedentary Risk Factors Patient Sedentary Risk Factors Are:: Lack of regular exercise Recommendations Recommendations Include:: Aerobic exercise 5-7 times/week for 20-30 minutes continuously, Benefits of regular exercise, Discussed home walking program and Monitored Outpatient Cardiac Rehab (patient was not interested at this time ) Response Code Sedentary Response Code:: Patient communicates acknowledgment and Patient returns demonstration Stress Risk Factors Patient Stress Risk Factors Are:: Patient denies stress as a risk factor
--- NOTE | 2024-11-13 15:18 | CRPHASE1 ---
Patient Communication Patient Information Former Patient:: Phase I PHII Cardiac Rehab Discussed with Patient:: Yes Guide to Cardiac Rehab Given to Patient:: Yes Cardiac Rehab Facility Choice List Given to Patient:: Yes Communication to Cardiac Rehab Choice Program [facility] CR PHII:: Communication Given to CR Consultant Technology:: Jethro Alfaro Sessions:: 36 sessions - 3 days/wk, 12 weeks Cardiac Rehabilitation Info Program Information Cardiac Rehabilitation Program Information: Cardiac Rehab The cardiac rehab team at [facility] consists of highly skilled exercise physiologists, nurses, respiratory therapists and physicians working together with you. Our purpose is to help you have a full recovery and achieve the goals you set for yourself. Over the years many of our patients have returned to activities they assumed they would never do again! We can help restore your confidence and motivation to make lifestyle changes that can have a significant impact on your health and quality of life! We can help answer questions and concerns you may have about exercise, lifestyle, medications, diet, stress and anxiety which are common following a hospitalization. WE monitor ECG and vital signs during exercise and discuss your progress with you and report to your physician(s). Cardiac Rehab is proven to help reduce readmissions, improve functional capacity and lower recurrence of problems with your heart. Our Cardiac Rehab program is Certified by the [place] [employer]monary [employer] (AACVPR) and Accredited by the [employer] through our [facility]. You can contact us at . We invite you to call us with your questions or to get started in our program. If you have other questions or concerns be sure to ask your physician/provider during your follow-up visit. WE look forward to seeing you!
[2024-11-13] MEDS: BUPRENORPHINE HCL/NALOXONE HCL 1 EACH TAB.SUBL SL (16:34)
[2024-11-14] MEDS: Ranolazine 500 MG Tablet PO ×2 (00:09→09:02)
[2024-11-14] MEDS: Atorvastatin Calcium 80 MG Tablet PO (00:09)
[2024-11-14 04:07] VITALS: BP 107/57; PULSE 54; RESP 18; TEMP 36.9; O2SAT 96
[2024-11-14 06:22] VITALS: BP 121/71; PULSE 56; RESP 16; TEMP 36.5; O2SAT 97
[2024-11-14 07:20] VITALS: O2SAT 94
[2024-11-14 07:45] LABS: Hematocrit 38.9 % (37-47); Hemoglobin 12.8 g/dL (12.0-15.0); Mean Corp Hgb Conc 32.9 g/dL (32-36); Mean Corpuscular Hgb 29.6 pg (27.0-32.0); Mean Platelet Vol. 9.2 fl (6.2-12.0); Platelet Count 153 K/mm3 (150-450); RBC Distribution Width SD 39.5 fl (35.1-43.9); Red Blood Count 4.32 M/mm3 (4.2-5.4)
[2024-11-14 08:06] LABS: ALB/GLOB Ratio 1.6 RATIO (0.9-2.4); AST(SGOT) 17 U/L (<=31); Alanine Aminotransfer ALT/SGPT 11 U/L (<=34); Albumin, Serum 3.5 g/dL (3.5-5.0); Alkaline Phosphatase 81 U/L (35-104); Anion Gap 7 (5-15); BUN 10 mg/dL (4-19); BUN/Creat Ratio 9.9 RATIO (10-20); Calcium,Total 9.8 mg/dL (7.6-11.0); Carbon Dioxide 24.6 mmol/L (21.0-32.0); Chloride 110 mmol/L (98-108); Creatinine, Serum 1.01 mg/dL (0.70-1.20); EST Glomerular Filtration Rate 67 (>60); Estimated Creatinine Clearance 66.04 ml/min (50-250); Globulin 2.3 g/dL (2.2-4.2); Glucose 100 mg/dL (70-99); Potassium 3.7 mmol/L (3.3-5.1); Protein, Total 5.8 g/dL (5.9-8.4); Sodium Level 142 mmol/L (133-145); Total Bilirubin 0.33 mg/dL (0.00-1.30)
[2024-11-14] MEDS: amLODIPine 5 MG Tablet PO (09:01)
[2024-11-14] MEDS: Famotidine 20 MG Tablet 40 MG PO (09:01)
[2024-11-14] MEDS: Aspirin E.C. 81 MG Tablet PO (09:01)
[2024-11-14] MEDS: Empagliflozin 10 MG Tablet PO (09:02)
[2024-11-14 09:15] VITALS: PULSE 52
[2024-11-14] MEDS: Ondansetron ODT 4 MG Tablet PO (10:10)
--- NOTE | 2024-11-14 10:10 | CASEMGMT ---
HANNY JACKSON note: RN CM to room. Pt ambulating in room ad jelena. Pt denies having any discharge needs or concerns. She states she has all needed medications @ home. Mike RODRIGUEZ RN, CM
[2024-11-14 10:33] VITALS: BP 114/61; PULSE 50; RESP 12; TEMP 36.7; O2SAT 97
[2024-11-14 12:51] VITALS: BP 114/61; PULSE 50; RESP 12; TEMP 36.7; O2SAT 97
== END 2024-11-14 13:15 | disposition home or self-care (01) ==
LOC: CLSP 12:51 → PCU 13:19
PROVIDERS: Physician Assistant Medical; Admitting Provider Internal Medicine Cardiovascular Disease; PCP Clinical Nurse Specialist Adult Health; Referring Provider Internal Medicine Cardiovascular Disease; Visit Provider Internal Medicine Cardiovascular Disease
DX: I25.119 Atherosclerotic heart disease of native coronary artery with unspecified angina pectoris (principal); E11.9 Type 2 diabetes mellitus without complications; R94.39 Abnormal result of other cardiovascular function study; I10 Essential (primary) hypertension; Z95.5 Presence of coronary angioplasty implant and graft; R06.02 Shortness of breath; I25.10 Atherosclerotic heart disease of native coronary artery without angina pectoris; E78.00 Pure hypercholesterolemia, unspecified; Z79.899 Other long term (current) drug therapy; Z79.82 Long term (current) use of aspirin; Z79.02 Long term (current) use of antithrombotics/antiplatelets; K21.00 Gastro-esophageal reflux disease with esophagitis, without bleeding; G47.33 Obstructive sleep apnea (adult) (pediatric); F17.210 Nicotine dependence, cigarettes, uncomplicated
CPT/HCPCS: C1725; C1769 ×2; C1874 ×2; C1887 ×2; C1894; 36415; 71046; 80048; 80053; 85025; 85027; 85347; 85610; 85730; 92928; 93005; 93454; 96360; 96361; 99152; 99153; 99221; C9600; G0378

== ENCOUNTER → 2024-11-21 | Outpatient (CLI) | payer MEDICAID, SELFPAY ==
[2016-10-28 14:33] VITALS: BMI 35.2
--- NOTE | 2024-11-21 12:59 | CR.HP_ITS ---
CR - History & Physical General Arrival date:: 11/21/24 Arrival time:: 12:59 Date of Referral:: 11/15/24 Date of CR Evaluation:: 11/21/24 Referring Physician: Dr. Alfaro Primary Diagnosis: PTCA History of Present Cardiac Event Onset Date PTCA or coronary stenting:: Yes Vessel: RCA Medications Ambulatory Orders ?Medication ?Instructions ?Recorded ondansetron 4 mg disintegrating 4 mg PO DAILY PRN naus ea and 01/22/20 tablet vomiting cholecalciferol (vitamin D3) 50 50 mcg PO DAILY vitami n 01/04/23 mcg (2,000 unit) capsule buprenorphine 8 mg-naloxone 2 mg 1 tab sublingual NICK Y substance 09/18/23 sublingual tablet abuse empagliflozin 10 mg tablet 10 mg PO DAILY blood sugar 09/18/23 (Jardiance) famotidine 40 mg tablet 40 mg PO DAILY reflux dulaglutide 1.5 mg/0.5 mL 1.5 mg subcut QWEEK blood concepcion gar 12/26/23 subcutaneous pen injector (Trulicity) nitroglycerin 0.4 mg sublingual 0.4 mg sublingual Q5M PRN Chest 03/05/24 tablet Pain #25 tabs aspirin 81 mg tablet,delayed 81 mg PO DAILY@0800 heart health 09/11/24 release needs appt for further refil ls #30 tabs clopidogrel 75 mg tablet (Plavix) 75 mg PO DAILY stent s needs appt 09/11/24 for further refills #30 tabs isosorbide mononitrate 60 mg 60 mg PO DAILY blood pres sure med 09/11/24 tablet,extended release 24 hr Needs appt for further r efills #30 tabs ranolazine 500 mg tablet,extended 500 mg PO BID #60 ta bs 09/24/24 release,12 hr amlodipine 5 mg tablet 5 mg PO DAILY for blood pres sure 11/04/24 #90 TABLETS metoprolol succinate 50 mg 50 mg PO DAILY for blood pr essure 11/04/24 tablet,extended release 24 hr #90 TABLETS rosuvastatin 40 mg tablet 40 mg PO DAILY for cholester ol #90 11/04/24 TABLETS fluoxetine 40 mg capsule 40 mg PO DAILY 11/09/24 Allergies Allergies Opioids - Morphine Analogues (narcotics) Adverse Reaction (Severe, Verified 11/09/24 01:28) CANNOT TAKE- ON SUBOXONE Sleep Disorder Evaluation Hx of Sleep Apnea: No Do you snore loudly (louder than talking or can be heard through closed doors)?: No Do you often feel tired/ fatigued/ sleepy during daytime?: No Has anyone observed you stop breathing during sleep?: No History of Hypertension (for STOP score): Yes STOP Results: Negative Advanced Directives Advanced Directives Do you have a Healthcare Power of Desktop Operator?: Yes Living Will: Yes Advance Directives Information Provided: No Advance Directives on File: No DNR Order?:: No Past Medical History Covid-19 Screening Physicial Symptoms Other Clinical Concerns Exposure Risk Pertinent Comorbidities Has a serious heart condition:: Yes Diabetic:: Yes Past Medical Illness Past Medical History (Updated 11/17/24 @ 00:00 by Background Daemon) Wears dentures Z97.2 rarely use, no teeth Wears glasses Z97.3 Anxiety F41.9 Gastric reflux K21.9 frequent nausea Smoker F17.200 Presence of stent in coronary artery (~03/09/21) Z95.5 Successful percutaneous core intervention of 70% in-stent stenosis of the proximal left circumflex. With predilatation using NC balloon 3 x 15 mm, followed by placement of drug- eluting stent ORSIRO postdilated using 3.25 x 15 mm NC balloon And reduction of stenosis from 70% to 10% and maintenance of BELKYS-3 flow in the left circumflex; Successful PCI of the distal RCA with predilatation using 2 x 12 mm Emerge balloon, followed by placement of drug-eluting stent 2.5 x 15 mm/ORSIRO On reduction of stenosis from 70% to 0% and maintenance of BELKYS-3 flow in the RCA. 03/09/21; INDIA-MID Cx 10/17/[address] [facility]; PCI-INDIA-LAD w/ POBA Ostial OM1 10/28/16; PTCA/INDIA to proximal LCx 09/27/17; Successful PTCA/[place] of proximal LCX ISR 3.0 x 12 Resolute [place] per DJN @ [facility] 09/19/2018, Successful [place] Mid LAD using 2.5x15 mm Resolute [place] 10/2022 Angina pectoris I20.9 Fatigue R53.83 Abnormal stress test R94.39 Atherosclerosis of [place] coronary artery of [place] heart without angina pectoris I25.10 INDIA-MID Cx 10/17/[address] [facility]; PCI-INDIA-LAD w/ POBA Ostial OM1 10/28/16; PTCA/INDIA to proximal LCx 09/27/17. 09/19/2018: Successful PTCA/INDIA of proximal LCX ISR 3.0 x 12 Resolute [place] per DJN @ [facility]; 11/13/24 PTCA/[place] to Proximal and Mid RCA using [place]esi [place] 3.0 X 34 mm and 3.0 X 18 mm Pure hypercholesterolemia E78.00 Essential (primary) hypertension I10 Chest pain R07.9 Encounter for long-term current use of high risk medication Z79.899 Tobacco abuse Z72.0 [place]OD (dyspnea on exertion) R06.09 JOSH (obstructive sleep apnea) G47.33 Sleep apnea G47.30 Cervical cancer C53.9 Obesity (BMI 30.0-34.9) E66.9 Syncope and collapse R55 Depression F32.9 polysubstance dependence in remission GERD (gastroesophageal reflux disease) K21.9 Daytime somnolence R40.0 Type 2 diabetes mellitus without complications E11.9 Old myocardial infarction (10/17/16) I25.2 10/17/2016 taken to [facility] in [place], [place] Obesity (BMI 30.0-34.9) E66.9 Past Surgical History Past Surgical History (Updated 11/14/24 @ 08:14 by Batsheva Nogueira) History of coronary artery stent placement (11/13/24) Z95.5 [place]IA Mid LAD using 2.5x15 mm Resolute [place]. INDIA-MID Cx 10/17/[address] [facility]; PCI-INDIA-LAD w/ POBA Ostial OM1 10/28/16; PTCA/INDIA to proximal LCx 09/27/17. 09/19/2018: Successful PTCA/[place] of proximal LCX ISR 3.0 x 12 Resolute [place] per DJN @ [facility],PTCA/INDIA Prox LCX using Kwesi [place] 2.5x15 mm 12/27/23 ; 11/13/24 PTCA/[place] to Proximal and Mid RCA using [place] 3.0 X 34 mm and 3.0 X 18 m Presence of coronary angioplasty implant and graft (~03/09/21) Z95.5 Successful percutaneous core intervention of 70% in-stent stenosis of the proximal left circumflex. With predilatation using NC balloon 3 x 15 mm, followed by placement of drug- eluting stent ORSIRO postdilated using 3.25 x 15 mm NC balloon And reduction of stenosis from 70% to 10% and maintenance of BELKYS-3 flow in the left circumflex; Successful PCI of the distal RCA with predilatation using 2 x 12 mm Emerge balloon, followed by placement of drug-eluting stent 2.5 x 15 mm/ORSIRO On reduction of stenosis from 70% to 0% and maintenance of BELKYS-3 flow in the RCA. 03/09/21; [place]IA-MID Cx 10/17/[address] [facility]; PCI-INDIA-LAD w/ POBA Ostial OM1 10/28/16; PTCA/INDIA to proximal LCx 09/27/17; Successful PTCA/[place] of proximal LCX ISR 3.0 x 12 Resolute [place] per DJN @ [facility] 09/19/2018 History of left heart catheterization (12/27/23) Z98.890 Widely patent stents, some disease in RCA: FFR 0.85, does not require intervention. Medical therapy, pt started on Ranexa. Per DJN @ [facility] 08/14/2019, 03/09/21, 12/27/23 H/O tooth extraction K08.409 Top teeth 07/2017; bottom 09/2017 Blood Clot removal 09/2006, right arm Endometriosis surgery 11/2007 & 11/2008 S/P D&C (status post dilation and curettage) Z98.890 02/1996 (miscarriage) H/O section Z98.891 10/09/91 & 05/09/99 H/O exploratory laparotomy Z98.890 History of right knee surgery Z98.890 03/2002 & 01/2009 Hx of cholecystectomy Z98.890, Z90.49 12/2001 History of hysterectomy Z98.890, Z90.710 05/2003 H/O breast augmentation Z98.82 04/1996, reduction Surgical History: - (R knee arthroscopic surgery x 3, x 3, BL breast reduction, cholecystectomy, D+C, surgical tooth extraction.) Family History Summary Family History Father Diabetes Heart disease Burger-Grutz disease Alcohol abuse Cancer Mother Depression Addiction Heart disease Myocardial infarction CVA (cerebral vascular accident) Diabetes Parkinson disease Dementia Other Patient Adopted Social History Smoking History Smoking Status: Current every day smoker Years Smokin Packs Smoked per Day: 1.5 Hx Tobacco Use: Yes Alcohol Use Alcohol Usage: No Occupation Occupation (List type of work in comments):: Unemployed Social Environment Status Marital Status: Current Living Arrangements Living Environment:: Family Children How many children do you have?: 2 Do any of your children live nearby?: Yes Safety Do you feel safe in your surroundings?: Yes Assistance Do you need any assistance at home?: no Review of Systems Review of Systems Hints Review of Present Symptoms: Reports Fatigue, Heart Arrhythmia/Irregularities and Appetite - Normal; Denies Shortness of Breath at Rest, Shortness of Breath with Exertion, PVD, Operative Discomfort, Angina, Wound Healing, Dizziness/Lightheadedness, Appetite - Special Diet, Sleep - Normal or Sexual Changes Pain Is Patient Pain Free?: No Pain Location: lower extremity Pain Level: 2/10 Risk Factor Assessment Chief Complaint Chief Complaint: PTCA Vital Signs Pulse Ox: 95 Blood Pressure: 106/58 Pulse Pulse Rate: 55 Pulse Rhythm: Regular Hypertension How long have you been treated?: 7 years Blood Pressure Sitting - Right Arm: 106/58 Stress Stress: Recent and Home/Family Diabetes Diabetic History: Type II Nutrition Referral for Diabetes: No Obesity Height: 5 ft 4.17 in Weight:: 173 lb Weight in Pounds: 173.0 lbs Body Mass Index (BMI): 29.5 Nutritional Referral for Obesity: No (declines) Physical Inactivity Physical Inactivity: Recreational activity Risk Stratification Risk Guidelines: Moderate Risk: Risk Factor for Obesity and Risk Factor for Sedentary Lifestyle and Highest Risk: Risk Factor for Smoking, Risk Factor for Dyslipidemia, Risk Factor for Diabetes, Risk Factor for Hypertension and Risk Factor for Depression For Smoking Smoking Risk Guidelines For Dyslipidemia Dyslipidemia Risk Guidelines For Diabetes Mellitus Diabetes Risk Guidelines For Obesity/Overweight Obesity/Overweight Risk Guidelines For Hypertension Hypertension Risk Guidelines For Sedentary Lifestyle Sedentary Lifestyle Risk Guidelines For Depression Depression Risk Guidelines Family History Family History Father Diabetes Heart disease Burger-Grutz disease Alcohol abuse Cancer Mother Depression Addiction Heart disease Myocardial infarction CVA (cerebral vascular accident) Diabetes Parkinson disease Dementia Other Patient Adopted Motivation Motivation to Participate On a scale of 1 to 10, how prepared are you to commit to attending program?: 6 What do you see as barriers to successfully being able to complete the program?: nothing What do you see as the benefits of succesfully completing the program? In other words, what do you hope to get out of participating in the program?: stop smoking, healthier Are there issues you are dealing with that will interfere with completing the program?: no Do you have a spouse or signficant other, family or friends who will help support you to complete the program?: yes
--- NOTE | 2024-11-21 13:07 | CR.ITP_ITS ---
Diagnosis General Information Admitting Diagnosis: PTCA Personal Learning Style:: Audio/Visual Barriers to Learning: No Barriers Stage of change r/t lifestyle modifications:: Contemplation Gave educational material for:: Treating Heart Disease, How The Heart Works, What it means to have Heart Disease, How Coronary Artery Disease is Diagnosed, Heart Procedures, What Heart Medications Do, Risk Factors & Modifications, Living an Active Life, Nutrition, Emotions & Heart Disease, Stress Management & Relaxation and Sleep Disorders & Heart Disease Education/Goals Cardiac Rehabilitation Goals Personal Goals: Initial Assessment: Quit smoking (participate in smoking cessation, Improve management of stress and emotions, Improve energy level, Participate in home exercise program, Get back to work, or to resume activities faster, Improve knowledge of cardiac disease, Improve muscle strength and endurance, Improve diet and eating habits (eat healthier) and Control risk factors (learn risk factor modification) Scale for measuring improvement of personal goals Diagnosis & Disease Process Outcomes/Goals: Pt IDs own risk factors & lifestyle modifications by Session 10, Verbalizes symptoms of angina & response by session 3., Pt independently manages and Other Additional Outcomes/Goals: Plan/Interventions: Assist Pt to ID & engage in lifestyle modification to reduce CVD risk, Instruct on individual risk factors, Review symptoms of angina & emergency actions, Review secondary diagnosis & identify educational needs. and Other see comment 30 day Reassessments:: Not Met 30 day Reassessments:: Not Met 30 day Reassessments:: Not Met 30 day Reassessments:: Not Met Final Reassessments:: Not Met Safety Referral to Physical Therapy: No Referral to [facility] Case Management: No Fall Risk Assessed:: Yes Assistive Devices:: None Exercise - Initial Assessment Visit Date of Eval: 11/21/24 (initial eval ) Mets: Pre-: >3 METS for 30 minutes by discharge, >5 METS for 30 minutes by discharge, >7 METS for 30 minutes by discharge and Unable to meet goal due to: (see comment below) Physician Prescribed Exercise Modalities: Treadmill, Rower, [place] AD-7, SciFit Stepper, SciFit Pro- II Ergometer and SciFit Lateral Ed Case Manager Frequency: 3x/week for 12 weeks [36 sessions] Intensity: 60-80% of age predicted maximum heart rate reserve Duration: 30 - 45 minutes Current METSs:: 3 Target Heart Rate:: 101-126 Resting Blood Pressure: 106/58 EKG Type: NSR Outcomes & Goals Goals:: Verbalizes understanding of THR, RPE & goal METS by session 6, Documents in home exercise log/reports 30 min aerobic 5 day/wk by DC, Demonstrates accurate pulse taking by DC and Other additional outcome/goals: see below Intervention & Plan Exercise Program Goals: Instruct on personal THR & RPE, Instruct on MET level & personal MET goal, Show patient to take own pulse /validate performance until accurate, Instruct on home exercise and Other additional plan/int Physical Activity Home Exercise Physical Activity - Home Exercise: Safe Exercise, Warm-up, Self-monitoring, Cool-Down, Home Exercise > 30 min Daily and Sitting Time <3 hours/daily Outcomes & Goals Outcomes/Goals: Demonstrates correct Warm-up/exercise Cool-Down (S3) if = 2.5 METs, Verbalizes symptoms of exercise intolerance by Session 3 (S3), Demonstrate safe equipment use (S3) & follows exercise prescrition (6) and Other: See below Intervention & Plan Plan/Intervention: Instruct warm-up & cool-down if exercising at > 2 METs, Instruct on symptoms of exercise intolerance & actions to take, Instruct & monitor on saf, Assess intial functional capacity & safety risk and Other See below Nutrition - Initial Assessment Program Goals Nutrition Program Goals Patient has diagnosis of Hyperlipidemia (ICD E78)?: Yes Visit Date of Eval: 11/21/24 (initial eval) Cholesterol/Lipids (Other Core Measures) Determine presence & major risk factors that modify LDL goal: Cigarette smoking, Hypertension or hypertensive medication, Low HDL cholesterol <40 mg/dL*, Family history of premature CHD in Male < 55 years: female <65 yearsFa and Age men > 45 years; women >/= 55 years Outcomes/Goals: Pt IDs own risk factors & lifestyle modifications by Session 10, Verbalizes symptoms of angina & response by session 3., Pt independently manages and Other Additional Outcomes/Goals: Intervention/Plan: Advocate for lipid panel cholesterol medication if applicable, Instruct on personal lipid levels & lipid goals/NCEP guidelines, Instruct on cholesterol and Other additional plan/int Referral to dietitian:: No (declines) Diabetes (Other Core Measures) Diabetes Type: Diagnosis Type II ICD-10 E11 Insulin dependent injection/pump?: No Non-Insulin Dependent?: Yes Do you monitor your blood sugar at home?: Yes Referral to Diabetic Clinic:: No (declines) Weight Mgt (Other Care) Height: 5 ft 4.17 in Weight:: 173 lb BMI: 29.5 Diagnosis Overweight/Obesity BMI> 30% ICD-10 E66: No Diagnosis High BMI/Morbid Obesity BMI> 35% ICD-10 Z68: No Outcomes/Goals: Pt sets, maintains & shows weight loss goal & trend during rehab and Other additional outcomes/goals Intervention/Plan: Instruct on ideal BMI & set weight loss goal w/patient, Assist pt to ID & incorporate diet changes for weight loss by S9, Refer to Structured Weight Loss program as appropriate, Encourage goal of using 250- 300dcal per session for weight loss and Other additional plan/interventions Healthy Eating Habits Will attend diet classes:: Yes Outcomes/Goals:: Consume diet rich in vegs,fruits,whole grain/high fiber,fish,lean meat, Limit sat/trans fats,cholesterol & added salts & sugars and Other additional outcome/goals: Intervention/Plan:: Assess current eating habits and Other Additional plan/interventions Education Gave educational materials for:: Signs & symptoms of hypoglycemia, Signs & symptoms of hyperglycemia, Relate diabetes to coronary artery disease and Healthy eating Core - Initial Assessment Visit Date of Eval: 11/21/24 (initial eval ) Medication Compliance Preventative Medication(s):: Aspirin, Clopidogrel/P2Y12 inhibit, Statin/lipid and Beta coleman Doesn?t believe in the benefits of treatment?: No Believes medications are unnecessary or harmful?: No Has a concern about medication side effects?: No Expresses concern over the cost of medications?: No Outcomes/Goals: Verbalizes medications,desired effect & common side effects @ DC, Pt self-reports following medication regimen, Keeps card in wallet w/medications listed by DC and Other additional outcome/goals: Interventions/plans: Instruct on medication effects & side effects, Review medication list w/patient every two weeks, Instruct importance of taking meds as ordered & assist problem solving and Other additional Tobacco Use Tobacco Use: Cigarettes How many cigarettes do you smoke per day?: 30 Years Smokin Do you use smokeless tobacco?: No Outcomes/Goals: Smoking cessation achieved or maintained by discharge, Identify aids/strategies for achieving smoking cessation by session 6 and Other additional outcome/goals Interventions/plan: Instruct on effects of smoking & provide smoking cessation resource, Assist pt to set quit date & provide encouragement, Assist pt to develop strategies to achieve/maintain quit date, Assist pt w/nicotine replacement & medication for cessation success and Other additional plan/interventions Hypertension Hypertension Diagnosis:: Hypertension ICD-10 I10 Resting Blood Pressure:: 106/58 [employer] Hypertension Guidelines Outcomes/Goals: Able to verbalize/achieve optimal blood pressure <130/80, Incorporates diet changes & exercise for blood pressure control by DC and Other additional outcomes/goals Interventions/plan: Instruct on optimal blood pressure, hypertension & medications, Instruct on effects of sodium, alcohol, stress, exercise &hypertension and Other additional plan/interventions Tobacco Cessation Referral Smoking Cessation Referral:: No Individual Education/Counseling:: No Education Schedule Given:: Yes Psychosocial - Initial Assess VIsit Date of Eval: 11/21/24 (initial eval ) Self-reported stressors: Family (Pt states she is very emotional due to the of her spouse and her current health issues. Pt is in counseling at 180.) and Recent Illness Target Goals Target Goals Psychosocial Test Tool Used:: PHQ-9 Questionnaire phq-9 Severity Referral to Behavioral Health PS - Interventions: Yes: Attend Stress Management Classes Outcomes/Goals: See list Psychosocial Outcomes/Goals:: ID's personal stressors & 2 strategies to manage stress by discharge and Other Additional outcome/goals: Intervention/Plan: See List Interventions/Plan:: Assess stressors,coping strategies & signs of derpression o n admission, Instruct/assist pt to develop coping & personal stress Mgt strategies, Refer to Behavioral Health if appropriate, Refer to Physician if appropriate, Instruct patient to recognize signs & symptoms of depression, Instruct patient to recog and Other additional plan/intervention Patient Health Questionnaire PHQ-9 Screening Initial Assessment: 1. Little interest or pleasure in doing things: Nearly every day 2. Feeling down, depressed, or hopeless: Nearly every day 3. Trouble falling or staying asleep, or sleeping too much: More than half the days 4. Feeling tired or having little energy: Nearly every day 5. Poor appetite or overeating: More than half the days 6. Feeling bad about yourself -- or that you are a failure or have let yourself or your family down: More than half the days 7. Trouble concentrating on things, such as reading the newspaper or watching television: Several days 8. Moving or speaking so slowly that other people could have noticed. Or the opposite - being so fidgety or restless that you have been moving around a lot more than usual: Several days 9. Thoughts that you would be better off , or of hurting yourself in some way: Not at all How difficult have these problems made it for you to do your work, take care of things at home, or get along with other people?: Somewhat difficult Total Score: 17 GAGAN-Q SV Test Statements CAD is a disease of the arteries in the heart: False Examples of risk factors for heart disease: True Angina is chest pain or discomfort: True The benefits of resistance training include: True Eating more meat and dairy products: I Don't Know Anti-platelet medications such as aspirin are important: I Don't Know The only effective way to manage stress: False An exercise warm-up slowly increases heart rate: I Don't Know Prepared, processed foods usually have high sodium: True Depression is common after a heart attack: True The statin medications lower cholesterol: True To control blood pressure, lower the amount of sodium: I Don't Know If someone gets chest discomfort during walking: I Don't Know Transfats are partially hydrogenated vegetable oils: True Sleep apnea that is not treated increases the risk: False To control cholesterol, one should become a vegetarian: False Someone knows if he/she is exercising at the right level: I Don't Know Diabetes cannot be prevented with exercise & health eating: False Stress is a large risk for heart attack: False A diet that can help lower blood pressure is rich in: I Don't Know Total Score Total Correct Responses: 12 Self-Efficacy 6-Item Scale Initial Assessment: We would like to know how confident you are in doing certain activities. Please select your confidence level for: Fatigue Select Number: 2 Physical Discomfort or Pain Select Number: 4 Emotional Distress Select Number: 3 Other Symptoms or Health Problems Select Number: 3 Different Tasks and Activities Select Number: 4 Medication Select Number: 4 Total Score:: 3 Nutrition Survey Nutrition Survey Instructions Scoring Instructions Nutrition Survey Initial: Have you lost >10 lbs over the past 2 months without trying?: No Are you following a special diet at home for diabetes, low fat, or low salt?: No Are you interested in meeting with a dietitian for help understanding your diet?: No Do you eat less than 3 meals a day?: No Do you eat fatty meats (caceres, sausage, ribs, etc), fried foods, desserts, large amounts of salad dressings, margarine, butter, or cheese most days?: No Do you have food allergies? [Enter types in comment field]: No Do you eat in restaurants more than 3 times a week?: No Do you season food with salt, seasoning salt, or garlic salt?: Yes Do you used canned, boxed, frozen meals, or soups, seasoning packets?: Yes Total Score:: 2 Exercise - 30-day Assessment Physician Prescribed Exercise Modalities: Treadmill, Rower, [place] AD-7, SciFit Stepper, SciFit Pro- II Ergometer and SciFit Lateral Ed Case Manager Exercise - 60-day Assessment Physician Prescribed Exercise Modalities: Treadmill, Rower, [place] AD-7, SciFit Stepper, SciFit Pro- II Ergometer and SciFit Lateral Ed Case Manager Exercise - 90-day Assessment Physician Prescribed Exercise Modalities: Treadmill, Rower, [place] AD-7, SciFit Stepper, SciFit Pro- II Ergometer and SciFit Lateral [place] Exercise - Final/Discharge Physician Prescribed Exercise Modalities: Treadmill, Rower, [place] AD-7, SciFit Stepper, SciFit Pro- II Ergometer and SciFit Lateral Ed Case Manager Frequency: 3x/week for 12 weeks [36 sessions] Intensity: 60-80% of age predicted maximum heart rate reserve Current METSs:: 3 Target Heart Rate:: 101-126 Nutrition - 30-Day Assessment Weight Mgt (Other Care) Height: 5 ft 4.17 in Weight:: 173 lb BMI: 29.5 Nutrition - 60-Day Assessment Weight Mgt (Other Care) Height: 5 ft 4.17 in Weight:: 173 lb BMI: 29.5 Core - 30-Day Assessment Tobacco Use Years Smokin Core - Final Assessment Hypertension Resting Blood Pressure:: 106/58 [employer] Hypertension Guidelines Core - 60-Day Assessment Hypertension Resting Blood Pressure:: 106/58 [employer] Hypertension Guidelines Psychosocial - 30-Day Assess Target Goals Target Goals Referral to Behavioral Health PS - Interventions: Yes: Attend Stress Management Classes Psychosocial - 60-Day Assess Target Goals Target Goals Referral to Behavioral Health PS - Interventions: Yes: Attend Stress Management Classes Psychosocial - 90-Day Assess Target Goals Target Goals Referral to Behavioral Health PS - Interventions: Yes: Attend Stress Management Classes Psychosocial - Final Assessmen Target Goals Target Goals Referral to Behavioral Health PS - Interventions: Yes: Attend Stress Management Classes Nutrition - 90-Day Assessment Weight Mgt (Other Care) Height: 5 ft 4.17 in Weight:: 173 lb BMI: 29.5 Nutrition - Final Assessment Program Goals Patient has diagnosis of Hyperlipidemia (ICD E78)?: Yes Weight Mgt (Other Care) Height: 5 ft 4.17 in Weight:: 173 lb BMI: 29.5
[2024-11-21 13:18] VITALS: BP 106/58; PULSE 55; O2SAT 95
[2024-11-21 13:46] VITALS: BP 106/58; BMI 29.5
[2024-11-21 13:56] VITALS: BP 106/58
[2024-11-21 13:57] VITALS: BMI 29.5
== END | disposition home or self-care (01) ==
LOC: CR 12:52
PROVIDERS: PCP Clinical Nurse Specialist Adult Health; Referring Provider Internal Medicine Cardiovascular Disease; Visit Provider Internal Medicine Cardiovascular Disease
DX: Z95.5 Presence of coronary angioplasty implant and graft (principal); R53.83 Other fatigue; I49.9 Cardiac arrhythmia, unspecified

== ENCOUNTER 2024-12-18 13:00 | Outpatient (RCR) | payer MEDICAID, SELFPAY ==
[2024-11-21 13:46] VITALS: BMI 29.5
--- NOTE | 2024-12-19 08:07 | CR.ITP_ITS ---
Exercise - Initial Assessment Visit Session #:: 6 Physician Prescribed Exercise Modalities: Treadmill, Schwinn Airdyne AD-7 and SciFit Stepper Nutrition - Initial Assessment Weight Mgt (Other Care) Height: 5 ft 4.17 in Weight:: 170 lb 8 oz BMI: 29.1 Core - Initial Assessment Tobacco Use Years Smokin Psychosocial - Initial Assess Target Goals Target Goals Referral to Behavioral Health PS - Interventions: Yes: Attend Stress Management Classes Patient Health Questionnaire PHQ-9 Screening 30-Day Re-eval Assessment: 1. Little interest or pleasure in doing things: Nearly every day 2. Feeling down, depressed, or hopeless: Nearly every day 3. Trouble falling or staying asleep, or sleeping too much: More than half the days 4. Feeling tired or having little energy: Nearly every day 5. Poor appetite or overeating: More than half the days 6. Feeling bad about yourself -- or that you are a failure or have let yourself or your family down: More than half the days 7. Trouble concentrating on things, such as reading the newspaper or watching television: Several days 8. Moving or speaking so slowly that other people could have noticed. Or the opposite - being so fidgety or restless that you have been moving around a lot more than usual: Several days 9. Thoughts that you would be better off , or of hurting yourself in some way: Not at all How difficult have these problems made it for you to do your work, take care of things at home, or get along with other people?: Somewhat difficult Total Score: 17 Self-Efficacy 6-Item Scale 30-Day Re-eval Assessment: We would like to know how confident you are in doing certain activities. Please select your confidence level for: Fatigue Select Number: 2 Physical Discomfort or Pain Select Number: 4 Emotional Distress Select Number: 3 Other Symptoms or Health Problems Select Number: 3 Different Tasks and Activities Select Number: 4 Medication Select Number: 4 Total Score:: 3 Nutrition Survey Nutrition Survey Instructions Scoring Instructions Exercise - 30-day Assessment Visit Date of Eval: 12/19/24 Session #:: 6 Physician Prescribed Exercise Modalities: Treadmill, Schwinn Airdyne AD-7 and SciFit Stepper Frequency: 3x/week for 12 weeks [36 sessions] Intensity: 60-80% of age predicted maximum heart rate reserve Duration: 30 - 45 minutes Current METSs:: 4.1 Target Heart Rate:: 101-126 Current RPE:: 11-13 Maximum Excercise HR:: 70 Resting Blood Pressure: 92/60 Maximum Exercise Blood Pressure: 102/52 EKG Type: SB- NSR Outcomes & Goals Goals:: Verbalizes understanding of THR, RPE & goal METS by session 6, Documents in home exercise log/reports 30 min aerobic 5 day/wk by DC, Demonstrates accurate pulse taking by DC and Other additional outcome/goals: see below Intervention & Plan Exercise Program Goals: Instruct on personal THR & RPE, Instruct on MET level & personal MET goal, Show patient to take own pulse /validate performance until accurate, Instruct on home exercise and Other additional plan/int Physical Activity Home Exercise Physical Activity - Home Exercise: Safe Exercise, Warm-up, Self-monitoring, Cool-Down, Home Exercise > 30 min Daily and Sitting Time <3 hours/daily Outcomes & Goals Outcomes/Goals: Demonstrates correct Warm-up/exercise Cool-Down (S3) if = 2.5 METs, Verbalizes symptoms of exercise intolerance by Session 3 (S3), Demonstrate safe equipment use (S3) & follows exercise prescrition (6) and Other: See below Intervention & Plan Plan/Intervention: Instruct warm-up & cool-down if exercising at > 2 METs, Instruct on symptoms of exercise intolerance & actions to take, Instruct & monitor on saf, Assess intial functional capacity & safety risk and Other See below 30-day Reassessments 30 day Reassessments:: Progressing Reassessment Notes & Comments:: RPE explained to pt. Pt demonstrates understanding in her daily sessions. Exercise - 60-day Assessment Physician Prescribed Exercise Modalities: Treadmill, Schwinn Airdyne AD-7 and SciFit Stepper Exercise - 90-day Assessment Physician Prescribed Exercise Modalities: Treadmill, Schwinn Airdyne AD-7 and SciFit Stepper Exercise - Final/Discharge Physician Prescribed Exercise Modalities: Treadmill, Schwinn Airdyne AD-7 and SciFit Stepper Nutrition - 30-Day Assessment Program Goals Nutrition Program Goals Patient has diagnosis of Hyperlipidemia (ICD E78)?: Yes Visit Date of Eval: 12/19/24 Session #:: 6 Cholesterol/Lipids (Other Core Measures) Determine presence & major risk factors that modify LDL goal: Cigarette smoking, Hypertension or hypertensive medication, Low HDL cholesterol <40 mg/dL*, Family history of premature CHD in Male < 55 years: female <65 yearsFa and Age men > 45 years; women >/= 55 years Outcomes/Goals: Pt IDs own risk factors & lifestyle modifications by Session 10, Verbalizes symptoms of angina & response by session 3., Pt independently manages and Other Additional Outcomes/Goals: Intervention/Plan: Advocate for lipid panel cholesterol medication if applicable, Instruct on personal lipid levels & lipid goals/NCEP guidelines, Instruct on cholesterol and Other additional plan/int Referral to dietitian:: No (declines) Diabetes (Other Core Measures) Diabetes Type: Diagnosis Type II ICD-10 E11 Insulin dependent injection/pump?: No Non-Insulin Dependent?: Yes Do you monitor your blood sugar at home?: Yes Referral to Diabetic Clinic:: No (declines) Weight Mgt (Other Care) Height: 5 ft 4.17 in Weight:: 170 lb 8 oz BMI: 29.1 Diagnosis Overweight/Obesity BMI> 30% ICD-10 E66: No Diagnosis High BMI/Morbid Obesity BMI> 35% ICD-10 Z68: No Outcomes/Goals: Pt sets, maintains & shows weight loss goal & trend during rehab and Other additional outcomes/goals Intervention/Plan: Instruct on ideal BMI & set weight loss goal w/patient, Assist pt to ID & incorporate diet changes for weight loss by S9, Refer to Structured Weight Loss program as appropriate, Encourage goal of using 250- 300dcal per session for weight loss and Other additional plan/interventions Healthy Eating Habits Will attend diet classes:: Yes Outcomes/Goals:: Consume diet rich in vegs,fruits,whole grain/high fiber,fish,lean meat, Limit sat/trans fats,cholesterol & added salts & sugars and Other additional outcome/goals: Intervention/Plan:: Assess current eating habits and Other Additional plan/interventions 30-day Reassessments:: Progressing Reassessment Notes & Comments:: Pt has attended nutrition class. Heart healthy low sodium diet encouraged. Education Gave educational materials for:: Signs & symptoms of hypoglycemia, Signs & symptoms of hyperglycemia, Relate diabetes to coronary artery disease and Healthy eating Nutrition - 60-Day Assessment Weight Mgt (Other Care) Height: 5 ft 4.17 in Weight:: 170 lb 8 oz BMI: 29.1 Core - 30-Day Assessment Visit Date of Eval: 12/19/24 Session #:: 6 Medication Compliance Preventative Medication(s):: Aspirin, Clopidogrel/P2Y12 inhibit, Statin/lipid and Beta coleman H/O mental health issues: depression, anxiety, or addiction?: No Doesn?t believe in the benefits of treatment?: No Believes medications are unnecessary or harmful?: No Has a concern about medication side effects?: No Expresses concern over the cost of medications?: No Outcomes/Goals: Verbalizes medications,desired effect & common side effects @ DC, Pt self-reports following medication regimen, Keeps card in wallet w/medications listed by DC and Other additional outcome/goals: Interventions/plans: Instruct on medication effects & side effects, Review medication list w/patient every two weeks, Instruct importance of taking meds as ordered & assist problem solving and Other additional Tobacco Use Tobacco Use: Cigarettes How many cigarettes do you smoke per day?: 30 Years Smokin Outcomes/Goals: Smoking cessation achieved or maintained by discharge, Identify aids/strategies for achieving smoking cessation by session 6 and Other additional outcome/goals Interventions/plan: Instruct on effects of smoking & provide smoking cessation resource, Assist pt to set quit date & provide encouragement, Assist pt to develop strategies to achieve/maintain quit date, Assist pt w/nicotine replacement & medication for cessation success and Other additional plan/interventions 30-day Reassessments:: Progressing Reassessment Notes & Comments:: Pt to attend smoking class. 1 on 1 smoking cessation offered as well. Will continue to monitor and encouraged pt. Hypertension Hypertension Diagnosis:: Hypertension ICD-10 I10 Resting Blood Pressure:: 92/60 [place] [employer] Hypertension Guidelines Peak Exercise Blood Pressure:: 102/52 Outcomes/Goals: Able to verbalize/achieve optimal blood pressure <130/80, Incorporates diet changes & exercise for blood pressure control by DC and Other additional outcomes/goals Interventions/plan: Instruct on optimal blood pressure, hypertension & medications, Instruct on effects of sodium, alcohol, stress, exercise &hypertension and Other additional plan/interventions 30 day Reassessments:: Progressing Reassessment Notes & Comments:: Pt's BP's are within AHA normal limits. Will continue to monitor. Tobacco Cessation Referral Education Schedule Given:: Yes Psychosocial - 30-Day Assess VIsit Date of Eval: 12/19/24 Session #:: 6 Self-reported stressors Other/Comments:: Family and Recent Illness (Pt is very emotional due to of her spouse and current health issues. Pt is in counseling at 180.) Target Goals Target Goals Psychosocial Test Tool Used:: PHQ-9 Questionnaire phq-9 Severity See PHQ-9 Score: 17 (pt is in counseling at 180) Referral to Behavioral Health PS - Interventions: Yes: Attend Stress Management Classes Outcomes/Goals: See list Psychosocial Outcomes/Goals:: ID's personal stressors & 2 strategies to manage stress by discharge and Other Additional outcome/goals: Intervention/Plan: See List Interventions/Plan:: Assess stressors,coping strategies & signs of derpression on admission, Instruct/assist pt to develop coping & personal stress Mgt strategies, Refer to Behavioral Health if appropriate, Refer to Physician if appropriate, Instruct patient to recognize signs & symptoms of depression, Instruct patient to recog and Other additional plan/intervention 30-day Reassessments: 30 day Reassessments:: Progressing Reassessment Notes & Comments:: Pt is very emotional due to of her spouse and current health issues. Pt is in counseling at 180. Psychosocial - 60-Day Assess Target Goals Target Goals Referral to Behavioral Health PS - Interventions: Yes: Attend Stress Management Classes Outcomes/Goals: See list Psychosocial Outcomes/Goals:: ID's personal stressors & 2 strategies to manage stress by discharge and Other Additional outcome/goals: Psychosocial - 90-Day Assess Target Goals Target Goals Referral to Behavioral Health PS - Interventions: Yes: Attend Stress Management Classes Psychosocial - Final Assessmen Target Goals Target Goals Referral to Behavioral Health PS - Interventions: Yes: Attend Stress Management Classes Nutrition - 90-Day Assessment Weight Mgt (Other Care) Height: 5 ft 4.17 in Weight:: 170 lb 8 oz BMI: 29.1 Nutrition - Final Assessment Weight Mgt (Other Care) Height: 5 ft 4.17 in Weight:: 170 lb 8 oz BMI: 29.1
[2024-12-19 08:26] VITALS: BP 92/60; BMI 29.1
== END 2024-12-21 23:59 ==
LOC: CR 13:00
PROVIDERS: PCP Clinical Nurse Specialist Adult Health; Referring Provider Internal Medicine Cardiovascular Disease; Visit Provider Internal Medicine Cardiovascular Disease
DX: I25.10 Atherosclerotic heart disease of native coronary artery without angina pectoris (principal); Z95.5 Presence of coronary angioplasty implant and graft
CPT/HCPCS: 93798

== ENCOUNTER 2025-01-20 13:00 | Outpatient (RCR) | payer MEDICAID, SELFPAY ==
[2024-12-22 00:42] VITALS: BP 92/60
--- NOTE | 2025-01-16 10:16 | PCM.CR.ITP ---
Exercise - Initial Assessment Physician Prescribed Exercise Modalities: Treadmill, SciFit Stepper and SciFit Pro-II Ergometer Nutrition - Initial Assessment Weight Mgt (Other Care) Height: 5 ft 4.17 in Weight:: 168 lb 8 oz BMI: 28.8 Core - Initial Assessment Hypertension Resting Blood Pressure:: 88/40 [place] [employer] Hypertension Guidelines Psychosocial - Initial Assess Target Goals Target Goals Referral to Behavioral Health PS - Interventions: Yes: Attend Stress Management Classes Patient Health Questionnaire PHQ-9 Screening 60-Day Re-eval Assessment: 1. Little interest or pleasure in doing things: Nearly every day 2. Feeling down, depressed, or hopeless: Nearly every day 3. Trouble falling or staying asleep, or sleeping too much: More than half the days 4. Feeling tired or having little energy: Nearly every day 5. Poor appetite or overeating: More than half the days 6. Feeling bad about yourself -- or that you are a failure or have let yourself or your family down: More than half the days 7. Trouble concentrating on things, such as reading the newspaper or watching television: Several days 8. Moving or speaking so slowly that other people could have noticed. Or the opposite - being so fidgety or restless that you have been moving around a lot more than usual: Several days 9. Thoughts that you would be better off , or of hurting yourself in some way: Not at all How difficult have these problems made it for you to do your work, take care of things at home, or get along with other people?: Somewhat difficult Total Score: 17 Self-Efficacy 6-Item Scale 60-Day Re-eval Assessment: We would like to know how confident you are in doing certain activities. Please select your confidence level for: Fatigue Select Number: 2 Physical Discomfort or Pain Select Number: 4 Emotional Distress Select Number: 3 Other Symptoms or Health Problems Select Number: 3 Different Tasks and Activities Select Number: 4 Medication Select Number: 4 Total Score:: 3 Nutrition Survey Nutrition Survey Instructions Scoring Instructions Exercise - 30-day Assessment Physician Prescribed Exercise Modalities: Treadmill, SciFit Stepper and SciFit Pro-II Ergometer Exercise - 60-day Assessment Visit Date of Eval: 01/16/25 Session #:: 17 Physician Prescribed Exercise Modalities: Treadmill, SciFit Stepper and SciFit Pro-II Ergometer Frequency: 3x/week for 12 weeks [36 sessions] Intensity: 60-80% of age predicted maximum heart rate reserve Duration: 30 - 45 minutes Current METSs:: 6 Target Heart Rate:: 101-126 Current RPE:: 11-12 Maximum Excercise HR:: 71 Resting Blood Pressure: 98/40 Maximum Exercise Blood Pressure: 88/40 EKG Type: SB- NSR with rare PAC Outcomes & Goals Goals:: Verbalizes understanding of THR, RPE & goal METS by session 6, Documents in home exercise log/reports 30 min aerobic 5 day/wk by DC, Demonstrates accurate pulse taking by DC and Other additional outcome/goals: see below Intervention & Plan Exercise Program Goals: Instruct on personal THR & RPE, Instruct on MET level & personal MET goal, Show patient to take own pulse /validate performance until accurate, Instruct on home exercise and Other additional plan/int Physical Activity Home Exercise Physical Activity - Home Exercise: Safe Exercise, Warm-up, Self-monitoring, Cool-Down, Home Exercise > 30 min Daily and Sitting Time <3 hours/daily Outcomes & Goals Outcomes/Goals: Demonstrates correct Warm-up/exercise Cool-Down (S3) if = 2.5 METs, Verbalizes symptoms of exercise intolerance by Session 3 (S3), Demonstrate safe equipment use (S3) & follows exercise prescrition (6) and Other: See below Intervention & Plan Plan/Intervention: Instruct warm-up & cool-down if exercising at > 2 METs, Instruct on symptoms of exercise intolerance & actions to take, Instruct & monitor on saf, Assess intial functional capacity & safety risk and Other See below 30-day Reassessments 30 day Reassessments:: Progressing Reassessment Notes & Comments:: Proper warm up and cool down explained and demonstrated to pt. Pt is able to return demonstration in her daily sessions. Exercise - 90-day Assessment Physician Prescribed Exercise Modalities: Treadmill, SciFit Stepper and SciFit Pro-II Ergometer Exercise - Final/Discharge Physician Prescribed Exercise Modalities: Treadmill, SciFit Stepper and SciFit Pro-II Ergometer Nutrition - 30-Day Assessment Weight Mgt (Other Care) Height: 5 ft 4.17 in Weight:: 168 lb 8 oz BMI: 28.8 Nutrition - 60-Day Assessment Program Goals Nutrition Program Goals Patient has diagnosis of Hyperlipidemia (ICD E78)?: Yes Visit Date of Eval: 01/16/25 Session #:: 17 Cholesterol/Lipids (Other Core Measures) Determine presence & major risk factors that modify LDL goal: Cigarette smoking, Hypertension or hypertensive medication, Low HDL cholesterol <40 mg/dL*, Family history of premature CHD in Male < 55 years: female <65 yearsFa and Age men > 45 years; women >/= 55 years Outcomes/Goals: Pt IDs own risk factors & lifestyle modifications by Session 10, Verbalizes symptoms of angina & response by session 3., Pt independently manages and Other Additional Outcomes/Goals: Intervention/Plan: Advocate for lipid panel cholesterol medication if applicable, Instruct on personal lipid levels & lipid goals/NCEP guidelines, Instruct on cholesterol and Other additional plan/int Diabetes (Other Core Measures) Diabetes Type: Diagnosis Type II ICD-10 E11 Fasting blood glucose:: 122 Insulin dependent injection/pump?: No Non-Insulin Dependent?: Yes Do you monitor your blood sugar at home?: Yes 30-day Reassessments:: Progressing Reassessment Notes & Comments:: Most recent BS was 122. This is an improvement from previous sessions. Will continue to monitor. Weight Mgt (Other Care) Height: 5 ft 4.17 in Weight:: 168 lb 8 oz BMI: 28.8 Diagnosis Overweight/Obesity BMI> 30% ICD-10 E66: No Diagnosis High BMI/Morbid Obesity BMI> 35% ICD-10 Z68: No Outcomes/Goals: Pt sets, maintains & shows weight loss goal & trend during rehab and Other additional outcomes/goals Intervention/Plan: Instruct on ideal BMI & set weight loss goal w/patient, Assist pt to ID & incorporate diet changes for weight loss by S9, Refer to Structured Weight Loss program as appropriate, Encourage goal of using 250-300dcal per session for weight loss and Other additional plan/interventions Healthy Eating Habits Will attend diet classes:: Yes Outcomes/Goals:: Consume diet rich in vegs,fruits,whole grain/high fiber,fish,lean meat, Limit sat/trans fats,cholesterol & added salts & sugars and Other additional outcome/goals: Intervention/Plan:: Assess current eating habits and Other Additional plan/interventions 30-day Reassessments:: Met Reassessment Notes & Comments:: Pt has attended nutrition class. Will continue to encourage a heart healthy low sodium diet. Education Gave educational materials for:: Signs & symptoms of hypoglycemia, Signs & symptoms of hyperglycemia, Relate diabetes to coronary artery disease and Healthy eating Core - Final Assessment Tobacco Use How many cigarettes do you smoke per day?: 30 Years Smokin Hypertension Resting Blood Pressure:: 88/40 [place] [employer] Hypertension Guidelines Core - 60-Day Assessment Visit Date of Eval: 01/16/25 Session #:: 17 Medication Compliance Preventative Medication(s):: Aspirin, Clopidogrel/P2Y12 inhibit, Statin/lipid and Beta coleman H/O mental health issues: depression, anxiety, or addiction?: No Doesn’t believe in the benefits of treatment?: No Believes medications are unnecessary or harmful?: No Has a concern about medication side effects?: No Expresses concern over the cost of medications?: No Outcomes/Goals: Verbalizes medications,desired effect & common side effects @ DC, Pt self-reports following medication regimen, Keeps card in wallet w/medications listed by DC and Other additional outcome/goals: Interventions/plans: Instruct on medication effects & side effects, Review medication list w/patient every two weeks, Instruct importance of taking meds as ordered & assist problem solving and Other additional Tobacco Use Tobacco Use: Cigarettes How many cigarettes do you smoke per day?: 30 Years Smokin Outcomes/Goals: Smoking cessation achieved or maintained by discharge, Identify aids/strategies for achieving smoking cessation by session 6 and Other additional outcome/goals Interventions/plan: Instruct on effects of smoking & provide smoking cessation resource, Assist pt to set quit date & provide encouragement, Assist pt to develop strategies to achieve/maintain quit date, Assist pt w/nicotine replacement & medication for cessation success and Other additional plan/interventions 30-day Reassessments:: Progressing Reassessment Notes & Comments:: Pt will attend smoking class. 1 on 1 smoking cessation offered as well. Pt declines for now. Hypertension Hypertension Diagnosis:: Hypertension ICD-10 I10 Resting Blood Pressure:: 98/40 Resting Blood Pressure:: 88/40 [place] [employer] Hypertension Guidelines Peak Exercise Blood Pressure:: 104/52 Outcomes/Goals: Able to verbalize/achieve optimal blood pressure <130/80, Incorporates diet changes & exercise for blood pressure control by DC and Other additional outcomes/goals Interventions/plan: Instruct on optimal blood pressure, hypertension & medications, Instruct on effects of sodium, alcohol, stress, exercise &hypertension and Other additional plan/interventions 30 day Reassessments:: Met Reassessment Notes & Comments:: Pt's BP's are within AHA normal limits. Will continue to monitor and report to pt's physician if necessary. Tobacco Cessation Referral Education Schedule Given:: Yes Psychosocial - 30-Day Assess Target Goals Target Goals Referral to Behavioral Health PS - Interventions: Yes: Attend Stress Management Classes Outcomes/Goals: See list Psychosocial Outcomes/Goals:: ID's personal stressors & 2 strategies to manage stress by discharge and Other Additional outcome/goals: Psychosocial - 60-Day Assess VIsit Date of Eval: 01/16/25 Session #:: 17 History of previous Mental disease:: Yes Self-reported stressors Other/Comments:: Family and Recent Illness (Pt is emotioinal due to the recent of her spouse and current health issues. Pt is in counseling at 180.) Target Goals Target Goals Psychosocial Test Tool Used:: PHQ-9 Questionnaire phq-9 Severity See PHQ-9 Score: 17 Referral to Behavioral Health PS - Interventions: Yes: Attend Stress Management Classes Outcomes/Goals: See list Psychosocial Outcomes/Goals:: ID's personal stressors & 2 strategies to manage stress by discharge and Other Additional outcome/goals: Intervention/Plan: See List Interventions/Plan:: Assess stressors,coping strategies & signs of derpression on admission, Instruct/assist pt to develop coping & personal stress Mgt strategies, Refer to Behavioral Health if appropriate, Refer to Physician if appropriate, Instruct patient to recognize signs & symptoms of depression, Instruct patient to recog and Other additional plan/intervention 30-day Reassessments: 30 day Reassessments:: Progressing Reassessment Notes & Comments:: Pt is emotioinal due to the recent of her spouse and current health issues. Pt is in counseling at 180. Psychosocial - 90-Day Assess Target Goals Target Goals Referral to Behavioral Health PS - Interventions: Yes: Attend Stress Management Classes Psychosocial - Final Assessmen Target Goals Target Goals Referral to Behavioral Health PS - Interventions: Yes: Attend Stress Management Classes Nutrition - 90-Day Assessment Weight Mgt (Other Care) Height: 5 ft 4.17 in Weight:: 168 lb 8 oz BMI: 28.8 Nutrition - Final Assessment Weight Mgt (Other Care) Height: 5 ft 4.17 in Weight:: 168 lb 8 oz BMI: 28.8
[2025-01-16 10:25] VITALS: BP 98/40
[2025-01-16 10:41] VITALS: BP 88/40; BP 98/40; BMI 28.8
== END 2025-01-20 23:59 ==
LOC: CR 13:00
PROVIDERS: PCP Clinical Nurse Specialist Adult Health; Referring Provider Internal Medicine Cardiovascular Disease; Visit Provider Internal Medicine Cardiovascular Disease
DX: Z95.5 Presence of coronary angioplasty implant and graft (principal); I25.10 Atherosclerotic heart disease of native coronary artery without angina pectoris
CPT/HCPCS: 93798

== ENCOUNTER 2025-02-19 13:00 | Outpatient (RCR) | payer MEDICAID, SELFPAY ==
[2025-01-16 10:41] VITALS: BMI 28.8
--- NOTE | 2025-02-13 08:58 | CR.ITP_ITS ---
Exercise - Initial Assessment Physician Prescribed Exercise Modalities: Treadmill, Rower, Schwinn Airdyne AD-7, SciFit Stepper, SciFit Pro- II Ergometer and SciFit Lateral Director [place] Nutrition - Initial Assessment Weight Mgt (Other Care) Height: 5 ft 4 in Weight:: 169 lb BMI: 29.0 Psychosocial - Initial Assess Target Goals Target Goals Referral to Behavioral Health PS - Interventions: Yes: Attend Stress Management Classes Patient Health Questionnaire PHQ-9 Screening 90-Day Re-eval Assessment: 1. Little interest or pleasure in doing things: Nearly every day 2. Feeling down, depressed, or hopeless: Nearly every day 3. Trouble falling or staying asleep, or sleeping too much: More than half the days 4. Feeling tired or having little energy: Nearly every day 5. Poor appetite or overeating: More than half the days 6. Feeling bad about yourself -- or that you are a failure or have let yourself or your family down: More than half the days 7. Trouble concentrating on things, such as reading the newspaper or watching television: Several days 8. Moving or speaking so slowly that other people could have noticed. Or the opposite - being so fidgety or restless that you have been moving around a lot more than usual: Several days 9. Thoughts that you would be better off , or of hurting yourself in some way: Not at all How difficult have these problems made it for you to do your work, take care of things at home, or get along with other people?: Somewhat difficult Total Score: 17 Self-Efficacy 6-Item Scale 90-Day Re-eval Assessment: We would like to know how confident you are in doing certain activities. Please select your confidence level for: Fatigue Select Number: 2 Physical Discomfort or Pain Select Number: 4 Emotional Distress Select Number: 3 Other Symptoms or Health Problems Select Number: 3 Different Tasks and Activities Select Number: 4 Medication Select Number: 4 Total Score:: 3 Nutrition Survey Nutrition Survey Instructions Scoring Instructions Exercise - 30-day Assessment Physician Prescribed Exercise Modalities: Treadmill, Rower, Schwinn Airdyne AD-7, SciFit Stepper, SciFit Pro- II Ergometer and SciFit Lateral [place] Exercise - 60-day Assessment Physician Prescribed Exercise Modalities: Treadmill, Rower, Schwinn Airdyne AD-7, SciFit Stepper, SciFit Pro-II Ergometer and SciFit Lateral [place] Exercise - 90-day Assessment Visit Date of Eval: 02/13/25 Session #:: 26 Physician Prescribed Exercise Modalities: Treadmill, RowerHannah AD-7, SciFit Stepper, SciFit Pro- II Ergometer and SciFit Lateral Director [place] Frequency: 3x/week for 12 weeks [36 sessions] Intensity: 60-80% of age predicted maximum heart rate reserve Duration: 30 - 45 minutes METs - Progression 0.5-1.0 weekly:: 0.5-1.0 Current METSs:: 7 Target Heart Rate:: 101-126 Target RPE 12-16:: 12-16 Current RPE:: 12 Maximum Excercise HR:: 86 Resting Blood Pressure: 118/78 Maximum Exercise Blood Pressure: 122/74 EKG Type: SB-NSR rare PAC Current Physical Activity or Exercising minutes: 30-45 Outcomes & Goals Goals:: Verbalizes understanding of THR, RPE & goal METS by session 6, Documents in home exercise log/reports 30 min aerobic 5 day/wk by DC and Demonstrates accurate pulse taking by DC Intervention & Plan Exercise Program Goals: Instruct on personal THR & RPE, Instruct on MET level & personal MET goal, Show patient to take own pulse /validate performance until accurate and Instruct on home exercise 30-day Reassessments 30 day Reassessments:: Met Reassessment Notes & Comments:: PT uses RPE scale accurately, pt progressing consistently in MET goals Physical Activity Home Exercise Physical Activity - Home Exercise: Safe Exercise, Warm-up, Self-monitoring, Cool-Down, Home Exercise > 30 min Daily and Sitting Time <3 hours/daily Outcomes & Goals Outcomes/Goals: Demonstrates correct Warm-up/exercise Cool-Down (S3) if = 2.5 METs, Verbalizes symptoms of exercise intolerance by Session 3 (S3) and Demonstrate safe equipment use (S3) & follows exercise prescrition (6) Intervention & Plan Plan/Intervention: Instruct warm-up & cool-down if exercising at > 2 METs, Instruct on symptoms of exercise intolerance & actions to take, Instruct & monitor on saf and Assess intial functional capacity & safety risk 30-day Reassessments 30 day Reassessments:: Met Reassessment Notes & Comments:: Pt completes correct warm up and cool down with no instruction, pt follows exercise prescription and demonstrates safe use of equipment Exercise - Final/Discharge Physician Prescribed Exercise Modalities: Treadmill, Rower, Hannah Airdyne AD-7, SciFit Stepper, SciFit Pro- II Ergometer and SciFit Lateral [place] Nutrition - 30-Day Assessment Weight Mgt (Other Care) Height: 5 ft 4 in Weight:: 169 lb BMI: 29.0 Nutrition - 60-Day Assessment Weight Mgt (Other Care) Height: 5 ft 4 in Weight:: 169 lb BMI: 29.0 Core - 30-Day Assessment Hypertension [employer] Hypertension Guidelines Reassessment Notes & Comments:: Pt taking antihypertensive medication as prescribed and maintaining optimal resting BP Core - Final Assessment Hypertension [employer] Hypertension Guidelines Reassessment Notes & Comments:: Pt taking antihypertensive medication as prescribed and maintaining optimal resting BP Core - 90 Day Assessment Visit Date of Huy: 02/13/25 Session #:: 26 Medication Compliance Preventative Medication(s):: Aspirin, Clopidogrel/P2Y12 inhibit, Statin/lipid and Beta coleman H/O mental health issues: depression, anxiety, or addiction?: No Doesn?t believe in the benefits of treatment?: No Believes medications are unnecessary or harmful?: No Has a concern about medication side effects?: No Expresses concern over the cost of medications?: No Outcomes/Goals: Verbalizes medications,desired effect & common side effects @ DC, Pt self-reports following medication regimen and Keeps card in wallet w/medications listed by DC Interventions/plans: Instruct on medication effects & side effects, Review medication list w/patient every two weeks and Instruct importance of taking meds as ordered & assist problem solving 30-day Reassessments:: Met Reassessment Notes & Comments:: PT taking all medications as prescribed Tobacco Use Tobacco Use: Cigarettes How many cigarettes do you smoke per day?: 30 Years Smokin Outcomes/Goals: Smoking cessation achieved or maintained by discharge and Identify aids/strategies for achieving smoking cessation by session 6 Interventions/plan: Instruct on effects of smoking & provide smoking cessation resource, Assist pt to set quit date & provide encouragement, Assist pt to develop strategies to achieve/maintain quit date and Assist pt w/nicotine replacement & medication for cessation success 30-day Reassessments:: Progressing Reassessment Notes & Comments:: Pt states she will attend smoking cessation classes, 1 on 1 smoking cessation offered as well, pt declines for now. Hypertension Hypertension Diagnosis:: Hypertension ICD-10 I10 Resting Blood Pressure:: 118/78 [employer] Hypertension Guidelines Peak Exercise Blood Pressure:: 122/74 Outcomes/Goals: Able to verbalize/achieve optimal blood pressure <130/80 and Incorporates diet changes & exercise for blood pressure control by DC Interventions/plan: Instruct on optimal blood pressure, hypertension & medications and Instruct on effects of sodium, alcohol, stress, exercise &hypertension 30 day Reassessments:: Progressing Reassessment Notes & Comments:: Pt taking antihypertensive medication as prescribed and maintaining optimal resting BP Tobacco Cessation Referral Education Schedule Given:: Yes Psychosocial - 30-Day Assess Target Goals Target Goals Referral to Behavioral Health PS - Interventions: Yes: Attend Stress Management Classes Psychosocial - 60-Day Assess Target Goals Target Goals Referral to Behavioral Health PS - Interventions: Yes: Attend Stress Management Classes Psychosocial - -Day Assess VIsit Date of Eval: 02/13/25 Session #:: 26 History of previous Mental disease:: Yes (Pt is emotional due to recent of her spouse and current health issues) Self-reported stressors Other/Comments:: Family and Recent Illness Target Goals Target Goals Psychosocial Test Tool Used:: PHQ-9 Questionnaire phq-9 Severity See PHQ-9 Score: 17 (pt denies any plans to harm herself. Pt states she is emotional from recent of her spouse and health issues. Pt has a strong support system by her son. ) Total Score:: 17 Referral to Behavioral Health PS - Interventions: Yes: Attend Stress Management Classes Outcomes/Goals: See list Psychosocial Outcomes/Goals:: ID's personal stressors & 2 strategies to manage stress by discharge Intervention/Plan: See List Interventions/Plan:: Assess stressors,coping strategies & signs of derpression on admission, Instruct/assist pt to develop coping & personal stress Mgt st rategies, Refer to Behavioral Health if appropriate, Refer to Physician if appropriate, Instruct patient to recognize signs & symptoms of depression and Instruct patient to recog 30-day Reassessments: 30 day Reassessments:: Progressing Reassessment Notes & Comments:: Pt has son as strong emotional support, pt continues working through the loss of her spouse, pt denies psychosocial needs from us at this time Psychosocial - Final Assessmen Target Goals Target Goals Psychosocial Test phq-9 Severity Total Score:: 17 Referral to Behavioral Health PS - Interventions: Yes: Attend Stress Management Classes Nutrition - -Day Assessment Visit Date of Eval: 02/13/25 Session #:: 26 Cholesterol/Lipids (Other Core Measures) Triglycerides (mg/dL): 180 Total Cholesterol (mg/dL): 89 LDL Cholesterol (mg/dL): 17 HDL Cholesterol (mg/dL): 36 Lipid Medication: rosuvastatin 40mg QD Determine presence & major risk factors that modify LDL goal: Cigarette smoking, Hypertension or hypertensive medication, Low HDL cholesterol <40 mg/dL* and Family history of premature CHD in Male < 55 years: female <65 yearsFa Outcomes/Goals: Pt IDs own risk factors & lifestyle modifications by Session 10, Verbalizes symptoms of angina & response by session 3. and Pt independently manages Intervention/Plan: Advocate for lipid panel cholesterol medication if applicable, Instruct on personal lipid levels & lipid goals/NCEP guidelines and Instruct on cholesterol 30-day Reassessments:: Progressing Reassessment Notes & Comments:: Pt taking lipid medications as prescribed, pt encouraged to discuss with physician about yearly lipid panel Diabetes (Other Core Measures) Diabetes Type: Diagnosis Type II ICD-10 E11 Fasting blood glucose:: 100 Hgb A1C (4.2 -6.3): 7.6 Insulin dependent injection/pump?: No Non-Insulin Dependent?: Yes Do you monitor your blood sugar at home?: Yes Intervention/Plan:: Instruct on (cardiac carb controlled diet) 30-day Reassessments:: Progressing Reassessment Notes & Comments:: pt with constant BS monitoring device, monitoring BS regularly at home, pt encouraged to work on cardiac carb controlled diet Weight Mgt (Other Care) Height: 5 ft 4 in Weight:: 169 lb BMI: 29.0 Diagnosis Overweight/Obesity BMI> 30% ICD-10 E66: No Diagnosis High BMI/Morbid Obesity BMI> 35% ICD-10 Z68: No Outcomes/Goals: Pt sets, maintains & shows weight loss goal & trend during rehab Intervention/Plan: Instruct on ideal BMI & set weight loss goal w/patient, Assist pt to ID & incorporate diet changes for weight loss by S9, Refer to Structured Weight Loss program as appropriate and Encourage goal of using 250- 300dcal per session for weight loss 30 day Reassessments:: Met Healthy Eating Habits Will attend diet classes:: Yes Outcomes/Goals:: Consume diet rich in vegs,fruits,whole grain/high fiber,fish,lean meat and Limit sat/trans fats,cholesterol & added salts & sugars Intervention/Plan:: Assess current eating habits 30-day Reassessments:: Progressing Reassessment Notes & Comments:: PT encouraged to attend healthy eating and dietary classes Nutrition - Final Assessment Weight Mgt (Other Care) Height: 5 ft 4 in Weight:: 169 lb BMI: 29.0
[2025-02-13 09:01] VITALS: BP 118/78
[2025-02-13 09:21] VITALS: BP 118/78; BMI 29.0
== END 2025-02-20 23:59 ==
LOC: CR 13:00
PROVIDERS: PCP Clinical Nurse Specialist Adult Health; Referring Provider Internal Medicine Cardiovascular Disease; Visit Provider Internal Medicine Cardiovascular Disease
DX: Z95.5 Presence of coronary angioplasty implant and graft (principal); I25.10 Atherosclerotic heart disease of native coronary artery without angina pectoris
CPT/HCPCS: 93798

== ENCOUNTER 2025-03-07 13:00 | Outpatient (RCR) | payer MEDICAID, SELFPAY ==
[2025-02-13 09:21] VITALS: BMI 29.0
== END 2025-03-23 23:59 ==
LOC: CR 13:00
PROVIDERS: PCP Clinical Nurse Specialist Adult Health; Referring Provider Internal Medicine Cardiovascular Disease; Visit Provider Internal Medicine Cardiovascular Disease
DX: I10 Essential (primary) hypertension (principal); I25.10 Atherosclerotic heart disease of native coronary artery without angina pectoris
CPT/HCPCS: 93798